=== PATIENT | male | born 1965 | race Caucasian/White ===

== ENCOUNTER 2018-06-21 22:13 | Outpatient (REF) | payer BC, SELFPAY ==
[2018-06-21 22:30] LABS: HCT 40.5 % (40.0-50.0); HGB 13.3 g/dL (13.5-17.5); Mean Corp. HGB Concentration 32.8 g/dL (32.0-36.0); Mean Corpuscular Hemoglobin 28.2 pg (27.0-33.0); Mean Corpuscular Volume 85.8 fL (80-95); Platelet Count 416 x1000/uL (130-400); RBC 4.72 m/cumm (4.50-6.00); RBC Distribution Width 13.7 % (11.8-14.1); White Blood Cell Count 9.71 k/cumm (4.4-10.8)
[2018-06-21 22:41] LABS: ALT 18 U/L (12-78); AST 13 U/L (15-37); Albumin 3.4 g/dL (3.4-5.0); Alkaline Phosphatase 187 U/L (46-116); Anion Gap 9.2 mmol/L (3-11); BUN 9 mg/dL (7-18); Bilirubin, Total 0.2 mg/dL (0.2-1.0); CO2 26.8 mmol/L (21.0-32.0); CREATININE 0.75 mg/dL (0.70-1.30); Calcium 8.7 mg/dL (8.5-10.1); Chloride 100 mmol/L (98-107); Cholesterol 158 mg/dL (50-200); Glucose 182 mg/dL (70-100); HDL Cholesterol 41 mg/dL (40-60); LDL CHOLESTEROL 92 mg/dL (<100); Potassium 4.2 mmol/L (3.5-5.1); Sodium 136 mmol/L (136-145); Total Protein 7.5 g/dL (6.4-8.2); Triglyceride 127 mg/dL (30-150)
[2018-06-21 22:55] LABS: Bilirubin, Direct 0.08 mg/dL (0.00-0.20)
== END 2018-06-21 22:33 ==
LOC: NCHCN 22:13
PROVIDERS: PCP Internal Medicine; Visit Provider Internal Medicine
DX: E11.65 Type 2 diabetes mellitus with hyperglycemia (principal); I25.10 Atherosclerotic heart disease of native coronary artery without angina pectoris; G40.309 Generalized idiopathic epilepsy and epileptic syndromes, not intractable, without status epilepticus; J06.9 Acute upper respiratory infection, unspecified
CPT/HCPCS: 80048; 80061; 80076; 83721; 85027

== ENCOUNTER 2020-03-27 18:36 | Outpatient (REF) | payer BC, SELFPAY ==
[2020-03-27 22:17] LABS: HCT 42.7 % (40.0-50.0); HGB 13.9 g/dL (13.5-17.5); MCH 28.6 pg (27.0-33.0); MCHC 32.6 % (32.0-36.0); MCV 87.9 fL (80-95); MPV 10.7 fL (8.0-11.0); Platelet Count 388 10^3/uL (130-400); RBC 4.86 10^6/uL (4.36-5.78); RDW 13.6 % (11.8-14.1); RDW-SD 43.8 fL; WBC 8.34 10^3/uL (4.4-10.8)
[2020-03-27 23:03] LABS: ALT 12 U/L (16-63); AST 15 U/L (15-37); Albumin 3.7 g/dL (3.4-5.0); Alkaline Phosphatase 182 U/L (46-116); Anion Gap 7.4 mmol/L (3-11); BUN 10 mg/dL (7-18); Bilirubin, Total 0.2 mg/dL (0.2-1.0); CO2 27.6 mmol/L (21.0-32.0); CREATININE 0.87 mg/dL (0.70-1.30); Calcium 8.5 mg/dL (8.5-10.1); Calculated LDL 83 mg/dL (<100); Chloride 103 mmol/L (98-107); Cholesterol 152 mg/dL (<200); Folate 7.1 ng/mL (8.6-20.0); Glucose 301 mg/dL (74-106); HDL Cholesterol 44 mg/dL (40-60); Potassium 4.3 mmol/L (3.5-5.1); Sodium 138 mmol/L (136-145); Total Protein 7.5 g/dL (6.4-8.2); Triglyceride 126 mg/dL (<150)
[2020-03-27 23:22] LABS: NT-proBNP 114 pg/mL (<300)
== END 2020-03-27 18:56 ==
LOC: NCHCN 18:36
PROVIDERS: PCP Internal Medicine; Visit Provider Internal Medicine
DX: Z00.00 Encounter for general adult medical examination without abnormal findings (principal); E11.9 Type 2 diabetes mellitus without complications; I25.10 Atherosclerotic heart disease of native coronary artery without angina pectoris; E66.9 Obesity, unspecified
CPT/HCPCS: 80053; 80061; 85027; 82746; 83880

== ENCOUNTER 2021-02-07 02:41 | Outpatient (CLI) | payer BC, SELFPAY ==
[2021-02-08 10:10] LABS: HBs Antibody, Quant <3.1 mIU/mL (See Note); Hepatitis B Surface Ab Negative (See Note)
[2021-02-08 10:36] LABS: Varicella IgG Antibody Positive (See Note)
[2021-02-08 10:39] LABS: Measles IgG Antibody Positive (See Note)
[2021-02-08 10:41] LABS: Mumps Antibody IgG Negative (See Note)
[2021-02-08 10:44] LABS: Rubella IgG Ab (UVM) Positive (See Note)
[2021-02-11 13:54] LABS: TB Interpretation Negative (Negative); TB1 Ag minus Nil 0.02 IU/ml; TB2 Ag minus Nil 0.03 IU/mL
== END 2021-02-07 02:42 | disposition home or self-care (01) ==
LOC: LBO 02:41
PROVIDERS: PCP Internal Medicine; Visit Provider Nurse Practitioner Family
DX: Z02.1 Encounter for pre-employment examination (principal)
CPT/HCPCS: 36415; 86706; 86787; 86480; 86735; 86762; 86765

== ENCOUNTER 2021-04-01 17:05 | Outpatient (REF) | payer BC, SELFPAY ==
[2021-04-01 16:14] LABS: Anion Gap 9.1 mmol/L (3-11); BUN 15 mg/dL (7-18); CO2 27.9 mmol/L (21.0-32.0); CREATININE 0.8 mg/dL (0.70-1.30); Calcium 8.7 mg/dL (8.5-10.1); Calculated LDL 110 mg/dL (<100); Chloride 101 mmol/L (98-107); Cholesterol 182 mg/dL (<200); Glucose 169 mg/dL (74-106); HDL Cholesterol 51 mg/dL (40-60); Potassium 4.3 mmol/L (3.5-5.1); Sodium 138 mmol/L (136-145); Triglyceride 106 mg/dL (<150)
[2021-04-01 17:11] LABS: Hemoglobin A1C 7.3 % (<5.7)
== END 2021-04-01 17:06 | disposition home or self-care (01) ==
LOC: NCHCN 17:05
PROVIDERS: PCP Internal Medicine; Visit Provider Internal Medicine
DX: E11.9 Type 2 diabetes mellitus without complications (principal); I25.10 Atherosclerotic heart disease of native coronary artery without angina pectoris; E66.9 Obesity, unspecified
CPT/HCPCS: 80048; 80061; 83036

== ENCOUNTER 2021-09-30 15:29 | Outpatient (REF) | payer BC, SELFPAY ==
[2021-09-30 15:28] LABS: Calculated LDL 80 mg/dL (<100); Cholesterol 146 mg/dL (<200); HDL Cholesterol 51 mg/dL (40-60); Triglyceride 79 mg/dL (<150)
== END 2021-09-30 15:30 | disposition home or self-care (01) ==
LOC: NCHCN 15:29
PROVIDERS: PCP Internal Medicine; Visit Provider Internal Medicine
DX: E11.9 Type 2 diabetes mellitus without complications (principal); I25.10 Atherosclerotic heart disease of native coronary artery without angina pectoris; R60.0 Localized edema
CPT/HCPCS: 80061

== ENCOUNTER 2022-10-20 12:42 | Outpatient (REF) | payer BC, SELFPAY ==
[2022-10-20 17:19] LABS: HCT 44.8 % (40.0-50.0); MCH 30.1 pg (27.0-33.0); MCHC 33.5 % (32.0-36.0); MCV 90 fL (80-95); MPV 10.6 fL (8.0-11.0); Platelet Count 375 10^3/uL (130-400); RBC 4.98 10^6/uL (4.36-5.78); RDW 13.2 % (11.8-14.1); RDW-SD 43.3 fL; WBC 9.38 10^3/uL (4.4-10.8)
[2022-10-20 17:43] LABS: Hemoglobin A1C 6.7 % (<5.7)
[2022-10-20 17:47] LABS: ALT 21 U/L (16-63); AST 16 U/L (15-37); Albumin 3.7 g/dL (3.4-5.0); Alkaline Phosphatase 168 U/L (46-116); Anion Gap 9.5 mmol/L (3-11); BUN 11 mg/dL (7-18); Bilirubin, Total 0.2 mg/dL (0.2-1.0); CO2 28.5 mmol/L (21.0-32.0); CREATININE 0.9 mg/dL (0.70-1.30); Calculated LDL 88 mg/dL (<100); Chloride 101 mmol/L (98-107); Cholesterol 160 mg/dL (<200); Estimated GFR 100.24 (mL/min/1.73m2); Glucose 285 mg/dL (74-106); HDL Cholesterol 52 mg/dL (40-60); Potassium 4.7 mmol/L (3.5-5.1); Sodium 139 mmol/L (136-145); Total Protein 7.6 g/dL (6.4-8.2); Triglyceride 101 mg/dL (<150)
== END 2022-10-20 12:43 | disposition home or self-care (01) ==
LOC: NCHCN 12:42
PROVIDERS: PCP Internal Medicine; Visit Provider Internal Medicine
DX: Z00.00 Encounter for general adult medical examination without abnormal findings (principal)
CPT/HCPCS: 80053; 80061; 85027; 83036

== ENCOUNTER 2023-05-18 16:47 | Outpatient (REF) | payer BC, SELFPAY ==
--- NOTE | 2023-05-18 11:40 | SKI_PTH ---
PATIENT: Corwin Rosas LOC: [facility] U#:[id number] AGE/SX: 58/M ROOM: RE05/18/[address]: Socorro Lucas : 1965 BED: DIS: 05/18/2023 SPEC #: [id number] RECD: 05/18/23 17:46 STATUS: SUE REQ #: [id number] GOLDEN: 05/18/23 11:[address]: Socorro Lucas DEPT: Surgical Specimen RECD BY: Deidre Harris ENTERED: 05/18/23 17:46 SP TYPE: SKI OTHR DR: Blake Vasquez Tissues: 1 - SKIN BIOPSY(SHAVE/PUNCH) Procedures: SKIN LEVEL 4 Comments: [id number]
== END 2023-05-18 16:48 | disposition home or self-care (01) ==
LOC: LBN 16:47
PROVIDERS: PCP Internal Medicine; Visit Provider Registered Nurse Maternal Newborn
DX: H61.91 Disorder of right external ear, unspecified (principal); C44.212 Basal cell carcinoma of skin of right ear and external auricular canal
CPT/HCPCS: 88305

== ENCOUNTER 2023-06-10 12:21 | Outpatient (REF) | payer BC, SELFPAY ==
--- NOTE | 2023-06-10 11:30 | SKI_PTH ---
PATIENT: Corwin Rosas LOC: [facility] U#:[id number] AGE/SX: 58/M ROOM: RE06/10/[address]: Wilbert Wilson MD : 1965 BED: DIS: 06/10/2023 SPEC #: [id number] RECD: 06/10/23 17:08 STATUS: SUE REMee #: [id number] GOLDEN: 06/10/23 11:[address]: Wilbert Wilson DEPT: Surgical Specimen RECD BY: Deidre Harris ENTERED: 06/10/23 17:10 SP TYPE: SKI OTHR DR: Blake Vasquez Tissues: 1 - SKIN BIOPSY(SHAVE/PUNCH) Procedures: SKIN LEVEL 4 Comments: [id number]
== END 2023-06-10 12:22 | disposition home or self-care (01) ==
LOC: LBN 12:21
PROVIDERS: PCP Internal Medicine; Referring Provider Otolaryngology; Visit Provider Otolaryngology
DX: C44.212 Basal cell carcinoma of skin of right ear and external auricular canal (principal)
CPT/HCPCS: 88305

== ENCOUNTER 2023-07-06 17:21 | Outpatient (REF) | payer BC, SELFPAY ==
[2023-07-06 21:24] LABS: ALT 24 U/L (16-63); AST 18 U/L (15-37); Albumin 3.6 g/dL (3.4-5.0); Alkaline Phosphatase 188 U/L (46-116); Anion Gap 11.8 mmol/L (3-11); BUN 11 mg/dL (7-18); Bilirubin, Total 0.2 mg/dL (0.2-1.0); CO2 27.2 mmol/L (21.0-32.0); Calcium 8.9 mg/dL (8.5-10.1); Calculated LDL 64 mg/dL (<100); Chloride 101 mmol/L (98-107); Cholesterol 150 mg/dL (<200); Estimated GFR 87.78 (mL/min/1.73m2); Glucose 244 mg/dL (74-106); HDL Cholesterol 54 mg/dL (40-60); Potassium 4.1 mmol/L (3.5-5.1); Sodium 140 mmol/L (136-145); Total Protein 7.4 g/dL (6.4-8.2); Triglyceride 161 mg/dL (<150)
== END 2023-07-06 17:22 | disposition home or self-care (01) ==
LOC: NCHCN 17:21
PROVIDERS: PCP Family Medicine; Visit Provider Family Medicine
DX: E11.40 Type 2 diabetes mellitus with diabetic neuropathy, unspecified (principal)
CPT/HCPCS: 80053; 80061; 83036

== ENCOUNTER → 2023-11-20 21:45 | Emergency (ER) | payer BC, SELFPAY ==
[2023-11-20] VITALS (24 sets, daily range): BP systolic 113–157; BP diastolic 61–130; PULSE 88–97; RESP 20–27; TEMP 36.9; O2SAT 92–96
--- NOTE | 2023-11-20 21:45 | RT.EKG_ITS ---
APPROVED REPORT Exam: Resting ECG Reason for Exam: short of breath Patient Location: E HR:91 bpm ECG Measurements Heart Rate 91 AXIS WA 182 P 44 QRSd 103 QRS 22 QT 357 T 62 QTc 441 Conclusion Sinus rhythm...normal P axis, V-rate 60- 99 Probable left atrial enlargement...P >50mS, <-0.10mV V1 Inferior infarct, old...Q >35mS, II III aVF Physician: no stemi
--- NOTE | 2023-11-20 22:15 | DI.RAD_ITS ---
Exam(s) XR PORTABLE CHEST AP EXAM: XR PORTABLE CHEST AP CLINICAL HISTORY: left chest pain with inspiration TECHNIQUE: 2D digital imaging was performed of the chest. One image was obtained. An AP view was ob tained. COMPARISON: CR PORTABLE CHEST ONE VIEW from 03/10/[address] CHEST PE CTA from 11/20/2023 FINDINGS: MEDIASTINUM: Normal. HEART: Normal. PULMONARY VASCULATURE: Normal. LUNGS: There is atelectasis seen in the left lung base. No focal consolidating infiltrate is present . PLEURAL SPACE: No pleural effusion or pneumothorax. BONE:Within normal limits for the patient's age. OTHER FINDINGS:There is again seen elevation of the right hemidiaphragm. IMPRESSION: Left basilar atelectasis. No focal consolidating infiltrate. DATA REPOSITORY: RADIATION DOSE DELIVERED:
[2023-11-20 22:22] LABS: Absolute Eosinophil Count 0.15 10^3/uL (0.0-0.7); Absolute Lymphocyte Count 3.98 10^3/uL (1.2-3.4); Absolute Monocyte Count 1.43 10^3/uL (0.1-0.8); Absolute Neutrophil Count 7.14 10^3/uL (1.2-6.7); Basophils % 0.5 %; Eosinophils % 1.2 %; HCT 45.3 % (40.0-50.0); HGB 14.8 g/dL (13.5-17.5); Immature Grans % 0.8 %; Lymphocytes % 30.9 %; MCHC 32.7 % (32.0-36.0); MCV 89 fL (80-95); MPV 9.1 fL (8.0-11.0); Monocytes % 11.1 %; Neutrophils % 55.5 %; Platelet Count 425 10^3/uL (130-400); RDW 12.9 % (11.8-14.1); RDW-SD 42.2 fL; WBC 12.87 10^3/uL (4.4-10.8)
[2023-11-20 22:23] LABS: Absolute Basophil Count 0.06 10^3/uL (0.0-0.2)
--- NOTE | 2023-11-20 22:32 | W.ED.GENAD ---
Discharge Plan Disposition Patient Disposition: Home Condition: Good Discharge Details Clinical Impression: Pneumonia, Muscle spasm Primary Care Provider: Carmela Mike ED Provider: Ezekiel Alex Home Meds and New Rx's Prescriptions: New doxycycline hyclate 100 mg tablet 100 mg PO BID Qty: 20 0RF Continued ezetimibe 10 mg tablet 10 mg PO DAILY glimepiride 4 mg tablet 4 mg PO DAILY nitroglycerin 0.4 mg tablet, sublingual 0.4 mg sublingual Q5M PRN Rx Instructions: do not exceed 3 doses per episode metoprolol succinate 50 mg tablet extended release 24 hr 50 mg PO DAILY rosuvastatin 40 mg tablet 40 mg PO DAILY Rybelsus 3 mg tablet 3 mg PO DAILY Patient Comments: stopped about a week ago lamotrigine 200 MG tablet 200 mg PO BID phenytoin sodium extended [Dilantin Extended] 100 MG capsule 700 mg PO .QHS metformin 500 MG tablet 500 mg PO BID aspirin [Adult Low Dose Aspirin] 81 mg tablet,delayed release (DR/EC) 81 mg PO DAILY amoxicillin-pot clavulanate 875-125 mg tablet Patient Comments: TAKE ONE TABLET BY MOUTH TWICE A DAY FOR 7 DAYS Discharge Instructions Instructions: Community-Acquired Pneumonia, Adult (DC) Additional Instructions: At this time your laboratory workup has returned reassuring. There is no clear evidence of a cardiac cause of your current symptoms. As we discussed together I am concerned for potential mild pneumonia that was seen on your CAT scan. Since you are just about to start the Augmentin, please continue this prescription as prescribed. This should cover community-acquired pneumonia well. If you develop fever, worsening cough, or worsening pain please transition to the doxycycline instead. This prescription has been provided. 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 The Lidoderm patch has been applied. If this is found to be very helpful and effective you can get [id number] Lidoderm patches to reapply in that area. If you notice any worsening of your symptoms, or any new symptoms such as vomiting, diarrhea, fever, chills, shortness of breath, chest pain, numbness, weakness, or fainting , please return immediately to the emergency department for reevaluation. Please follow up with your primary care provider as soon as possible for reassessment and reevaluation. As always, it was a pleasure participating in your medical care today. Referrals: Carmela Mike [Primary Care Provider] - [facility] General Date/Time Provider Initiated Documentation: 11/20/23 21:53. HPI Narrative: 58-year-old male with a past medical history of previous heart attack in 2016 with 2 stents, diabetes mellitus, hypertension, high cholesterol, distant tobacco use 30 years ago, who presents today with shortness of breath and chest tightness. Patient states that it began yesterday morning, and is present in the left chest with tightness. He feels short of breath with activity and exertion. The tightness does not worsen with exertion, but it does worsen with movement left shoulder and muscular engagement. He also admits to a stabbing pain in his left shoulder blade when he moves his shoulder in certain ways. He denies any diaphoresis, numbness or tingling, vomiting or diarrhea. He states that this feels very different than his previous heart attack. He does take a daily baby aspirin. No other complaints at this time. No other modifying factors. No hemoptysis. No calf swelling or tenderness. No history of PEs. No recent long trips surgeries or procedures. Related Data Home Medications ?Medication ?Instructions ?Recorded ?Confirmed lamotrigine 200 mg tablet 200 mg PO BID 03/10/17 11/20/23 metformin 500 mg tablet 500 mg PO BID 03/10/17 11/20/23 phenytoin sodium extended 100 mg 700 mg PO .QHS 03/10/17 11/20/23 capsule (Dilantin Extended) ezetimibe 10 mg tablet 10 mg PO DAILY 04/08/23 11/20/23 glimepiride 4 mg tablet 4 mg PO DAILY 04/08/23 11/20/23 metoprolol succinate 50 mg 50 mg PO DAILY 04/08/23 11/20/23 tablet,extended release 24 hr nitroglycerin 0.4 mg sublingual 0.4 mg sublingual Q5M PRN 04/08/23 11/20/23 tablet rosuvastatin 40 mg tablet 40 mg PO DAILY 04/08/23 11/20/23 semaglutide 3 mg tablet (Rybelsus) 3 mg PO DAILY 04/08/23 11/20/23 amoxicillin 875 mg-potassium tab 07/26/24 clavulanate 125 mg tablet aspirin 81 mg tablet,delayed 81 mg PO DAILY 11/20/23 11/20/23 release (Adult Low Dose Aspirin) doxycycline hyclate 100 mg tablet 100 mg PO BID #20 tabs 11/21/23 Previous Rx's ?Medication ?Instructions ?Recorded doxycycline hyclate 100 mg tablet 100 mg PO BID #20 tabs 11/21/23 Allergies Allergy/AdvReac Type Severity Reaction Status Date / Time codeine AdvReac increased Verified 11/20/23 22:05 seizures General Stated Complaint: SOB SHERRIE: 2 Review of Systems All systems reviewed & are unremarkable except as noted in HPI and below Exam Narrative Exam Narrative: 1.Const: Well-nourished, Well-developed, appearing stated age 2.Eyes: PERRL, no conjunctival injection, and symmetrical lids. 3.ENT: Atraumatic external nose and ears. Moist MM. Neck: Symmetric, trachea midline, No thyromegaly. 4.CVS: +S1/S2, No murmurs or gallops. Peripheral pulses 2+ and equal in all extremities. Brisk capillary refill in all extremities. 5.RESP: Unlabored respiratory effort. Clear to auscultation bilaterally. No wheezes rales or rhonchi. Mild reproducible tenderness over the rhomboid major muscles. 6.GI: Soft, Nontender/Nondistended, No hepatosplenomegaly. No guarding or rebound. 7.MSK: Normocephalic/Atraumatic, Extremities w/o deformity or ttp No cyanosis or clubbing, Normal movement of all extremities 8.Skin: Warm, Dry. No rashes or lesions. 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 Sensation grossly intact, no focal neurologic deficits. 10.Psych: (AAO) x3. Appropriate mood and affect Course Vital Signs Vital signs: Vital Signs Temperature 36.9 C 11/20/23 21:51 Pulse 95 H 11/20/23 21:51 Respiratory Rate 27 H 11/20/23 21:51 Blood Pressure 157/130 H 11/20/23 21:51 Pulse Oximetry 95 11/20/23 21:51 Temperature 36.9 C 11/20/23 21:57 Temperature Source Oral 11/20/23 21:57 Pulse 95 H 11/20/23 21:57 Respiratory Rate 27 H 11/20/23 21:57 Respiratory Effort Short of Breath, Labored 11/20/23 21:57 Respiratory Depth Normal 11/20/23 21:57 Respiratory Pattern Normal 11/20/23 21:57 Blood Pressure 133/73 11/20/23 21:57 Blood Pressure Position Supine 11/20/23 21:57 Pulse Oximetry 95 11/20/23 21:57 Oxygen Delivery Method Room Air 11/20/23 21:57 Oxygen Flow Rate 0 11/20/23 21:51 Pain Level 2 11/20/23 21:57 Comment sharp pain that hAS BEEN HIGH 9/10 WORSE WITH A BREATH OR BELCHING 11/20/23 21:51 Lab/Test Results Lab/Test Results: Laboratory Tests Range/Units 11/20/23 22:12 WBC (4.4-10.8) 10^3/uL 12.87 H RBC (4.36-5.78) 10^6/uL 5.10 Hgb (13.5-17.5) g/dL 14.8 Hct (40.0-50.0) % 45.3 MCV (80-95) fL 89 MCH (27.0-33.0) pg 29.0 MCHC (32.0-36.0) % 32.7 RDW (11.8-14.1) % 12.9 Plt Count (130-400) 10^3/uL 425 H MPV (8.0-11.0) fL 9.1 Immature Gran % % 0.8 Neutrophils % % 55.5 Lymphocytes % % 30.9 Monocytes % % 11.1 Eosinophils % % 1.2 Basophils % % 0.5 Nucleated RBC % (0.0-0.3) % 0.0 Absolute Neutrophils (1.2-6.7) 10^3/uL 7.14 H Absolute Lymphocytes (1.2-3.4) 10^3/uL 3.98 H Absolute Monocytes (0.1-0.8) 10^3/uL 1.43 H Absolute Eosinophils (0.0-0.7) 10^3/uL 0.15 Absolute Basophils (0.0-0.2) 10^3/uL 0.06 Medical Decision Making 58-year-old male with a past medical history of previous heart attack in 2016 with 2 stents, diabetes mellitus, hypertension, high cholesterol, distant tobacco use 30 years ago, who presents today with shortness of breath and chest tightness. Patient states that it began yesterday morning, and is present in the left chest with tightness. He feels short of breath with activity and exertion. The tightness does not worsen with exertion, but it does worsen with movement left shoulder and muscular engagement. He also admits to a stabbing pain in his left shoulder blade when he moves his shoulder in certain ways. He denies any diaphoresis, numbness or tingling, vomiting or diarrhea. He states that this feels very different than his previous heart attack. He does take a daily baby aspirin. No other complaints at this time. No other modifying factors. No hemoptysis. No calf swelling or tenderness. No history of PEs. No recent long trips surgeries or procedures. Of note patient is currently on Augmentin for tooth infection. He just started it yesterday. Exam demonstrates well-appearing male, stable vital signs, mild reproducible tenderness over the left rhomboid muscles. No other signs of trauma or tenderness. No pain with movement of the shoulder itself otherwise. Differential appears inconsistent with dissection. PE less likely but on the differential. We will get a D-dimer. Cardiac etiology/ACS is on the differential but less likely. Concern for musculoskeletal etiology, including rhomboid muscle strain. Will evaluate for these etiologies, give full dose aspirin, monitor closely and reassess. EKG shows no evidence of STEMI. 2:26 AM Laboratory workup shows an elevated D-dimer, mild white count of 12.8, mild left shift. Troponin normal, proBNP normal suggesting no signs of heart strain, lipase normal. CT scan was ordered and shows evidence of atelectatic changes with scattered patchy groundglass opacities within the lungs concerning for potential inflammatory or infectious process. The patient's elevated white count and symptoms I do feel that there certainly may be an infectious component. Augmentin has been shown to be effective for community-acquired pneumonia in this area with current resistant patterns. We will recommend continuation of Augmentin use for the time being. Patient's repeat troponin is normal, pain is improved. 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 Symptoms at this time appear to be clinically inconsistent with ACS, PE or dissection. I do feel that the patient is stable for discharge with close follow-up on an outpatient basis. Lidoderm patch was applied to the patient's back and he tolerated this well. Recommend continued stretching, Lidoderm patch application as needed, and continued antibiotic use. Discussed red flags for which to return. I have extensively reviewed the treatment plan and discharge instructions with the patient and their family. I have addressed all patient concerns at this time. The patient and family was made aware of what symptoms to monitor for that would warrant a return to the emergency department. Discussed the plan with the patient and family, they demonstrate verbal understanding and agreement with our assessment and plan at this time. The documentation in this chart was dictated using [email or web address] dictation software. Please excuse any dictation errors. FINDINGS: Pulmonary arteries: There is no evidence of filling defects within the pulmonary arterial circulation to suggest pulmonary embolism. The pulmonary arteries are not enlarged. Aorta: The ascending, transverse and descending thoracic aorta appear normal without evidence of dissection, aneurysmal dilatation, pseudoaneurysm or aortic contrast leakage. The aorta and great vessels appear normal. Lungs: There is heterogeneous attenuation of the pulmonary parenchyma, consistent with air trapping from underlying small airways disease. Atelectatic changes and scarring present at the lung bases bilaterally. Scattered patchy ground-glass opacities within the lungs. These findings are nonspecific and may represent hypoventilatory change,edema, hemorrhage, or an infectious/inflammatory process (acute or chronic). Pleural spaces: There is no evidence of pneumothorax. There are no pleural effusions present. Heart: The cardiac structures are normal. Coronary arteries: There is moderate atherosclerotic calcification of the coronary arteries Lymph nodes: There is no evidence of lymphadenopathy. Bones/joints: The spine, sternum, ribs, and pectoral girdles show no evidence of acute abnormality. Soft tissues: There are no soft tissue masses or fluid collections. The upper abdominal viscera are unremarkable. Other findings: The mediastinal structures are normal. IMPRESSION: 1. There is heterogeneous attenuation of the pulmonary parenchyma, consistent with air trapping from underlying small airways disease. 2. Atelectatic changes and scarring present at the lung bases bilaterally. Scattered patchy groundglass opacities within the lungs. These findings are nonspecific and may represent hypoventilatory change,edema, hemorrhage, or an infectious/inflammatory process (acute or chronic). 3. There is no evidence of filling defects within the pulmonary arterial circulation to suggest pulmonary embolism. Thank you for allowing us to participate in the care of your patient. Dictated and Authenticated by: Steve Mattson MD 11/21/2023 12:21 AM Eastern Time ([place] & Can Quality:SDOH Health Related Social Needs: No Data to Display PFSH All Active Problems (Updated 11/21/23 @ 01:48 by Ezekiel Alex DO) Muscle spasm (Acute) Pneumonia (Acute) Medical History Basal cell carcinoma of right ear Lesion of skin of right ear Neuropathy due to type 2 diabetes mellitus Atherosclerosis of coronary artery without angina pectoris Screening for cancer Disorder of skin or subcutaneous tissue Edema Actinic keratosis [place] Chronic disease of tonsils and adenoids Idiopathic generalized epilepsy OCD (obsessive compulsive disorder) Anxiety disorder Obesity Type 2 diabetes mellitus without complication Surgical History History of cryosurgery Family History Mother Multiple sclerosis Social History Smoking/Tobacco Use Status: Former Tobacco Use Smoking risk assessment performed?: Yes Alcohol Intake: former Substance use type: does not use Housing: house Do you feel safe at home: Yes Do you feel safe in your relationship?: Yes
[2023-11-20 22:37] LABS: PTT Activated 29.4 sec (23.6-32.8); Prothrombin Time 10.1 sec (9.1-11.1)
[2023-11-20] MEDS: Aspirin 81 MG CHEW 324 MG CH (22:37)
[2023-11-20 22:46] LABS: ALT 21 U/L (16-63); AST 11 U/L (15-37); Albumin 3.6 g/dL (3.4-5.0); Alkaline Phosphatase 216 U/L (46-116); Anion Gap 9.5 mmol/L (3-11); BUN 12 mg/dL (7-18); Bilirubin, Total 0.26 mg/dL (0.2-1.0); CO2 28.5 mmol/L (21.0-32.0); CREATININE 0.8 mg/dL (0.70-1.30); Calcium 8.9 mg/dL (8.5-10.1); Chloride 101 mmol/L (98-107); Estimated GFR 103.22 (mL/min/1.73m2); Glucose 117 mg/dL (74-106); Lipase 59 U/L (16-77); NT-proBNP 73 pg/mL (<300); Potassium 3.9 mmol/L (3.5-5.1); Sodium 139 mmol/L (136-145); Total Protein 8.5 g/dL (6.4-8.2); Troponin I < 50 ng/L (< or =60)
[2023-11-20 23:10] LABS: D-Dimer 812 ng/mlFEU (<500)
--- NOTE | 2023-11-20 23:15 | DI.CT_ITS ---
Exam(s) CT CHEST PE CTA EXAM: CT CHEST PE CTA CLINICAL HISTORY: left chest pain, elevated dimer, eval for PE. TECHNIQUE: Imaging Protocol: Axial CT angiography was performed with multi-slice acquisition and mu lti-planar and/or 3D reconstructions. CONTRAST MATERIAL: Intravenous: Omnipaque 350 COMPARISON: CR,XR XR PORTABLE CHEST AP from 11/20/2023 FINDINGS: The examination is limited due to patient motion artifact. Tracheobronchial tree: Patent where visualized. Pulmonary parenchyma: There are areas of atelectasis seen in the lung bases particularly the right mi ddle and right lower lobes. There is a calcified granuloma in the right upper lobe. Pulmonary Arteries: Subsegmental level pulmonary arteries are compromised secondary to patient motion artifact. Within the limits of the examination, no pulmonary embolism is present. Mediastinum and Jenny: No dominant adenopathy or fluid collection. The esophagus is unremarkable. Visualized thyroid gland: Unremarkable. Pleura: No effusion or pneumothorax. Heart: The heart is not dilated. Coronary artery calcification is present. No pericardial effusion. Aorta: Thoracic aorta non-dilated. No evidence of dissection. Upper abdomen: Unremarkable. Soft tissues: Unremarkable. Bones: Within normal limits for the patient's age. IMPRESSION: 1. Within the limits of the examination, no pulmonary embolism is present. 2. No evidence of thoracic aortic dissection or aneurysm. 3. Atelectasis or scarring is seen in the lung bases. RADIATION DOSE DELIVERED: Total DLP DATA REPOSITORY: All CT scans at this facility are submitted to the National Radiology Data Registry (NRDR) Dose Index Registry (DIR) with the [employer] (ACR). RADIATION OPTIMIZATION: All CT scans at this facility use at least one of these dose optimization te chniques: automated exposure control; mA and/or kV adjustment per patient size (includes targeted exa ms where dose is matched to clinical indication); or iterative reconstruction.
--- NOTE | 2023-11-20 23:33 | DI.VRAD_ITS ---
PROCEDURE INFORMATION: Exam: XR Chest Exam date and time: 11/20/2023 11:18 PM Age: 58 years old Clinical indication: Pain; Chest pressure TECHNIQUE: Imaging protocol: Radiologic exam of the chest. Views: 1 view. COMPARISON: CR PORTABLE CHEST ONE VIEW 03/10/2017 1:37 PM FINDINGS: Lungs: There is diffuse mild nonspecific prominence of the pulmonary interstitium. Pleural spaces: There may be a small left pleural effusion. Heart/Mediastinum: The cardiac structures are normal. Bones/joints: The skeletal structures and soft tissues show no evidence of fracture or other acute processes. Soft tissues: The soft tissues of the extrathoracic region are unremarkable. Intraperitoneal space: There is a small amount of free intraperitoneal air. IMPRESSION: 1. There is diffuse mild nonspecific prominence of the pulmonary interstitium. 2. There may be a small left pleural effusion. Dictated and Authenticated by: Steve Mattson MD. Ordering:GIOVANNA Falcon MD
[2023-11-20] MEDS: Omnipaque 350 MG/ML 100 ML BTL IJ (23:55)
[2023-11-20] MEDS: Normal Saline - Diluent 50 ML VIAL IJ (23:55)
[2023-11-21] VITALS (19 sets, daily range): BP systolic 116–141; BP diastolic 64–82; PULSE 88–96; RESP 17–33; TEMP 36.7; O2SAT 93–95
--- NOTE | 2023-11-21 00:21 | DI.VRAD_ITS ---
PROCEDURE INFORMATION: Exam: CTA Chest With Contrast Exam date and time: 11/20/2023 11:51 PM Age: 58 years old Clinical indication: Pain; Shortness of breath; Chest pressure TECHNIQUE: Imaging protocol: Computed tomographic angiography of the chest with contrast. Exam focused on the arteries. 3D rendering (Not supervised by radiologist): MIP and/or 3D reconstructed images were created by the technologist. Contrast material: OMNIPAQUE 350; Contrast volume: 100 ml; Contrast route: INTRAVENOUS (IV); COMPARISON: CR XR PORTABLE CHEST AP 11/20/2023 11:18 PM FINDINGS: Pulmonary arteries: There is no evidence of filling defects within the pulmonary arterial circulation to suggest pulmonary embolism. The pulmonary arteries are not enlarged. Aorta: The ascending, transverse and descending thoracic aorta appear normal without evidence of dissection, aneurysmal dilatation, pseudoaneurysm or aortic contrast leakage. The aorta and great vessels appear normal. Lungs: There is heterogeneous attenuation of the pulmonary parenchyma, consistent with air trapping from underlying small airways disease. Atelectatic changes and scarring present at the lung bases bilaterally. Scattered patchy ground-glass opacities within the lungs. These findings are nonspecific and may represent hypoventilatory change,edema, hemorrhage, or an infectious/inflammatory process (acute or chronic). Pleural spaces: There is no evidence of pneumothorax. There are no pleural effusions present. Heart: The cardiac structures are normal. Coronary arteries: There is moderate atherosclerotic calcification of the coronary arteries. Lymph nodes: There is no evidence of lymphadenopathy. Bones/joints: The spine, sternum, ribs, and pectoral girdles show no evidence of acute abnormality. Soft tissues: There are no soft tissue masses or fluid collections. The upper abdominal viscera are unremarkable. Other findings: The mediastinal structures are normal. IMPRESSION: 1. There is heterogeneous attenuation of the pulmonary parenchyma, consistent with air trapping from underlying small airways disease. 2. Atelectatic changes and scarring present at the lung bases bilaterally. Scattered patchy ground-glass opacities within the lungs. These findings are nonspecific and may represent hypoventilatory change,edema, hemorrhage, or an infectious/inflammatory process (acute or chronic). 3. There is no evidence of filling defects within the pulmonary arterial circulation to suggest pulmonary embolism. Dictated and Authenticated by: Steve Mattson MD. Ordering:GIOVANNA Falcon MD
[2023-11-21 01:25] LABS: Troponin I < 50 ng/L (< or =60)
[2023-11-21] MEDS: Lidocaine 5% Patch 1 PATCH TP (01:52)
== END | disposition home or self-care (01) ==
LOC: ER 11-21 01:48 → RED 11-21 02:00
PROVIDERS: Emergency Provider Student in an Organized Health Care Education/Training Program; PCP Family Medicine
DX: J18.9 Pneumonia, unspecified organism (principal); R06.02 Shortness of breath; I10 Essential (primary) hypertension; Z86.74 Personal history of sudden cardiac arrest; Z95.5 Presence of coronary angioplasty implant and graft
CPT/HCPCS: 36415; 71275; 80053; 83690; 93005; 99285; 71045; 83880; 84484; 85025; 85379; 85610; 85730; 93010; 99283; J3490

== ENCOUNTER 2023-12-10 18:11 | Emergency (ER) | payer BC, SELFPAY ==
[2023-12-10 18:17] VITALS: BP 124/72; PULSE 107; RESP 17; TEMP 36.3; O2SAT 96
[2023-12-10 18:19] VITALS: BP 124/72; PULSE 107; RESP 17; TEMP 36.3; O2SAT 96
--- NOTE | 2023-12-10 19:15 | DI.RAD_ITS ---
Exam(s) XR CHEST 2V PA LATERAL EXAM: XR CHEST 2V PA LATERAL CLINICAL HISTORY: COUGH TECHNIQUE: 2D digital imaging was performed of the chest. Two images were obtained. PA and lateral views were obtained. COMPARISON: CR,XR XR PORTABLE CHEST AP from 11/20/2023 FINDINGS: MEDIASTINUM: Normal. HEART: Normal. PULMONARY VASCULATURE: Normal. LUNGS: No focal consolidations. PLEURAL SPACE: There is blunting of the left costophrenic angle suggesting a small pleural effusion. BONE:Within normal limits for the patient's age. OTHER FINDINGS:There is again seen elevation of the right hemidiaphragm. IMPRESSION: There has been interval development of a small left pleural effusion. DATA REPOSITORY: RADIATION DOSE DELIVERED:
--- NOTE | 2023-12-10 20:00 | RT.EKG_ITS ---
APPROVED REPORT Exam: Resting ECG Reason for Exam: chest pain Patient Location: E HR:103 bpm ECG Measurements Heart Rate 103 AXIS IA 183 P 29 QRSd 94 QRS 5 QT 334 T 36 QTc 439 Conclusion Sinus 103 normal axis no stemi
--- NOTE | 2023-12-10 20:28 | DI.VRAD_ITS ---
PROCEDURE INFORMATION: Exam: XR Chest Exam date and time: 12/10/2023 7:27 PM Age: 58 years old Clinical indication: Cough TECHNIQUE: Imaging protocol: Radiologic exam of the chest. Views: 2 views. COMPARISON: CT CHEST PE CTA 11/20/2023 11:51 PM FINDINGS: Lungs: Unremarkable. No consolidation. Pleural spaces: There is a small left pleural effusion. Possible trace right effusion. Heart/Mediastinum: Unremarkable. No cardiomegaly. Bones/joints: Unremarkable. IMPRESSION: Small left pleural effusion. Trace right effusion not excludable. Dictated and Authenticated by: Gifty Gandhi MD. Ordering:HowieBARNEY Harris MD
[2023-12-10] MEDS: Benzonatate 100 MG CAP 200 MG PO (21:16)
[2023-12-10] MEDS: Albuterol HFA 8 GM 60 PUFF INH IH (21:16)
--- NOTE | 2023-12-10 21:52 | ED.GENADUL_ITS ---
Discharge Plan Disposition Patient Disposition: Home Condition: Stable Discharge Details Clinical Impression: Cough Primary Care Provider: Carmela Mike ED Provider: Nick Mabry Home Meds and New Rx's Prescriptions: New benzonatate 100 mg capsule 100 mg PO TID PRN (Reason: cough) Qty: 14 0RF No Action ezetimibe 10 mg tablet 10 mg PO DAILY glimepiride 4 mg tablet 4 mg PO DAILY nitroglycerin 0.4 mg tablet, sublingual 0.4 mg sublingual Q5M PRN Rx Instructions: do not exceed 3 doses per episode metoprolol succinate 50 mg tablet extended release 24 hr 50 mg PO DAILY rosuvastatin 40 mg tablet 40 mg PO DAILY Rybelsus 3 mg tablet 3 mg PO DAILY Patient Comments: stopped about a week ago lamotrigine 200 MG tablet 200 mg PO BID phenytoin sodium extended [Dilantin Extended] 100 MG capsule 700 mg PO .QHS metformin 500 MG tablet 500 mg PO BID aspirin [Adult Low Dose Aspirin] 81 mg tablet,delayed release (DR/EC) 81 mg PO DAILY Discharge Instructions Additional Instructions: Symptoms may be secondary to pleurisy. Try taking NSAIDs every 6 hours to help with this. If you do not see a change in symptoms after a few days, you can discontinue the NSAIDs Use albuterol with spacer when you are having significant coughing Cough medication has been prescribed If symptoms are worsening, you are not significantly improving or you have other concerns, please return to the emergency department or follow-up with your primary care provider for reevaluation Discharge Data Discharge Date/Time-TO BE ENTERED AT DEPARTURE: 12/10/23 21:18 HPI General Date/Time Provider Initiated Documentation: 12/10/23 19:18 . Limitations to Documentation: no limitations . Information obtained by: patient . HPI Narrative: 58-year-old gentleman with past medical history of diabetes, seizure disorder, CAD presents for evaluation of pain with coughing. Reports that he was recently diagnosed with pneumonia and took a course of doxycycline. He reports that he is still having some cough. When he takes a deep breath he feels pain. He reports a cough that is worse at nighttime, does not have a productive cough. Denies fever or chills. No nausea or vomiting. He is eating and drinking well, is continuing to work without any difficulty. When working he does not have any chest pain or shortness of breath with exertion Related Data Home Medications ?Medication ?Instructions ?Recorded ?Confirmed lamotrigine 200 mg tablet 200 mg PO BID 03/10/17 12/10/23 metformin 500 mg tablet 500 mg PO BID 03/10/17 12/10/23 phenytoin sodium extended 100 mg 700 mg PO .QHS 03/10/17 12/10/23 capsule (Dilantin Extended) ezetimibe 10 mg tablet 10 mg PO DAILY 04/08/23 12/10/23 glimepiride 4 mg tablet 4 mg PO DAILY 04/08/23 12/10/23 metoprolol succinate 50 mg 50 mg PO DAILY 04/08/23 12/10/23 tablet,extended release 24 hr nitroglycerin 0.4 mg sublingual 0.4 mg sublingual Q5M PRN 04/08/23 12/10/23 tablet rosuvastatin 40 mg tablet 40 mg PO DAILY 04/08/23 12/10/23 semaglutide 3 mg tablet (Rybelsus) 3 mg PO DAILY 04/08/23 12/10/23 aspirin 81 mg tablet,delayed 81 mg PO DAILY 11/20/23 12/10/23 release (Adult Low Dose Aspirin) benzonatate 100 mg capsule 100 mg PO TID PRN cough #14 caps 12/10/23 Previous Rx's ?Medication ?Instructions ?Recorded benzonatate 100 mg capsule 100 mg PO TID PRN cough #14 caps 12/10/23 Allergies Allergy/AdvReac Type Severity Reaction Status Date / Time codeine AdvReac increased Verified 11/20/23 22:05 seizures General Stated Complaint: RespSymp SHERRIE: 4 Exam Narrative Exam Narrative: Review of Systems: All systems reviewed & are unremarkable except as noted in HPI and below Well-developed, no acute distress NCAT PERRL, normal conjunctiva RRR no murmur No chest wall tenderness Unlabored respiratory effort clear breath sounds bilaterally, no tachypnea, no hypoxia Nondistended abdomen Extremities w/o deformity, no cyanosis, no edema No rashes or lesions. no focal neurologic deficits Appropriate mood and affect Course Vital Signs Vital signs: Vital Signs Temperature 36.3 C L 12/10/23 18:17 Pulse 107 H 12/10/23 18:17 Respiratory Rate 17 12/10/23 18:17 Blood Pressure 124/72 12/10/23 18:17 Pulse Oximetry 96 12/10/23 18:17 Temperature 36.3 C L 12/10/23 18:19 Temperature Source Temporal Artery Scan 12/10/23 18:19 Pulse 107 H 12/10/23 18:19 Respiratory Rate 17 12/10/23 18:19 Respiratory Effort Normal, Non-Labored 12/10/23 20:15 Respiratory Depth Normal 12/10/23 20:15 Blood Pressure 124/72 12/10/23 18:19 Blood Pressure Position Sitting 12/10/23 18:19 Pulse Oximetry 96 12/10/23 18:19 Oxygen Delivery Method Room Air 12/10/23 18:19 Oxygen Flow Rate 0 12/10/23 18:19 Pain Level 0 12/10/23 21:15 Medical Decision Making Emergent evaluation of persistent cough. Initial differential includes persistent pneumonia, COVID, less likely to be ACS. Patient prior ED workup reviewed including CTA. No pulmonary embolism, pericardial effusion or significant abnormality noted. The chest x-ray today has the same left lower lobe change, likely scarring. He does not have concerning dose reduction of vital signs. EKG reviewed and independently interpreted, sinus normal axis, no acute ischemic change. Given his history of diabetes, do not feel comfortable treating with steroids, but do recommend trying some NSAIDs as there may be an element of pleurisy. Will also prescribe Tessalon Perles and albuterol to use as needed for coughing. Recommend close re-evaluation if symptoms aren't improving. Medical Records Medical records reviewed: Yes I reviewed the patient's medical records. Quality:SDOH Health Related Social Needs: No Data to Display PFSH All Active Problems Cough (Acute) Muscle spasm (Acute) Pneumonia (Acute) Medical History Basal cell carcinoma of right ear Lesion of skin of right ear Neuropathy due to type 2 diabetes mellitus Atherosclerosis of coronary artery without angina pectoris Screening for cancer Disorder of skin or subcutaneous tissue Edema Actinic keratosis [place] Chronic disease of tonsils and adenoids Idiopathic generalized epilepsy OCD (obsessive compulsive disorder) Anxiety disorder Obesity Type 2 diabetes mellitus without complication Surgical History History of cryosurgery Family History Mother Multiple sclerosis Social History Smoking/Tobacco Use Status: Former Tobacco Use Smoking risk assessment performed?: Yes Alcohol Intake: former Substance use type: does not use Housing: house Do you feel safe at home: Yes Do you feel safe in your relationship?: Yes
== END 2023-12-10 21:18 | disposition home or self-care (01) ==
PROVIDERS: Emergency Provider Emergency Medicine; PCP Family Medicine
DX: R05.9 Cough, unspecified (principal)
CPT/HCPCS: 87426; 93005; 99284; 71046; 93010

== ENCOUNTER 2024-02-25 15:44 | Outpatient (REF) | payer BC, SELFPAY ==
[2024-02-25 15:58] LABS: Abs Immature Grans 0.05 10^3/uL (0.0-0.06); Absolute Basophil Count 0.04 10^3/uL (0.0-0.2); Absolute Eosinophil Count 0.02 10^3/uL (0.0-0.7); Absolute Lymphocyte Count 2.04 10^3/uL (1.2-3.4); Absolute Monocyte Count 0.85 10^3/uL (0.1-0.8); Absolute Neutrophil Count 5.63 10^3/uL (1.2-6.7); Basophils % 0.5 %; Eosinophils % 0.2 %; HCT 43.3 % (40.0-50.0); HGB 14.2 g/dL (13.5-17.5); Immature Grans % 0.6 %; Lymphocytes % 23.6 %; MCHC 32.8 % (32.0-36.0); MCV 88 fL (80-95); MPV 10.3 fL (8.0-11.0); Monocytes % 9.8 %; Neutrophils % 65.3 %; Platelet Count 418 10^3/uL (130-400); RDW 13.7 % (11.8-14.1); RDW-SD 43.7 fL; WBC 8.63 10^3/uL (4.4-10.8)
[2024-02-25 16:52] LABS: ALT 16 U/L (16-63); AST 11 U/L (15-37); Albumin 3.5 g/dL (3.4-5.0); Alkaline Phosphatase 201 U/L (46-116); Anion Gap 9.5 mmol/L (3-11); BUN 9 mg/dL (7-18); Bilirubin, Total 0.25 mg/dL (0.2-1.0); CO2 28.5 mmol/L (21.0-32.0); CREATININE 0.9 mg/dL (0.70-1.30); Chloride 103 mmol/L (98-107); Glucose 210 mg/dL (74-106); Magnesium 1.8 mg/dL (1.8-2.4); Potassium 4.7 mmol/L (3.5-5.1); Sodium 141 mmol/L (136-145); Total Protein 7.6 g/dL (6.4-8.2); Vitamin B12 276 pg/mL (193-986)
== END 2024-02-25 15:45 | disposition home or self-care (01) ==
LOC: NCHCN 15:44
PROVIDERS: PCP Family Medicine; Visit Provider Family Medicine
DX: E11.40 Type 2 diabetes mellitus with diabetic neuropathy, unspecified (principal); R06.09 Other forms of dyspnea
CPT/HCPCS: 80053; 82607; 83735; 85025

== ENCOUNTER 2024-02-29 01:48 | Outpatient (CLI) | payer BC, SELFPAY ==
--- NOTE | 2024-02-29 | DI.RAD_ITS ---
Exam(s) XR HIP PELVIS ADULT BL EXAM: XR HIP PELVIS ADULT BL CLINICAL HISTORY: NEO HIP JOINT PAIN, M25.551 PAIN RT HIP, M25.552 PAIN LT HIP. TECHNIQUE: 2D digital imaging was performed of the pelvis and bilateral hips. Three images were obt ained. AP pelvis and lateral views of both hips were obtained. COMPARISON: No exams were available for comparison FINDINGS: BONES: No acute fracture is present. No bony destructive lesion is seen. JOINTS: No dislocation present. There is narrowing of the superior joint space of the right hip. Mil d spurring is seen at the right acetabulum roof. There is mild spurring seen in the left acetabular roof. Sacroiliac joints and symphysis pubis are intact. SOFT TISSUE: Normal. IMPRESSION: Mild degenerative changes of the hips, right greater than left. DATA REPOSITORY: RADIATION DOSE DELIVERED:
== END 2024-02-29 02:08 ==
LOC: DI 01:48
PROVIDERS: PCP Family Medicine; Visit Provider Family Medicine
DX: M16.0 Bilateral primary osteoarthritis of hip (principal)
CPT/HCPCS: 73521

== ENCOUNTER 2024-04-15 15:45 | Outpatient (CLI) | payer BC, SELFPAY ==
--- OUTSIDE RECORDS SUMMARY | 2024-04-15 15:47 | XMS_ITS | Encounter Summary ---
Author Organization [facility] [place] [address] Care Team Providers Care Landfill Gas Collection Operator Name Role Phone Blake Vasquez MD Primary Care Provider [phone] Encounter Details Date Type Department Care Team (Late st Contact Info) Description 04/15/2017 Abstract Cardiology at [address] [id number] Sebastian Hernandez RN Social History Tobacco Use Types Packs/Day Years Used Date Smoking Tobacco: Former Cigarettes 1 3 1 991 - 1993 Smokeless Tobacco: Never Alcohol Use Standard Drinks/Week Comments No 0 (1 standard drink = 0.6 oz pur e alcohol) Quit social drinking in 1993 Sex and Gender Information Value Date Recorded Sex Assigned at Not on file Gender Identity Not on file Sexual Orientation Not on file documented as of this encounter Plan of Treatment Not on file documented as of this encounter Visit Diagnoses Not on filedocumented in this encounter Care Teams Landfill Gas Collection Operator Relationship Specialty Start Date End Date Blake Vasquez MD [address] [place], [place] [id number] PCP - General Internal Medicine 03/06/17 documented as of this encounter
--- OUTSIDE RECORDS SUMMARY | 2024-04-15 15:47 | XMS_ITS | Encounter Summary ---
Author Organization [facility] Address [address] [place] [address] Care Team Providers Care Counter Supply Worker Name Role Phone Blake Vasquez MD Primary Care Provider [phone] Encounter Details Date Type Department Care Team (Late st Contact Info) Description 02/07/2021 Lab Requisition [facility] Pathology & Laboratory Medicine - [facility] [address], [place] [id number] Outr Resulting Lab, Provider Social History Tobacco Use Types Packs/Day Years Used Date Smoking Tobacco: Former Smokeless Tobacco: Never Alcohol Use Standard Drinks/Week Comments No 0 (1 standard drink = 0.6 oz pur e alcohol) Sex and Gender Information Value Date Recorded Sex Assigned at Not on file Legal Sex Male 18:30 EST Gender Identity Not on file Sexual Orientation Not on file documented as of this encounter Plan of Treatment Not on file documented as of this encounter Procedures Procedure Name Priority Date/Time Associated Diagnosis Comments HOLD SST Today 02/07/2021 9:50 EDT HOLD SST Today 02/07/2021 9:50 EDT HOLD SST Today 02/07/2021 9:50 EDT HOLD SST Today 02/07/2021 9:50 EDT MEASLES IGG AB Today 02/07/2021 9:50 EDT RUBELLA IGG ANTIBODY Today 02/07/2021 9:50 EDT HEPATITIS B SURFACE ANTIBODY Today 02/07/2021 9:50 EDT VARICELLA IGG ANTIBODY Today 02/07/2021 9:50 EDT MUMPS ANTIBODY IGG Today 02/07/2021 9:50 EDT documented in this encounter Results * HOLD SST (02/07/2021 9:50 EDT) Hold Hold 02/07/2021 17:45 EDT [facility] Blood VENOUS BLOOD / Unknown 02/07/2021 9:50 EDT 02/07/2021 16:40 EDT us Provider Outr Resulting Lab LAB INFO SERVICE AND SUPPORT & PHONE RESULT Final Result Performing Organization Address [facility]/ZIP Co de Phone Number [facility] [address] [place] [address] * HOLD SST (02/07/2021 9:50 EDT) Hold Hold 02/07/2021 17:45 EDT [facility] Blood VENOUS BLOOD / Unknown 02/07/2021 9:50 EDT 02/07/2021 16:40 EDT us Provider Outr Resulting Lab LAB INFO SERVICE AND SUPPORT & PHONE RESULT Final Result Performing Organization Address [facility]/ZIP Co de Phone Number [facility] [address] [place] [address] * HOLD SST (02/07/2021 9:50 EDT) Hold Hold 02/07/2021 17:45 EDT [facility] Blood VENOUS BLOOD / Unknown 02/07/2021 9:50 EDT 02/07/2021 16:40 EDT us Provider Outr Resulting Lab LAB INFO SERVICE AND SUPPORT & PHONE RESULT Final Result Performing Organization Address City/[facility]/ZIP Co de Phone Number [facility] [address] [place] [address] * HOLD SST (02/07/2021 9:50 EDT) Hold Hold 02/07/2021 17:45 EDT [facility] Blood VENOUS BLOOD / Unknown 02/07/2021 9:50 EDT 02/07/2021 16:40 EDT us Provider Outr Resulting Lab LAB INFO SERVICE AND SUPPORT & PHONE RESULT Final Result Performing Organization Address [facility] Co de Phone Number [facility] [address] [place] [address] * HEPATITIS B SURFACE ANTIBODY (02/07/2021 9:50 EDT) Hep B Surface Ab, Quantitative <3.1 See Note mIU/mL 02/08/2021 10:04 EDT [facility] Comment: Reference Range for Hep B Surface Ab, Quant: Positive: >= 10.0 mIU/mL Negative: ??< 10.0 mIU/mL Patient is presumed to not be immune to infection with Hepatitis B Virus. Hep B Surface Ab, Qualitative Negative See Note 02/08/2021 10:04 EDT [facility] Comment: Reference Range for Hep B Surface Ab, Qual: Unvaccinated: ??Negative Vaccinated: ??Positive Blood VENOUS BLOOD / Unknown 02/07/2021 9:50 EDT 02/07/2021 16:29 EDT us Provider Outr Resulting Lab CHEMISTRY & BLOOD GA S ORDERABLES Final Result Performing Organization Address City/[facility]/ZIP Co de Phone Number [facility] [address] [place] [address] * MEASLES IGG AB (02/07/2021 9:50 EDT) Measles IgG Ab Positive See Note 02/08/2021 10:35 EDT [facility] Comment:Presence of detectab le measles virus IgG antibodies. Blood VENOUS BLOOD / Unknown 02/07/2021 9:50 EDT 02/07/2021 16:29 EDT us Provider Outr Resulting Lab IMMUNOLOGY AND SEROL OGY ORDERABLES Final Result Performing Organization Address [facility]/ZIP Co de Phone Number [facility] [address] [place] [address] * VARICELLA IGG ANTIBODY (02/07/2021 9:50 EDT) Varicella IgG Ab Positive See Note 02/08/2021 10:30 EDT [facility] Comment:Presence of detectab le Varicella Zoster virus IgG antibodies. Blood VENOUS BLOOD / Unknown 02/07/2021 9:50 EDT 02/07/2021 16:29 EDT us Provider Outr Resulting Lab IMMUNOLOGY AND SEROL OGY ORDERABLES Final Result Performing Organization Address [facility] Co de Phone Number [facility] [address] [place] [address] * MUMPS ANTIBODY IGG (02/07/2021 9:50 EDT) Mumps Antibody IgG Negative See Note 02/08/2021 10:37 EDT [facility] Comment:Absence of detectabl e mumps virus IgG antibodies. A negative result generally indicates that the patient is susceptible to mumps. Blood VENOUS BLOOD / Unknown 02/07/2021 9:50 EDT 02/07/2021 16:29 EDT us Provider Outr Resulting Lab IMMUNOLOGY AND SEROL OGY ORDERABLES Final Result Performing Organization Address [facility] Co de Phone Number [facility] [address] [place] [address] * RUBELLA IGG ANTIBODY (02/07/2021 9:50 EDT) Rubella IgG Ab Positive See Note 02/08/2021 10:40 EDT [facility] Comment:Positive for IgG ant ibodies to Rubella virus. Blood VENOUS BLOOD / Unknown 02/07/2021 9:50 EDT 02/07/2021 16:29 EDT us Provider Outr Resulting Lab CHEMISTRY & BLOOD GA S ORDERABLES Final Result [facility] [address] [place] [address] documented in this encounter Visit Diagnoses Not on filedocumented in this encounter Care Teams Counter Supply Worker Relationship Specialty Start Date End Date Blake Vasquez MD [address] [place] [id number] PCP - General 12/11/09 documented as of this encounter
--- OUTSIDE RECORDS SUMMARY | 2024-04-15 15:47 | XMS_ITS | Encounter Summary ---
Author Organization [facility] Address [address] [place] [address] Care Team Providers Care Parts Order And Stock Clerk Name Role Phone Blake Vasquez MD Primary Care Provider [phone] Encounter Details Date Type Department Care Team (Late st Contact Info) Description 08/20/2023 Lab Requisition [facility] Pathology & Laboratory Medicine - [facility] [address] [place], [place] [id number] Outr Resulting Lab, Provider Social History Tobacco [...] Procedure Name Priority Date/Time Associated Diagnosis Comments QUANTIFERON MITOGEN (PERFORMABLE) Today 08/19/2023 12:45 EDT QUANTIFERON TB2 (PERFORMABLE) Today 08/19/2023 12:45 EDT QUANTIFERON TB1 (PERFORMABLE) Today 08/19/2023 12:45 EDT QUANTIFERON NIL (PERFORMABLE) Today 08/19/2023 12:45 EDT QUANTIFERON INTERPRETATION (PERFORMABLE) Today 08/19/2023 12:45 EDT QUANTIFERON TB GOLD PLUS Routine 08/19/2023 12:45 EDT documented in this encounter Results * QUANTIFERON INTERPRETATION (PERFORMABLE) (08/19/2023 12:45 EDT) [facility] Quantiferon Interpretation Negative Negative 08/21/2023 13:47 EDT [facility] Comment:No interferon-gamma response to M. tuberculosis antigens was detected. ??Infection with M. tuberculosis is unlikely. A single negative result does not exclude infection with M. tuberculosis. ??In patients at high risk for M. tuberculosis infection, a second test should be considered. TB1 Ag minus Nil 0.03 IU/ml 08/21/19 13:47 EDT [facility] TB2 Ag minus Nil 0.04 IU/mL 08/21/19 13:47 EDT [facility] Blood VENOUS BLOOD / Unknown 08/19/2023 12:45 EDT 08/21/2023 13:25 EDT us Provider Outr Resulting Lab IMMUNOLOGY AND SEROL OGY ORDERABLES Final Result Performing Organization Address City/[facility]/ZIP Co de Phone Number [facility] [address] [place] [address] * QUANTIFERON MITOGEN (PERFORMABLE) (08/19/2023 12:45 EDT) Blood VENOUS BLOOD / Unknown 08/19/2023 12:45 EDT 08/20/2023 17:25 EDT us Provider Outr Resulting Lab IMMUNOLOGY AND SEROL OGY ORDERABLES Final Result Performing Organization Address City/[facility]/ZIP Co de Phone Number [facility] [address] [place] [address] * QUANTIFERON TB2 (PERFORMABLE) (08/19/2023 12:45 EDT) Blood VENOUS BLOOD / Unknown 08/19/2023 12:45 EDT 08/20/2023 17:25 EDT us Provider Outr Resulting Lab IMMUNOLOGY AND SEROL OGY ORDERABLES Final Result Performing Organization Address City/[facility]/ZIP Co de Phone Number [facility] [address] [place] [address] * QUANTIFERON TB1 (PERFORMABLE) (08/19/2023 12:45 EDT) Blood VENOUS BLOOD / Unknown 08/19/2023 12:45 EDT 08/20/2023 17:25 EDT us Provider Outr Resulting Lab IMMUNOLOGY AND SEROL OGY ORDERABLES Final Result [facility] [address] [place] [address] * QUANTIFERON NIL (PERFORMABLE) (08/19/2023 12:45 EDT) Blood VENOUS BLOOD / Unknown 08/19/2023 12:45 EDT 08/20/2023 17:25 EDT us Provider Outr Resulting Lab IMMUNOLOGY AND SEROL OGY ORDERABLES Final Result Performing Organization Address City/State/[facility] Co de Phone Number [facility] [address] [place] [address] documented in this encounter Visit Diagnoses Not on filedocumented in this encounter Care Teams Parts Order And Stock Clerk Relationship Specialty Start Date End Date Blake Vasquez MD [address] [place] [address] PCP - General 12/11/09 documented as of this encounter
--- OUTSIDE RECORDS SUMMARY | 2024-04-15 15:47 | XMS_ITS | Clinical Summary ---
Author Organization Formerly [facility], [facility] Address [facility] [place] [address] Care Team Providers Care Fitness Sales Consultant Name Role Phone Blake Vasquez MD Primary Care Provider Allergies Active Allergy Reactions Criticality Noted Date Comments Codeine Low 04/15/2017 Penicillins Medications Medication Sig Dispensed Refills Start Date End Date Status lamoTRIgine (LAMICTAL) 200 mg Tablet Take 200 mg by mouth 2 times daily. Active phenytoin (DILANTIN) 100 mg Capsule Take 700 mg by mouth. Active aspirin 81 mg Tablet, Delayed Release (E.C.) Take 1 tablet by mouth daily. 30 tablet 03/14/2017 Active atorvastatin (LIPITOR) 80 mg Tablet Take 1 tablet by mouth every evening. 30 tablet 03/13/2017 Active clopidogrel (PLAVIX) 75 mg Tablet Take 1 tablet by mouth daily. 30 tablet 03/14/2017 Active glimepiride (AMARYL) 4 mg Tablet Take 1 tablet by mouth daily. 30 tablet 03/14/2017 Active metFORMIN (GLUCOPHAGE) 1,000 mg Tablet Take 1 tablet by mouth 2 times daily. 60 tablet 03/13/2017 Active nitroGLYcerin (NITROSTAT) 0.4 mg Tablet, Sublingual Place 1 tablet under the tongue every 5 minutes as needed for Chest pain. 30 tablet 03/13/2017 Active meTOPROLOL succinate (TOPROL-XL) 50 mg Tablet Sustained Release 24 hr Take 50 mg by mouth daily. 03/24/2017 Active Active Problems Problem Noted Date Diagnosed Date OCD (obsessive compulsive disorder) 04/15/2017 Anxiety 04/15/2017 Obesity 04/15/2017 Fatigue 04/15/2017 Type 2 diabetes mellitus 04/15/2017 Seizure 04/15/2017 STEMI (ST elevation myocardial infarction) 03/10 Overview (04/24/2017): Inferior STEMI 02/2017 Cath- mild diffuse LM and CCX, 50% prox and 60% mid LAD, 80% prox and 100% mid RCA-> ALEAH X 2 Echo- inferior and RV infarct, EF 55% MIBI- fixed inferior defect Immunizations Name Administration Dates Next Due Influenza Quadrivalent, Preservative Free 2016 Family History Medical History Relation Comments Myocardial Infarction Cousin Heart Disease Paternal Grandfather Myocardial Infarction Paternal Uncle Relation Status Comments Brother Alive Cousin Father Alive Mother Alive Paternal Grandfather Paternal Uncle Social History Tobacco Use Types Packs/Day Years Used Date Smoking Tobacco: Former Cigarettes 1 3 1 - 1993 Smokeless Tobacco: Never Alcohol Use Standard Drinks/Week Comments No 0 (1 standard drink = 0.6 oz pur e alcohol) Quit social drinking in 1993 Sex and Gender Information Value Date Recorded Sex Assigned at Not on file Gender Identity Not on file Sexual Orientation Not on file Last Filed Vital Signs Vital Sign Reading Time Taken Comments Blood Pressure 114/70 04/24/2017 8:48 AM EST Pulse 80 04/24/2017 8:41 AM EST per e kg Temperature 36.6 ??C (97.9 ??F) 03/13/2017 3:53 PM ES T Respiratory Rate 17 03/13/2017 3:53 PM EST Oxygen Saturation 95% 03/13/2017 3:53 PM EST Inhaled Oxygen Concentration - - Weight 119.7 kg (264 lb) 04/24/2017 8:41 AM EST Height 188 cm (6' 2) 04/24/2017 8:41 AM EST Body Mass Index 33.9 04/24/2017 8:41 AM EST Plan of Treatment Health Maintenance Due Date Last Done Comments CT Colonography 1966 Colonoscopy 1966 Colorectal Cancer Screening 1966 FIT DNA 1966 FIT 1966 Sigmoidoscopy (10 year) with FIT yearly 1966 Sigmoidoscopy 1966 HIV screen 01/08/1984 Hepatitis C Screening 01/08/1984 Hepatitis B vaccine (0-59 yrs) (1) 1985 Tetanus/Diphtheria/Pertussis Vaccines (1 - Tdap) 01/07 Zoster vaccine (1 of 2) 01/08/2016 Advance Directive 2021 Lipid Screening 03/10/2022 03/10/2017 Covid-19 Vaccine ( season) 2023 Influenza (Flu) vaccine (1 o f 1 - Influenza standard series) 12/27/2023 03/13/2017 Procedures Procedure Name Priority Date/Time Associated Diagnosis Comments HDL/CHOL PROFILE Routine 03/10/2017 7:51 PM EST from Last 3 Months or Most Recently Relevant to Health Maintenance Results * HDL/Cholesterol Profile (03/10/2017 7:51 PM EST) Cholesterol, Total 204 <=239 mg/dL [facility] HDL Cholesterol 42 >=40 mg/dL [facility] Cholesterol/HDL Ratio 4.9 ratio [facility] Chol/HDL Interpretation See Note [facility] Comment: Lipid management should be guided by a patient? s ASCVD risk, goals and preferences. ACC/AHA Guidelines recommend high intensity statin if clinical ASCVD or LDL greater than or equal to 190 mg/dL. http://SimuFormurl.com/GYG-XVE-Kihyeqxzu Measure LDL if Total Cholesterol minus HDL Cholesterol is greater than 220 mg/dL. Adults aged 40-75 with LDL 70-189 mg/dL should have their 10 year ASCVD risk estimated with the ACC/AHA ASCVD risk coagulating drying supervisor http://tools.acc.org/UIHLF-Gdvo-Xwtfojltj/ Statin should be discussed if risk greater than or equal to 7.5% in non-diabetics. With diabetes, moderate intensity statin is recommended if risk less than 7.5%, high intensity if risk greater than or equal to 7.5%. Annual lipid monitoring on statins is not necessary. Lifestyle modification is a critical component of ASCVD risk reduction. Blood specimen (specimen) 03/10/2017 7:51 PM EST 03/10/2017 7:59 PM EST Narrative Resulting Agency Comment Spec In Lab Ranulfo Garcia MD CHEMISTRY ORDERABLES [facility] [place] [address] from Last 3 Months or Most Recently Relevant to Health Maintenance Advance Directives * Full Code (Latest Code Status on File) Date Activated Date Inactivated Comments 03/10/2017 7:14 PM 03/13/2017 7:18 PM Question Answer Comments Does patient have capacity to make decision: Yes Care Teams Fitness Sales Consultant Relationship Specialty Start Date End Date Blake Vasquez MD [address] [place] [address] PCP - General Internal Medicine 03/06/17
--- OUTSIDE RECORDS SUMMARY | 2024-04-15 15:47 | XMS_ITS | Encounter Summary ---
Author Organization [facility] Address [address] [place] [address] Care Team Providers Care Warehouse Distribution Specialist Name Role Phone Blake Vasquez MD Primary Care Provider [phone] Reason for Visit * Reason Comments Follow-up 48 year old male her e for follow up of HST right eye. Vision is good both eyes. Some white lights in the right eye on and off x 1 month No new floaters Encounter Details Date Type Department Care Team (Late st Contact Info) Description 08/12/2013 10:45 EDT Office Visit [facility] Ophthalmology - [facility] [place] [address], [place] [id number] Isak Amaro MD [address] [place] [address], [address] [place] [address] Social History Tobacco Use Types Packs/Day Years Used Date Smoking Tobacco: Former Alcohol Use Standard Drinks/Week Comments No 0 (1 standard drink = 0.6 oz pur e alcohol) Sex and Gender Information Value Date Recorded Sex Assigned at Not on file Legal Sex Male 18:30 EST Gender Identity Not on file Sexual Orientation Not on file documented as of this encounter Discharge Diagnoses Diagnosis 361.00 DETACHMNT W DEFECT NOS[ICD-9-CM] documented in this encounter Progress Notes * Isak Amaro MD - 08/12/2013 1227 EDT Chief Complaint Patient presents with ??? Follow-up 48 year old male here for follow up of HST right eye. Vision is good both eyes. Some white lights in the right eye on and off x 1 month No new floaters HPI Location: Both eyes Pain: 0 - No pain Quality: Severity: Moderate Duration: Years Timing: Constant Lasts: Continuous Context: 48 year old male here for follow up of HST right eye. Vision is good both eyes. Some whitelights in the right eye on and off x 1 month No new floaters Modifying factors: Glasses Associated Signs & Symptoms: Vision is the same both eyes x 1 month No pain, redness,double vision or discharge No new floaters Patient still has flashes in th right eye Visual Fluctuations: None Attestation: Blood pressure: A1c: Base Eye Exam Visual Acuity Right Left Dist cc 20/30 +1 20/30 -2 Method: Snellen - Linear Tonometry Right Left Pressure 17 16 Method: Applanation Time: 11:14 Pupils Pupils APD Right PERRL None Left PERRL None Visual Skinner Right Left Result Full Full Extraocular Movement Right Left Result Full, Ortho Full, Ortho Neuro/Psych Oriented x3: Yes Mood/Affect: Normal Dilation Both eyes: 2.5% Phenylephrine, 1.0% Mydriacyl @ 11:14 Slit Lamp and Fundus Exam External Exam Right Left External Normal Slit Lamp Exam Right Left Lids/Lashes Blepharitis Blepharitis Conjunctiva/Sclera White and quiet White and quiet Cornea Clear Clear Anterior Chamber Deep and quiet Deep and quiet Iris Round and reactive Round and reactive Lens Nuclear sclerosis Nuclear sclerosis Fundus Exam Right Left C/D Ratio 0.4 0.4 Periphery laser to HSTs and local RD 8-12. Tuft at 1 and lattice with pigment at 5 Impression: 1. Horseshoe tear of retina without detachment 2. Posterior vitreous degeneration 3. Progressive high (degenerative) myopia Assessment and Plan: 360 degrees SD done HST-right eye Local RD well treated Tear well surrounded by laser No fluid outside of laser margin Observe PVD-right eye The patient has been informed that they have a chronic posterior vitreous detachment. At this juncture the risk of retinal detachment is reduced but not zero. The patient has been instructed to continue to be alert for worsening of floaters or flashes or loss of peripheral vision. If these symptomsoccur the patient will call us immediately as these symptoms could be conmsistent with new holes tears or retinal detachment. The patient understands and agrees to do this. Observe Progressive high myopia Corwin Rosas is a high myope. He was informed they are at increased risk for rhegmatogenous retinal detachment and for subfoveal choroidal neovascularization. He understands the importance of immediate reporting of flashers, floaters or a curtain coming into their field of vison, i.e., that he may have a hole, tear, or retinal detachment. He also understands the importance of immediate reporting of any sudden altercation of central vision or alteration of an Amsler grid, i.e., he may have a choroidal neovascular membrane. He was instructed on the use of the Amsler grid. He knows the importance of reporting symptomatology noted above, and also understands failure to report such symptomatology could result in severe visual loss or even blindness. Observe Follow up [address] Amaro, have performed my own HPI and reviewed the tech's ROS. I have also reviewed the patient's past medical, family, social and surgical history, as well as the patient's medications, allergies, and problem list. I am scribing for Dr. Isak Amaro MD, while he is personally performing the service. APPLE Flores (Scribe) documented in this encounter Plan of Treatment Not on file documented as of this encounter Visit Diagnoses Diagnosis Horseshoe tear of retina without detachment- Primary Posterior vitreous degeneration Vitreous degeneration Progressive high (degenerative) myopia documented in this encounter Eye Exam Visual Acuity (Snellen - Linear) Right eye Left eye Dist cc 20/30 +1 20/30 -2 Tonometry (Applanation, 11:14) Right eye Left eye Pressure 17 16 Pupils Pupils APD Right eye PERRL None Left eye PERRL None Visual Skinner Right eye Left eye Full Full Extraocular Movement Right eye Left eye Full, Ortho Full, Ortho Neuro/Psych Oriented x3: Yes Mood/Affect: Normal Dilation Both eyes: 2.5% Phenylephrin e, 1.0% Mydriacyl @ 11:14 External Exam Right eye Left eye External Normal Slit Lamp Exam Right eye Left eye Lids/Lashes Blepharitis Blepharitis Conjunctiva/Sclera White and quiet White and antoinette et Cornea Clear Clear Anterior Chamber Deep and quiet Deep and quiet Iris Round and reactive Round and theresa ctive Lens Nuclear sclerosis Nuclear sclero sis Fundus Exam Right eye Left eye C/D Ratio 0.4 0.4 Periphery laser to HSTs and lo memo RD 8-12. Tuft at 1 and lattice with pigment at 5 Care Teams Warehouse Distribution Specialist Relationship Specialty Start Date End Date Blake Vasquez MD [address] [place] [id number] PCP - General 12/11/09 documented as of this encounter
--- OUTSIDE RECORDS SUMMARY | 2024-04-15 15:47 | XMS_ITS | Referral Summary ---
Author Organization [facility] Address [address] [place] [address] Care Team Providers Care Software Publisher Name Role Phone Blake Vasquez MD Primary Care Provider [phone] Allergies No known active allergies Medications phenytoin (DILANTIN) 30 mg ER capsule Take 700 mg by mouth daily. Active lamoTRIgine (LAMICTAL) 100 mg tablet Take 400 mg by mouth daily. Active Active Problems Problem Noted Date Diagnosed Date Horseshoe tear of retina without detachment 06/25 Floater, vitreous 07/06/2013 Posterior vitreous degeneration 07/06/2013 Progressive high myopia 07/06/2013 Overview (01/25/2015): ICD10 Update Auto Replacement Retinal detachment with retinal defect 4 Overview (01/25/2015): ICD10 Update Auto Replacement Social History Tobacco Use Types Packs/Day Years Used Date Smoking Tobacco: Former Smokeless Tobacco: Never Alcohol Use Standard Drinks/Week Comments No 0 (1 standard drink = 0.6 oz pur e alcohol) Sex and Gender Information Value Date Recorded Sex Assigned at Not on file Legal Sex Male 18:30 EST Gender Identity Not on file Sexual Orientation Not on file Plan of Treatment Not on file [facility] Care Teams Software Publisher Relationship Specialty Start Date End Date Blake Vasquez MD [address] [place] [id number] PCP - General 12/11/09
--- OUTSIDE RECORDS SUMMARY | 2024-04-15 15:47 | XMS_ITS | Encounter Summary ---
Author Organization [facility] Address [address] [place] [address] Care Team Providers Care Circulation Analyst Name Role Phone Blake Vasquez MD Primary Care Provider [phone] Reason for Visit * Reason Onset Date Comments Eye Problem 07/06/2013 Encounter Details Date Type Department Care Team (Late st Contact Info) Description 07/06/2013 Telephone [facility] Ophthalmology - [place] [address] [place] [address] Unknown, Provider, MD Eye Problem Social History Tobacco Use Types Packs/Day Years Used Date Smoking Tobacco: Former Alcohol Use Standard Drinks/Week Comments No 0 (1 standard drink = 0.6 oz pur e alcohol) Sex and Gender Information Value Date Recorded Sex Assigned at Not on file Legal Sex Male 18:30 EST Gender Identity Not on file Sexual Orientation Not on file documented as of this encounter Miscellaneous Notes * Telephone Encounter - Emily Amezcua - 07/06/2013 1044 EDT The patient has been scheduled for today at 12:40 pm * Telephone Encounter - Emily Amezcua - 07/06/[address] 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 Dr. Jo states he had a horrible experience on the phone with this office yesturday and the PT is refusing to be seen by their office. Dr. Jo is speaking with Dr. Amaro documented in this encounter Plan of Treatment Not on file documented as of this encounter Visit Diagnoses Not on filedocumented in this encounter Care Teams Circulation Analyst Relationship Specialty Start Date End Date Blake Vasquez MD [address] [place] [address] PCP - General 12/11/09 documented as of this encounter
--- OUTSIDE RECORDS SUMMARY | 2024-04-15 15:47 | XMS_ITS | Data Portability ---
Author Organization [place] [facility], [facility] Address [address] [place] [address] Assessment Encounter Date Assessment Date Assessment LastModified by Organization Details LastModified Time 02/25/2024 02/25/2024 Corwin Rosas presented for a diabetes follow-up with an A1c of 6.5, having self-discontinu ed Rybelsus and currently taking glimepiride and metformin. He reports shortness of breath, particularly when climbing stairs, since back to back pulmonary illnesses this summer, and requires a refill for his albuterol inhaler. He also experiences pain in his hips, shoulders, and ankles, morning stiffness, hand cramps, and numbness in his fingers and lips, he is concerned for arthritis and hypocalcemia. Additionally, he has a plaque on his face most consistent with psoriasis. Plans include refilling his inhaler, ordering labs and X-rays, prescribing a steroid cream, and scheduling an echocardiogram. [email or web address] Not available 02/25/2024 08:31:32 Plan of Treatment Reminders Order Date Submit Date Provider Last Modified By Organization Details Last Modified Time Details Appointments Office Visit 30 2024 07:30A M Luis Mike Not available Not available Not available Lab hemoglobi n A1C, fingersti ck [address], [address], 04/06/2023 12:27:09 microalbu min/creat inine, mass ratio, urine [address] [place], [address], 04/06/2023 12:26:20 CMP, serum or plasma - drawn in office 2023 [facility] (Registration ), [address] [place] [address] [place], [address], 07/06/2023 21:27:31 lipid panel, serum [address] [facility] (Registration ), [address] [place] [address] [place], [address], 07/13/2023 09:07:40 HbA1c (hemoglob in A1c), blood [address] [facility] (Registration ), [address] [place] [address] [place], [address], 07/13/2023 09:07:39 hemoglobi n A1C, fingersti ck 2023 [email or web address] 1 [facility], [address] [place] [address], [address], 02/25/2024 08:44:12 vitamin B12, serum 2023 [facility] (Registration ), [address] [place] [address] [place], [address], 03/01/2024 11:38:10 CMP, serum or plasma 2023 [facility] (Registration ), [address] [place] [address] [place], [address], 02/25/2024 16:56:33 magnesium , serum or plasma 2023 [facility] (Registration ), [address] [place] [address] [place], [address], 03/01/2024 11:37:59 CBC w/ auto diff 2023 [facility] (Registration ), [address] [facility] , [place], [address], 02/25/2024 16:08:34 Referral otolaryng ologist referral - lesion on right pinna; basal cell ca vs squamous cell vs traumatiz ed nodule 2022 023 EUGENIA Wilson MD, [address] [facility] , [place], [address], 06/19/2023 12:02:00 podiatris t referral 2023 024 [email or web address] [facility], [address] [facility] , [place], [address], 02/09/2024 15:12:16 Procedures None recorded. Surgeries None recorded. Imaging XR, hip + pelvis, bilateral 2023 024 [facility], [address], [place], [address], 03/28/2024 13:28:25 US, echocardi ogram 2023 [facility], [address] [facility], [place], [address], 02/25/2024 13:58:55 Medication Orders Rybelsus 3 mg tablet 2022 023 [email or web address] [facility], [address] [place], [address], 08/12/2023 15:25:50 Rybelsus 3 mg tablet 2023 024 [email or web address] [facility], [address] [place], [address], 08/12/2023 15:25:50 triamcino lone acetonide 0.1 % topical cream 2023 024 [email or web address] 1 [facility], [address] [place], [address], 02/25/2024 08:44:10 albuterol sulfate HFA 90 mcg/actua tion aerosol inhaler 2023 024 [email or web address] 1 [facility], [address] [place], [address], 02/25/2024 08:44:09 Patient TargetsNo targets recorded. Patient Instructions Encounter Date Encounter Id Patient Instructions Last Modified By Organization Details Last Modified Time 02/25/2024 [id number] Dear Juliocesar Olivia you for visiting today and for your dedication to managing your health. It was great to see the progress you've made, especially with your diabetes management. Here is a summary of our discussion and the next steps for your care: - Medications: - Continue taking glimepiride and metformin for diabetes. - Continue rosuvastatin and ezetimibe for cholesterol. - Refill your albuterol inhaler as prescribed. - Start using the prescribed steroid cream for psoriasis like skin condition on your face. - Laboratory Tests and Examinations: - Blood tests to check electrolytes, kidney function, vitamin B12 levels, and blood counts. - Echocardiogram scheduled at [facility] to assess heart function. - X-rays to evaluate joint stiffness and potential arthritis. - Vaccinations: - Administer another pneumonia vaccine today. - Lifestyle Recommendations: - Consider incorporating more physical activity into your routine to counteract the sedentary nature of your new job. - Continue the dietary changes that have positively impacted your diabetes control. - Follow-Up: - Schedule a follow-up appointment in a few months to review your symptoms and lab results. - You will be contacted by [facility] and [facility] for imaging appointments. Please ensure to grape picker your two prescriptions at the pharmacy and keep an eye on your symptoms. If anything feels worse or if you have any concerns, do not hesitate to contact our office. Great job on improving your A1c, and take care! 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 Referral for Neur opathy due to type 2 diabetes mellitus Referring Physician: Luis Mike, Family Medicine, Encounter Date: 07/06/2023 Results Created Date Observation Date Name Description Value Unit Range Abnormal Flag Note LastModifiedBy Organization Detail LastModifiedTime 04/06/20 23 04/06/2023 micro album in/cr eatin ine, mass ratio , urine Ratio 23.1 Not Available [address], [address], 04/06/2023 12:12:11 04/06/20 23 04/06/2023 hemog lobin A1C, finge rstic k HbA1C 8.1 Not Available [address], [address], 04/06/2023 12:10:45 07/06/19 24 07/06/2023 HEMOG LOBIN A1C hemoglobin A1C 7.0 % <5.7 high Refer ence Range s <5.7 Sienna l 5.7-6 .4% Predi abete s 6.5% or great er Diagn ostic for diabe ezra (if confi rmed) Refer ences : 1. Ameri can Diabe ezra Assoc iatio n. Clas sific ation and Diagn osis of Diabe ezra. Diabe ezra [facility] 2019 Apr;4 2(Sup pleme nt 1):S1 3-s28 . Not Available [address] [place], [address] 07/06/2023 21:25:32 07/06/19 24 07/06/2023 COMPR EHENS TAWANNA METAB OLIC PANEL calcium 8.9 mg/dL 8.5-10 .1 normal Not Available [address] [place], [address] 07/06/2023 21:27:31 07/06/19 24 07/06/2023 COMPR EHENS TAWANNA METAB OLIC PANEL glucose 244 mg/dL 74-106 high Not Available Michele shi [address] [place], [address] 07/06/2023 21:27:31 07/06/19 24 07/06/2023 COMPR EHENS TAWANNA METAB OLIC PANEL BUN 11 mg/dL 7-18 normal Not Available Michele shi [address] [place], [address] 07/06/2023 21:27:31 07/06/19 24 07/06/2023 COMPR EHENS TAWANNA METAB OLIC PANEL creatinine 1.0 mg/dL 0.70-1 .30 normal Not Available [address] [place], [address] 07/06/2023 21:27:31 07/06/19 24 07/06/2023 COMPR EHENS TAWANNA METAB OLIC PANEL estimated GFR 87.78 mL/min /1.73m 2 The eGFR is calcu lated from a serum creat inine using the CKD-E PI 2020 equat ion. Other varia bles requi red for the equat ion are gende r and age; this equat ion does not inclu de a race coeff icien t. This equat ion has simil ar overa ll perfo rmanc e to previ ous equat ions excep t value s may diffe r, in parti cular , in patie nts with highe r value s of eGFR and young er-ag ed adult s. Not Available [address] [place], [address] 07/06/2023 21:27:31 07/06/19 24 07/06/2023 COMPR EHENS TAWANNA METAB OLIC PANEL total protein 7.4 g/dL 6.4-8. 2 normal Not Available [address] [place], [address] 07/06/2023 21:27:31 07/06/19 24 07/06/2023 COMPR EHENS TAWANNA METAB OLIC PANEL albumin 3.6 g/dL 3.4-5. 0 normal Not Available [address] [place], [address] 07/06/2023 21:27:31 07/06/19 24 07/06/2023 COMPR EHENS TAWANNA METAB OLIC PANEL bilirubin, total 0.2 mg/dL 0.2-1. 0 normal Not Available [address] [place], [address] 07/06/2023 21:27:31 07/06/19 24 07/06/2023 COMPR EHENS TAWANNA METAB OLIC PANEL alk phos 188 U/L 46-116 high Not Available [address] [place], [address] 07/06/2023 21:27:31 07/06/19 24 07/06/2023 COMPR EHENS TAWANNA METAB OLIC PANEL sodium 140 mmol/ L 136-14 5 normal Not Available [address] [place], [address] 07/06/2023 21:27:31 07/06/19 24 07/06/2023 COMPR EHENS TAWANNA METAB OLIC PANEL potassium 4.1 mmol/ L 3.5-5. 1 normal Not Available [address] [place], [address] 07/06/2023 21:27:31 07/06/19 24 07/06/2023 COMPR EHENS TAWANNA METAB OLIC PANEL chloride 101 mmol/ L 98-107 normal Not Available [address] [place], [address] 07/06/2023 21:27:31 07/06/19 24 07/06/2023 COMPR EHENS TAWANNA METAB OLIC PANEL CO2 27.2 mmol/ L 21.0-3 2.0 normal Not Available [address] [place], [address] 07/06/2023 21:27:31 07/06/19 24 07/06/2023 COMPR EHENS TAWANNA METAB OLIC PANEL anion gap 11.8 mmol/ L 3-11 high Not Available [address] [place], [address] 07/06/2023 21:27:31 07/06/19 24 07/06/2023 COMPR EHENS TAWANNA METAB OLIC PANEL AST 18 U/L 15-37 normal Not Available Michele [address] [place], [address] 07/06/2023 21:27:31 07/06/19 24 07/06/2023 COMPR EHENS TAWANNA METAB OLIC PANEL ALT 24 U/L 16-63 normal Not Available Michele shi [address] [place], [address] 07/06/2023 21:27:31 07/06/19 24 07/06/2023 LIPID 2 cholesterol 150 mg/dL <[address] [facility] [address] [place], [address] 07/06/2023 21:27:32 07/06/19 24 07/06/2023 LIPID 2 triglyceride 161 mg/dL <150 high Not Available [address] [place], [address] 07/06/2023 21:27:32 07/06/19 24 07/06/2023 LIPID 2 HDL cholesterol 54 mg/dL 40-60 Not Available Audrey laurent [address] [place], [address] 07/06/2023 21:27:32 07/06/19 24 07/06/2023 LIPID 2 calculated LDL 64 mg/dL <100 Natio nal Ju[place] stero l Educa tion Progr am (NCEP -ATPI II) class ifica tions : Ju[place] stero l <200 mg/dL Mitchel able Juana stero l 200-2 39 mg/dL Borde rline High Juana stero l >or=2 40 mg/dL High HDL <40 mg/dL Low HDL >or=6 0 mg/dL High LDL <100 mg/dL Optim al LDL 100-1 29 mg/dL Near Optim al/Ab ove Optim al LDL 130-1 59 mg/dL Borde rline High LDL 160-1 89 mg/dL High LDL >or=1 90 mg/dL Very High *The above refer ence range is for adult s 18 years or older . Not Available [address] [place], [address] 07/06/2023 21:27:32 08/19/19 24 08/21/2023 QUANT IFERO N TB GOLD PLUS TB interpretati on Negati ve negati ve No inter feron -gamm a respo nse to M. tuber culos is antig ens was detec calixto. Infec tion with M. tuber culos is is unlik lelo. A singl e negat tawanna resul t does not exclu de infec tion with M. tuber culos is. In patie nts at high risk for M. tuber culos is infec tion, a secon d test shoul d be consi dered . Not Available [address] [place], [address] 08/21/2023 15:30:19 08/19/19 24 08/21/2023 QUANT IFERO N TB GOLD PLUS TB1 Ag minus nil 0.03 IU/mL Not Available [address] [place], [address] 08/21/2023 15:30:19 08/19/19 24 08/21/2023 QUANT IFERO N TB GOLD PLUS TB2 Ag minus nil 0.04 IU/mL Test perfo rmed or refer red by [facility] [address], [place] [address] Not Available [address] [place], [address] 08/21/2023 15:30:19 11/20/19 24 11/20/2023 COMPL ETE BLOOD COUNT W/DIF F WBC 12.87 10_3/ uL 4.4-10 .8 high Not Available [address] [place], [address] 11/20/2023 22:25:51 11/20/19 24 11/20/2023 COMPL ETE BLOOD COUNT W/DIF F RBC 5.10 10_6/ uL 4.36-5 .78 normal Not Available [address] [place], [address] 11/20/2023 22:25:51 11/20/19 24 11/20/2023 COMPL ETE BLOOD COUNT W/DIF F HGB 14.8 g/dL 13.5-1 7.5 normal Not Available [address] [place], [address] 11/20/2023 22:25:51 11/20/19 24 11/20/2023 COMPL ETE BLOOD COUNT W/DIF F HCT 45.3 % 40.0-5 0.0 normal Not Available [address] [place], [address] 11/20/2023 22:25:51 11/20/19 24 11/20/2023 COMPL ETE BLOOD COUNT W/DIF F MCV 89 fL 80-95 normal Not Available Michele shi [address] [place], [address] 11/20/2023 22:25:51 11/20/19 24 11/20/2023 COMPL ETE BLOOD COUNT W/DIF F MCH 29.0 pg 27.0-3 3.0 normal Not Available [address] [place], [address] 11/20/2023 22:25:51 11/20/19 24 11/20/2023 COMPL ETE BLOOD COUNT W/DIF F MCHC 32.7 % 32.0-3 6.0 normal Not Available [address] [place], [address] 11/20/2023 22:25:51 11/20/19 24 11/20/2023 COMPL ETE BLOOD COUNT W/DIF F RDW 12.9 % 11.8-1 4.1 normal Not Available [address] [place], [address] 11/20/2023 22:25:51 11/20/19 24 11/20/2023 COMPL ETE BLOOD COUNT W/DIF F platelet count 425 10_3/ uL 130-40 0 high Not Available [address] [place], [address] 11/20/2023 22:25:51 11/20/19 24 11/20/2023 COMPL ETE BLOOD COUNT W/DIF F MPV 9.1 fL 8.0-11 .0 normal Not Available [address] [place], [address] 11/20/2023 22:25:51 11/20/19 24 11/20/2023 COMPL ETE BLOOD COUNT W/DIF F neutrophils % 55.5 % Not Available Northe [address] [place], [address] 11/20/2023 22:25:51 11/20/19 24 11/20/2023 COMPL ETE BLOOD COUNT W/DIF F lymphocytes % 30.9 % Not Available [address] [place], [address] 11/20/2023 22:25:51 11/20/19 24 11/20/2023 COMPL ETE BLOOD COUNT W/DIF F monocytes % 11.1 % Not Available [address] [place], [address] 11/20/2023 22:25:51 11/20/19 24 11/20/2023 COMPL ETE BLOOD COUNT W/DIF F eosinophils % 1.2 % Not Available [address] [place], [address] 11/20/2023 22:25:51 11/20/19 24 11/20/2023 COMPL ETE BLOOD COUNT W/DIF F basophils % 0.5 % Not Available [address] [place], [address] 11/20/2023 22:25:51 11/20/19 24 11/20/2023 COMPL ETE BLOOD COUNT W/DIF F immature grans % 0.8 % Not Available [address] [place], [address] 11/20/2023 22:25:51 11/20/19 24 11/20/2023 COMPL ETE BLOOD COUNT W/DIF F nucleated RBC 0.0 % 0.0-0. 3 normal Not Available [address] [place], [address] 11/20/2023 22:25:51 11/20/19 24 11/20/2023 COMPL ETE BLOOD COUNT W/DIF F absolute neutrophil count 7.14 10_3/ uL 1.2-6. 7 high Not Available [address] [place], [address] 11/20/2023 22:25:51 11/20/19 24 11/20/2023 COMPL ETE BLOOD COUNT W/DIF F absolute lymphocyte count 3.98 10_3/ uL 1.2-3. 4 high Not Available [address] [place], [address] 11/20/2023 22:25:51 11/20/19 24 11/20/2023 COMPL ETE BLOOD COUNT W/DIF F absolute monocyte count 1.43 10_3/ uL 0.1-0. 8 high Not Available [address] [place], [address] 11/20/2023 22:25:51 11/20/19 24 11/20/2023 COMPL ETE BLOOD COUNT W/DIF F absolute eosinophil count 0.15 10_3/ uL 0.0-0. 7 normal Not Available [address] [place], [address] 11/20/2023 22:25:51 11/20/19 24 11/20/2023 COMPL ETE BLOOD COUNT W/DIF F absolute basophil count 0.06 10_3/ uL 0.0-0. 2 normal Not Available [address] [place], [address] 11/20/2023 22:25:51 11/20/19 24 11/20/2023 PROTH ROMBI N TIME prothrombin time 10.1 sec 9.1-11 .1 normal Not Available [address] [place], [address] 11/20/2023 23:12:54 11/20/19 24 11/20/2023 PROTH ROMBI N TIME INR 1.0 0.9-1. 1 normal Recom benny d INR thera peuti c range s for orall y admin ister ed drugs are as follo ws: -Yaya dard Inten sity 2.0 to 3.0 -High er Inten sity 3.0 to 4.5 Not Available [address] [place], [address] 11/20/2023 23:12:54 11/20/19 24 11/20/2023 PTT ACTIV ATED PTT activated 29.4 sec 23.6-3 2.8 normal Hepar in Thera peuti c Range for PTT = 52-84 secon ds New Hepar in Thera peuti c Range 06/02 Not Available [address] [place], [address] 11/20/2023 23:12:55 11/20/19 24 11/20/2023 COMPR EHENS TAWANNA METAB OLIC PANEL calcium 8.9 mg/dL 8.5-10 .1 normal Not Available [address] [place], [address] 11/20/2023 22:48:54 11/20/19 24 11/20/2023 COMPR EHENS TAWANNA METAB OLIC PANEL glucose 117 mg/dL 74-106 high Not Available Michele shi [address] [place], [address] 11/20/2023 22:48:54 11/20/19 24 11/20/2023 COMPR EHENS TAWANNA METAB OLIC PANEL BUN 12 mg/dL 7-18 normal Not Available Michele shi [address] [place], [address] 11/20/2023 22:48:54 11/20/19 24 11/20/2023 COMPR EHENS TAWANNA METAB OLIC PANEL creatinine 0.8 mg/dL 0.70-1 .30 normal Not Available [address] [place], [address] 11/20/2023 22:48:54 11/20/19 24 11/20/2023 COMPR EHENS TAWANNA METAB OLIC PANEL estimated GFR 103.22 mL/min /1.73m 2 The eGFR is calcu lated from a serum creat inine using the CKD-E PI 2020 equat ion. Other varia bles requi red for the equat ion are gende r and age; this equat ion does not inclu de a race coeff icien t. This equat ion has simil ar overa ll perfo rmanc e to previ ous equat ions excep t value s may diffe r, in parti cular , in patie nts with highe r value s of eGFR and young er-ag ed adult s. Not Available [address] [place], [address] 11/20/2023 22:48:54 11/20/19 24 11/20/2023 COMPR EHENS TAWANNA METAB OLIC PANEL total protein 8.5 g/dL 6.4-8. 2 high Not Available [address] [place], [address] 11/20/2023 22:48:54 11/20/19 24 11/20/2023 COMPR EHENS TAWANNA METAB OLIC PANEL albumin 3.6 g/dL 3.4-5. 0 normal Not Available [address] [place], [address] 11/20/2023 22:48:54 11/20/19 24 11/20/2023 COMPR EHENS TAWANNA METAB OLIC PANEL bilirubin, total 0.26 mg/dL 0.2-1. 0 normal Not Available [address] [place], [address] 11/20/2023 22:48:54 11/20/19 24 11/20/2023 COMPR EHENS TAWANNA METAB OLIC PANEL alk phos 216 U/L 46-116 high Not Available [address] [place], [address] 11/20/2023 22:48:54 11/20/19 24 11/20/2023 COMPR EHENS TAWANNA METAB OLIC PANEL sodium 139 mmol/ L 136-14 5 normal Not Available [address] [place], [address] 11/20/2023 22:48:54 11/20/19 24 11/20/2023 COMPR EHENS TAWANNA METAB OLIC PANEL potassium 3.9 mmol/ L 3.5-5. 1 normal Not Available [address] [place], [address] 11/20/2023 22:48:54 11/20/19 24 11/20/2023 COMPR EHENS TAWANNA METAB OLIC PANEL chloride 101 mmol/ L 98-107 normal Not Available [address] [place], [address] 11/20/2023 22:48:54 11/20/19 24 11/20/2023 COMPR EHENS TAWANNA METAB OLIC PANEL CO2 28.5 mmol/ L 21.0-3 2.0 normal Not Available [address] [place], [address] 11/20/2023 22:48:54 11/20/19 24 11/20/2023 COMPR EHENS TAWANNA METAB OLIC PANEL anion gap 9.5 mmol/ L 3-11 normal Not Available [address] [place], [address] 11/20/2023 22:48:54 11/20/19 24 11/20/2023 COMPR EHENS TAWANNA METAB OLIC PANEL AST 11 U/L 15-37 low Not Available Michele shi [address] [place], [address] 11/20/2023 22:48:54 11/20/19 24 11/20/2023 COMPR EHENS TAWANNA METAB OLIC PANEL ALT 21 U/L 16-63 normal Not Available Michele shi [address] [place], [address] 11/20/2023 22:48:54 11/20/19 24 11/20/2023 LIPAS E lipase 59 U/L 16-77 normal Not Available Michele shi [address] [place], [address] 11/20/2023 22:48:54 11/20/1911/20/2023 TROPO ROCAEL I troponin I < 50 NG/L < or =60 Not Available [address] [place], [address] 11/20/2023 22:48:55 11/20/1911/20/2023 NT-AR OBNP nt-probnp 73 pg/mL <300 NT-pr oBNP value s <300 pg/mL have a 98% negat tawanna predi ctive value for exclu ding acute conge stive heart failu re(CH F). NOTE: Supra -phys iolog ic doses of Bioti n(B7) may cause false negat tawanna resul ts. Not Available [address] [place], [address] 11/20/2023 22:48:55 11/20/19 24 11/20/2023 D-DIM ER D-dimer 812 NG/ml feu <500 high *Lite ratur e suppo rts the exclu yousif of DVT and/o r PE with a resul t less than 500 ng/ml FEU with this metho d.* Not Available [address] [place], [address] 11/20/2023 23:12:56 11/21/19 24 11/21/2023 TROPO ROCAEL I troponin I < 50 NG/L < or =60 Not Available [address] [place], [address] 11/21/2023 01:28:00 02/25/20 24 02/25/2024 COMPL ETE BLOOD COUNT W/DIF F WBC 8.63 10_3/ uL 4.4-10 .8 normal Not Available [address] [place], [address] 02/25/2024 16:08:34 02/25/2002/25/2024 COMPL ETE BLOOD COUNT W/DIF F RBC 4.90 10_6/ uL 4.36-5 .78 normal Not Available [address] [place], [address] 02/25/2024 16:08:34 02/25/20 24 02/25/2024 COMPL ETE BLOOD COUNT W/DIF F HGB 14.2 g/dL 13.5-1 7.5 normal Not Available [address] [place], [address] 02/25/2024 16:08:34 02/25/20 24 02/25/2024 COMPL ETE BLOOD COUNT W/DIF F HCT 43.3 % 40.0-5 0.0 normal Not Available [address] [place], [address] 02/25/2024 16:08:34 02/25/20 24 02/25/2024 COMPL ETE BLOOD COUNT W/DIF F MCV 88 fL 80-95 normal Not Available Michele [address] [place], [address] 02/25/2024 16:08:34 02/25/20 24 02/25/2024 COMPL ETE BLOOD COUNT W/DIF F MCH 29.0 pg 27.0-3 3.0 normal Not Available [address] [place], [address] 02/25/2024 16:08:34 02/25/2002/25/2024 COMPL ETE BLOOD COUNT W/DIF F MCHC 32.8 % 32.0-3 6.0 normal Not Available [address] [place], [address] 02/25/2024 16:08:34 02/25/2002/25/2024 COMPL ETE BLOOD COUNT W/DIF F RDW 13.7 % 11.8-1 4.1 normal Not Available [address] [place], [address] 02/25/2024 16:08:34 02/25/2002/25/2024 COMPL ETE BLOOD COUNT W/DIF F platelet count 418 10_3/ uL 130-40 0 high Not Available [address] [place], [address] 02/25/2024 16:08:34 02/25/2002/25/2024 COMPL ETE BLOOD COUNT W/DIF F MPV 10.3 fL 8.0-11 .0 normal Not Available [address] [place], [address] 02/25/2024 16:08:34 02/25/2002/25/2024 COMPL ETE BLOOD COUNT W/DIF F neutrophils % 65.3 % Not Available [address] [place], [address] 02/25/2024 16:08:34 02/25/2002/25/2024 COMPL ETE BLOOD COUNT W/DIF F lymphocytes % 23.6 % Not Available [address] [place], [address] 02/25/2024 16:08:34 02/25/2002/25/2024 COMPL ETE BLOOD COUNT W/DIF F monocytes % 9.8 % Not Available [address] [place], [address] 02/25/2024 16:08:34 02/25/2002/25/2024 COMPL ETE BLOOD COUNT W/DIF F eosinophils % 0.2 % Not Available [address] [place], [address] 02/25/2024 16:08:34 02/25/20 24 02/25/2024 COMPL ETE BLOOD COUNT W/DIF F basophils % 0.5 % Not Available [address] [place], [address] 02/25/2024 16:08:34 02/25/20 24 02/25/2024 COMPL ETE BLOOD COUNT W/DIF F immature grans % 0.6 % Not Available [address] [place], [address] 02/25/2024 16:08:34 02/25/2002/25/2024 COMPL ETE BLOOD COUNT W/DIF F nucleated RBC 0.0 % 0.0-0. 3 normal Not Available [address] [place], [address] 02/25/2024 16:08:34 02/25/20 24 02/25/2024 COMPL ETE BLOOD COUNT W/DIF F absolute neutrophil count 5.63 10_3/ uL 1.2-6. 7 normal Not Available [address] [place], [address] 02/25/2024 16:08:34 02/25/20 24 02/25/2024 COMPL ETE BLOOD COUNT W/DIF F absolute lymphocyte count 2.04 10_3/ uL 1.2-3. 4 normal Not Available [address] [place], [address] 02/25/2024 16:08:34 02/25/2002/25/2024 COMPL ETE BLOOD COUNT W/DIF F absolute monocyte count 0.85 10_3/ uL 0.1-0. 8 high Not Available [address] [place], [address] 02/25/2024 16:08:34 02/25/20 24 02/25/2024 COMPL ETE BLOOD COUNT W/DIF F absolute eosinophil count 0.02 10_3/ uL 0.0-0. 7 normal Not Available [address] [place], [address] 02/25/2024 16:08:34 02/25/20 24 02/25/2024 COMPL ETE BLOOD COUNT W/DIF F absolute basophil count 0.04 10_3/ uL 0.0-0. 2 normal Not Available [address] [place], [address] 02/25/2024 16:08:34 02/25/20 24 02/25/2024 COMPR EHENS TAWANNA METAB OLIC PANEL calcium 9.0 mg/dL 8.5-10 .1 normal Not Available [address] [place], [address] 02/25/2024 16:56:33 02/25/20 24 02/25/2024 COMPR EHENS TAWANNA METAB OLIC PANEL glucose 210 mg/dL 74-106 high Not Available Michele shi [address] [place], [address] 02/25/2024 16:56:33 02/25/20 24 02/25/2024 COMPR EHENS TAWANNA METAB OLIC PANEL BUN 9 mg/dL 7-18 normal Not Available Michele [address] [place], [address] 02/25/2024 16:56:33 02/25/20 24 02/25/2024 COMPR EHENS TAWANNA METAB OLIC PANEL creatinine 0.9 mg/dL 0.70-1 .30 normal Not Available [address] [place], [address] 02/25/2024 16:56:33 02/25/2002/25/2024 COMPR EHENS TAWANNA METAB OLIC PANEL estimated GFR 99.00 mL/min /1.73M 2 The eGFR is calcu lated from a serum creat inine using the CKD-E PI 2020 equat ion. Other varia bles requi red for the equat ion are gende r and age; this equat ion does not inclu de a race coeff icien t. This equat ion has simil ar overa ll perfo rmanc e to previ ous equat ions excep t value s may diffe r, in parti cular , in patie nts with highe r value s of eGFR and young er-ag ed adult s. Not Available [address] [place], [address] 02/25/2024 16:56:33 02/25/20 24 02/25/2024 COMPR EHENS TAWANNA METAB OLIC PANEL total protein 7.6 g/dL 6.4-8. 2 normal Not Available [address] [place], [address] 02/25/2024 16:56:33 02/25/20 24 02/25/2024 COMPR EHENS TAWANNA METAB OLIC PANEL albumin 3.5 g/dL 3.4-5. 0 normal Not Available [address] [place], [address] 02/25/2024 16:56:33 02/25/20 24 02/25/2024 COMPR EHENS TAWANNA METAB OLIC PANEL bilirubin, total 0.25 mg/dL 0.2-1. 0 normal Not Available [address] [place], [address] 02/25/2024 16:56:33 02/25/2002/25/2024 COMPR EHENS TAWANNA METAB OLIC PANEL alk phos 201 U/L 46-116 high Not Available [address] [place], [address] 02/25/2024 16:56:33 02/25/20 24 02/25/2024 COMPR EHENS TAWANNA METAB OLIC PANEL sodium 141 mmol/ L 136-14 5 normal Not Available [address] [place], [address] 02/25/2024 16:56:33 02/25/2002/25/2024 COMPR EHENS TAWANNA METAB OLIC PANEL potassium 4.7 mmol/ L 3.5-5. 1 normal Not Available [address] [place], [address] 02/25/2024 16:56:33 02/25/20 24 02/25/2024 COMPR EHENS TAWANNA METAB OLIC PANEL chloride 103 mmol/ L 98-107 normal Not Available [address] [place], [address] 02/25/2024 16:56:33 02/25/2002/25/2024 COMPR EHENS TAWANNA METAB OLIC PANEL CO2 28.5 mmol/ L 21.0-3 2.0 normal Not Available [address] [place], [address] 02/25/2024 16:56:33 02/25/2002/25/2024 COMPR EHENS TAWANNA METAB OLIC PANEL anion gap 9.5 mmol/ L 3-11 normal Not Available [address] [place], [address] 02/25/2024 16:56:33 02/25/2002/25/2024 COMPR EHENS TAWANNA METAB OLIC PANEL AST 11 U/L 15-37 low Not Available Michele shi [address] [place], [address] 02/25/2024 16:56:33 02/25/2002/25/2024 COMPR EHENS TAWANNA METAB OLIC PANEL ALT 16 U/L 16-63 normal Not Available Nikki[address] [place], [address] 02/25/2024 16:56:33 02/25/2002/25/2024 MAGNE SIUM magnesium 1.8 mg/dL 1.8-2. 4 normal Not Available [facility] (Registration ) [address] [place] [address] [place], [address], 02/25/2024 16:56:34 02/25/2002/25/2024 VITAM IN B12 vitamin B12 276 pg/mL 193-98 6 normal Not Available [facility] (Registration ) [address] [place] [address] [place], [address], 02/25/2024 16:56:34 02/25/2002/25/2024 hemog lobin A1C, finge rstic k hemoglobin A1C 6.5 % <5.7 Not Available [address], [address], 02/25/2024 07:42:28 11/20/19 24 11/20/2023 vrad repor t Fausto t Name: Corwin Rosas Unit #: [id number] Loc: ER Brando Chavarria er: Sb chanel #: [id number] Status : REG ER Primar y Care Provid er: Luis Mike Date of Exam: Sex: M : 1964 Age: 58 Exam(s ) PROCED URE INFORM ATION: Exam: XR Chest Exam date and time: 024 11:18 PM Age: 58 years old Clinic al indica tion: Pain; Chest pressu re TECHNI QUE: Imagin g protoc ol: Radiol ogic exam of the chest. Views: 1 view. COMPAR SUZANNE: CR PORTAB LE CHEST ONE VIEW 2016 1:37 PM FINDIN GS: Lungs: There is diffus e mild nonspe cific promin ence of the pulmon deng inters titium . Pleura l spaces : There may be a small left pleura l effusi on. Heart/ Medias tinum: The cardia c struct ures are normal . Bones/ joints : The skelet al struct ures and soft tissue s show no eviden ce of fractu re or other acute proces ses. Soft tissue s: The soft tissue s of the extrat horaci c region are unrema rkable . Intrap eriton eal space: There is a small amount of free intrap eriton eal air. IMPRES YOUSIF: 1. There is diffus e mild nonspe cific promin ence of the pulmon deng inters titium . 2. There may be a small left pleura l effusi on. Dictat ed and Linnea cavazos d by: Steve Mattson MD. Brando lr:Lata Falcon MD Access ion#=[id number] Loli ponce By: CC: ------ ------ ------ ------ ------ ------ ------ ------ ------ ------ ------ ------ ---- Dictat ed By: Report s vrad 2317 Transc ribed By: Nita Merge 2317 This is privil eged, confid ential inform ation intend ed only for the provid er named. Any use or distri bution by any person other than this provid er is strict ly prohib ited. If you receiv e this report in error, please notify us immedi ately at [phone] and return the origin al report to us at the addres s above. Thank- you. eoleson [facility] [address], [place], [address] 11/24/2023 22:33:21 11/21/19 24 11/20/2023 vrad repor t Patizora t Name: Corwin Rosas Unit #: [id number] Loc: ER Orderi ng Provid er: Accoun t #: [id number] Status : REG ER Primar y Care Provid er: Luis Mike Date of Exam: Sex: M : 1964 Age: 58 Exam(s ) PROCED URE INFORM ATION: Exam: CTA Chest With Contra st Exam date and time: 11:51 PM Age: 58 years old Clinic al indica tion: Pain; Shortn ess of breath ; Chest pressu re TECHNI QUE: Imagin g protoc ol: Comput ed tomogr aphic angiog rangel of the chest with contra st. Exam focuse d on the arteri es. 3D render ing (Not superv ised by radiol ogist) : MIP and/or 3D recons tructe d images were create d by the techno logist . Contra st materi al: OMNIPA QUE 350; Contra st volume : 100 ml; Contra st route: INTRAV ENOUS (IV); COMPAR SUZANNE: CR XR PORTAB LE CHEST AP 024 11:18 PM FINDIN GS: Pulmon deng arteri es: There is no eviden ce of fillin g defect s within the pulmon deng arteri al circul ation to sugges t pulmon deng emboli sm. The pulmon deng arteri es are not enlarg ed. Aorta: The ascend ing, transv erse and descen ding thorac ic aorta appear normal withou t eviden ce of dissec tion, aneury smal dilata tion, pseudo aneury sm or aortic contra st leakag e. The aorta and great vessel s appear normal . Lungs: There is hetero geneou s attenu ation of the pulmon deng parenc hyma, consis tent with air trappi ng from underl len small airway s diseas e. Atelec tatic change s and scarri ng presen t at the lung bases bilate rally. Scatte red patchy ground -glass opacit ies within the lungs. These findin gs are nonspe cific and may repres ent hypove ntilat ory change ,edema , hemorr yomi, or an infect ious/i nflamm atory proces s (acute or chroni c). Pleura l spaces : There is no eviden ce of pneumo thorax . There are no pleura l effusi ons presen t. Heart: The cardia c struct ures are normal . Hammond ry arteri es: There is modera te athero sclero tic calcif icatio n of the hammond ry arteri es. Lymph nodes: There is no eviden ce of lympha denopa thy. Bones/ joints : The spine, sternu m, ribs, and pector al girdle s show no eviden ce of acute abnorm ality. Soft tissue s: There are no soft tissue masses or fluid collec tions. The upper abdomi nal viscer a are unrema rkable . Other findin gs: The medias tinal struct ures are normal . IMPRES YOUSIF: 1. There is hetero geneou s attenu ation of the pulmon deng parenc hyma, consis tent with air trappi ng from underl len small airway s diseas e. 2. Atelec tatic change s and scarri ng presen t at the lung bases bilate rally. Scatte red patchy ground -glass opacit ies within the lungs. These findin gs are nonspe cific and may repres ent hypove ntilat ory change ,edema , hemorr yomi, or an infect ious/i nflamm atory proces s (acute or chroni c). 3. There is no eviden ce of fillin g defect s within the pulmon deng arteri al circul ation to sugges t pulmon deng emboli sm. Dictat ed and Linnea cavazos d by: Steve Mattson MD. Orderi ng:Lata Falcon MD Access ion#=[id number] Ordere d By: CC: ------ ------ ------ ------ ------ ------ ------ ------ ------ ------ ------ ------ ---- Dictat ed By: Report s vrad 235 [id number] Transc ribed By: Nita Merge 2350 This is privil eged, confid ential inform ation intend ed only for the provid er named. Any use or distri bution by any person other than this provid er is strict ly prohib ited. If you receiv e this report in error, please notify us immedi ately at [phone] and return the origin al report to us at the addres s above. Thank- you. [facility] [address], [place], [address] 11/24/2023 22:33:21 11/21/19 24 11/21/2023 CT imagi ng repor t Patien t Name: Corwin Rosas Unit #: [id number] Loc: RED Orderi ng Provid er: Nasreen Alex DO Accoun t #: [id number] Status : REG ER Primar y Care Provid er: Luis Mike Date of Exam: Sex: M : 1964 Age: 58 Exam(s ) a CT:CT chest PE CTA Exam(s ) CT CHEST PE CTA EXAM: CT CHEST PE CTA CLINIC AL HISTOR Y: left chest pain, elevat ed dimer, eval for PE. TECHNI QUE: Imagin g Protoc ol: Axial CT angiog rangel was perfor med with multi- slice acquis ition and multi- planar and/or 3D recons tructi ons. CONTRA ST MATERI AL: Intrav enous: Omnipa que 350 COMPAR SUZANNE: CR,XR XR PORTAB LE CHEST AP from 2023 FINDIN GS: The examin ation is limite d due to patien t motion artifa ct. Trache obronc hial tree: Patent where visual ized. Pulmon deng parenc hyma: There are areas of atelec tasis seen in the lung bases partic ularly the right middle and right lower lobes. There is a calcif ied granul sal in the right upper lobe. Pulmon deng Arteri es: Subseg mental level pulmon deng arteri es are compro mised second deng to patien t motion artifa ct. Within the limits of the examin ation, no pulmon deng emboli sm is presen t. Medias tinum and Jenny: No domina nt adenop athy or fluid collec tion. The esopha sagrario is unrema rkable . Visual ized thyroi d gland: Unrema rkable . Pleura : No effusi on or pneumo thorax . Heart: The heart is not dilate d. Hammond ry artery calcif icatio n is presen t. No perica rdial effusi on. Aorta: Thorac ic aorta non-di lated. No eviden ce of dissec tion. Upper abdome n: Unrema rkable . Soft tissue s: Unrema rkable . Bones: Within normal limits for the patien t's age. IMPRES YOUSIF: 1. Within the limits of the examin ation, no pulmon deng emboli sm is presen t. 2. No eviden ce of thorac ic aortic dissec tion or aneury sm. 3. Atelec tasis or scarri ng is seen in the lung bases. RADIAT ION DOSE DELIVE RED: Total DLP DATA REPOSI TORY: All CT scans at this facili ty are submit calixto to the Nation al Radiol ogy Data Regist ry (NRDR) Dose Index Regist ry (DIR) with the [place] [employer] [employer] Radiol ogy (ACR). RADIAT ION OPTIMI ZATION : All CT scans at this facili ty use at least one of these dose optimi zation techni ques: automa calixto exposu re contro l; mA and/or kV adjust ment per patien t size (inclu brea target ed exams where dose is matche d to clinic al indica tion); or iterat tawanna recons tructi on 037: Total DLP = 0.00 mGy-cm Ordere d By: Nasreen Alex DO CC: ------ ------ ------ ------ ------ ------ ------ ------ ------ ------ ------ ------ ---- Dictat ed By: Isak Avalos M.D. 841 Transc ribed By: Isak Avalos 841 This is privil eged, confid ential inform ation intend ed only for the provid er named. Any use or distri bution by any person other than this provid er is strict ly prohib ited. If you receiv e this report in error, please notify us immedi ately at [phone] and return the origin al report to us at the addres s above. Thank- you. [facility] [address], [place], [address] 11/24/2023 22:33:22 11/21/19 24 11/21/2023 x-ray imagi ng repor t Patien t Name: Corwin Rosas Unit #: [id number] Loc: RED Orderi ng Provid er: Nasreen Alex DO Accoun t #: [id number] Status : REG ER Primar y Care Provid er: Luis Mike Date of Exam: Sex: M Admiss ion Date: : 1964 Age: 58 Exam(s ) XR PORTAB LE CHEST AP EXAM: XR PORTAB LE CHEST AP CLINIC AL HISTOR Y: left chest pain with inspir ation TECHNI QUE: 2D digita l imagin g was perfor med of the chest. One image was obtain ed. An AP view was obtain ed. COMPAR SUZANNE: CR PORTAB LE CHEST ONE VIEW from [address] CHEST PE CTA from 2023 FINDIN GS: MEDIAS TINUM: Normal . HEART: Normal . PULMON DENG VASCUL ATURE: Normal . LUNGS: There is atelec tasis seen in the left lung base. No focal consol idatin g infilt rate is presen t. PLEURA L SPACE: No pleura l effusi on or pneumo thorax . BONE:W ithin normal limits for the patien t's age. OTHER FINDIN GS:The re is again seen elevat ion of the right hemidi aphrag m. IMPRES YOUSIF: Left basila r atelec tasis. No focal consol idatin g infilt rate. DATA REPOSI TORY: RADIAT ION DOSE DELIVE RED: Ordere d By: Nasreen Alex DO CC: ------ ------ ------ ------ ------ ------ ------ ------ ------ ------ ------ ------ - Dictat ed By: Isak Avalos M.D. 0918 917 Transc ribed By: Isak Avalos 917 This is privil eged, confid ential inform ation intend ed only for the provid er named. Any use or distri bution by any person other than this provid er is strict ly prohib ited. If you receiv e this report in error, please notify us immedi ately at [phone] and return the origin al report to us at the addres s above. Thank- you. eoleson [facility] [address] [place], [address] 11/24/2023 22:33:22 12/10/19 24 12/10/2023 vrad repor t Patizora t Name: Corwin Rosas Unit #: [id number] Loc: ER Orderi ng Provid er: Accoun t #: [id number] Status : REG ER Primar y Care Provid er: Luis Mike Date of Exam: Sex: M : 1964 Age: 58 Exam(s ) PROCED URE INFORM ATION: Exam: XR Chest Exam date and time: 7:27 PM Age: 58 years old Clinic al indica tion: Cough TECHNI QUE: Imagin g protoc ol: Radiol ogic exam of the chest. Views: 2 views. COMPAR SUZANNE: CT CHEST PE CTA 11:51 PM FINDIN GS: Lungs: Unrema rkable . No consol idatio n. Pleura l spaces : There is a small left pleura l effusi on. Possib le trace right effusi on. Heart/ Medias tinum: Unrema rkable . No cardio megaly . Bones/ joints : Unrema rkable . IMPRES YOUSIF: Small left pleura l effusi on. Trace right effusi on not exclud able. Dictat ed and Authen eduardoate d by: Gifty lara MD. Orderi ng:Lata Harris MD Access ion#=[id number] Ordere d By: CC: ------ ------ ------ ------ ------ ------ ------ ------ ------ ------ ------ ------ ---- Dictat ed By: Report s vrad 1926 Transc ribed By: Nita Merge 1926 This is privil eged, confid ential inform ation intend ed only for the provid er named. Any use or distri bution by any person other than this [facility] is strict ly prohib ited. If you receiv e this report in error, please notify us immedi mariely at and return the origin al report to us at the addres s above. [facility] you. [facility] [address] [place], [address] 12/11/2023 06:27:32 08/16/20 24 12/11/2023 x-ray imagi ng repor t Patien t Name: Corwin Rosas Unit #: [id number] Loc: ER Orderi ng Provid er: Brigette Mabry i, M.D. Accoun t #: [id number] Status : DEP ER Primar y Care Provid er: Luis Mike Date of Exam: Sex: M Admiss ion Date: : 1964 Age: 58 Exam(s ) XR CHEST 2V PA LATERA L EXAM: XR CHEST 2V PA LATERA L CLINIC AL HISTOR Y: COUGH TECHNI QUE: 2D digita l imagin g was perfor med of the chest. Two images were obtain ed. PA and latera l views were obtain ed. COMPAR SUZANNE: CR,XR XR PORTAB LE CHEST AP from 2023 FINDIN GS: MEDIAS TINUM: Normal . HEART: Normal . PULMON DENG VASCUL ATURE: Normal . LUNGS: No focal consol idatio ns. PLEURA L SPACE: There is blunti ng of the left costop hrenic angle sugges ting a small pleura l effusi on. BONE:W ithin normal limits for the patien t's age. OTHER FINDIN GS:The re is again seen elevat ion of the right hemidi aphrag m. IMPRES YOUSIF: There has been interv al develo pment of a small left pleura l effusi on. DATA REPOSI TORY: RADIAT ION DOSE DELIVE RED: Orderrosa d By: Brigette Mabry i, M.D. CC: ------ ------ ------ ------ ------ ------ ------ ------ ------ ------ ------ ------ - Dictat ed By: Isak Avalos M.D. 0758 757 Transc ribed By: Isak Avalos 075 This is privil eged, confid ential inform ation intend ed only for the provid er named. Any use or distri bution by any person other than this provid er is strict ly prohib ited. If you receiv e this report in error, please notify us immedjennifer betancourt at and return the origin al report to us at the addres s above. Thank- you. [facility] [address] [place], [address] 12/14/2023 07:31:04 02/29/20 24 02/29/2024 XR, hip + pelvi s, bilat eral Patien t Name: Corwin Rosas Unit #: [id number] Loc: DI Orderi ng Provid er: RashidLuis jones Accoun t #: [id number] Status : REG CLI Primar y Care Provid er: Luis Mike Date of Exam: Sex: M Admiss ion Date: : 1964 Age: 59 Exam(s ) XR HIP PELVIS ADULT BL EXAM: XR HIP PELVIS ADULT BL CLINIC AL HISTOR Y: NEO HIP JOINT PAIN, M25.55 1 PAIN RT HIP, M25.55 2 PAIN LT HIP. TECHNI QUE: 2D digita l imagin g was perfor med of the pelvis and bilate ral hips. Three images were obtain ed. AP pelvis and latera l views of both hips were obtain ed. COMPAR SUZANNE: No exams were availa ble for compar suzanne FINDIN GS: BONES: No acute fractu re is presen t. No bony destru ctive lesion is seen. JOINTS : No disloc ation presen t. There is narrow ing of the superi or joint space of the right hip. Mild spurri ng is seen at the right acetab ulum roof. There is mild spurri ng seen in the left acetab ular roof. Sacroi liac joints and symphy sis pubis are intact . SOFT TISSUE : Normal . IMPRES YOUSIF: Mild degene rative change s of the hips, right greate r than left. DATA REPOSI TORY: RADIAT ION DOSE DELIVE RED: Ordere d By: Rashid ,Luis CC: ------ ------ ------ ------ ------ ------ ------ ------ ------ ------ ------ ------ - Dictat ed By: Isak Avalos M.D. 1006 1006 Transc ribed By: Isak Avalos 1006 This is privil eged, confid ential inform ation intend ed only for the provid er named. Any use or distri bution by any person other than this provid er is strict ly prohib ited. If you receiv e this report in error, please notify us immedi ately at [phone] and return the origin al report to us at the addres s above. Thank- you. [email or web address] [facility] [address], [place], [address], 03/28/2024 13:28:25 Result Notes None recorded. Problems Name Problem SNOMED Code Status Onset Date Resolution Date Notes Provider Name and Address Organization Details Recorded Time Dyspnea on exertion 29554707 Active [address], [place] [address] , [facility] 4 07:59:57 Bilatera l hip joint pain 29088880155 349290 Active [address], [place] [address] , [facility] 4 08:05:43 Psoriasi s 7842361 Active [address], [place] [address] , [facility] 4 08:09:02 Idiopath ic generali zed epilepsy 02792902 Active [address], [place] [address] , [facility] 4 08:36:20 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 [address], [place] [address] , [facility] 4 10:43:49 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 445841175 Active 2023 LUIS MIKE MD [address], [place], [address] , [facility] 4 10:43:56 Idiopath ic generali zed epilepsy , non-refr actory 40452340975 4104 Active 2003 Seizure disorder , [facility] 4 08:29:11 Obesity 891784637 Active 2014 [facility] 4 08:29:37 Obsessiv e-compul sive disorder 436838602 Active 2016 [facility] 4 08:29:50 Atherosc lerosis of coronary artery without angina pectoris 21023503424 4103 Active 2016 S/P PTCA -- STEMI, RV infarct, BREA X2 to LAD with residual disease on cath, LVEF55%, Dual antiplat elet rx until 03/2018 Mercedita Britt [facility] 4 08:28:23 Acute upper respirat ory infectio n 53698085 Completed 201807/05/2018 06/21/19 19 - Comments only - Ga ponce he can try taking over-the -counter cough medicati ons. Also can try taking over-the -counter Mucinex to see if that helps. Advised him that we will do a chest x-ray and treat him if his symptoms worsen. We will continue to monitor. Problem Code: J06.9; Problem Code Type: ICD-10; Not Available [facility] 3 05:31:45 Adult health examinat ion Completed 201809/18/2018 Ivis Britt [facility] 4 08:25:10 Disorder of skin and/or subcutan eous tissue 42812755 Active 2018 left forearm question Arriaga's disease Ivis Britt [facility], [facility], [facility]. 4 08:34:23 Screenin g for cancer Completed 201902/25/2024 LUIS MIKE MD [address], [place], [address] , [facility], [facility] 4 07:41:28 Neuropat hy due to type 2 diabetes mellitus 34216674401 9106 Active 2019 Ivis Britt [facility], [facility], [facility] 4 08:29:29 Edema 451707797 Active 2019 Peripher al Mercedita Britt null, [facility]. 4 08:34:37 Actinic keratosi s Active [address] [facility], [facility] 4 08:30:26 Anxiety disorder 691696611 Active 2022 Mercedita Britt null, [facility] 4 08:25:50 Chronic disease of tonsils AND/OR adenoids 54180224 Completed 202202/25/2024 Tonsillo lith LUIS MIKE MD [address], [place], [address] , [facility] 4 07:41:50 Chest pain 72286766 Completed 201603/12/2017 Problem Code: R07.89; Problem Code Type: ICD-10; Not Available [facility] 3 05:31:46 Adjustme nt disorder with depresse d mood 63318371 Completed 201804/01/2021 Problem Code: F43.21; Problem Code Type: ICD-10; Not Available [facility] 3 05:31:46 Impaired fasting glycemia 969148041 Completed 200912/22/2014 Not Available [facility] 3 05:31:46 Hypergly cemia due to type 2 diabetes mellitus 14258451043 9109 Completed 201401/21/2023 06/21/19 19 - Comments only - [place] - Stable and well controll ed on current manageme nt. No changes made to medicati on today. Advised to continue current medical manageme nt. Ordered CBC, CMP, and lipids today. Further treatmen t pending lab results. We will continue to monitor. Problem Code: E11.65; Problem Code Type: ICD-10; Not Available [facility] 3 05:31:46 Anxiety 68404369 Completed 201604/01/2021 Problem Code: F41.8; Problem Code Type: ICD-10; Not Available [facility] 3 05:31:46 Fatigue 08153351 Completed 201409/25/2020 Problem Code: R53.83; Problem Code Type: ICD-10; Not Available [facility] 3 05:31:47 Seizure disorder 069538500 Completed 200301/21/2023 Not Available [facility] 3 05:31:47 [place] ht [id number] Completed 200912/22/2014 Not Available [facility] 3 05:31:47 Lesion of skin of right ear 38938348274 977544 Completed 202202/25/[address], [place], [address] [facility], [facility]. 4 07:41:25 Choriore tinal scar of right eye 93953596651 9104 Active 2022 Ivis Britt [facility], [facility]. 4 08:31:31 Bilatera l eye astigmat ism 41125715978 9108 Active 2022 Ivis Britt [facility], [facility] 4 08:30:41 Bilatera l myopia of eyes 67842267941 9109 Active 2022 Mercedita Britt null, [facility] 4 08:30:53 Presbyop ia 33997243 Active 2022 Ivis De La Torre [facility], [facility] 4 08:34:56 Senile cataract 34925915 Active 2022 Ivis De La Torre [facility] 4 08:35:24 Bilatera l vitreous degenera tion of eyes 79945512991 9108 Active 2022 Iviswilliam De La Torre [facility] 4 08:31:19 Lesion of right ear 83046756080 84057 Completed 202302/25/[address], [facility] [address] , [facility] 4 07:41:23 Basal cell carcinom a of ear 367384026 Active 2023 KYRA MCNALLY MA null, [facility] 4 07:28:28 Foot callus 078499996 Active 2021 [facility] 4 08:33:36 Uncontro lled type 2 diabetes mellitus 466401228 Active [address], [place] [id number] , [facility] 4 14:18:06 Foot ulcer due to type 2 diabetes mellitus 19156899437 00 Active [address], [facility] [address] , [facility] 4 21:21:26 Type 2 diabetes mellitus 72701500 Active [address], [facility] [address] , [facility] 4 21:23:29 Infectio n of tooth 230476593 Completed 202302/25/[address], [place], [address] , [facility] 07:41:21 Problem Notes None recorded. Procedures Surgical History Date Name Laterality Status Provider Name and Address Organization Details Recorded Time 3 Cryosurgery Warts/Skin Tags completed LISA VASQUEZ MD [address], [place], [address], [facility] 04/06/2023 12:17:06 excision of basal cell carcinoma completed DORIAN TRIMBLE RN [facility] 06/17/2023 08:39:42 extraction of wisdom tooth completed KYRA MCNALLY MA [facility] 07/06/2023 13:59:02 Imaging Results Imaging Date Name Status LastModified by Organiz ation Details LastModified Time 11/20/2023 vrad report completed [address] [place], [address] 11/24/2023 22:33:21 11/20/2023 vrad report completed [address] [place], [address] 11/24/2023 22:33:21 11/21/2023 CT imaging report completed [address] [place], [address] 11/24/2023 22:33:22 11/21/2023 x-ray imaging report completed [address] [place], [address] 11/24/2023 22:33:22 12/10/2023 vrad report completed [address] [place], [address] 12/11/2023 06:27:32 12/11/2023 x-ray imaging report completed [address] [place], [address] 12/14/2023 07:31:04 02/29/2024 XR, hip + pelvis, bilateral completed [email or web address] [address], [place], [address], 03/28/2024 13:28:25 Procedure Notes None recorded. Medical Equipment None Reported. Allergies Allergen ID Allergen Name Allergen Category Reaction Reaction Severity Criticality Documentation Date Start Date Code Code System Note Provider Name and Address Organization Details Recorded Time 55590 codeine medicatio n seizure mild Not available 03/06/20232007 2670 RxNorm Ivis martinez [facility] 08:37:00 Medications Name Sig Start Date Stop Date Status Note LastModified by Organization Details LastModified Time amoxicillin 500 mg capsule active Not Available Not Available Not Available metformin 500 mg tablet Take 1 tab by mouth twice daily 02/27 completed Not Available Not Available Not Available atorvastati n 80 mg tablet Take 1 tab by mouth daily at bedtime 2016 [place] [facility] Not Available Not Available Not Available atorvastati n 20 mg tablet Take 1 tab by mouth daily at bedtime 06/05 completed Not Available Not Available Not Available lamotrigine 200 mg tablet TAKE ONE TABLET BY MOUTH TWICE A DAY 2023 active Not Available Not Available Not Avai lable atorvastati n 10 mg tablet Take 1 tab by mouth daily at bedtime 2016 active Not Available Not Available Not Avai lable metoprolol succinate ER 50 mg tablet,exte nded release 24 hr TAKE ONE TABLET BY MOUTH EVERY DAY active Not Available Not Available No t Available penicillin V potassium 500 mg tablet Take 1 tablet by mouth four times a day as directed 10/20 completed Not Available Not Available Not Available clopidogrel 75 mg tablet TAKE ONE TABLET BY MOUTH EVERY DAY 06/21 completed Not Available Not Available Not Available aspirin 81 mg tablet,becca yed release TAKE ONE TABLET BY MOUTH EVERY DAY active Not Available Not Available No t Available triamcinolo ne acetonide 0.1 % topical cream APPLY A THIN LAYER TO AFFECTED AREA(S) TWO TIMES A DAY FOR 2 WEEKS; CALL IF DOES NOT IMPROVE active Not Available Not Available No t Available glimepiride 2 mg tablet Take 1 tab by mouth daily 2016 active Not Available Not Available Not Avai lable benzonatate 100 mg capsule TAKE ONE CAPSULE BY MOUTH THREE TIMES A DAY NEEDED FOR COUGH 02/24 completed Not Available Not Available Not Available metformin 1,000 mg tablet TAKE ONE TABLET BY MOUTH TWICE A DAY active Not Available Not Available No t Available glimepiride 4 mg tablet TAKE ONE TABLET BY MOUTH EVERY DAY active Not Available Not Available No t Available Keflex 500 mg tablet 1 TID 06/22 completed Not Available Not Available Not Available nitroglycer in 0.[address] ONE TABLET UNDER THE TONGUE EVERY 5 MINUTES FOR UP TO 3 DOSES NEEDED FOR CHEST PAIN. CALL 911 AFTER FIRST DOSE active Not Available Not Available No t Available folic acid 1 mg tablet Take 1 tablet by mouth once a day 2019 active Not Available Not Available Not Avai lable aspirin 81 mg tablet Take 1 tablet by mouth once a day 09/30 completed Not Available Not Available Not Available mupirocin 2 % topical ointment APPLY 1 APPLICATI ON TOPICALLY TWO TIMES A DAY FOR 14 DAYS 02/24 completed Not Available Not Available Not Available furosemide 20 mg tablet Take 1 tablet by mouth once a day as needed 2019 active Not Available Not Available Not Avai lable metoprolol succinate ER 25 mg tablet,exte nded release 24 hr Take 1 tab by mouth daily 2016 active [facility] Not Available Not Available Not Avai lable albuterol sulfate HFA 90 mcg/actuati on aerosol inhaler Inhale 2 puffs every 4 hours by inhalatio n route as needed. active Not Available Not Available No t Available doxycycline hyclate 100 mg tablet TAKE ONE TABLET BY MOUTH TWICE A DAY 02/24 completed Not Available Not Available Not Available amoxicillin 875 mg-potassiu m clavulanate 125 mg tablet TAKE ONE TABLET BY MOUTH TWICE A DAY FOR 7 DAYS 02/24 completed Not Available Not Available Not Available ezetimibe 10 mg tablet TAKE ONE TABLET BY MOUTH EVERY DAY active Not Available Not Available No t Available rosuvastati n 40 mg tablet TAKE ONE TABLET BY MOUTH EVERY DAY active Not Available Not Available No t Available metoprolol tartrate 25 mg tablet Take 0.5 tab by mouth twice daily 03/16 completed Not Available Not Available Not Available aspirin 02/21 completed Not Available Not Available Not Available Dilantin Extended 100 mg capsule TAKE SEVEN CAPSULES BY MOUTH ONCE NIGHTLY active Not Available Not Available No t Available Rybelsus 7 mg tablet TAKE ONE TABLET BY MOUTH EVERY DAY 02/24 completed Not Available Not Available Not Available Rybelsus 3 mg tablet TAKE ONE TABLET BY MOUTH EVERY DAY active Not Available Not Available No t Available Vitals Date Recorded Body height Body mass index (BMI) Body weight Respiratory rate Body temperature Oxygen saturation Oxygen saturation in Arterial blood by Pulse oximetry Heart rate Systolic blood pressure Diastolic blood pressure Provider Name and Address Organization Details Last Updated DateTime 3 183.896 cm 34.6 kg/m2 050383. 83 g 18 /min 97.7 [degF] 94 % 94 % 68 /min 122 mm[Hg] 66 mm[Hg] ROSIE REID RN [facility] 3 11:37:54 Date Recorded Body height Body mass index (BMI) Body weight Oxygen saturation Oxygen saturation in Arterial blood by Pulse oximetry Heart rate Body temperature Respiratory rate Systolic blood pressure Diastolic blood pressure Provider Name and Address Organization Details Last Updated DateTime 4 183.896 cm 35.5 kg/m2 412921. 98 g 98 % 98 % 104 /min 98 [degF] 18 /min 128 mm[Hg] 58 mm[Hg] KYRA MCNALLY MA [facility] 4 14:02:37 Date Recorded Body height Oxygen saturation Oxygen saturation in Arterial blood by Pulse oximetry Heart rate Respiratory rate Body temperature Systolic blood pressure Diastolic blood pressure Provider Name and Address Organization Details Last Updated DateTime 4 183.9 cm 98 % 98 % 92 /min 20 /min 97.6 [degF] 118 mm[Hg] 60 mm[Hg] Michelle Martin [facility] 4 07:45:36 Date Recorded Body mass index (BMI) Body weight Provider Name and Address Organization Details Last Updated DateTime 02/25/2024 34.1 kg/m2 879645.46 g LUIS MIKE MD [address], [place], [address], [facility] 02/25/2024 07:58:46 Social History Question Answer Notes LastModified by Organizat ion Details LastModified Time Tobacco Smoking Status Former Smoker Michelle Martin [facility], [facility] 02/25/2024 07:54:10 When Did You Quit Smoking? 17+yearssin celastcigar ette 30 Years Ago Information not available 02/25/2024 What Was The Date Of Your Most Recent Tobacco Screening? 02/25/2024 Information not available 02/25/2024 Has Tobacco Cessation Counseling Been Provided? No [email or web address] Information not available 04/06/2023 Do You Or Have You Ever Used Any Other Forms Of Tobacco Or Nicotine? No Information not available 04/06/2023 Sex: Male Functional Status None recorded. Mental Status None recorded. Family History Relationship Description Onset Age of this Age Resolved Age Notes LastModified by Organization Details LastModified Time Mother Family history of acute medical disorder [email or web address] Not available 2022 03:52:43 Notes:*Problem: Mother: aliv e and well Father: alive and well Brothers: alive and well Family History of: Hypertension: no Hyperlipidemia: no Coronary heart disease: no Diabetes mellitus: no Colorectal cancer: no Prostate cancer: no Medical History No medical history recorded. Immunizations Vaccine Type Date Status Note Provider Nam e and Address Organization Details Recorded Time MMR 1 completed Not Available [facility] 05/08/2023 07:38:10 measles 7 completed Not Available [facility] 05/08/2023 07:38:10 mumps 9 completed Not Available [facility] 05/08/2023 07:38:10 Td (adult), 2 Lf tetanus toxoid, preservative free, adsorbed 0 completed Not Available [facility] 05/08/2023 07:38:10 DTaP, unspecified formulation 7 completed Not Available [facility] 05/08/2023 07:38:10 DTaP, unspecified formulation 1 completed Not Available [facility] 05/08/2023 07:38:10 DTaP, unspecified formulation 6 completed Not Available [facility] 05/08/2023 07:38:10 DTaP, unspecified formulation 6 completed [facility] 05/08/2023 07:38:10 Tdap 0 completed Not Available [facility] 05/08/2023 07:38:10 Td(adult) unspecified formulation 8 completed Not Available [facility] 05/08/2023 07:38:10 Influenza, split virus, trivalent, preservative 6 completed Not Available [facility] 05/08/2023 07:38:10 Influenza, split virus, quadrivalent, PF 0 completed Not Available [facility] 05/08/2023 07:38:10 Influenza, split virus, quadrivalent, PF 1 completed Not Available [facility] 05/08/2023 07:38:10 Influenza, split virus, quadrivalent, PF 9 completed Not Available [facility] 05/08/2023 07:38:10 Influenza, split virus, quadrivalent, preservative 9 completed Not Available [facility] 05/08/2023 07:38:10 Influenza, split virus, quadrivalent, preservative 7 completed Not Available [facility] 05/08/2023 07:38:10 zoster recombinant 0 completed Not Available [facility] 05/08/2023 07:38:10 zoster recombinant 1 completed Not Available [facility] 05/08/2023 07:38:10 COVID-19, mRNA, LNP-S, PF, 100 mcg/0.5mL dose or 50 mcg/0.25mL dose 2 completed Not Available [facility] 05/08/2023 07:38:10 COVID-19 vaccine, vector-nr, rS-Ad26, PF, 0.5 mL 1 completed Not Available [facility] 05/08/2023 07:38:10 pneumococcal polysaccharide PPV23 9 completed Not Available [facility] 05/08/2023 07:38:10 Hep B, adult 1 completed Not Available [facility] 05/08/2023 07:38:10 influenza, unspecified formulation 11/29/201 1 completed Not Available [facility] 05/08/2023 07:38:10 polio, unspecified formulation 8 completed Not Available [facility] 05/08/2023 07:38:10 polio, unspecified formulation 1 completed Not Available [facility] 05/08/2023 07:38:10 polio, unspecified formulation 6 completed Not Available [facility] 05/08/2023 07:38:10 polio, unspecified formulation 6 completed Not Available [facility] 05/08/2023 07:38:10 Pneumococcal conjugate PCV20, polysaccharide QEE292 conjugate, adjuvant, PF 4 completed LUIS MIKE MD [facility] [address], [place], [address], [facility] 02/25/2024 08:50:53 Influenza, split virus, quadrivalent, PF 3 completed ROSIE REID RN [facility], [facility] 04/06/2023 12:44:26 COVID-19, mRNA, LNP-S, PF, teetee-sucrose, 30 mcg/0.3 mL 3 completed PARVIN ORNELAS, [facility] 04/06/2023 12:38:43 influenza nasal, unspecified formulation 4 completed Michelle Martin [facility], [facility] 02/25/2024 07:19:56 Past Encounters Encounter ID Performer Location Encounter Start Date Encounter Closed Date Diagnosis/Indication Diagnosis SNOMED-CT Code Diagnosis ICD10 Code [id number] ROSIE REID RN [address] [address] 04/06/2023 11:25:27 04/06/2023 12:23:54 Type 2 diabetes mellitus without complication 932150410 E11.9 Atheroscle rosis of coronary artery without angina pectoris 5846324009 22475 I25.10 Anxiety disorder 0738006 06 F41.9 Active or passive immunization 608714576 Z23 Lesion of skin of right ear 4652755161 3355602 H93.8X1 Actinic keratosis 884677 007 L57.0 [id number] LUIS MIKE MD [address] [address] 07/06/2023 13:49:29 07/06/2023 14:48:56 Uncontrolled type 2 diabetes mellitus 062524814 E11.65 Type 2 joelle betes mellitus without complication 941663993 E11.9 Neuropathy due to type 2 diabetes mellitus 1635478007 75350 E11.40 Atheroscle rosis of coronary artery without angina pectoris 5407113449 64909 I25.10 Foot ulcer due to type 2 diabetes mellitus 2959189912 100 E11.114 [id number] LUIS MIKE MD [address] [address] 02/25/2024 07:28:26 02/25/2024 09:00:30 Neuropathy due to type 2 diabetes mellitus 9549766877 52364 E11.40 Uncontroll ed type 2 diabetes mellitus 193710485 E11.65 Dyspnea on exertion 6084 5006 R06.09 Bilateral hip joint pain 1009511951 0770350 M25.551 M25.552 Psoriasis 6795740 L40.9 Idiopathic generalized epilepsy 14474270 G40.309 Active or passive immunization 025370414 Z23 Health Concerns Section Related Observation LastModified by Organization Detai ls LastModified Time None Recorded Concern Status LastModified by Organization Details LastModified Time None Recorded Advance Directives Directive None Recorded Payers Encounter Date Sequence Insurance Name Policy Number Policy Quintero Covered Member ID Quintero Member ID Guarantor Name 04/06/2023 1 [place] [facility] Alison [id number] Corwin Rosas 07/06/2023 1 [place] Sydni Alison [id number] Corwin Solimanle 02/25/2024 1 [place] [facility] Alison [id number] Corwin Rosas Notes Date Note Type Note Provider Name and Address Organization Details Recorded Time 04/06/2023 text/html Here for follow- up of diabetes heart disease Seizure disorder and anxiety. Dealing with multiple family related stressors with his recently having bypass surgery with complications of A-fib and pleural effusion, caring for his elderly mother while trying to maintain the household. Has not been as attentive to his own diet or exercise with the stressors. Has not had problems with polyuria or polydipsia. No anginal chest pains. No seizures. No claudication symptoms. No trouble with bowel or bladder function. He does have a lesion on the right ear present for months that will not heal and a rough area on the left angle of his jaw that gets crusty. ROSIE REID RN [facility], [facility]. 04/06/2023 12:38:47 07/06/2023 text/html Here to meet new PCP and for follow-up of diabetes, heart disease, Seizure disorder and anxiety. Diabetes - rybelsus caused GI side effects, takes every other day. Stomach cramps when taking it every day. Has been fine on every other day regimen. Has been able to get back to his routine healthy habits, his has recovered from bypass surgery. He is hopeful his A1c will be better. He does not check his glucose levels at home.Takes metformin as well as glimepiride.He had a BCC removed from the R ear and would like me to look at how it has healed. On foot exam, we noticed several shallow ulcerations. He did get new boots recently. He is aware he does not have feeling in his toes. Seizure disorder - does well kaila medications. No side effects or seizures. HLD - on ezetimibe and rosuvastatin, aspirin.He has had a STEMI, now with BREA to LED. LUIS MIKE MD [address], [place], [address], [facility]. 07/07/2023 21:24:11 02/25/2024 text/html Corwin presents f or a diabetes follow-up. His recent A1c is 6.5. He self-discontinued Rybelsus and is currently taking glimepiride and metformin for diabetes management.Respirat ory Issues - Corwin is experiencing shortness of breath, particularly when climbing stairs. He has been using an albuterol inhaler from the ER and needs a refill. Corwin feels he has not regained his wind since having pneumonia in October and is concerned about his breathing.Weight and Lifestyle Changes - Corwin reports a recent weight of 254 pounds. He has changed jobs, which now involves more sitting and less walking. He has significantly changed his diet for the better. He has cut down on soda from 6 per day to 2 per day and feels he is generally eating better.Pain and Stiffness - Corwin complains of pain in his hips, shoulders, and ankles, as well as morning stiffness and hand cramps. He suspects arthritis. A few weeks ago, he experienced numbness in his fingers and lips and wondered about hypocalcemia.Skin Concerns - Corwin has a history of a spot on his face, which Dr. Vasquez used to freeze occasionally. He reports itching of the area. He denies having rashes elsewhere. LUIS MIKE MD [address], [place], [address], [facility]. 02/25/2024 08:57:49
--- OUTSIDE RECORDS SUMMARY | 2024-04-15 15:47 | XMS_ITS | Encounter Summary ---
Author Organization [facility] Address [address] [place] [address] Care Team Providers Care Superintendent Water And Sewer Systems Name Role Phone Unavailable Primary Care Provider Unavailabl e Encounter Details Date Type Department Care Team (Late st Contact Info) Description 03/16/2008 Before PRISM Converted Visit (Maple) [facility] - Maple conversion [address] [place] [address] Yoan Allen MD [address] [place] [address] Social History Tobacco Use Types Packs/Day Years Used Date Smoking Tobacco: Never Assessed Sex and Gender Information Value Date Recorded Sex Assigned at Not on file Legal Sex Male 18:30 EST Gender Identity Not on file Sexual Orientation Not on file documented as of this encounter Consult Notes * Yoan Allen MD - 11/18/2008 6064 EDT CONSULTATION - 03/16/2008 RE: JUAN ALBERTO ROSAS : 1965 The patient is a 43-year-old left-handed gentleman who is a new patient seen for evaluation of epilepsy. The patient previously had been seen and evaluated by Dr Logan. Those notes are available for review. The patient was accompanied by his . The patients risk factors for epilepsy include no family history of epilepsy, no history of meningitis or encephalitis, or history of febrile seizures. The patients seizures started at the age of 19 years. His last seizure was nine years ago. The patient never had any aura associated with the seizure. He does not have any recollection of the seizures. According to his , during the seizure, he had generalized convulsions with foaming, intermittent bladder incontinence, and postictal confusion. As mentioned above, his last seizure was nine years ago. In the past, he had EEG done and I reviewed those records, which showed polyspike and wave discharges. He had a CAT scan of the head, which was normal. I do not see any report of MRI of the brain. The patient was initiated with phenobarbital; however, he continued to have seizures and was started on Dilantin. The Dilantin dose was increased progressively up to 800 mg daily. He was thought to be a fast metabolizer of Dilantin. Even on Dilantin 800 mg, he had four seizures. At that point, Lamictal wasintroduced up to 200 mg twice a day and the Dilantin dose was reduced to 700 mg daily. He has remained on combination therapy since then. No attempt had been made to decrease the dose of Dilantin. He complained of some memory impairment and fatigue problem. His review of systems is also suggestive of snoring, excessive daytime somnolence, and fatigue. Hiswife has noted apneic episodes. He denies any headaches. He denies any nausea, vomiting, diplopia, dysphagia, dysarthria, tinnitus,vertigo, chest pain, shortness of breath, diarrhea, or constipation. Appetite is normal. He denies any weight gain or weight loss. A 13-system review of systems was obtained, which was negative except for what is mentioned in bodyof report. PAST MEDICAL HISTORY Epilepsy. PAST SURGICAL HISTORY History of pericardial effusion, status post drainage, thought to be secondary to pneumonia. SOCIAL HISTORY Nonsmoker and not alcoholic. ALLERGIES No known drug allergies. FAMILY HISTORY Unremarkable. MEDICATIONS 1. Dilantin 700 mg at bedtime. 2. Lamictal 200 mg daily. PHYSICAL EXAMINATION GENERAL Vital Signs: Pulse 85 per minute. Blood pressure 97/60. Respiratory rate 12. HEENT: Normocephalic, atraumatic. Neck: Supple, no JVD, no lymph nodes. Cardiovascular: S1, S2, no murmur, gallop. Lungs: Clear to auscultation and percussion. Abdomen: Soft, no hepatosplenomegaly. Extremities: No cyanosis, clubbing, erythema. CENTRAL NERVOUS SYSTEM EXAMINATION Patient is awake and alert. There is no aphasia or dysarthria. Attention, memory and concentration intact. CRANIAL NERVE EXAMINATION Pupils equal, round, and reactive to light and accommodation. Extraocular movement is intact. Thereis one beat of nystagmus on extreme gaze bilaterally. There is visual field cut. There is no papilledema. Face is symmetrical. Facial sensation normal. There is equal elevation of palate. Tongue midline without any atrophy or fasciculation. MOTOR EXAMINATION Bulk and tone normal. There is no atrophy or fasciculation. There is no clonus or Ellington sign. Strength normal 5/5. Reflexes 2+ with downgoing toes. SENSORY EXAMINATION Intact to pinprick, touch and vibration. CEREBELLAR Jgelyq-dd-zxll, ywku-tvjj-sanq test intact. Romberg test negative. He has minimal difficulty with tandem gait. LABORATORY TESTING On July 22, 2005, his AST was 19. Alkaline phosphatase was 40. Phenytoin level was 15.5. alkaline phosphatase 208. CBC with differential was normal. His lamotrigine level was 5.8, the range being 1-4. ASSESSMENT/PLAN The patient is a 43-year-old left-handed gentleman who presented for evaluation of epilepsy. By semiology and EEG record review, the patientseizures are consistent with generalized epilepsy. He does not have any family history of epilepsy or other risk factors for epilepsy. The patient had been maintained on a combination of Dilantin and Lamictal for a long period of time. He does complain of some side effects from antiepileptic medications, including fatigue and some memory impairment. He also has a history and body habitus and increased BMI (34.02) suggestive of obstructive sleep apnea. We discussed different options. We did discuss the role of monotherapy and to see whether we can taper Dilantin and keep him on Lamictal monotherapy. Obviously this is something he needs to think about and let me know about his discussion. An open discussion was made, especially about the recurrence of seizures and driving was discussed in an open-ended fashion with both the patient and his .They are going to let me know about their decision. We also discussed that I could not find any MRI report in the chart. Again, considering the fact that his seizures started at the age of 19 years, and he has not had any seizures for nine years, speaks against the possibility of any progressive structural lesion. His neurologic examination also is nonfocal. He also had a normal CAT scan of the head. Because of these reasons, an MRI of the brain was not ordered. I am going to obtain CBC, chem12, Dilantin level, and Lamictal level. We also discussed risk of osteoporosis with long-term use of Dilantin. I advised the patient to take calcium at least 1200 mg a day and vitamin D 800 international units a day. A sleep study is also going to be obtained to rule out the possibility of obstructive sleep apnea. The patient is going to return to clinic in a few months or sooner if problems come. Signed by Yoan Allen MD 03/27/2008 10:06 Yoan Allen MD - Yoan Allen MD P - LBR Job ID: [id number] Document ID: [id number] cc: Blake Vasquez MD documented in this encounter Plan of Treatment Not on file documented as of this encounter Visit Diagnoses Not on filedocumented in this encounter
--- OUTSIDE RECORDS SUMMARY | 2024-04-15 15:47 | XMS_ITS | Encounter Summary ---
Author Organization [facility] Address [facility] [place] [address] Care Team Providers Care Security Police Name Role Phone Blake Vasquez MD Primary Care Provider Reason for Visit * Reason Comments Establish Care 1 month F/U D/C [facility] STEMI Encounter Details Date Type Department Care Team (Late st Contact Info) Description 04/24/2017 8:20 AM EST Office Visit Cardiology at [address] [address] Esdras Dietz Jr., MD Type 2 diabetes mellitus with other circulatory complication, without long-term current use of insulin; ST elevation myocardial infarction involving right coronary artery; Obesity, unspecified classification, unspecified obesity type, unspecified whether serious comorbidity present Social History Tobacco Use Types Packs/Day Years [...] on file documented as of this encounter Last Filed Vital Signs Vital Sign Reading Time Taken Comments Blood Pressure 114/70 04/24/2017 8:48 AM EST Pulse 80 04/24/2017 8:41 AM EST per e kg Temperature - - Respiratory Rate - - Oxygen Saturation - - Inhaled Oxygen Concentration - - Weight 119.7 kg (264 lb) 04/24/2017 8:41 AM EST Height 188 cm (6' 2) 04/24/2017 8:41 AM EST Body Mass Index 33.9 04/24/2017 8:41 AM EST documented in this encounter Progress Notes * Esdras Dietz Jr., MD - 04/24/2017 8:20 AM EST Subjective: Patient ID: Corwin Rosas is a 52 y.o. male. Chief Complaint Patient presents with ??? Establish Care 1 month F/U D/C [facility] STEMI HPI This is a follow up after D/C from [facility] for DC. He has had no chest pain and denies MORRISON, dizziness or palpitations. He is working on his diet and doing light activity at home. He is to start cardiac rehab next week. 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 Review of Systems blood sugar getting better, denies other issues Allergies Allergen Reactions ??? Penicillins ??? Codeine Current Outpatient Prescriptions Medication Sig Dispense Refill ??? meTOPROLOL succinate (TOPROL-XL) 50 mg Tablet Sustained Release 24 hr Take 50 mg by mouth daily. ??? aspirin 81 mg Tablet, Delayed Release (E.C.) Take 1 tablet by mouth daily. 30 tablet 0 ??? atorvastatin (LIPITOR) 80 mg Tablet Take 1 tablet by mouth every evening. 30 tablet 0 ??? clopidogrel (PLAVIX) 75 mg Tablet Take 1 tablet by mouth daily. 30 tablet 0 ??? glimepiride (AMARYL) 4 mg Tablet Take 1 tablet by mouth daily. 30 tablet 0 ??? metFORMIN (GLUCOPHAGE) 1,000 mg Tablet Take 1 tablet by mouth 2 times daily. 60 tablet 0 ??? nitroGLYcerin (NITROSTAT) 0.4 mg Tablet, Sublingual Place 1 tablet under the tongue every 5 minutes as needed for Chest pain. 30 tablet 0 ??? lamoTRIgine (LAMICTAL) 200 mg Tablet Take 200 mg by mouth 2 times daily. ??? phenytoin (DILANTIN) 100 mg Capsule Take 700 mg by mouth. No current facility-administered medications for this visit. Patient Active Problem List Diagnosis ??? OCD (obsessive compulsive disorder) ??? Anxiety ??? Obesity ??? Fatigue ??? Type 2 diabetes mellitus ??? Seizure ??? STEMI (ST elevation myocardial infarction) Inferior STEMI 02/2017 Cath- mild diffuse LM and CCX, 50% prox and 60% mid LAD, 80% prox and 100% mid RCA-> ALEAH X 2 Echo- inferior and RV infarct, EF 55% MIBI- fixed inferior defect Objective: Physical Exam BP 114/70 (BP Location (NBP): Left arm, Patient Position: Standing) Pulse 80 Comment: per ekg Ht 188 cm (6' 2) Wt 119.7 kg (264 lb) BMI 33.9 kg/m2 NAD obese No JVD/HJR Chest clear Cor RR, no murmur Abd benign, obese Ext no edema EKG: NSR 80, inferior Qs and T inversions, no change Assessment and Plan: No angina post DC. Should start cardiac rehab. Reviewed need to stay on ASA for life and plavix forat least 1 year DM- reviewed importance of DM control to prevent further MIs Lipids- continue high dose statin Reviewed importance of exercise and weight loss Follow up 8 weeks when near done with rehab documented in this encounter Plan of Treatment Not on file documented as of this encounter Procedures Procedure Name Priority Date/Time Associated Diagnosis Comments ECG SCAN 05/01/2017 12:00 AM EST documented in this encounter Results * SCAN DOC: ECG (05/01/2017 12:00 AM EST) Narrative 05/01/2017 12:00 AM EST Ordered by an unspecified provider. Scanning Provider MEDIA MGR SCAN EXT O RDR/RSLT documented in this encounter Visit Diagnoses Diagnosis Type 2 diabetes mellitus with other circulatory complication, without long-term current use of insulin ST elevation myocardial infarction involving right coronary artery Acute myocardial infarction of inferoposterior wall, initial episode of care Obesity, unspecified classification, unspecified obesity type, unspecified whether serious comorbidity present documented in this encounter Care Teams Security Police Relationship Specialty Start Date End Date Blake Vasquez MD [address] [place] [address] PCP - General Internal Medicine 03/06/17 documented as of this encounter
--- OUTSIDE RECORDS SUMMARY | 2024-04-15 15:47 | XMS_ITS | Encounter Summary ---
Author Organization [facility] Address [address] [place] [address] Care Team Providers Care Tool Crib Manager Name Role Phone Unavailable Primary Care Provider Unavailabl e Encounter Details Date Type Department Care Team (Late st Contact Info) Description 12/06/2009 Results Only [facility] Laboratory Services - [facility] ([facility]) [address] [place] [id number] Jameson Chung MD [address] [place] [id number] Social History Tobacco Use Types Packs/Day Years [...] Procedure Name Priority Date/Time Associated Diagnosis Comments SURGICAL PATHOLOGY Routine 12/06/2009 0:00 EDT documented in this encounter Results * SURGICAL PATHOLOGY (12/06/2009 0:00 EDT) Pathology Report: SURGICAL PATHOLOGY REPORT ? Reports generated via electronic interface contain original data; ? however they are lacking the format of the original report. ? Caution should be taken when reading/interpreti ng unformatted reports. ? Name: ? ALISON, JUAN ALBERTO ? Accession #: ? [id number] ? : ? 1965 (Age: 44) ??M ? Collect Date: ? 12/06/2009 ? Location: ? [facility] ? Receive Date: ? 12/10/2009 ? Provider: JAMESON CHUNG MD ? Copy to: LISA MONTOYA MD ? Final Pathologic Diagnosis: ? Skin of arm, left middle one-third lateral, excision: ? 1. 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 ??See microscopic and comment. ? - Margins of excision negative. ? Comment: ? The features are those of an intradermal melanocytic nevus. Superficially ?? within the proliferation is an irregular distribution of melanin pigment, both ?? within melanocytes as well as within dermal melanophages. ??(Dr. Campo)/mpl ? Microscopic Description: ? Sections are of a papule with mild epidermal hyperplasia and ? hyperkeratosis. ??There is a proliferation of melanocytes within the dermis. ??The proliferation consists of nests, cords, and strands that diminish in size with ?? descent into the dermis. ??The melanocytes are slightly enlarged but generally ?? have round-oval nuclei and a moderate amount of cytoplasm. ??The melanocytes show sanitary plumber maturation. ??There is a variable distribution of melanin pigment with ?? the melanocytes as well as within dermal melanophages. At the base of the ? lesion, individual melanocytes splay dermal collagen fibers and infiltrate the ?? pilar arrector muscle. (Dr. Campo)/mpl ? Document reviewed and electronically signed by: ? Virginia Campo, MD ? Report ??Date: 12/11/2009 14:46 ? By the signature above, the attending physician certifies that he/she has ? personally conducted a gross and/or microscopic examination of the described ? specimens and rendered or confirmed the above diagnosis. ? Specimen(s) Received: ? Left arm middle 1/3 lateral ? Clinical History: ? Pigmented lesion ? Gross Description: ? Received in formalin labelled Alison, Juan Alberto and left arm is an ? unoriented elliptical excision of jasmine skin which measures 1.6 x 0.7 cm and is ?? excised to a depth of 0.7 cm. ??There is a central, jasmine-lopez, asymmetric, firm, ?? wrinkled papule measuring 0.5 x 0.4 x 0.1 cm. ??The margins are inked black. ??The specimen is serially sectioned and entirely submitted as (A1) and (A2) central ?? sections and (A3) tips, reverse en face. ??(Elisabet Ferrari)/[facility] ? End of Report ? [facility] 12/06/2009 12/10/2009 7:5 7 EDT us Jameson Chung MD PATHOLOGY ORDERABLES Final Result [facility] [address] [place] [address] documented in this encounter Visit Diagnoses Not on filedocumented in this encounter
--- OUTSIDE RECORDS SUMMARY | 2024-04-15 15:47 | XMS_ITS | Encounter Summary ---
Author Organization [facility] Address [address] [place] [address] Care Team Providers Care Lcac Radar Operator/Navigator Name Role Phone Blake Vasquez MD Primary Care Provider [phone] Reason for Visit * Reason Comments Follow-up Follow up 1 month fo r HST right eye without detatchment. Still floater and flashes right eye. No pain. Vision same both Encounter Details Date Type Department Care Team (Late st Contact Info) Description 09/09/2013 15:00 EDT Office Visit [facility] [address], [place] [phone] Isak Amrao MD [address] [facility], [address] [place] [address] Social History Tobacco Use Types [...] on file documented as of this encounter Progress Notes * Isak Amaro MD - 09/10/2013 1204 EDT DIVISION OF OPHTHALMOLOGY PROGRESS / FOLLOWUP NOTE - 09/09/2013 Corwin Rosas follows up today. 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 Today, on careful scleral depressed examination, there are no new holes, tears or detachments in the subretinal fluid and tears are well surrounded by laser. I had a daron risks, benefits and alternatives conference with the patient and his about the situation. I told them that though the localized detachment was well surrounded by laser, I had concerns that over the course of the patient's problem, he could develop PVR and pull the retina off. I thought that it was probably more likely that this would be prevented if we did a buckling procedure and got the retina flattened out on the buckle. I went over with him the risks, benefits and alternatives to buckle. He understands that with a buckling procedure there is a chance of loss of vision, blindness, loss of the eye, ptosis, strabismus, diplopia, anisoconia, change in refractive error, add ition of astigmatism and the possibility that even if we anatomically reattach the retina his vision might not be as good after the surgery as it was before the surgery. Chronic pain can also be an issue. The patient and his want to think about the situation over the weekend. If they decide they do not want to have anything done, then I will plan to see him again in 2 months or p.r.n. increased flashes, floaters, or loss of side vision. He knows that given he is a high myope he is at risk for similar problems in the fellow eye, so symptoms in the fellow eye like this need to be attended to immediately. Isak Amaro MD 04 54 PM - Isak Amaro MD cn Dictation ID: [id number] Steve Jo OD * Isak Amaro MD - 09/09/2013 1632 EDT Chief Complaint Patient presents with ??? Follow-up Follow up 1 month for HST right eye without detatchment. Still floater and flashes right eye. No pain. Vision same both HPI Location: Pain: 0 - No pain Quality: Severity: Duration: Timing: Lasts: Context: HST right eye without detatchment Modifying factors: Flashes right and same floater Associated Signs & Symptoms: vision fine, no pain Visual Fluctuations: Flashes;Floaters (right eye) Attestation: Base Eye Exam Visual Acuity Right Left Dist cc 20/30 +1 20/30 +1 Dist ph cc NI NI Method: Snellen - Linear Tonometry Right Left Pressure 15 12 Method: Applanation Time: 15:21 Pupils Pupils Dark Light React APD Right PERRL 4 3 Brisk None Left PERRL 4 3 Brisk .None Visual Skinner Right Left Result Full Full Extraocular Movement Right Left Result Full, Ortho Full, Ortho Neuro/Psych Oriented x3: Yes Mood/Affect: Normal Dilation Both eyes: 2.5% Phenylephrine, 0.5% Mydriacyl @ 15:22 Slit Lamp and Fundus Exam External Exam Right Left External Normal Slit Lamp Exam Right Left Lids/Lashes Blepharitis Blepharitis Conjunctiva/Sclera White and quiet White and quiet Cornea Clear Clear Anterior Chamber Deep and quiet Deep and quiet Iris Round and reactive Round and reactive Lens 2+ Nuclear sclerosis 2+ Nuclear sclerosis Vitreous Posterior vitreous detachment Fundus Exam Right Left Disc Normal Normal C/D Ratio 0.4 0.45 Macula occ'l hard druse Normal Vessels Normal Normal Periphery laser to HSTs and local RD 8-12, meridional fold 2:30 Tuft at 1 and lattice with pigment at 5 Normal Impression: 1. Retinal detachment with retinal defect, unspecified 2. Posterior vitreous degeneration Plan: S/p laser to local RD right eye Discussed option of scleral buckle procedure to flatten retina Risk/benefits reviewed with patient and Pt will consider Recheck 2 months This office note has been dictated. I, Dr. Amaro, have performed my own HPI and reviewed the tech's ROS. I have also reviewed the patient's past medical, family, social and surgical history, as well as the patient's medications, allergies, and problem list. I am scribing for, Isak Amaro MD, while he is personally performing the service. APPLE Villalobos (Scribe) documented in this encounter Plan of Treatment Not on file documented as of this encounter Visit Diagnoses Diagnosis Retinal detachment with retinal defect, unspecified- Primary Posterior vitreous degeneration Vitreous degeneration documented in this encounter Eye Exam Visual Acuity (Snellen - Linear) Right eye Left eye Dist cc 20/30 +1 20/30 +1 Dist ph cc NI NI Tonometry (Applanation, 15:21) Right eye Left eye Pressure 15 12 Pupils Pupils Dark Light React APD Right eye PERRL 4 3 Brisk None Left eye PERRL 4 3 Brisk .None Visual Skinner Right eye Left eye Full Full Extraocular Movement Right eye Left eye Full, Ortho Full, Ortho Neuro/Psych Oriented x3: Yes Mood/Affect: Normal Dilation Both eyes: 2.5% Phenylephrin e, 0.5% Mydriacyl @ 15:22 External Exam Right eye Left eye External Normal Slit Lamp Exam Right eye Left eye Lids/Lashes Blepharitis Blepharitis Conjunctiva/Sclera White and quiet White and antoinette et Cornea Clear Clear Anterior Chamber Deep and quiet Deep and quiet Iris Round and reactive Round and theresa ctive Lens 2+ Nuclear sclerosis 2+ Nuclear sclerosis Vitreous Posterior vitreous detachment Fundus Exam Right eye Left eye Disc Normal Normal C/D Ratio 0.4 0.45 Macula occ'l hard druse Normal Vessels Normal Normal Periphery laser to HSTs and lo memo RD 8-12, meridional fold 2:30 Tuft at 1 and lattice with pigment at 5 Normal Care Teams Lcac Radar Operator/Navigator Relationship Specialty Start Date End Date Blake Vasquez MD [address] [place] [address] PCP - General 12/11/09 documented as of this encounter
--- OUTSIDE RECORDS SUMMARY | 2024-04-15 15:47 | XMS_ITS | Encounter Summary ---
Author Organization [facility] Address [address] [place] [address] Care Team Providers Care Wrapper Opener Name Role Phone Blake Vasquez MD Primary Care Provider [phone] Encounter Details Date Type Department Care Team (Late st Contact Info) Description 06/11/2023 Lab Requisition [facility] Pathology & Laboratory Medicine - [facility] [address] [place] [address] Wilbert Wilson MD [address] [place] [address] [id number] Basal cell carcinoma of skin of right ear and external auricular canal Social History Tobacco Use Types Packs/Day Years [...] Priority Date/Time Associated Diagnosis Comments SURGICAL PATHOLOGY Today 06/10/2023 11 :30 EST Basal cell carcinoma of skin of right ear and external auricular canal documented in this encounter Results * SURGICAL PATHOLOGY (06/10/2023 11:30 EST) Note to Patient The following pathology results have been interpreted by your pathologist and may be available to you before your health provider has had the opportunity to review them. Please allow time for your provider to receive these results and explore management options, if applicable. 06/12/2023 14:51 [facility] Final Diagnosis A. SKIN OF EAR, RIGHT, EXCISION: - Basal cell carcinoma, residual, completely excised. 06/12/2023 14:51 [facility] Attestation By the signature below, the attending physician certifies that they have 1) personally conducted a gross and/or microscopic examination of the described specimen(s), and/or personally interpreted the results of laboratory testing of the described specimen(s), and 2) personally rendered or confirmed the above diagnosis. 06/12/2023 14:51 [facility] at 1451 Clinical History Clinical diagnosis code: C44.212 06/12/2023 14:51 [facility] Gross Description A. Received in formalin labelled with proper patient identification (initials T, D) and right ear is a 1.7 x 0.9 cm jasmine skin ellipse excised to a depth of 0.2 cm. There is a long suture at one end designating superior per diagram and a short suture on one side designating anterior per diagram on the accompanying requisition. The anterior half is inked blue and the posterior half is inked green. The epidermis displays a 0.7 x 0.7 cm central circular jasmine-brown lesion which is 0.3 cm from the superior margin, 0.1 cm from the anterior margin, 0.5 cm from the inferior margin, and less than 0.1 cm from the posterior margin. The specimen is serially sectioned from superior to inferior. Upon sectioning, the lesion has a thickness 0.2 cm and less than 0.1 cm from the closest deep margin. The specimen is entirely submitted as follows: BLOCK REAGAN A1- superior tip, reverse en face A2-A4- central cross-sections submitted from superior to inferior A5- inferior tip, reverse en face ABDULKADIR BLEDSOE(ASCP) 06/11/2023 11:30 06/12/2023 14:51 [facility] Performing Lab [facility] 06/12/2023 14:51 [facility] Scanned Images 06/12/2023 14:51 [facility] Tissue SPECIMEN FROM SKIN / Unknown 06/10/2023 11:30 EST 06/11/2023 8:30 EST us Wilbert Wilson MD PATHOLOGY ORDERABLES Final Resul t [facility] [address] [place] [address] documented in this encounter Visit Diagnoses Diagnosis Basal cell carcinoma of skin of right ear and external auricular canal Basal cell carcinoma of skin of ear and external auditory canal documented in this encounter Care Teams Wrapper Opener Relationship Specialty Start Date End Date Blake Vasquez MD [address] [place] [address] PCP - General 12/11/09 documented as of this encounter
--- OUTSIDE RECORDS SUMMARY | 2024-04-15 15:47 | XMS_ITS | Encounter Summary ---
Author Organization [facility] [place] [address] Care Team Providers Care Spice Mixer Name Role Phone Blake Vasquez MD Primary Care Provider Encounter Details Date Type Department Care Team (Late st Contact Info) Description 07/18/2017 Notes Only Internal Medicine at [facility] [place] [id number] Nela Cr CMA Social History Tobacco Use Types Packs/Day Years [...] as of this encounter Progress Notes * Nela Cr MA - 07/18/2017 9:42 AM EDT Patient pharmacy sent over a script refill for Metformin. Patient does not have a PCP at [facility].Patient PCP is at [facility]. I called his pharmacy, [facility] in [place], [place] & passed on the patient's PCP location. documented in this encounter Plan of Treatment Not on file documented as of this encounter Visit Diagnoses Not on filedocumented in this encounter Care Teams Spice Mixer Relationship Specialty Start Date End Date Blake Vasquez MD [address] [place] [address] PCP - General Internal Medicine 03/06/17 documented as of this encounter
--- OUTSIDE RECORDS SUMMARY | 2024-04-15 15:47 | XMS_ITS | Encounter Summary ---
Author Organization [facility] Address [address] [place] [address] Care Team Providers Care Stone Breaker Name Role Phone Blake Vasquez MD Primary Care Provider [phone] Encounter Details Date Type Department Care Team (Late st Contact Info) Description 12/10/2006 Results Only [facility] [address] [place] [address] Blake Vasquez MD [address] [place] [address] Social History Tobacco Use Types Packs/Day Years [...] Date/Time Associated Diagnosis Comments SURGICAL PATHOLOGY Routine 12/10/2006 0:00 EDT documented in this encounter Results * SURGICAL PATHOLOGY (12/10/2006 0:00 EDT) Pathology Report: SURGICAL PATHOLOGY REPORT Reports generated via electronic interface contain original data; however they are lacking the format of the original report. Caution should be taken when reading/interpreti ng unformatted reports. Name: ? JUAN ALBERTO ROSAS ? Accession #: ? [id number] ? : ? 1965 (Age: 41) ??M ? Collect Date: ? 12/10/2006 ? Location: ? [facility] ? Receive Date: ? 12/11/2006 ? Provider: BLAKE VASQUEZ MD Copy to: TRACY MEDINA MD ? Final Pathologic Diagnosis: ? Skin of thoracic area, left posterior, punch biopsy: 1. ?Basal cell carcinoma, superficial multicentric type. ? - Basal cell carcinoma extends to peripheral edges of punch biopsy specimen. Microscopic Description: ? Emanating from the epidermis and extending into the papillary dermis are buds of atypical basal cells. ??The basal cells have scant cytoplasm and round dark nuclei. ??Mitotic figures and apoptotic bodies are evident. ??The nuclei at the periphery of the buds have a palisaded arrangement. The superficial dermis is loose and, in some areas, there is retraction of the atypical cells from the stroma. ??(Dr. Garcia)/[facility] Document reviewed and electronically signed by: Dior Garcia MD Report ??Date: 12/14/2006 15:05 By the signature above, the attending physician certifies that he/she has personally conducted a gross and/or microscopic examination of the described specimens and rendered or confirmed the above diagnosis. Specimen(s) Received: ? L posterior thoracic area Clinical History: ? Lesion on L posterior thoracic area Gross Description: ? Received in formalin labelled Alison and ??lesion on left posterior thoracic area is a 2 mm punch biopsy of skin, with tissue to a depth of 2.0 mm. The tissue is submitted in its entirety in one cassette. (Dr. Kelly)/[facility] End of Report [facility] 12/10/2006 12/11/2006 15: 50 EDT us Blake Vasquez MD PATHOLOGY ORDERABLES Final Res ult [facility] [address] [place] [address] documented in this encounter Visit Diagnoses Not on filedocumented in this encounter Care Teams Stone Breaker Relationship Specialty Start Date End Date Blake Vasquez MD [address] [place] [id number] PCP - General 12/11/09 documented as of this encounter
--- OUTSIDE RECORDS SUMMARY | 2024-04-15 15:47 | XMS_ITS | Continuity of Care Document ---
Author Organization [place] - [facility], [facility] Address [address] [place] [address] Assessment Encounter Date Assessment Date Assessment LastModified [...] Details Appointments Office Visit 30 2024 07:30A Keri Mike Not available Not available Not available Lab hemoglobi n A1C, fingersti ck 2023 024 [email or web address] 1 [facility], [address] [place] [address], [address], 02/25/2024 08:44:12 vitamin B12, serum 2023 024 [facility] (Registration ), [address] [place] [address] [place], [address], 03/01/2024 11:38:10 CMP, serum or plasma 2023 [facility] (Registration ), [address] [place] [address] [place], [address], 02/25/2024 16:56:33 magnesium , serum or plasma 2023 [facility] (Registration ), [address] [place] [address] [place], [address], 03/01/2024 11:37:59 CBC w/ auto diff 2023 [facility] (Registration ), [address] [place] [address] [place], [address], 02/25/2024 16:08:34 Referral None recorded. Procedures None recorded. Surgeries None recorded. Imaging XR, hip + pelvis, bilateral 2023 [facility], [address], [place], [address], 03/28/2024 13:28:25 US, echocardi ogram [address] [facility], [address] [place], [address], 02/25/2024 13:58:55 Medication Orders triamcino lone acetonide 0.1 % topical cream 2023 024 [email or web address] 1 [facility], [address] [place], [address], 02/25/2024 08:44:10 albuterol sulfate HFA 90 mcg/actua tion aerosol inhaler 2023 024 [email or web address] 1 [facility], [address] [place], [address], 02/25/2024 08:44:09 Patient TargetsNo targets recorded. Patient Instructions Encounter Date Encounter Id Patient Instructions Last Modified By Organization Details Last Modified Time 02/25/2024 [id number] Dear Juliocesar Olivia you for visiting today [...] and blood counts. - Echocardiogram scheduled at [facility] to assess heart function. - X-rays to [...] results. - You will be contacted by [facility] and [facility] for imaging appointments. Please ensure to [employer] your two prescriptions at the pharmacy and keep an eye on your symptoms. If anything feels worse or if you have any concerns, do not hesitate to contact our office. Great job on improving your A1c, and take care! Best regards, Dr. Carmela Mike MD [email or web address] Not available 02/25/2024 08:25:20 Reason for Referral None Reported. Results Created Date Observation Date Name Description Value Unit Range Abnormal Flag Note LastModifiedBy Organization Detail LastModifiedTime 02/25/20 24 02/25/2024 hemog lobin A1C, finge rstic k hemoglobin A1C 6.5 % <5.7 Not Available [address], [address], 02/25/2024 07:42:28 02/29/20 24 02/29/2024 XR, hip + pelvi s, bilat eral Patien t Name: Corwin Rosas Unit #: [id number] Loc: DI Orderi ng Provid er: Carmela Mike Accoun t #: [id number] Status : REG CLI Primar y Care Provid er: Carmela Mike Date of Exam: Sex: M Admiss [...] of both hips were obtain ed. COMPAR LYNDA: No exams were availa ble for compar lynda FINDIN GS: BONES: No acute fractu re [...] . SOFT TISSUE : Normal . IMPRES JESSICA: Mild degene rative change s of the hips, right greate r than left. DATA REPOSI TORY: RADIAT ION DOSE DELIVE RED: Ordere d By: Carmela Mike CC: ------ ------ ------ ------ ------ ------ [...] error, please notify us immedi ately at and return the origin al report to us at the addres s above. Thank- you. [email or web address] [facility] [address], [place], [address], 03/28/2024 13:28:25 Result Notes None recorded. 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 Active [address], [address] 4 10:43:49 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 972484694 Active [address], [address] 4 10:43:56 Idiopath ic generali zed epilepsy , non-refr actory 28119359161 4104 Active 2003 Seizure disorder , generali zed [facility] 4 08:29:11 Obesity 243298711 Active 2014 [facility] 4 08:29:37 Obsessiv e-compul sive disorder 649744969 Active 2016 [facility] 4 08:29:50 Atherosc lerosis of coronary artery without angina pectoris 78071478257 4103 Active 2016 S/P PTCA -- STEMI, RV infarct, ALEAH X2 to LAD with residual disease on cath, LVEF55%, Dual antiplat elet rx until 03/2018 [facility] 4 08:28:23 Acute upper respirat ory infectio n 22023026 Completed 201807/05/2018 06/21/19 19 - Comments only - Ga ponce he can try taking over-the -counter cough medicati ons. Also can try taking over-the -counter Mucinex to see if that helps. Advised him that we will do a chest x-ray and treat him if his symptoms worsen. We will continue to monitor. Problem Code: J06.9; Problem Code Type: ICD-10; Not Available [facility] 3 05:31:45 Adult health examinat ion Completed 201809/18/2018 Ivis Britt [facility] 4 08:25:10 Disorder of skin and/or subcutan eous tissue 78639401 Active 2018 left forearm question Arriaga's disease [facility] 4 08:34:23 Screenin g for cancer Completed 201902/25/[address], [place], [address] , [facility] 4 07:41:28 Neuropat hy due to type 2 diabetes mellitus 30903347382 9106 [facility] 08:29:29 Edema 802399745 Active 2019 Peripher al [facility] 4 08:34:37 Actinic keratosi s 053367762 Active 2021 [facility] 4 08:30:26 Anxiety disorder 979577109 Active 2022 [facility] 4 08:25:50 Chronic disease of tonsils AND/OR adenoids 39879223 Completed 202202/25/2024 Tonsillo lith CARMELA MIKE MD [address], [place], [address] [facility] 4 07:41:50 Chest pain 82498330 Completed 201603/12/2017 Problem Code: R07.89; Problem Code Type: ICD-10; Not Available [facility] 3 05:31:46 Adjustme nt disorder with depresse d mood 60055063 Completed 201804/01/2021 Problem Code: F43.21; Problem Code Type: ICD-10; Not Available [facility] 3 05:31:46 Impaired fasting glycemia 736702345 Completed 200912/22/2014 Not Available [facility] 3 05:31:46 Hypergly cemia due to type 2 diabetes mellitus 77058486570 9109 Completed 201401/21/2023 06/21/19 19 - Comments only - [place] - Stable and well controll ed on current manageme nt. No changes made to medicati on today. Advised to continue current medical manageme nt. Ordered CBC, CMP, and lipids today. Further treatmen t pending lab results. We will continue to monitor. Problem Code: E11.65; Problem Code Type: ICD-10; Not Available [facility] 3 05:31:46 Anxiety 29831707 Completed 201604/01/2021 Problem Code: F41.8; Problem Code Type: ICD-10; Not Available [facility] 3 05:31:46 Fatigue 91779078 Completed 201409/25/2020 Problem Code: R53.83; Problem Code Type: ICD-10; Not Available [facility] 3 05:31:47 Seizure disorder 327765901 Completed 200301/21/2023 Not Available [facility] 3 05:31:47 Overweig ht 562857699 Completed 200912/22/2014 Not Available [facility] 3 05:31:47 Lesion of skin of right ear 44300674614 275397 Completed 202202/25/2024 CARMELA MIKE MD [address], [place], [address] [facility] 4 07:41:25 Choriore tinal scar of right eye 00689877602 9104 Active 2022 [facility], [facility]. 4 08:31:31 Bilatera l eye astigmat ism 17749629993 9108 Active 2022 [facility]. 4 08:30:41 Bilatera l myopia of eyes 62457546678 9109 Active 2022 [facility]. 4 08:30:53 Presbyop ia 63023228 Active 2022 [facility] null, [facility]. 4 08:34:56 Senile cataract 57902202 Active 2022 [facility]. 4 08:35:24 Bilatera l vitreous degenera tion of eyes 60457896724 9108 Active 2022 [facility] 4 08:31:19 Lesion of right ear 01691717142 48120 Completed 202302/25/[address], [facility] [address] , [facility] 4 07:41:23 Basal cell carcinom a of ear 198191469 Active 2023 KYRA MCNALLY MA null, [facility] 4 07:28:28 Foot callus 388536512 Active 2021 left Iviswilliam De La Torre null, [facility] 4 08:33:36 Uncontro lled type 2 diabetes mellitus 685539211 Active [address], [facility] [address] , [facility] 4 14:18:06 Foot ulcer due to type 2 diabetes mellitus 11253500747 00 Active [address], [facility] [address] , [facility] 4 21:21:26 Type 2 diabetes mellitus 50308249 Active [address], [facility] [address] , [facility] 4 21:23:29 Infectio n of tooth 074442072 Completed 202302/25/[address], [facility] [address] , [facility] 4 07:41:21 Problem Notes None recorded. Procedures Surgical History Date Name Laterality Status Provider Name and Address Organization Details Recorded Time 3 Cryosurgery Warts/Skin Tags completed MD Ella DE PAZ Dr, [facility] [address], [facility] 04/06/2023 12:17:06 excision of basal cell carcinoma completed DORIAN TRIMBLE RN [facility] 06/17/2023 08:39:42 extraction of wisdom tooth completed KYRA MCNALLY MA [facility] 07/06/2023 13:59:02 Imaging Results None recorded. Procedure Notes None recorded. Medical Equipment None Reported. Allergies Allergen ID Allergen Name Allergen Category Reaction Reaction Severity Criticality Documentation Date Start Date Code Code System Note Provider Name and Address Organization Details Recorded Time 23567 codeine medicatio n seizure mild Not available 03/06/202320070 RxNorm Ivis martinez [facility] 08:37:00 Medications Name Sig Start Date Stop Date Status Note LastModified by Organization Details LastModified Time amoxicillin 500 mg capsule active Not Available Not Available Not Available metformin 500 mg tablet Take 1 tab by mouth twice daily 02/27 completed Not Available Not Available Not Available atorvastati n 80 mg tablet Take 1 tab by mouth daily at bedtime [address] [place] Not Available Not Available Not Available atorvastati [...] 1 tab by mouth daily 2016 active [facility] Not Available Not Available Not Avai lable [...] t Available Vitals Date Recorded Body height Oxygen saturation Oxygen saturation in Arterial blood by Pulse oximetry Heart rate Respiratory rate Body temperature Systolic blood pressure Diastolic blood pressure Provider Name and Address Organization Details Last Updated DateTime 183.9 cm 98 % 98 % 92 /min 20 /min 97.6 [degF] 118 mm[Hg] 60 mm[Hg] Michelle Martin [facility] 07:45:36 Date Recorded Body mass index (BMI) Body weight Provider Name and Address Organization Details Last Updated DateTime 02/25/2024 34.1 kg/m2 074534.46 g CARMELA MIKE MD [address], [place], [address], [facility] 02/25/2024 07:58:46 Social History Question Answer Notes LastModified by Organizat ion Details LastModified Time Tobacco Smoking Status Former Smoker Michelle Martin [facility], [facility] 02/25/2024 07:54:10 When Did You Quit Smoking? 17+yearssin celastcigar ette 30 Years Ago Information not available 02/25/2024 What Was The Date Of Your Most Recent Tobacco Screening? 02/25/2024 Information not available 02/25/2024 Has Tobacco Cessation Counseling Been Provided? No [email or web address] Information not available 04/06/2023 Do You Or Have You Ever Used Any Other Forms Of Tobacco Or Nicotine? No [email or web address] Information not available 04/06/2023 Sex: Male Functional Status None recorded. Mental Status None recorded. Family History Relationship Description Onset Age of this Age Resolved Age Notes LastModified by Organization Details LastModified Time Mother Family history of acute medical disorder [place] [email or web address] Not available 2022 03:52:43 Notes:*Problem: Mother: alana e and well Father: alive and well Brothers: alive and well Family History of: Hypertension: no Hyperlipidemia: no Coronary heart disease: no Diabetes mellitus: no Colorectal cancer: no Prostate cancer: no Medical History No medical history recorded. Immunizations Vaccine Type Date Status Note Provider Nam e and Address Organization Details Recorded Time MMR 1 completed Not Available [facility] 05/08/2023 07:38:10 measles 7 completed Not Available [facility] 05/08/2023 07:38:10 mumps 9 completed Not Available [facility] 05/08/2023 07:38:10 Td (adult), 2 Lf tetanus toxoid, preservative free, adsorbed 0 completed Not Available [facility] 05/08/2023 07:38:10 DTaP, unspecified formulation 7 completed Not Available [facility] 05/08/2023 07:38:10 DTaP, unspecified formulation 1 completed Not Available [facility] 05/08/2023 07:38:10 DTaP, unspecified formulation 6 completed Not Available [facility] 05/08/2023 07:38:10 DTaP, unspecified formulation 6 completed Not Available [facility] 05/08/2023 07:38:10 Tdap 0 completed Not Available [facility] 05/08/2023 07:38:10 Td(adult) unspecified formulation 8 completed Not Available [facility] 05/08/2023 07:38:10 Influenza, split virus, trivalent, preservative 6 completed Not Available [facility] 05/08/2023 07:38:10 Influenza, split virus, quadrivalent, PF 0 completed Not Available [facility] 05/08/2023 07:38:10 Influenza, split virus, quadrivalent, PF 1 completed Not Available [facility] 05/08/2023 07:38:10 Influenza, split virus, quadrivalent, PF 9 completed Not Available [facility] 05/08/2023 07:38:10 Influenza, split virus, quadrivalent, preservative 9 completed Not Available [facility] 05/08/2023 07:38:10 Influenza, split virus, quadrivalent, preservative 7 completed Not Available [facility] 05/08/2023 07:38:10 zoster recombinant 0 completed Not Available [facility] 05/08/2023 07:38:10 zoster recombinant 1 completed Not Available [facility] 05/08/2023 07:38:10 COVID-19, mRNA, LNP-S, PF, 100 mcg/0.5mL dose or 50 mcg/0.25mL dose 2 completed Not Available [facility] 05/08/2023 07:38:10 COVID-19 vaccine, vector-nr, rS-Ad26, PF, 0.5 mL 1 completed Not Available [facility] 05/08/2023 07:38:10 pneumococcal polysaccharide PPV23 9 completed Not Available [facility] 05/08/2023 07:38:10 Hep B, adult 1 completed Not Available [facility] 05/08/2023 07:38:10 influenza, unspecified formulation 1 completed Not Available [facility] 05/08/2023 07:38:10 polio, unspecified formulation 8 completed Not Available [facility] 05/08/2023 07:38:10 polio, unspecified formulation 1 completed Not Available [facility] 05/08/2023 07:38:10 polio, unspecified formulation 6 completed Not Available [facility] 05/08/2023 07:38:10 polio, unspecified formulation 6 completed Not Available [facility] 05/08/2023 07:38:10 Pneumococcal conjugate PCV20, polysaccharide NNV180 conjugate, adjuvant, PF 4 completed CARMELA MIKE MD [address], [place], [address], [facility] 02/25/2024 08:50:53 Influenza, split virus, quadrivalent, PF 3 completed ROSIE REID RN null, [facility] 04/06/2023 12:44:26 COVID-19, mRNA, LNP-S, PF, teetee-sucrose, 30 mcg/0.3 mL 3 completed ROSIE REID RN null, [facility] 04/06/2023 12:38:43 influenza nasal, unspecified formulation 4 completed Michelle Martin null, [facility] 02/25/2024 07:19:56 Past Encounters Encounter ID Performer Location Encounter Start Date Encounter Closed Date Diagnosis/Indication Diagnosis SNOMED-CT Code Diagnosis ICD10 Code [id number] CARMELA MIKE MD [address] [address] 02/25/2024 07:28:26 02/25/2024 09:00:30 Neuropathy due to type 2 diabetes mellitus 9339256910 26431 E11.40 Uncontroll ed type 2 diabetes mellitus 422430716 E11.65 Dyspnea on exertion 6084 5006 R06.09 Bilateral hip joint pain 0000242855 4593171 M25.551 M25.552 Psoriasis 9728766 L40.9 Idiopathic generalized epilepsy 97464718 G40.309 Active or passive immunization 946362891 Z23 Health Concerns Section Related Observation LastModified by Organization Detai ls LastModified Time None Recorded Concern Status LastModified by Organization Details LastModified Time None Recorded Payers Encounter Date Sequence Insurance Name Policy Number Policy Quintero Covered Member ID Quintero Member ID Guarantor Name 02/25/2024 1 [place]: [facility] Sydni Rosas [id number] Corwin Rosas Notes Date Note Type Note Provider Name and Address Organization Details Recorded Time 02/25/2024 text/html Corwin presents f or a [...] the area. He denies having rashes elsewhere. CARMELA MIKE MD [address], [place], [address], [facility]. 02/25/2024 08:57:49
--- OUTSIDE RECORDS SUMMARY | 2024-04-15 15:47 | XMS_ITS | Encounter Summary ---
Author Organization [facility] Address [address] [place] [address] Care Team Providers Care Plumbing Hardware Assembler Name Role Phone Blake Vasquez MD Primary Care Provider [phone] Encounter Details Date Type Department Care Team (Late st Contact Info) Description 03/08/2007 Results Only [facility] [address] [place] [address] Luis Carlos Chung, DO [address] [facility] NANCY RANDOLPH [address] [place] [address] [id number] Social History Tobacco Use Types Packs/Day Years [...] Date/Time Associated Diagnosis Comments SURGICAL PATHOLOGY Routine 03/08/2007 0:00 EST documented in this encounter Results * SURGICAL PATHOLOGY (03/08/2007 0:00 EST) Pathology Report: SURGICAL PATHOLOGY REPORT Reports generated via electronic interface contain original data; however they are lacking the format of the original report. Caution should be taken when reading/interpreti ng unformatted reports. Name: ? JUAN ALBERTO ROSAS ? Accession #: ? [id number] ? : ? 1965 (Age: 42) ??M ? Collect Date: ? 03/08/2007 ? Location: ? [facility] ? Receive Date: ? 03/09/2007 ? Provider: LUIS CARLOS CHUNG DO Copy to: BLAKE VASQUEZ MD ? Final Pathologic Diagnosis: ? Skin of back, excision: 1. ?Basal cell carcinoma, superficial type, completely excised. 2. ? Cicatrix. Document reviewed and electronically signed by: Spencer Tucker MD Report ??Date: 03/11/2007 17:18 By the signature above, the attending physician certifies that he/she has personally conducted a gross and/or microscopic examination of the described specimens and rendered or confirmed the above diagnosis. Specimen(s) Received: ??Skin lesion back, suture left lateral Clinical History: ? Basal CA skin by punch biopsy, left back-thoracic region Gross Description: ? Received in formalin labelled Alison is an oriented elliptical skin excision with a suture designating the left/lateral aspect. ??The specimen measures 3.5 cm from left/lateral to right/medial, 2.0 cm from superior to inferior and is excised to a depth of 1.1 cm. ??There is a central 0.2 x 0.2 cm light brown macule. ??The superior aspect is inked blue and the inferior aspect is inked black. ??The specimen is sectioned from left/lateral to right/medial and is entirely submitted as follows: BLOCK REAGAN A1 ?Left/lateral margin, reverse en face A2-A6 ?Central sections A7 ?Right/medial tip reverse en face (Dr. Taylor)/mpl End of Report YIFAN YANG 03/08/2007 03/09/2007 15: 59 EST us Luis Carlos Chung DO PATHOLOGY ORDERABLES Fi nal Result [facility] [address] [place] [address] documented in this encounter Visit Diagnoses Not on filedocumented in this encounter Care Teams Plumbing Hardware Assembler Relationship Specialty Start Date End Date Blake Vasquez MD [address] [place] [address] PCP - General 12/11/09 documented as of this encounter
--- OUTSIDE RECORDS SUMMARY | 2024-04-15 15:47 | XMS_ITS | Encounter Summary ---
Author Organization [facility] Address [address] [place] [address] Care Team Providers Care Record Systems Analyst Name Role Phone Blake Vasquez MD Primary Care Provider [phone] Reason for Visit * Reason Comments Eye Problem s/p laser to HST and RD right eye Encounter Details Date Type Department Care Team (Late st Contact Info) Description 07/20/2013 14:45 EDT Office Visit [facility] Ophthalmology - [address] [id number] Isak Amaro MD [address] [facility], [address] [place] [address] Social History Tobacco Use Types [...] Progress Notes * Isak Amaro MD - 07/21/2013 1140 EDT [facility] OF OPHTHALMOLOGY July 20, 2013 Juan Pablo Jo OD [address] [employer] [facility], [address] [place] [address] RE: JUAN ALBERTO ROSAS : 1965 Dear Dilip: Geoffrey Rosas was seen today about 2 weeks out from laser to localize retinal detachment in his right eye. The laser is well positioned and the subretinal fluid has not progressed, but there is a fair pocket of subretinal fluid temporally in the side that I am worried about, i.e. I am worried that it could progress through the barricade of laser. I will be following the patient closely. I am asking him to liberalize his activity at this point. I will plan to see him in 2 weeks. He will cover his left eye at least once a day to make sure he is not having any progressive side vision loss in his right eye. Thanks again for letting me take part in his care. Sincerely, Isak Amaro MD 04 22 PM - Isak Amaro MD ln Dictation ID: [id number] cc: Juan Pablo Jo OD, [address] [place] [address], [place] [address] * Isak Amaro MD - 07/20/2013 1615 EDT Chief Complaint Patient presents with ??? Eye Problem s/p laser to HST and RD right eye HPI Location: Right eye Pain: 0 - No pain Quality: Blurry Severity: Mild Duration: Months Timing: Constant Lasts: Continuous Context: va seems stable. No noticable VFD Modifying factors: s/p laser to HST and RD right eye Associated Signs & Symptoms: still has a couple of floaters and nasal flash right eye, not worse. Visual Fluctuations: Floaters;Flashes Attestation: Blood pressure: A1c: Base Eye Exam Visual Acuity Right Left Dist cc 20/30 +2 20/30 -2 Method: Snellen - Linear Correction: Glasses Tonometry Right Left Pressure 17 Method: Applanation Time: 14:58 Pupils Pupils Right PERRL Left PERRL Neuro/Psych Oriented x3: Yes Mood/Affect: Normal Dilation Both eyes: 1.0% Mydriacyl, 2.5% Phenylephrine @ 14:58 Slit Lamp and Fundus Exam External Exam Right Left External Normal Slit Lamp Exam Right Left Lids/Lashes Blepharitis Conjunctiva/Sclera White and quiet Cornea Clear Anterior Chamber Deep and quiet Iris Round and reactive Lens Nuclear sclerosis Fundus Exam Right Left Periphery laser to HSTs and local RD 8-12. Tuft at 1 Impression: 1. Retinal detachment with retinal defect, unspecified 2. Horseshoe tear of retina without detachment Assessment and Plan: S/p laser to HSTs and local RD right eye No new tears Fluid well-surrounded but discussed with pt risk of progression Pt OK to gradually increase activity Instructed pt to cover left eye and monitor right eye daily for progression, ie:VFD and increase flashes and/or floaters Pt will report symptoms immediately May need to consider buckle if RD progresses Follow up 2 wks I, Dr. Amaro, have performed my own HPI and reviewed the tech's ROS. I have also reviewed the patient's past medical, family, social and surgical history, as well as the patient's medications, allergies, and problem list. I am scribing for Dr. Isak Amaro MD, while he is personally performing the service. REJI Lion (Scribe) documented in this encounter Plan of Treatment Not on file documented as of this encounter Visit Diagnoses Diagnosis Retinal detachment with retinal defect, unspecified- Primary Horseshoe tear of retina without detachment documented in this encounter Eye Exam Visual Acuity (Snellen - Linear) Right eye Left eye Dist cc 20/30 +2 20/30 -2 Correction: Glasses Tonometry (Applanation, 14:58) Right eye Left eye Pressure 17 Pupils Pupils Right eye PERRL Left eye PERRL Neuro/Psych Oriented x3: Yes Mood/Affect: Normal Dilation Both eyes: 1.0% Mydriacyl, 2 .5% Phenylephrine @ 14:58 External Exam Right eye Left eye External Normal Slit Lamp Exam Right eye Left eye Lids/Lashes Blepharitis Conjunctiva/Sclera White and quiet Cornea Clear Anterior Chamber Deep and quiet Iris Round and reactive Lens Nuclear sclerosis Fundus Exam Right eye Left eye Periphery laser to HSTs and local RD 8-12. Tuft at 1 Care Teams Record Systems Analyst Relationship Specialty Start Date End Date Blake Vasquez MD [address] [place] [address] PCP - General 12/11/09 documented as of this encounter
--- OUTSIDE RECORDS SUMMARY | 2024-04-15 15:47 | XMS_ITS | Encounter Summary ---
Author Organization [facility] Address [address] [place] [address] Care Team Providers Care Scouring Train Operator Name Role Phone Blake Vasquez MD Primary Care Provider [phone] Encounter Details Date Type Department Care Team (Late st Contact Info) Description 02/07/2021 Lab Requisition [facility] Pathology & Laboratory Medicine - [facility] [address] [place], [place] [id number] Outr Resulting Lab, Provider Social History Tobacco [...] Associated Diagnosis Comments QUANTIFERON MITOGEN (PERFORMABLE) Today 02/07/2021 9:50 EDT QUANTIFERON TB2 (PERFORMABLE) Today 02/07/2021 9:50 EDT QUANTIFERON TB1 (PERFORMABLE) Today 02/07/2021 9:50 EDT QUANTIFERON NIL (PERFORMABLE) Today 02/07/2021 9:50 EDT QUANTIFERON INTERPRETATION (PERFORMABLE) Today 02/07/2021 9:50 EDT QUANTIFERON TB GOLD PLUS Routine 02/07/2021 9:50 EDT documented in this encounter Results * QUANTIFERON INTERPRETATION (PERFORMABLE) (02/07/2021 9:50 EDT) [facility] Quantiferon Interpretation Negative Negative 02/11/2021 13:50 EDT [facility] Comment:No interferon-gamma response to M. tuberculosis antigens was detected. ??Infection with M. tuberculosis is unlikely. A single negative result does not exclude infection with M. tuberculosis. ??In patients at high risk for M. tuberculosis infection, a second test should be considered. TB1 Ag minus Nil 0.02 IU/ml 02/12/20 13:50 EDT [facility] TB2 Ag minus Nil 0.03 IU/mL 02/12/20 13:50 EDT [facility] Blood VENOUS BLOOD / Unknown 02/07/2021 9:50 EDT 02/11/2021 13:43 EDT Narrative [facility] - 02/11/2021 13:50 EDT Results were obtained with the [employer] QuantiFERON-TB Gold Plus CLIA. New platform in use 01/02/2021 us Provider Outr Resulting Lab IMMUNOLOGY AND SEROL OGY ORDERABLES Final Result Performing Organization Address [facility] Co de Phone Number [facility] [address] [place] [address] * QUANTIFERON MITOGEN (PERFORMABLE) (02/07/2021 9:50 EDT) Blood VENOUS BLOOD / Unknown 02/07/2021 9:50 EDT 02/08/2021 16:24 EDT us Provider Outr Resulting Lab IMMUNOLOGY AND SEROL OGY ORDERABLES Final Result Performing Organization Address [facility]/ZIP Co de Phone Number [facility] [address] [place] [address] * QUANTIFERON TB2 (PERFORMABLE) (02/07/2021 9:50 EDT) Blood VENOUS BLOOD / Unknown 02/07/2021 9:50 EDT 02/08/2021 16:24 EDT us Provider Outr Resulting Lab IMMUNOLOGY AND SEROL OGY ORDERABLES Final Result Performing Organization Address [facility] Co de Phone Number [facility] [address] [place] [address] * QUANTIFERON TB1 (PERFORMABLE) (02/07/2021 9:50 EDT) Blood VENOUS BLOOD / Unknown 02/07/2021 9:50 EDT 02/08/2021 16:24 EDT us Provider Outr Resulting Lab IMMUNOLOGY AND SEROL OGY ORDERABLES Final Result Performing Organization Address [facility] Co de Phone Number [facility] [address] [place] [address] * QUANTIFERON NIL (PERFORMABLE) (02/07/2021 9:50 EDT) Blood VENOUS BLOOD / Unknown 02/07/2021 9:50 EDT 02/08/2021 16:24 EDT us Provider Outr Resulting Lab IMMUNOLOGY AND SEROL OGY ORDERABLES Final Result Performing Organization Address [facility] Co de Phone Number [facility] [address] [place] [address] documented in this encounter Visit Diagnoses Not on filedocumented in this encounter Care Teams Scouring Train Operator Relationship Specialty Start Date End Date Blake Vasquez MD [address] [place] [address] PCP - General 12/11/09 documented as of this encounter
--- OUTSIDE RECORDS SUMMARY | 2024-04-15 15:47 | XMS_ITS | Encounter Summary ---
Author Organization [facility] Address [address] [place] [address] Care Team Providers Care Generation Technologist Name Role Phone Blake Vasquez MD Primary Care Provider Encounter Details Date Type Department Care Team (Late st Contact Info) Description 05/19/2023 Lab Requisition [facility] Pathology & Laboratory Medicine - [facility] [address] [place] [address] Socorro Lucas APRN [address] [place] [address] [address] [place], [place] [phone] Disorder of right external ear, unspecified Social History Tobacco Use Types Packs/Day Years [...] Date/Time Associated Diagnosis Comments SURGICAL PATHOLOGY Today 05/18/2023 11 :40 EST Disorder of right external ear, unspecified documented in this encounter Results * SURGICAL PATHOLOGY (05/18/2023 11:40 EST) Note to Patient The following pathology results have been interpreted by your pathologist and may be available to you before your health provider has had the opportunity to review them. Please allow time for your provider to receive these results and explore management options, if applicable. 05/20/2023 7:51 [facility] Final Diagnosis A. SKIN OF EAR, RIGHT HELIX, SHAVE BIOPSY: - Basal cell carcinoma, nodular type. - Lesion extends to biopsy base. 05/20/2023 7:51 [facility] Attestation By the signature below, the attending physician certifies that they have 1) personally conducted a gross and/or microscopic examination of the described specimen(s), and/or personally interpreted the results of laboratory testing of the described specimen(s), and 2) personally rendered or confirmed the above diagnosis. 05/20/2023 7:51 [facility] at 0751 Clinical History Nonhealing lesion, present greater than 4 months, bleeding, no hypervascularity, no raised edges; clinical diagnosis code: H61.91 05/20/2023 7:51 [facility] Gross Description A. Received in formalin labelled with proper patient identification (initials T, D) and R ear helix is a shave biopsy of white granular skin (0.5 x 0.3 x 0.1 cm). The margin is inked blue and the specimen is submitted intact in A1. Nicol Pool 05/19/2023 8:03 05/20/2023 7:51 [facility] Performing Lab [facility] 05/20/2023 7:51 [facility] Scanned Images 05/20/2023 7:51 [facility] Tissue SPECIMEN FROM SKIN / Unknown 05/18/2023 11:40 EST 05/19/2023 6:12 EST Socorro Lucas APRN PATHOLOGY ORDERABLES Final Result [facility] [address] [place] [address] documented in this encounter Visit Diagnoses Diagnosis Disorder of right external ear, unspecified documented in this encounter Care Teams Generation Technologist Relationship Specialty Start Date End Date Blake Vasquez MD [address] [place] [id number] PCP - General 12/11/09 documented as of this encounter
--- OUTSIDE RECORDS SUMMARY | 2024-04-15 15:47 | XMS_ITS | Encounter Summary ---
Author Organization [facility] Address [address] [place] [address] Care Team Providers Care Coverstitch Binder Name Role Phone Blake Vasquez MD Primary Care Provider [phone] Reason for Visit * Reason Comments Eye Problem Eval of possible HST 's right eye Encounter Details Date Type Department Care Team (Late st Contact Info) Description 07/06/2013 12:40 EDT Office Visit [facility] Ophthalmology - [address] [address] Isak Amaro MD 111 [facility], [address] [place] [address] Discharge Disposition: Auto Discharge Social History Tobacco Use Types Packs/Day Years [...] Diagnoses Diagnosis 361.00 DETACHMNT W DEFECT NOS[ICD-9-CM] 360.21 PROGRESSIVE HIGH MYOPIA[ICD-9-CM] 361.32 HORSESHOE TEAR OF RETINA[ICD-9-CM] 379.21 VITREOUS DEGENERATION[ICD-9-CM] 379.24 VITREOUS OPACITIES NEC[ICD-9-CM] documented in this encounter Discharge Disposition Disposition Code Departure Means Destination Auto Discharge documented in this encounter Progress Notes * Isak Amaro MD - 07/06/2013 6920 EDT Chief Complaint Patient presents with ??? Eye Problem Eval of possible HST's right eye HPI Location: Right eye Pain: 0 - No pain Quality: Blurry Severity: Mild Duration: Months Timing: Constant Lasts: Continuous Context: 3 months ago saw flashes, about 2 months ago started seeing a few floaters (4 possible) still seeing floaters Modifying factors: no curtain or shade Associated Signs & Symptoms: VA stable both eyes Visual Fluctuations: Floaters Attestation: Blood pressure: A1c: Base Eye Exam Visual Acuity Right Left Dist cc 20/25 -1 20/30 -2 Dist ph cc 20/25 -3 Method: Snellen - Linear Correction: Glasses Tonometry Right Left Pressure Method: Applanation Time: 13:38 Pupils Pupils Right PERRL Left PERRL Neuro/Psych Oriented x3: Yes Mood/Affect: Normal Dilation Both eyes: 1.0% Mydriacyl, 2.5% Phenylephrine @ 13:38 Additional Tests Color Right Left Color / Method: Ishihara Slit Lamp and Fundus Exam External Exam Right Left External Normal Normal Slit Lamp Exam Right Left Lids/Lashes Blepharitis Blepharitis Conjunctiva/Sclera White and quiet White and quiet Cornea Clear Clear Anterior Chamber Deep and quiet Deep and quiet Iris Round and reactive Round and reactive Lens Nuclear sclerosis Nuclear sclerosis Vitreous floaters, PVD, pigment in vit floaters, no PVD Fundus Exam Right Left Disc Normal Normal C/D Ratio 0.4 0.45 Macula occ'l tiny hard drusen Normal Vessels Normal Normal Periphery Retinal tuft at 1 o'clock, HSTs at 9:30, 10 and 11. fluid around HST at 9:30 meridian folds 9-10 with roland at 10 and 11 Impression: 1. Retinal detachment with retinal defect, unspecified 2. Progressive high (degenerative) myopia 3. Posterior vitreous degeneration 4. Floater, vitreous 5. 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 Done today Follow up 10-14 days I, Dr. Amaro, have performed my own HPI and reviewed the tech's ROS. I have also reviewed the patient's past medical, family, social and surgical history, as well as the patient's medications, allergies, and problem list. I am scribing for Dr. Isak Amaro MD, while he is personally performing the service. Kamran Almodovar, COT (Scribe) Oph Retinal Laser Note Corwin Rosas is here and consented to the following: Procedure Focal Indication: RD Side: Right Eye Surgeon: Isak Amaro MD PROCEDURE: Anesthesia Type: none The patient was taken to the laser room where a total of 1250 spots of 0.1 duration and green wavelength were placed. Lens used: 20D lens. Power: 200-250 Spot size: JAK I certify that a Final Verification has been performed by the surgical team immediately prior to this procedure to verbally confirm patient identity, procedure and when applicable, site. Name of Regulator Inspector: Ramses Amaro MD Post op diagnosis/findings: same Disposition/ Complications: The patient tolerated the procedure well and left the office in good condition. Followup/ Instructions: no heavy lifting, bending or straining. 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 lamoTRIgine (LAMICTAL) 100 mg tablet Take 400 mg by mouth daily. phenytoin (DILANTIN) 30 mg ER capsule Take 700 mg by mouth daily. added in this encounter Eye Exam Visual Acuity (Snellen - Linear) Right eye Left eye Dist cc 20/25 -1 20/30 -2 Dist ph cc 20/25 -3 Correction: Glasses Tonometry (Applanation, 13:38) Right eye Left eye Pressure 17 17 Pupils Pupils Right eye PERRL Left eye PERRL Neuro/Psych Oriented x3: Yes Mood/Affect: Normal Dilation Both eyes: 1.0% Mydriacyl, 2 .5% Phenylephrine @ 13:38 Color Right eye Left eye Ishihara / External Exam Right eye Left eye External Normal Normal Slit Lamp Exam Right eye Left eye Lids/Lashes Blepharitis Blepharitis Conjunctiva/Sclera White and quiet White and antoinette et Cornea Clear Clear Anterior Chamber Deep and quiet Deep and quiet Iris Round and reactive Round and theresa ctive Lens Nuclear sclerosis Nuclear sclero sis Vitreous floaters, PVD, pigment in vit fl oaters, no PVD Fundus Exam Right eye Left eye Disc Normal Normal C/D Ratio 0.4 0.45 Macula occ'l tiny hard drusen Normal Vessels Normal Normal Periphery Retinal tuft at 1 o' clock, HSTs at 9:30, 10 and 11. fluid around HST at 9:30 meridian folds 9-10 with roland at 10 and 11 Care Teams Coverstitch Binder Relationship Specialty Start Date End Date Blake Vasquez MD [address] [place] [address] PCP - General 12/11/09 documented as of this encounter
--- OUTSIDE RECORDS SUMMARY | 2024-04-15 15:47 | XMS_ITS | Clinical Summary ---
Author Organization [facility] Address [address] [place] [address] Care Team Providers Care Customer Acquisition Manager Name Role Phone Blake Vasquez MD Primary Care Provider [phone] Allergies No known active allergies Medications phenytoin [...] 4 Overview (01/25/2015): ICD10 Update Auto Replacement Medical History Medical History Date Comments Seizure ([facility]) Family History Medical History Relation Comments Glaucoma Maternal Grandmother Relation Status Comments Maternal Grandmother Social History Tobacco Use Types Packs/Day Years Used Date Smoking Tobacco: Former Smokeless Tobacco: Never Alcohol Use Standard Drinks/Week Comments No 0 (1 standard drink = 0.6 oz pur e alcohol) Sex and Gender Information Value Date Recorded Sex Assigned at Not on file Legal Sex Male 18:30 EST Gender Identity Not on file Sexual Orientation Not on file Obstetrics History Plan of Treatment Health Maintenance Due Date Last Done Comments Hepatitis C Screen 1965 Hepatitis B Vaccine (1 of 3 - 19+ 3-dose series) 01/07 COVID-19 Vaccine ( season) 2023 Insurance [facility] Care Teams Customer Acquisition Manager Relationship Specialty Start Date End Date Blake Vasquez MD [address] [place] [address] PCP - General 12/11/09
--- OUTSIDE RECORDS SUMMARY | 2024-04-15 15:47 | XMS_ITS | Encounter Summary ---
Author Organization [facility] Address [address] [place] [address] Care Team Providers Care Lap Regulator Name Role Phone Blake Vasquez MD Primary Care Provider [phone] Reason for Visit * Reason Comments Follow-up s/p laser to local R D right eye. No pain, no new f/f. Encounter Details Date Type Department Care Team (Late st Contact Info) Description 01/18/2014 12:45 EDT Office Visit [facility] Ophthalmology - [address] [id number] Isak Amaro MD [address] [facility], [address] [place] [address] Social History Tobacco Use Types [...] as of this encounter Discharge Diagnoses Diagnosis 361.06 OLD DETACHMENT, PARTIAL[ICD-9-CM] 379.21 VITREOUS DEGENERATION[ICD-9-CM] 360.21 PROGRESSIVE HIGH MYOPIA[ICD-9-CM] documented in this encounter Progress Notes * Isak Amaro MD - 01/18/2014 2006 EDT [facility] DIVISION OF OPHTHALMOLOGY January 18, 2014 Juan Pablo Jo OD [address] [place] [address], [address] [place] [address] RE: JUAN ALBERTO ROSAS : 1965 Dear Jamison Cherryrosa Rosas was seen again today. He had a laser encirclement of a small temporal retinal detachmentin his right eye and continues to do well with no progression of the problem. I discussed with the patient the fact that there is more fluid here then typically I will karuk with laser, though the result has been excellent thus far. We discuss the options of a scleral buckling procedure and went over the risks, benefits, and alternatives to that. The patient and I decided to continue to follow this since he has been so stable. He will monitor his vision by covering one eye at a time once a day at least and will report any increased flashes, floaters, or loss of side vision or any sudden change in central vision. He will be getting back to you for a prescription change. Best regards, Isak Amaro MD 02 11 PM - Isak Amaro MD cn Dictation ID: [id number] cc: Juan Pablo Jo OD, [address] [place] [address], [facility] [address], [place] [address] * Isak Amaro MD - 01/18/2014 5017 EDT Chief Complaint Patient presents with ??? Follow-up s/p laser to local RD right eye. No pain, no new f/f. HPI Location: blurry both mild mos constAnt Pain: 0 - No pain Quality: (WNL) Severity: Duration: Timing: Lasts: Context: s/p laser to local RD right eye. Modifying factors: no pain Associated Signs & Symptoms: no new f/f Visual Fluctuations: None Attestation: Blood pressure: A1c: Base Eye Exam Visual Acuity Right Left Dist cc 20/30 +1 20/30 -1 Method: Snellen - Linear Tonometry Right Left Pressure 16 14 Method: Applanation Time: 13:09 Neuro/Psych Oriented x3: Yes Mood/Affect: Normal Dilation Both eyes: 2.5% Phenylephrine, 1.0% Mydriacyl @ 13:09 Slit Lamp and Fundus Exam External Exam Right Left External Normal Slit Lamp Exam Right Left Lids/Lashes Blepharitis Blepharitis Conjunctiva/Sclera White and quiet White and quiet Cornea Clear Clear Anterior Chamber Deep and quiet Deep and quiet Iris Round and reactive Round and reactive Lens 2+ Nuclear sclerosis 2+ Nuclear sclerosis, Posterior subcapsular cataract Vitreous pigment in vitreous , Posterior vitreous detachment Fundus Exam Right Left Disc Normal Normal C/D Ratio 0.4 0.45 Macula occ'l hard druse Normal Vessels Normal Normal Periphery laser to HSTs and local RD 8-12, meridional fold 2:30 Tuft at 1 and lattice with pigment at 5 Normal Impression: 1. Retinal detachment with retinal defect, unspecified 2. Horseshoe tear of retina without detachment 3. Progressive high (degenerative) myopia Assessment and Plan: HST'S-right eye Well surrounded with laser No fluid outside of laser margins Rd precautions reviewed Observe Local RD-right eye Well treated with laser No progression was noted on meticulous 360 degree SD Patient opts to observe at this time Myopia Juan Alberto Rosas is a high myope. He was [...] severe visual loss or even blindness. Observe The patient has been informed that they have a chronic posterior vitreous detachment. At this juncture the risk of retinal detachment is reduced but not zero. The patient has been instructed to continue to be alert for worsening of floaters or flashes or loss of peripheral vision. If these symptomsoccur the patient will call us immediately as these symptoms could be consistent with new holes tears or retinal detachment. The patient understands and agrees to do this. Follow up 3 months or PRN This office note has been dictated. I, [...] Primary Horseshoe tear of retina without detachment Progressive high (degenerative) myopia documented in this encounter Eye Exam Visual Acuity (Snellen - Linear) Right eye Left eye Dist cc 20/30 +1 20/30 -1 Tonometry (Applanation, 13:09) Right eye Left eye Pressure 16 14 Neuro/Psych Oriented x3: Yes Mood/Affect: Normal Dilation Both eyes: 2.5% Phenylephrin e, 1.0% Mydriacyl @ 13:09 External Exam Right eye Left eye External Normal Slit Lamp Exam Right eye Left eye Lids/Lashes Blepharitis Blepharitis Conjunctiva/Sclera White and quiet White and antoinette et Cornea Clear Clear Anterior Chamber Deep and quiet Deep and quiet Iris Round and reactive Round and theresa ctive Lens 2+ Nuclear sclerosis 2+ Nuclear sclerosis, Posterior subcapsular cataract Vitreous pigment in vitreous , Posterior vitreous detachment Fundus Exam Right eye Left eye Disc Normal Normal C/D Ratio 0.4 0.45 Macula occ'l hard druse Normal Vessels Normal Normal Periphery laser to HSTs and lo memo RD 8-12, meridional fold 2:30 Tuft at 1 and lattice with pigment at 5 Normal Care Teams Lap Regulator Relationship Specialty Start Date End Date Blake Vasquez MD [address] [place] [address] PCP - General 12/11/09 documented as of this encounter
--- OUTSIDE RECORDS SUMMARY | 2024-04-15 15:47 | XMS_ITS | Encounter Summary ---
Author Organization [facility] Address [address] [place] [address] Care Team Providers Care Airplane Patrol Pilot Name Role Phone Unavailable Primary Care Provider Unavailabl e Encounter Details Date Type Department Care Team (Latest Contact Info) Description 04/24/2008 19:28 EST Hospital Encounter [facility] [address] [place] [address] Yoan Allen MD [address] [place] [phone] Discharge Disposition: Auto Discharge Social History Tobacco Use Types Packs/Day Years Used Date Smoking Tobacco: Never Assessed Sex and Gender Information Value Date Recorded Sex Assigned at Not on file Legal Sex Male 18:30 EST Gender Identity Not on file Sexual Orientation Not on file documented as of this encounter Discharge Disposition Disposition Code Departure Means Destination Auto Discharge documented in this encounter Plan of Treatment Not on file documented as of this encounter Visit Diagnoses Not on filedocumented in this encounter
--- OUTSIDE RECORDS SUMMARY | 2024-04-15 15:48 | XMS_ITS | Encounter Summary ---
Author Organization [facility] Address [facility] [place] [address] Care Team Providers Care Country Printer Apprentice Name Role Phone Blake Vasquez MD Primary Care Provider Reason for Visit * Auth/Cert Specialty Diagnoses / Procedures Referred By Contac t Referred To Contact Procedures [employer] Referral ID Status Reason Start Date Expiration Date Visits Re quested Visits Authorized [id number] 1 1 Encounter Details Date Type Department Care Team (Latest Contact Info) Description 03/10/2017 4:38 PM EST - 03/10/2017 11:59 PM EST Hospital Encounter [place] [phone] Melvin Collins MD [facility] [place] [address] Non-ST elevation myocardial infarction (NSTEMI); Ventricular tachycardia Discharge Disposition: Other [facility] Social History Tobacco Use Types Packs/Day Years Used Date Smoking Tobacco: Former Cigarettes 1 3 1 - 1993 Alcohol Use Standard Drinks/Week Comments No 0 (1 standard drink = 0.6 oz pur e alcohol) Quit social drinking in 1993 Sex and Gender Information Value Date Recorded Sex Assigned at Not on file Gender Identity Not on file Sexual Orientation Not on file documented as of this encounter Medications at Time of Discharge Medication Sig Dispensed Refills Start Date End Date aspirin 81 mg Tablet, Delayed Release (E.C.) Take 1 tablet by mouth daily. 30 tablet 03/14/2017 atorvastatin (LIPITOR) 80 mg Tablet Take 1 tablet by mouth every evening. 30 tablet 03/13/2017 clopidogrel (PLAVIX) 75 mg Tablet Take 1 tablet by mouth daily. 30 tablet 03/14/2017 glimepiride (AMARYL) 4 mg Tablet Take 1 tablet by mouth daily. 30 tablet 03/14/2017 metFORMIN (GLUCOPHAGE) 1,000 mg Tablet Take 1 tablet by mouth 2 times daily. 60 tablet 03/13/2017 nitroGLYcerin (NITROSTAT) 0.4 mg Tablet, Sublingual Place 1 tablet under the tongue every 5 minutes as needed for Chest pain. 30 tablet 03/13/2017 lamoTRIgine (LAMICTAL) 200 mg Tablet Take 200 mg by mouth 2 times daily. phenytoin (DILANTIN) 100 mg Capsule Take 700 mg by mouth. flu vacc, 6 mos-64 yrs,,PF, (FLULAVAL) 60 mcg (15 mcg x Syringe Inject 0.5 mLs into the muscle once for 1 dose. 0.5 mL 03/13/2017 03/13/2017 meTOPROLOL succinate (TOPROL-XL) 25 mg Tablet Sustained Release 24 hr Take 1 tablet by mouth daily. 30 tablet 03/14/2017 04/24/2017 glimepiride (AMARYL) 2 mg Tablet Take 2 mg by mouth daily. 02/27/2017 03/13/2017 metFORMIN (GLUCOPHAGE) 500 mg Tablet Take 500 mg by mouth 2 times daily. 3 01/21/2017 03/13/2017 atorvastatin (LIPITOR) 10 mg Tablet Take 10 mg by mouth daily. 03/13/2017 documented as of this encounter Plan of Treatment Not on file documented as of this encounter Visit Diagnoses Diagnosis Non-ST elevation myocardial infarction (NSTEMI) Acute myocardial infarction, subendocardial infarction, episode of care unspecified Ventricular tachycardia Paroxysmal ventricular tachycardia documented in this encounter Care Teams Country Printer Apprentice Relationship Specialty Start Date End Date Blake Vasquez MD [address] [place] [address] PCP - General Internal Medicine 03/06/17 documented as of this encounter
--- OUTSIDE RECORDS SUMMARY | 2024-04-15 15:48 | XMS_ITS | Encounter Summary ---
Author Organization Formerly [facility], [facility] Address [facility] [place] [address] Care Team Providers Care Dimensional Inspector Name Role Phone Blake Vasquez MD Primary Care Provider [phone] Reason for Visit * Reason Comments Hospital Transfer * Auth/Cert Specialty Diagnoses / Procedures Referred By Contac t Referred To Contact Diagnoses STEMI (ST elevation myocardial infarction) ?CAD Procedures CARDIAC CATHETERIZATION Referral ID Status Reason Start Date Expiration Date Visits Re quested Visits Authorized [id number] 1 1 Encounter Details Date Type Department Care Team (Late st Contact Info) Description 03/10/2017 4:30 PM EST - 03/10/2017 5:30 PM EST Surgery [place] [id number] Priscila Wesley MD [facility] [place] [address] CARDIAC CATHETERIZATION Social History Tobacco Use Types Packs/Day Years [...] Sign Reading Time Taken Comments Blood Pressure 102/49 03/13/2017 3:53 PM EST Pulse 91 03/13/2017 3:53 PM EST Temperature 36.6 ??C (97.9 ??F) 03/13/2017 3:53 PM ES T Respiratory Rate 17 03/13/2017 3:53 PM EST Oxygen Saturation 95% 03/13/2017 3:53 PM EST Inhaled Oxygen Concentration - - Weight 118.9 kg (262 lb 2 oz) 03/13/2017 6:00 AM EST Height 188 cm (6' 2) 03/10/2017 9:41 PM EST Body Mass Index 33.66 03/10/2017 9:41 PM EST documented in this encounter Discharge Summaries * Chika Knight MD - 03/13/2017 2:50 PM EST Inpatient - Discharge Summary Patient Name: Juan Alberto Nice Patient Age: 52 y.o. Birthdate: 1965 Admit date: 03/10/2017 Discharge date and time: 03/13/2017 Attending Physician: Pa Stewart MD Follow-up Recommendations for Providers: - Up-titrate metoprolol and add lisinopril as blood pressure tolerates - Both metformin and glimepiride increased at time of discharge, HbA1c of 8.9 - Referral to sleep medicine placed due to snoring during his hospitalization Discharge Diagnoses (Hospital Problems) and Secondary Diagnoses (Chronic Problems): Active Hospital Problems Diagnosis ??? STEMI (ST elevation myocardial infarction) Resolved Hospital Problems Diagnosis Date Resolved No resolved problems to display. There are no active non-hospital problems to display for this patient. Operations/Major Procedures: Operations: Procedure(s): CARDIAC CATHETERIZATION Other Major Procedures: None History of Presentation: Juan Alberto Nice is a 52 y.o. male with hx of DM, grand mal seizures, and pericarditis who presents with chief complaint of chest pain and found to have an STEMI. ?? The patient noted the acute onset of chest pain, shallow breathing, and sweats around 2pm today. The chest pain was 10/10 in severity and a squeezing quality on the left side of the chest radiating to the left shoulder, elbow, neck, and jaw. He was otherwise in his usual state of health until that time and describes a back ache and headache earlier this morning. He was sitting in his chair when the symptoms came on. He has never had an episode like this in the past. He took 325mg ASA at home and his family drove him to the ED at [facility]. ?? At [facility], the initial EKG showed STDs in I, aVL, and V3-6 per documentation. The patient received anitro gtt, clopidogrel 300mg, and a heparin gtt. Amiodarone 150mg IV was administered once for intermittent runs of vtach. ?? He denies fevers, chills, changes in bowel habits, difficulty with urination, easy bleeding or bruising, or blurry vision. Endorses left fingers tingling with the episode this morning. He notes decreased exercise tolerance for the last year, mostly limited by breathing. He had notable decrease in exercise tolerance while hunting this last weekend as well. ?? He notes a history of pericarditis about 12 years ago treated here at [facility]. Otherwise no cardiac history. He was a former smoker, quit 23 years ago. Total of 3 pack years. Abstains from alcohol use, quit 23 years ago. His twin boys were born then and motivated the changes. Paternal grandfather had heart disease, uncle had CABG (MA at 72), cousin had MA in 40s. Hospital Course: Patient transferred from [facility] with complaints of chest pain initially as an NSTEMI w/ST depressions in I, aVL, and V3-6, but a STEMI code code was called on arrival with initial EKG showing NANCY in III and aVF. Prior to transfer he was given amiodarone for intermittent vtach, plavix, ASA, and a heparin drip. 2 ALEAH were placed in proximal and mid LAD w/residual moderate to severe LAD disease seen on cardiac cath. The day following his cath he had some residual chest pain that self-resolved. Echoshowed EF of 55% and RV infarct. Low dose metoprolol was started, but up-titration was limited by low systolic pressures. ASA, plavix, and atorvastatin were continued. Glimepiride was increased for poor diabetic control and increased dose of metformin was prescribed at the time of discharge. Important Studies and Lab Data: Labs: Recent Results (from the past 24 hour(s)) POCT Glucose Result Value Ref Range POC Glucose 125 65 - 199 mg/dL POCT Glucose Result Value Ref Range POC Glucose 121 65 - 199 mg/dL Basic Metabolic Panel (non-fasting) Result Value Ref Range Glucose Lvl 150 65 - 199 mg/dL BUN 8 (L) 10 - 20 mg/dL Creatinine 0.71 (L) 0.80 - 1.50 mg/dL Sodium 138 135 - 145 mmol/L Potassium 4.0 3.5 - 5.0 mmol/L Chloride 99 98 - 107 mmol/L CO2 26 22 - 31 mmol/L Anion Gap 13 5 - 15 mmol/L Calcium 8.6 8.5 - 10.5 mg/dL Estimated GFR >60 >=60 Magnesium Result Value Ref Range Magnesium 0.74 0.69 - 1.07 mmol/L Hemogram Result Value Ref Range WBC 12.2 (H) 4.0 - 9.5 x10(3)/mcL RBC 4.55 (L) 4.58 - 5.54 x10(6)/mcL Hemoglobin 13.3 (L) 13.7 - 16.5 gm/dL Hematocrit 40.3 (L) 40.5 - 48.5 % MCV 88.6 82.9 - 93.1 fL MCH 29.2 27.5 - 32.1 pg MCHC 33.0 32.0 - 35.7 gm/dL Platelets 309 145 - 357 x10(3)/mcL RDWSD 40.5 36.0 - 45.0 fL RDWCV 12.5 11.4 - 13.8 % MPV 9.6 7.6 - 12.9 fL nRBC % Auto 0.0 % nRBC Abs Auto 0.000 0.000 - 0.000 x10(3)/mcL Differential, Automated Result Value Ref Range Neutrophils % 63.1 % Neutr Abs (ANC) 7.69 (H) 1.70 - 6.10 x10(3)/mcL Lymphocytes % 23.6 % Lymphocytes Abs 2.9 0.9 - 3.2 x10(3)/mcL Monocytes % 11.6 % Monocyte Abs 1.4 (H) 0.3 - 0.9 x10(3)/mcL Eosinophils % 0.5 % Eosinophils Abs 0.1 0.0 - 0.4 x10(3)/mcL Basophils % 0.5 % Basophils Abs 0.1 0.0 - 0.1 x10(3)/mcL Immature Gran % 0.70 % Lashell Gran Abs 0.09 (H) 0.00 - 0.04 x10(3)/mcL POCT Glucose Result Value Ref Range POC Glucose 169 65 - 199 mg/dL POCT Glucose Result Value Ref Range POC Glucose 120 65 - 199 mg/dL - Troponin peak at 3.46, CK at 1518 Studies: - CXR 03/11/17: No acute cardiopulmonary abnormality. - TTE 03/11/17: 1. The left ventricular chamber size is normal. There is normal global left ventricular systolic function. ??Ejection fraction is estimated to be 55% with akinesis of the basal inferior and inferolateral wall and RV free wall consistent with an RV infarct. 2. There is no hemodynamically significant valve disease. 3. The pericardium appears normal and there is no evidence of a pericardial effusion. 4. See remainder of report for additional findings. - Cardiac Catheterization 03/10/17:?* Two vessel coronary artery disease (LAD and RCA) ?* Successful stent insertion of the mid RCA lesion ?* Successful stent insertion of the proximal RCA lesion ?* Recommend continuing clopidogrel 75 mg PO daily for indefinitely (see DAPT Recommendations above for more information.) ?* Residual moderate to severe LAD disease. Pending Studies and Lab Data: The patient will need the following test completed on: 03/10/2017 1. NM Myocardial Perfusion Scan Pharmacologic Diagnosis: Authorizing Provider: Ranulfo Garcia MD Discharge Conditions/Prognosis: Stable Discharge to: Home Discharge Medications: Your Medications New Medications Dose Details aspirin 81 mg Tbec Take 1 tablet by mouth daily. Start taking on: 03/14/2017 81 mg Quantity: 30 tablet Refills: 0 clopidogrel 75 mg Tab Commonly known as: PLAVIX Take 1 tablet by mouth daily. Start taking on: 03/14/2017 75 mg Quantity: 30 tablet Refills: 0 flu vacc (6 mos-64 yrs)(PF) 60 mcg (15 mcg x Syrg Commonly known as: FLULAVAL Inject 0.5 mLs into the muscle once for 1 dose. 0.5 mL Quantity: 0.5 mL Refills: 0 meTOPROLOL succinate 25 mg Tablet sr Commonly known as: TOPROL-XL Take 1 tablet by mouth daily. Start taking on: 03/14/2017 25 mg Quantity: 30 tablet Refills: 0 nitroGLYcerin 0.4 mg Subl Commonly known as: NITROSTAT Place 1 tablet under the tongue every 5 minutes as needed for Chest pain. 0.4 mg Quantity: 30 tablet Refills: 0 Continued medications with new dosing Dose Details atorvastatin 80 mg Tab Commonly known as: LIPITOR Take 1 tablet by mouth every evening. What changed: - medication strength - how much to take - when to take this 80 mg Quantity: 30 tablet Refills: 0 glimepiride 4 mg Tab Commonly known as: AMARYL Take 1 tablet by mouth daily. Start taking on: 03/14/2017 What changed: - medication strength - how much to take 4 mg Quantity: 30 tablet Refills: 0 metFORMIN 1,000 mg Tab Commonly known as: GLUCOPHAGE Take 1 tablet by mouth 2 times daily. What changed: - medication strength - how much to take 1000 mg Quantity: 60 tablet Refills: 0 Continued medications, unchanged Dose Details lamoTRIgine 200 mg Tab Commonly known as: LaMICtal Take 200 mg by mouth 2 times daily. 200 mg Refills: 0 phenytoin 100 mg Cap Commonly known as: DILANTIN Take 700 mg by mouth. 700 mg Refills: 0 Updated Allergies/ADRs: Allergies Allergen Reactions ??? Penicillins Instructions Given to Patient at Discharge: Patient Instructions Patient Instructions on Discharge to Home Why you were hospitalized: You were admitted to the hospital because you had a heart attack. You were taken for a cardiac catheterization, which allowed us to see that you had a blockage in one of your major vessels and 2 stents were placed. Several different medications have been started to help your heart heal and protect you from future heart attacks. New Medications: - Aspirin 81 mg daily to protect your heart - Clopidogrel 75 mg daily to prevent your stents from clotting - Metoprolol succinate 35 mg daily to protect your heart - Nitroglycerin sublingual to be used as needed for chest pain Medication Changes: - Atorvastatin 80 mg daily to decrease cholesterol - Glimepiride 4 mg daily to better control your diabetes - Metformin 1000 mg twice a day to better control your diabetes When to call your doctor: - Call your doctor if you develop recurrent chest pain, shortness of breath, palpitations, lightheadedness, fainting, sweating, jaw pain, or any other concerning symptoms Activity level: - As tolerated Diet: - Healthy diet Driving: - Per your routine after [address] if you feel dizzy or light headed Follow up Appointments: Future Appointments Date Time Provider Department Center 04/24/2017 8:20 AM Esdras Dietz Jr., MD - PCP (Dr. Vasquez) follow up on Thursday, 03/24 at 8:55 am Your Inpatient Doctor(s) at [facility]: Pa Stewart MD - Attending physician Soha Beverly MD- Fellow physician Chika Knight MD - Resident physician Phuc Marrero MD - Senior Games Technician physician Your Primary Care Provider: Blake Vasquez MD [address] [facility] / [place] [address] For questions regarding issues relating to your hospitalization on the Hospital Medicine Service, please contact your inpatient physician through the [facility] [employer] [phone]. Issues after hours and on weekends will be handled by the Hospitalist staff on-call. General Instructions None Future Appointments and Orders Future Appointments Provider Department Dept Phone 04/24/2017 8:20 AM Esdras Dietz Jr., MD Cardiology at [place] [phone] Future Orders Complete By Expires Referral to Cardiac Rehab [[id number] Custom] As directed Process Instructions: If no progress note charted, please enter Clinical details in comments. Scheduling Instructions: Questions: My question or request is: STEMI, PCI- CR at [facility] Referral to Sleep Disorders Center [REF99 Custom] As directed Process Instructions: If no progress note charted, please enter Clinical details in comments. Scheduling Instructions: Comments: Please select a template from this list below: I am referring to Sleep Medicine my 52 y.o. male patient Juan Alberto Nice for evaluation of possible sleep apnea. Has the patient been evaluated by [facility] within the last 3 years? no Has the patient had previous sleep consultation and/or testing at another facility (Please ensure previous sleep evaluation and sleep studies are scanned into eDH)? no If recent weight gain, please obtain a TSH. The most current assessment of this problem can be found in the note dated 03/13/2017 My clinical question: Significant snoring during hospitalization Pending specialist evaluation, I anticipate (Choose One): [X] Consultation, Recommendations & Return to Primary Care Do not type below here [id number] Questions: My question or request is: See comment Discharge References/Attachments: Discharge References/Attachments None Inpatient Provider Contact Information: Cardiology S1, pgr [phone] Electronically Signed By: Chika Knight MD 03/13/2017 documented in this encounter Discharge Instructions * Patient Instructions* Chika Knight MD - 03/11/2017 2:25 PM EST Patient Instructions on Discharge to Home Why you were hospitalized: You were admitted to the hospital because you had a heart attack. You were taken for a cardiac catheterization, which allowed us to see that you had a blockage in one of your major vessels and 2 stents were placed. Several different medications have been started to help your heart heal and protect you from future heart attacks. New Medications: - Aspirin 81 mg daily to protect your heart - Clopidogrel 75 mg daily to prevent your stents from clotting - Metoprolol succinate 35 mg daily to protect your heart - Nitroglycerin sublingual to be used as needed for chest pain Medication Changes: - Atorvastatin 80 mg daily to decrease cholesterol - Glimepiride 4 mg daily to better control your diabetes - Metformin 1000 mg twice a day to better control your diabetes When to call your doctor: - Call your doctor if you develop recurrent chest pain, shortness of breath, palpitations, lightheadedness, fainting, sweating, jaw pain, or any other concerning symptoms Activity level: - As tolerated Diet: - Healthy diet Driving: - Per your routine after [address] if you feel dizzy or light headed Follow up Appointments: Future Appointments Date Time Provider Department Center 04/24/2017 8:20 AM Esdras Dietz Jr., MD - PCP (Dr. Vasquez) follow up on Thursday, 03/24 at 8:55 am Your Inpatient Doctor(s) at [facility]: Pa Stewart MD - Attending physician Soha Beverly MD- Fellow physician Chika Knight MD - Resident physician Phuc Marrero MD - Senior Games Technician physician Your Primary Care Provider: Blake Vasquez MD [address] / [facility] [id number] For questions regarding issues relating to your hospitalization on the Hospital Medicine Service, please contact your inpatient physician through the [facility] [employer] [phone]. Issues after hours and on weekends will be handled by the Hospitalist staff on-call. documented in this encounter Medications at Time of Discharge [...] by mouth daily. 30 tablet 03/14/2017 04/24/2017 documented as of this encounter Progress Notes * Phuc Marrero - 03/13/2017 7:20 AM EST Inpatient Cardiology Progress Note Patient Name: Juan Alberto Nice Date of Admission: 03/10/2017 ( Hospital Day 3 days ) Service: S1 ID: Juan Alberto Nice is a 52 y.o. male with a history of diabetes mellitus who is admitted for STEMI. He is s/p cardiac cath with ALEAH x2 to the mid-RCA (100% occlusion) and proximal RCA (80% occlusion). Active Problems: - STEMI 24 hr events: - No acute events overnight - Desaturated to 79% overnight while sleeping - quickly recovered without intervention - Feels well this morning - Denies CP, SOB, palpitations, PND, Orthopnea, dizziness/LH, LE swelling or pain, n/v, abd pain. Telemetry: NSR, 80s Meds: Continuous Infusions: Scheduled Meds: ??? magnesium sulfate 2 g Intravenous Once ??? insulin lispro 0-10 Units Subcutaneous TID WC ??? insulin glargine 5 Units Subcutaneous Q24H ??? glimepiride 2 mg Oral Daily with breakfast ??? enoxaparin 40 mg Subcutaneous Nightly ??? phenytoin 700 mg Oral Daily ??? lamoTRIgine 200 mg Oral BID ??? sodium chloride 0.9 % 5 mL Intravenous BID ??? sodium chloride 0.9 % 5 mL Intravenous Q12H ??? meTOPROLOL tartrate 12.5 mg Oral Q6H GILBERTO ??? atorvastatin 80 mg Oral QPM ??? aspirin 81 mg Oral Daily ??? clopidogrel 75 mg Oral Daily ??? insulin lispro 2-8 Units Subcutaneous TID AC PRN Meds:.flu vacc (6 mos-64 yrs)(PF), sodium chloride 0.9 %, lidocaine, nitroGLYcerin, sodium chloride 0.9 %, lidocaine, dextrose 50% OR glucagon (human recombinant) Physical Exam: Last value Range last 24 hrs Temperature Temp: 36.8 ??C (98.2 ??F) Temp: [36.8 ??C (98.2 ??F)-37.3 ??C (99.1 ??F)] Heart Rate Heart Rate: 89 Heart Rate: [81-102] Blood Pressure BP: 110/72 BP: (94-117)/(62-76) Respiratory Rate Resp: 15 Resp: [15-24] SpO2 SpO2: 95 % SpO2: [94 %-96 %] Intake/Output Summary (Last 24 hours) at 03/13/17 0720 Last data filed at 03/13/17 0553 Gross per 24 hour Intake 860 ml Output 2870 ml Net -2010 ml cumulative I/O's since admission: Patient Vitals for the past 168 hrs: Weight 03/13/17 0600 (!) 118.9 kg (262 lb 2 oz) 03/12/17 0623 (!) 119.9 kg (264 lb 5.3 oz) 03/12/17 0510 (!) 119.9 kg (264 lb 5.3 oz) 03/11/17 0330 (!) 118.2 kg (260 lb 9.3 oz) 03/10/17 2141 (!) 117.9 kg (260 lb) Admit wt: 117.94 kg Gen: in bed in NAD; alert, oriented, interactive HEENT: MMM CV: RRR, S1S2, no m/r/g, no JVD elevation Resp: CTAB Abd: nondistended, soft, NT, +BS Ext: WWP, 2+ DP pulses, no peripheral edema, right radial cath site without bleeding/bruising Neuro: grossly intact Labs Recent Labs 03/13/17 0618 03/12/17 0358 03/11/17 0925 WBC 12.2* 12.7* 13.0* HGB 13.3* 13.2* 13.6* HCT 40.3* 39.9* 41.4 PLATELET 309 321 356 Recent Labs 03/13/17 0618 03/12/17 0358 03/11/17 0645 NA 138 136 141 K 4.0 4.2 4.5 CL 99 98 100 CO2 26 26 24 BUN 8* 8* 8* CREATININE 0.71* 0.64* 0.80 Recent Labs 03/10/171950 AST Not Perf ALT 19 ALKPHOS 140* BILITOT <0.2* BILIDIR <0.1 Recent Labs 03/13/17 0618 03/12/17 0358 03/11/17 0645 CALCIUM 8.6 8.8 9.2 MAGNESIUM 0.74 0.73 0.84 No results for input(s): INR, PT, PTT in the last 168 hours. Recent Labs 03/11/17 1400 03/11/17 0645 03/10/171950 CK 1038* 1354* 1518* TROPONINT 2.67* 3.46* 2.02* Recent Labs 03/12/17 2157 03/12/17 1617 03/12/17 1149 03/12/17 0806 03/11/17 2012 03/11/17 1548 POCGLU 121 125 224* 204* 260* 209* Imaging/Studies: TTE 03/11/17: 1. The left ventricular chamber size is normal. There is normal global left ventricular systolic function. Ejection fraction is estimated to be 55% with akinesis of the basal inferior and inferolateral wall and RV free wall consistent with an RV infarct. 2. There is no hemodynamically significant valve disease. 3. The pericardium appears normal and there is no evidence of a pericardial effusion. 4. See remainder of report for additional findings. Cardiac Catheterization 03/10/17: * Two vessel coronary artery disease (LAD and RCA) * Successful stent insertion of the mid RCA lesion * Successful stent insertion of the proximal RCA lesion * Recommend continuing clopidogrel 75 mg PO daily for indefinitely (see DAPT Recommendations above for more information.) * Residual moderate to severe LAD disease. Assessment: Juan Alberto Nice is a 52 y.o. male with DM admitted for STEMI. He is now post-angiography/cath with ALEAH x2. He is clinically stable, and will continue with post-STEMI medical management including ASA, plavix, atorvastatin, metoprolol tartrate. Will consider adding lisinopril tomorrow if tolerated. As he was found to have residual disease in the LAD, would have a low threshold to send himback to the woven label designer if he continues to have chest pain. Plan to perform regadenoson nuclear stresstest today and discharge later this afternoon. Plan: # STEMI - ASA 81mg daily - clopidogrel 75mg daily - atorvastatin 80mg daily - Will convert to metoprolol succinate 25mg once daily - Add lisinopril based on BPs - TTE with LVEF 55% and RV infarction - Will plan for regadenoson nuclear stress test tomorrow am - no caffeine today and NPO after midnight # Chest pain, s/p PCI - Was responsive to NTG - Based on lack of EKG changes, unlikely to be acute ischemia - Will have low threshold to send back to woven label designer if he continues to have pain given residual LAD disease ?? # Seizure disorder - continue home phenytoin 700mg daily - continue home lamotrigine 200mg bid ?? # DM - Increase glargine to 10U daily - ISS - Hold oral antihyperglycemics; will need to increase metformin upon discharge - Increase glimepiride to 4mg daily - Increase metformin to 850mg bid - Diabetes Education consult w/ Vane Carias # Possible JESUS - Encouraged pt to pursue sleep study upon discharge ?? #Housekeeping: - DVT PPx: Heparin SQ - GI PPx: none - Diet: NPO diet (Give Meds) after midnight on 03/13 - Level of care: CSCU - Vitals: q4h ??- Code status: Full Code Phuc Marrero MD, PGY-1 Cardiology S1 (Pager [phone]) Associated attestation - Pa Stewart MD - 03/13/2017 2:47 PM EST Images from the original note were not included. Cardiology Staff Day of Discharge Note This patient was seen today with the team and was personally interviewed and examined. Agree with documentation by Dr. Marrero.. Summary of Clinical History and Overnight Events: This 52-year-old man was admitted with an inferior STEMI. He received a drug-eluting stents to the mid and proximal RCA. An ejection fraction of 55% was noted on echocardiographic evaluation and he had both basal and inferolateral akinesia. Incidentally he had moderate lesion in his LAD. To further explore for the significance of this, he underwent a nuclear stress test today which by my viewing, appears to show only a scar in the distribution of his RCA and no perfusion defects in his LAD distribution with stress or at rest. He appears ready for discharge. Discharge Planning: As this was expected to be the day of discharge, we used this daily visit as anopportunity to review: ?? Events of hospitalization ?? Discharge medications ?? Post-discharge activity including any appropriate restrictions ?? Follow-up After the above, I answered all questions. Summary of Plan: 1. Discharge today 2. Disposition: Home 3. Medication changes: Documented in formal discharge summary 4. Planned follow-up: Detailed in discharge summary. 5. Other recommendations: Outpatient cardiology follow-up with Dr. Derrell Mittal in 2-3 weeks Pa Stewart MD, FA, [facility] * OJo Ann, Melvin Nazario MD - 03/12/2017 11:11 AM EST Inpatient Cardiology Progress Note Patient Name: Juan Alberto Nice Date of Admission: 03/10/2017 ( Hospital Day 2 days ) Service: S1 ID: Juan Alberto Nice is a 52 y.o. male with a history of diabetes mellitus who is admitted for STEMI. He is s/p cardiac cath with ALEAH x2 to the mid-RCA (100% occlusion) and proximal RCA (80% occlusion). Active Problems: - STEMI 24 hr events: - No acute events overnight - Desaturated to 79% overnight while sleeping - quickly recovered without intervention - Feels well this morning - Denies CP, SOB, palpitations, PND, Orthopnea, dizziness/LH, LE swelling or pain, n/v, abd pain. Telemetry: NSR, 80s Meds: Continuous Infusions: Scheduled Meds: ??? enoxaparin 40 mg Subcutaneous Nightly ??? insulin glargine 5 Units Subcutaneous Q24H ??? phenytoin 700 mg Oral Daily ??? lamoTRIgine 200 mg Oral BID ??? sodium chloride 0.9 % 5 mL Intravenous BID ??? sodium chloride 0.9 % 5 mL Intravenous Q12H ??? meTOPROLOL tartrate 12.5 mg Oral Q6H GILBERTO ??? atorvastatin 80 mg Oral QPM ??? aspirin 81 mg Oral Daily ??? clopidogrel 75 mg Oral Daily ??? insulin lispro 2-8 Units Subcutaneous TID AC PRN Meds:.sodium chloride 0.9 %, lidocaine, nitroGLYcerin, sodium chloride 0.9 %, lidocaine, dextrose 50% OR glucagon (human recombinant) Physical Exam: Last value Range last 24 hrs Temperature Temp: 36.8 ??C (98.2 ??F) Temp: [36.7 ??C (98.1 ??F)-37.6 ??C (99.7 ??F)] Heart Rate Heart Rate: 83 Heart Rate: [74-87] Blood Pressure BP: 111/66 BP: (92-111)/(58-68) Respiratory Rate Resp: 18 Resp: [17-22] SpO2 SpO2: 95 % SpO2: [94 %-96 %] Intake/Output Summary (Last 24 hours) at 03/12/17 1111 Last data filed at 03/12/17 0600 Gross per 24 hour Intake 1440 ml Output 1200 ml Net 240 ml cumulative I/O's since admission: Patient Vitals for the past 168 hrs: Weight 03/12/17 0623 (!) 119.9 kg (264 lb 5.3 oz) 03/12/17 0510 (!) 119.9 kg (264 lb 5.3 oz) 03/11/17 0330 (!) 118.2 kg (260 lb 9.3 oz) 03/10/17 2141 (!) 117.9 kg (260 lb) Admit wt: 117.94 kg Gen: in bed in NAD; alert, oriented, interactive HEENT: MMM CV: RRR, S1S2, no m/r/g, no JVD elevation Resp: CTAB Abd: nondistended, soft, NT, +BS Ext: WWP, 2+ DP pulses, no peripheral edema, right radial cath site without bleeding/bruising Neuro: grossly intact Labs Recent Labs 03/12/17 0358 03/11/17 0925 03/10/172144 WBC 12.7* 13.0* 14.0* HGB 13.2* 13.6* 14.8 HCT 39.9* 41.4 45.0 PLATELET 321 356 376* Recent Labs 03/12/17 0358 03/11/17 0645 03/10/171950 NA 136 141 137 K 4.2 4.5 4.7 CL 98 100 101 CO2 26 24 18* BUN 8* 8* 7* CREATININE 0.64* 0.80 0.71* Recent Labs 03/10/171950 AST Not Perf ALT 19 ALKPHOS 140* BILITOT <0.2* BILIDIR <0.1 Recent Labs 03/12/17 0358 03/11/17 0645 03/10/171950 CALCIUM 8.8 9.2 7.9* MAGNESIUM 0.73 0.84 0.72 No results for input(s): INR, PT, PTT in the last 168 hours. Recent Labs 03/11/17 1400 03/11/17 0645 03/10/171950 CK 1038* 1354* 1518* TROPONINT 2.67* 3.46* 2.02* Recent Labs 03/12/17 0806 03/11/17 2012 03/11/17 1548 03/11/17 1400 03/11/17 1213 03/11/17 1012 POCGLU 204* 260* 209* 243* 252* 277* Imaging/Studies: TTE 03/11/17: 1. The left ventricular chamber size is normal. There is normal global left ventricular systolic function. Ejection fraction is estimated to be 55% with akinesis of the basal inferior and inferolateral wall and RV free wall consistent with an RV infarct. 2. There is no hemodynamically significant valve disease. 3. The pericardium appears normal and there is no evidence of a pericardial effusion. 4. See remainder of report for additional findings. Cardiac Catheterization 03/10/17: * Two vessel coronary artery disease (LAD and RCA) * Successful stent insertion of the mid RCA lesion * Successful stent insertion of the proximal RCA lesion * Recommend continuing clopidogrel 75 mg PO daily for indefinitely (see DAPT Recommendations above for more information.) * Residual moderate to severe LAD disease. Assessment: Juan Alberto Nice is a 52 y.o. male with DM admitted for STEMI. He is now post-angiography/cath with ALEAH x2. He is clinically stable, and will continue with post-STEMI medical management including ASA, plavix, atorvastatin, metoprolol tartrate. Will consider adding lisinopril tomorrow if tolerated. As he was found to have residual disease in the LAD, would have a low threshold to send himback to the woven label designer if he continues to have chest pain. However, if he remains asymptomatic, wouldassess the burden of his LAD disease with a regadenoson nuclear stress test on Thursday and possible discharge later that day. Plan: # STEMI - ASA 81mg daily - clopidogrel 75mg daily - atorvastatin 80mg daily - Metoprolol tartrate 12.5mg q6 - will uptitrate as BPs allow - Add lisinopril based on BPs - TTE with LVEF 55% and RV infarction - Will plan for regadenoson nuclear stress test tomorrow am - no caffeine today and NPO after midnight # Chest pain, s/p PCI - Was responsive to NTG - Based on lack of EKG changes, unlikely to be acute ischemia - Will have low threshold to send back to woven label designer if he continues to have pain given residual LAD disease ?? # Seizure disorder - continue home phenytoin 700mg daily - continue home lamotrigine 200mg bid ?? # DM - Increase glargine to 10U daily - ISS - Hold oral antihyperglycemics; will need to increase metformin upon discharge - Diabetes Education consult w/ Vane Carias # Possible JESUS - Encouraged pt to pursue sleep study upon discharge ?? #Housekeeping: - DVT PPx: Heparin SQ - GI PPx: none - Diet: Daily Healthy Menu Choices/Cardiac diet ([facility]) No Caffeine NPO diet (Give Meds) after midnight on 03/13 - Level of care: CSCU - Vitals: q4h ??- Code status: Full Code Phuc Marrero MD, PGY-1 Cardiology S1 (Pager [phone]) Attending Attestation Please see Dr. Marrero's note for details of the patient history of presentation and data. I have discussed, reviewed and agree with the documented History, Physical findings, Assessment and Plan of care. I have examined the patient myself and personally reviewed all studies. In addition, I certify thatI am a D-H credentialed attending provider with admitting privileges and that the patient meets or has met medical necessity to require an inpatient IPI level of care meeting a minimum of two midnights or is on the [facility] inpatient only procedure list (status C) due to: s/p inferior STEMI - s/p PCI with ALEAH to proximal and mid RCA. LAD 50% & 60% stenoses. Mr. Nice has had an uneventful post-infarct course. Asx. No complaints. Loud snoring at night concerning for JESUS. Hemodynamically stable with tenuous SBP in the low 100's to 90's bpm. BRENT-I not started. Echo showed normal LV size and systolic function, LVEF~55%. Basal inferior and basal inferolateral akinesis. RV free wall akinesis. No hemodynamically significant valve disease. Stable. Ambulate today monitoring for recurrent angina. Regadenoson MIBI tomorrow to assess ischemia in the LAD distribution. Referral for JESUS evaluation - outpatient sleep study. Titrate beta baljeet according to BP/HR Hold on adding BRENT-I. Possible discharge tomorrow * Torres Cortes MD - 03/11/2017 6:18 AM EST Post Cardiac Catheterization Check Note Subjective: No chest pain, dyspnea, hand/arm pain. No rash. No weakness/numbness/tingling. No bleeding/swelling from access site. Objective: Blood pressure 99/50, pulse 70, temperature 36.7 ??C (98.1 ??F), temperature source Oral, resp. rate 16, height 188 cm (6' 2), weight (!) 118.2 kg (260 lb 9.3 oz), SpO2 95 %. General: Lying in bed in NAD. Site: access site without hematoma or ecchymoses. dressing c/d/i. Mildly tender to palpation proximal to dressing Extrem: no livedo reticularis, warm/symmetric, sensation intact/symmetric, symmetric 2+ *radial pulses. A/P: s/p cath with benign-appearing right radial access site and no issues. Reverse patito's normal. Torres Cortes MD * Carla Babin RN - 03/11/2017 3:45 AM EST 03/11/17 0330 Vital Signs Heart Rate from SPO2 74 bpm Heart Rate 73 Cardiac Rhythm NSR BP 104/58 MAP (NBP) 68 mmHg Resp 14 SpO2 96 % Oxygen Therapy O2 Device NC O2 Flow Rate (L/min) 2 L/min Pain Scale/Rating Pain Assessment Scale Numbers (Numeric Rating Pain Scale) Pain Level 4 Pain Assessment Numbers/Faces/Word Associated Signs/Symptoms diaphoresis (gassy) Pain Body Location sternal Quality squeezing Pain Radiation to shoulder, left Pain Management Interventions (nitro sl x 1) Height and Weight Weight - Scale (!) 118.2 kg (260 lb 9.3 oz) Rang with c/o chest pain 4/10. Describes pain as same pain which precipitated presentation to the hospital but less intense. Ekg obtained, sl nitro. Dr. Cortes to floor. 0350: Pain is better. Pt with eyes closed trying to fall back asleep. Agrees to call if pain persists or becomes worse. * Phuc Marrero - 03/10/2017 10:16 PM EST Inpatient Cardiology Progress Note Patient Name: Juan Alberto Nice Date of Admission: 03/10/2017 ( Hospital Day 1 day ) Service: S1 ID: Juan Alberto Nice is a 52 y.o. male with a history of diabetes mellitus who is admitted for STEMI. He is s/p cardiac cath with ALEAH x2 to the mid-RCA (100% occlusion) and proximal RCA (80% occlusion). Active Problems: - STEMI 24 hr events: - Develop 4/10 chest pain that was responsive to NTG. EKG was without ischemic changes. - He is feeling fatigued this morning - No other specific complaints ROS: Denies CP, SOB, palpitations, PND, Orthopnea, dizziness/LH, LE swelling or pain, n/v, abd pain. Meds: Continuous Infusions: Scheduled Meds: ??? enoxaparin 40 mg Subcutaneous Nightly ??? insulin glargine 5 Units Subcutaneous Q24H ??? [START ON 03/12/2017] phenytoin 700 mg Oral Daily ??? lamoTRIgine 200 mg Oral BID ??? sodium chloride 0.9 % 5 mL Intravenous BID ??? sodium chloride 0.9 % 5 mL Intravenous Q12H ??? meTOPROLOL tartrate 12.5 mg Oral Q6H GILBERTO ??? atorvastatin 80 mg Oral QPM ??? aspirin 81 mg Oral Daily ??? clopidogrel 75 mg Oral Daily ??? insulin lispro 2-8 Units Subcutaneous TID AC PRN Meds:.sodium chloride 0.9 %, lidocaine, nitroGLYcerin, sodium chloride 0.9 %, lidocaine, dextrose 50% OR glucagon (human recombinant) Physical Exam: Last value Range last 24 hrs Temperature Temp: 37.1 ??C (98.8 ??F) Temp: [35.8 ??C (96.4 ??F)-37.1 ??C (98.8 ??F)] Heart Rate Heart Rate: 74 Heart Rate: [67-94] Blood Pressure BP: (S) 92/68 (nitro given) BP: (88-137)/(48-93) Respiratory Rate Resp: 18 Resp: [13-20] SpO2 SpO2: 95 % SpO2: [93 %-99 %] Intake/Output Summary (Last 24 hours) at 03/11/17 1251 Last data filed at 03/11/17 1200 Gross per 24 hour Intake 1831.67 ml Output 1725 ml Net 106.67 ml cumulative I/O's since admission: Patient Vitals for the past 168 hrs: Weight 03/11/17 0330 (!) 118.2 kg (260 lb 9.3 oz) 03/10/17 2141 (!) 117.9 kg (260 lb) Admit wt: 117.94 kg Gen: in bed in NAD; alert, oriented, interactive HEENT: MMM CV: RRR, S1S2, no m/r/g, no JVD elevation Resp: CTAB Abd: nondistended, soft, NT, +BS Ext: WWP, 2+ DP pulses, no peripheral edema Neuro: grossly intact Labs Recent Labs 03/11/17 0925 03/10/172144 WBC 13.0* 14.0* HGB 13.6* 14.8 HCT 41.4 45.0 PLATELET 356 376* Recent Labs 03/11/17 0645 03/10/171950 NA 141 137 K 4.5 4.7 CL 100 101 CO2 24 18* BUN 8* 7* CREATININE 0.80 0.71* Recent Labs 03/10/171950 AST Not Perf ALT 19 ALKPHOS 140* BILITOT <0.2* BILIDIR <0.1 Recent Labs 03/11/17 0645 03/10/171950 CALCIUM 9.2 7.9* MAGNESIUM 0.84 0.72 No results for input(s): INR, PT, PTT in the last 168 hours. Recent Labs 03/11/17 0645 03/10/171950 CK 1354* 1518* TROPONINT 3.46* 2.02* Recent Labs 03/11/17 1213 03/11/17 1012 03/11/17 0752 POCGLU 252* 277* 268* Imaging/Studies: Cardiac Catheterization: 03/10/17: * Two vessel coronary artery disease (LAD and RCA) * Successful stent insertion of the mid RCA lesion * Successful stent insertion of the proximal RCA lesion * Recommend continuing clopidogrel 75 mg PO daily for indefinitely (see DAPT Recommendations above for more information.) * Residual moderate to severe LAD disease. Assessment: Juan Alberto Nice is a 52 y.o. male with DM admitted for STEMI. He is now post-angiography/cath with ALEAH x2. He is clinically stable, and will continue with post-STEMI medical management including ASA, plavix, atorvastatin, metoprolol tartrate. Will consider adding lisinopril tomorrow if tolerated. As he was found to have residual disease in the LAD, would have a low threshold to send himback to the woven label designer if he continues to have chest pain. However, if he remains asymptomatic, wouldassess the burden of his LAD disease with a regadenoson nuclear stress test on Thursday. Plan: # STEMI - ASA 81mg daily - clopidogrel 75mg daily - atorvastatin 80mg daily - Metoprolol tartrate 12.5mg q6 - Add lisinopril based on BPs - TTE pending - Trend EKGs if continuing to have chest pain - cardiac rehab # Chest pain, s/p PCI - Was responsive to NTG - Based on lack of EKG changes, unlikely to be acute ischemia - Will have low threshold to send back to woven label designer if he continues to have pain given residual LAD disease ?? # Seizure disorder - continue home phenytoin 700mg daily - continue home lamotrigine 200mg bid ?? # DM - Add basal glargine 5U daily - ISS - Hold oral antihyperglycemics; will need to increase metformin upon discharge - Diabetes Education consult w/ Vane Carias ?? #Housekeeping: - DVT PPx: Heparin SQ - GI PPx: none - Diet: Carb controlled - Level of care: Transfer to [facility] - Vitals: q4 ??- Code status: Full Code Phuc Marrero MD, PGY-1 Cardiology S1 (Pager [phone]) documented in this encounter H&P Notes * Melvin Collins MD - 03/10/2017 6:12 PM EST Cardiology Admission H&P Patient Name: JUAN ALBERTO NICE Date of : 1965 Age: 52 y.o. Hospital Admit Date: 03/10/2017 Inpatient Attending: Dr. Collins PCP: Unknown Presenting Diagnosis/Chief Complaint: STEMI History of Present Illness: Juan Alberto Nice is a 52 y.o. male with hx of DM, grand mal seizures, and pericarditis who presents with chief complaint of chest pain and found to have an STEMI. The patient noted the acute onset of chest pain, shallow breathing, and sweats around 2pm today. The chest pain was 10/10 in severity and a squeezing quality on the left side of the chest radiating to the left shoulder, elbow, neck, and jaw. He was otherwise in his usual state of health until that time and describes a back ache and headache earlier this morning. He was sitting in his chair when the symptoms came on. He has never had an episode like this in the past. He took 325mg ASA at home and his family drove him to the ED at [facility]. At [facility], the initial EKG showed STDs in I, aVL, and V3-6 per documentation. The patient received anitro gtt, clopidogrel 300mg, and a heparin gtt. Amiodarone 150mg IV was administered once for intermittent runs of vtach. He denies fevers, chills, changes in bowel habits, difficulty with urination, easy bleeding or bruising, or blurry vision. Endorses left fingers tingling with the episode this morning. He notes decreased exercise tolerance for the last year, mostly limited by breathing. He had notable decrease in exercise tolerance while hunting this last weekend as well. He notes a history of pericarditis about 12 years ago treated here at [facility]. Otherwise no cardiac history. He was a former smoker, quit 23 years ago. Total of 3 pack years. Abstains from alcohol use, quit 23 years ago. His twin boys were born then and motivated the changes. Paternal grandfather had heart disease, uncle had CABG (MA at 72), cousin had MA in 40s. Past Medical History: No past medical history on file. Patient Active Problem List Diagnosis Code ??? STEMI (ST elevation myocardial infarction) I21.3 Past Surgical History: No past surgical history on file. Social History: Social History Social History ??? Marital status: N/A Spouse name: N/A ??? Number of children: N/A ??? Years of education: N/A Occupational History ??? Not on file. Social History Main Topics ??? Smoking status: Former Smoker Packs/day: 1.00 Years: 3.00 Types: Cigarettes Quit date: 1993 ??? Smokeless tobacco: Not on file ??? Alcohol use No Comment: Quit social drinking in 1993 ??? Drug use: Not on file ??? Sexual activity: Not on file Other Topics Concern ??? Not on file Social History Narrative ??? No narrative on file Family History: Family History Problem Relation Age of Onset ??? Myocardial Infarction Cousin 45 ??? Myocardial Infarction Paternal Uncle 72 Allergies: Allergies Allergen Reactions ??? Penicillins Medications: Prescriptions Prior to Admission Medication Sig Dispense Refill Last Dose ??? lamoTRIgine (LAMICTAL) 200 mg Tablet Take 200 mg by mouth 2 times daily. 03/10/2017 at Unknown time ??? phenytoin (DILANTIN) 100 mg Capsule Take 700 mg by mouth. ??? glimepiride (AMARYL) 2 mg Tablet Take 2 mg by mouth daily. ??? metFORMIN (GLUCOPHAGE) 500 mg Tablet Take 500 mg by mouth 2 times daily. 3 ??? atorvastatin (LIPITOR) 10 mg Tablet Take 10 mg by mouth daily. PHYSICAL EXAM: Last value Range last 24 hrs Temperature Temp: 35.8 ??C (96.4 ??F) Temp: [35.8 ??C (96.4 ??F)] Heart Rate Heart Rate: 88 Heart Rate: [67-94] Blood Pressure BP: 108/68 BP: (95-137)/(63-93) Respiratory Rate Resp: 15 Resp: [13-18] SpO2 SpO2: 97 % SpO2: [93 %-98 %] General: Lying comfortably in bed, NAD ENT: MMM, PERRL Cardiac: Normal rate, regular rhythm, nl s1 and s2, no gallops or murmurs; PTs 2+ bilaterally Pulmonary: Nl respiratory effort, good air entry and CTAB Abdomen: Soft, NT, ND, nl bs Extremities: No lower extremity edema Neuro: bath steward/stewardess II-XII intact, grossly moves extremities EKG on admission at 1607 showed STEs in III and aVF consistent with a STEMI. ASSESSMENT and PLAN: Juan Alberto Nice is a 52 y.o. male with DM admitted for STEMI. He is now post- angiography/cath with ALEAH x2. He is clinically stable, and will continue with post-STEMI medical management, namely BB, statin, DAPT, and brent-I when tolerated. With respect to choice of anti-platelet agents, the patient was initially loaded with 300mg clopidogrel prior to cath. In consultation with the brake drum molder, we initially favored transitioning to ticagrelor with a repeat load given the findings during the angiography. However, the patient is on phenytoin for a seizure disorder. This is a known inducer of CY, which is involved in the metabolism of ticagrelor. A small study demonstrated decreased efficacy of ticagrelor when co-administeredwith a CY inducer (see citation below). Clopidogrel is not metabolized via this pathway. For this reason, we decided to continue with clopidogrel as part of the patient's post-stent DAPT. Seth R, Kamaljit P, Watson K. Effect of rifampicin on the pharmacokinetics and pharmacodynamics of ticagrelor in healthy subjects. Eur J Clin Pharmacol. 2013;69(4):877-883. # STEMI - ASA 81mg daily - clopidogrel 75mg daily - atorvastatin 80mg daily - metoprolol tartrate 12.5mg q6 - add lisinopril when if pressures stable tomorrow - TTE - post cath EKG, cardiac enzymes - cardiac rehab # Seizure disorder - continue home phenytoin 700mg daily - continue home lamotrigine 200mg bid # DM - ISS - hold oral glycemic agents #Housekeeping: - DVT PPx: Heparin subq start tomorrow - GI PPx: none - Diet: Carb controlled - Level of care: [facility]CC - Vitals: q4 Discussed Advanced Directives and Code Status. The patient wishes to be FULL CODE. Torres Cortes MD PGY 2 Internal Medicine Cardiology Inpatient Service Attending Attestation Please see Dr. Cortes's note for details of the patient history of presentation and data. I have discussed, reviewed and agree with the documented History, Physical findings, Assessment and Plan of care. I have examined the patient myself and personally reviewed all studies. In addition, I certify thatI am a D-H credentialed attending provider with admitting privileges and that the patient meets or has met medical necessity to require an inpatient IPI level of care meeting a minimum of two midnights or is on the [facility] inpatient only procedure list (status C) due to: STEMI. Transferred with acute inferior/inferolateral STEMI. Underwent successful PCI with ALEAH to proximal and mid RCA. The proximal stent was inserted into a large, aneurysmal vessel. Post-infarct course has been uncomplicated thus far except for a brief episode of chest discomfort at ~3 am that felt similar to his prior angina except less intense. He also has LAD disease estimated at sequential 50% & 60% stenoses. Exam unremarkable. Radial cath site is without hematoma or erythema. Transfer to telemetry floor for further care. Echo today to assess LV fxn and WMA Phase I Cardiac Rehab If he continues to have recurrent anginal symptoms, I would recommend repeat cath to assess the patency of his proximal RCA stent given that it was placed into an aneurysmal vessel. At that time, hisLAD stenoses could be assessed by FFR. If he remains angina free, I would obtain a Regadenoson MIBI to assess the physiologic significanceof the LAD stenoses. documented in this encounter ED Notes * MaggiemarcosFabriciojosé Saavedra - 03/10/2017 4:23 PM EST ED Resident Note Juan Alberto Nice is an 52 y.o. male who presents to the ED with: Chief Complaint Patient presents with ??? Hospital Transfer I saw this patient 03/10/2017 at 4:23 PM HPI Juan Alberto Nice is a 52 y.o. male with a history of seizures who presents to the Emergency Departmentas a transfer from [facility] for concern for ACS and lateral ischemia. He presented with acute onset of left sided chest pain. He was given NTGx3, 324mg ASA, 300 plavix and loaded with 4,000 units of heparin. Just prior to transfer he was noted to have runs of V-tach and was loaded with 150mg of amiodarone. During transport he was maintained on 1mg/min amiodarone and 40 mcg/min NTG drip. On arrival to the ED was complaining of being tired, but no acute chest pain. Allergies Allergen Reactions ??? Penicillins Current Facility-Administered Medications: ??? AMIOdarone (CORDARONE) 360 mg/200 mL (1.8 mg/mL) infusion, , , , ??? nitroGLYcerin 50 mg/250 mL (200 mcg/mL) infusion, , , , ??? heparin (porcine) 25,000 unit/500 mL (50 unit/mL) infusion, , , , Current Outpatient Prescriptions: ??? lamoTRIgine (LAMICTAL) 200 mg tablet, , Disp: , Rfl: ??? phenytoin (DILANTIN KAPSEAL) 100 mg ER capsule, , Disp: , Rfl: No past medical history on file. Review of Systems: Review of Systems Unable to perform ROS: Acuity of condition Physical Exam: Patient Vitals for the past 24 hrs: BP Pulse Resp SpO2 03/10/17 1602 136/80 94 13 96 % Physical Exam Constitutional: He appears well-developed and well-nourished. HENT: Head: Normocephalic. Neck: No JVD present. Cardiovascular: Normal rate, regular rhythm, normal heart sounds and intact distal pulses. Pulmonary/Chest: Effort normal and breath sounds normal. Abdominal: Soft. Neurological: He is alert. Skin: Skin is warm and dry. ED Course and MDM - Patient seen under the supervision of Dr. Juarez - Medications, allergies and past medical history reviewed Assessment: 52 y.o. male with chest pain concerning for ACS On arrival to the ED patient was placed on general internist and physician leader and 12 L EKG was obtained. 12L showed new elevation in lead III and AVF. A Stemi alert was called and cardiology was at bedside about 5 min after arrival in ED. He was noted to have multiple short runs of self resolving V-Tach but remained hemodynamically stable in the ED. He was started on a heparin gtt and maintained on amiodarone and ntg. He was taken directly to the [facility] from the ED. Ramiro Jennings MD Resident 03/11/17 0036 Associated attestation - Geovani Juarez DO - 03/15/2017 11:04 AM EST ED ATTENDING ATTESTATION NOTE The patient was seen in conjunction with Dr. Andino, the resident physician. I have independently performed the liao portions of the history and physical exam. I have reviewed the nursing notes, vitalsigns, and all diagnostic studies personally including labs, imaging studies and EKGs. I have discussed the details of the case with the resident and agree with the assessment and plan as described in the resident note above unless noted otherwise below. Brief Summary: Pt is a 52 yom presenting to the ED in transfer from [facility] with lateral ischemia. Patient has had recurrent chest pressure and multiple runs of ventricular tachycardia. At the outsidehospital patient was loaded with medications as noted below and transferred here for cardiology evaluation. Patient did not meet STEMI criteria at the outside hospital. On arrival to the emergency department the patient complains of chest pressure. Multiple runs of ventricular tachycardia which aresustained for several seconds noted on the monitor. Initial EKG showed ST elevations in 3 and aVF meeting STEMI criteria. STEMI immediately paged and cardiology to the bedside shortly thereafter. Roxie ent remained hemodynamically stable and was continued on amiodarone 1 mg/m. Patient was started on heparin and when the catheter lab was ready patient was sent to cardiac catheterization for presumedischemic event. Patient did not have hemodynamic decompensation in the emergency department and cardiology was prompted their response. Final Assessment: STEMI CRITICAL CARE ADDENDUM: I spent a total of 30 minutes of critical care time managing the patient's presentation with STEMI.There is potential end-organ injury including respiratory collapse, cardiovascular collapse, and . The patient's illness has required my direct bedside presence for the time noted above. This time includes management of myocardial ischemia, discussion with consultants, review of the patient's prior studies and medical record, interpretation of electronic data, serial bedside clinical reassessments to ensure response to treatment, but excludes any procedures as noted above. Geovani Juarez DO Imaging Clerk [facility] * Carlos Lakhani RN - 03/10/2017 4:12 PM EST Per [facility] crew, Pt received Hep bolus 4000 units, Amiodorone Bolus 150mg. Plavix 300mg were given at OSH documented in this encounter Miscellaneous Notes * Plan of Care - Geraldine Flood RN - 03/13/2017 4:37 PM EST Problem: Patient Care Overview Goal: Plan of Care Review Outcome: Outcome (s) achieved Date Met: 03/13/17 OUTCOME EVALUATION NOTE: OUTCOME SUMMARY: Tele disconnected, PIVs removed. Discharge instructions given to patient, questions answered. PLAN MOVING FORWARD: Follow up appointments INDIVIDUALIZED FALL PREVENTION INTERVENTIONS: Patient-specific fall risk factors per assessment: [current deficits]: Assistance [level of assistance required for transfers and ambulation]: Supervision [direct monitoring required during toileting and ADLs]: Surveillance [continuous indirect monitoring]: Patient-specific fall prevention interventions for sensory deficits provided, if applicable: CPG GOAL OUTCOME EVALUATION: * Consult Note - Kim Salazar RD - 03/13/2017 10:05 AM EST Nutrition Consult Note Juan Alberto Nice is a 52 y.o. male Reason for intervention: Education: Pt would like to discuss heart healthy carb controlled diet Nutrition Recommendations: If pt remains admitted after his stress test, recommend [facility], Carb Controlled Diet Level 2 Patient Active Problem List Diagnosis Code ??? STEMI (ST elevation myocardial infarction) I21.3 No past medical history on file. Active Orders Diet NPO diet (Give Meds) Frequency: Effective Midnight Number of Occurrences: Until Specified Admit Weight: 117.94 kg Estimated body mass index is 33.66 kg/(m^2) as calculated from the following: Height as of this encounter: 188 cm (6' 2). Weight as of this encounter: 118.9 kg (262 lb 2 oz). [place] Body Weight (IBW): [place] body weight: 82.2 kg (181 lb 3.5 oz) Adjusted ideal body weight: 96.9 kg (213 lb 9.3 oz) Today's medications: lispro, dilantin, MgSO4, others noted. Lab Results Component Value Date NA 138 03/13/2017 K 4.0 03/13/2017 CL 99 03/13/2017 CO2 26 03/13/2017 BUN 8 (L) 03/13/2017 CREATININE 0.71 (L) 03/13/2017 GLUCOSE 150 03/13/2017 MAGNESIUM 0.74 03/13/2017 CALCIUM 8.6 03/13/2017 AST Not Perf 03/10/2017 ALT 19 03/10/2017 ALKPHOS 140 (H) 03/10/2017 BILITOT <0.2 (L) 03/10/2017 BILIDIR <0.1 03/10/2017 Assessment: Patient seen for brief discussion of heart healthy diet. Provided Guidelines for a Heart Healthy Lifestyle and Choose Your Foods Plan Your Meals. Discussed Mediterranean-type diet pyramid emphasizingfruits, vegetables, whole grains, nuts, seeds, legumes. Hydration with water encouraged. Briefly discussed portion control and healthy plate method. Contact information provided should questions arise; encouraged pt to ask questions in cardiac rehab during the nutrition component. JIAN Howe Beeper #: [id number] * Plan of Care - Chen Castillo RN - 03/13/2017 4:51 AM EST Problem: Patient Care Overview Goal: Plan of Care Review Outcome: Ongoing (Interventions Implemented as Appropriate) 03/12/17 0335 03/12/171999 Coping/Psychosocial Plan Of Care Reviewed With -- patient;spouse Plan of Care Review Progress improving -- OUTCOME EVALUATION NOTE: OUTCOME SUMMARY: Axo4, NSR, HR 85-102, VSS, R radial cath site looks clean, NPO for stress test- no caffeine PLAN MOVING FORWARD: Stress test today, nutrition consult INDIVIDUALIZED FALL PREVENTION INTERVENTIONS: Patient-specific fall risk factors per assessment: [current deficits]: o2 and tele leads when ambulating Assistance [level of assistance required for transfers and ambulation]: Independent Supervision [direct monitoring required during toileting and ADLs]: Continue to supervise pt Surveillance [continuous indirect monitoring]: continue to monitor patient Patient-specific fall prevention interventions for sensory deficits provided, if applicable: [X] No CPG GOAL OUTCOME EVALUATION: Ongoing Goal: Infection Control Outcome: Ongoing (Interventions Implemented as Appropriate) 03/12/171999 Safety Interventions Isolation Precautions standard precautions maintained Infection Prevention environmental surveillance performed Coping Strategies Supportive Measures active listening utilized;self-care encouraged Goal: Discharge Needs Assessment Outcome: Ongoing (Interventions Implemented as Appropriate) 03/12/17 0329 03/12/17 1800 Discharge Needs Assessment Concerns To Be Addressed no discharge needs identified -- Readmission Within The Last 30 Days no previous admission in last 30 days -- Equipment Needed After Discharge none -- Discharge Disposition still a patient -- Current Health Anticipated Changes Related to Illness none -- Activity/Self Care Review of Systems Equipment Currently Used at Home none -- Living Environment Transportation Available -- family or friend will provide Problem: Cardiac: ACS (Acute Coronary Syndrome) (Adult) Goal: Signs and Symptoms of Listed Potential Problems Will be Absent, Minimized or Managed (Cardiac: ACS) Signs and symptoms of listed potential problems will be absent, minimized or managed by discharge/transition of care (reference Cardiac: ACS (Acute Coronary Syndrome) (Adult) CPG). Outcome: Ongoing (Interventions Implemented as Appropriate) 03/12/171999 Cardiac: ACS (Acute Coronary Syndrome) Problems Assessed (Acute Coronary Syndrome (ACS)) all Problems Present (Acute Coronary Syndrome (ACS)) none * Plan of Care - Geraldine Flood RN - 03/12/2017 3:46 PM EST Problem: Patient Care Overview Goal: Plan of Care Review Outcome: Ongoing (Interventions Implemented as Appropriate) 03/12/17 0335 03/12/17 0900 Coping/Psychosocial Plan Of Care Reviewed With -- patient;spouse Plan of Care Review Progress improving -- OUTCOME EVALUATION NOTE: OUTCOME SUMMARY: Geoffrey had a good day. Ambulating independently in room and preciado, walked 1 mile! Some shortness of breath noted after ambulation. Geoffrey denies any chest pain. Right radial cath site C/D/I, no bleeding or hematoma present. SR on tele. Cardiac rehab in to see patient. NPO at midnight for stress test in AM. Will continue to monitor. PLAN MOVING FORWARD: Stress test in AM, nutrition consult, possible d/c INDIVIDUALIZED FALL PREVENTION INTERVENTIONS: Patient-specific fall risk factors per assessment: [current deficits]: Medical diagnosis, telemetry, PIVs Assistance [level of assistance required for transfers and ambulation]: Independent Supervision [direct monitoring required during toileting and ADLs]: Eyes on Surveillance [continuous indirect monitoring]: Telemetry, call alas within reach, purposeful nurse rounding Patient-specific fall prevention interventions for sensory deficits provided, if applicable: N/a CPG GOAL OUTCOME EVALUATION: * Consult Note - Yolanda Simpson RN - 03/12/2017 12:29 PM EST Cardiac Rehabilitation Inpatient Evaluation Primary Cardiac Diagnosis: STEMI, PCI Cardiac Risk Factors: Smoking: no Overweight: yes Hyperlipidemia: yes Sedentary: yes with work HTN: no Family history: unknown DM: yes Stress: unknown Patient Education: Reviewed cardiac cath findings, implications of coronary artery disease, managing angina and risk factor modification. 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 Given parameters for home exercise. Reviewed managing angina /use of sl nitroglycerin. He and his are well informed in CAD as she has had stents x 2. Phase II Referral: Participation in the outpatient cardiac rehabilitation program at [facility] was discussed. Patient agrees to a referral to this program. The referral will be sent at discharge and the patient should be contacted by the Program within 1- 2 weeks from discharge. Activity Summary: By discharge, patient will be able to perform self care, walk 5-7 minutes and go up and down stairs without signs or symptoms of ischemia. Activity Baseline Response Symptoms/Comments Walk/stairs HR 79 112 Aryan ambulation well, no sx ~7 min BP 114/72 120/69 O2 Sat 96% 97% ECG SR SR * Plan of Care - Edwina Escobedo RN - 03/12/2017 3:36 AM EST Problem: Patient Care Overview Goal: Plan of Care Review Outcome: Ongoing (Interventions Implemented as Appropriate) 03/12/17 0335 Coping/Psychosocial Plan Of Care Reviewed With patient Plan of Care Review Progress improving OUTCOME EVALUATION NOTE: OUTCOME SUMMARY: Juan Alberto had no further episodes of chest pain overnight. Right radial cath site opento air, looking good. Sinus rhythm on monitor without any events. Significant snoring and apnea overnight, with SpO2 dipping to 79%, not sustained. He verbalizes that he is awaiting a sleep study. PLAN MOVING FORWARD: Mobilize, cardiac rehab, education. INDIVIDUALIZED FALL PREVENTION INTERVENTIONS: Patient-specific fall risk factors per assessment: [current deficits]: Age, impaired vision, equipment. Assistance [level of assistance required for transfers and ambulation]: Stand by x 1 Supervision [direct monitoring required during toileting and ADLs]: Intermittent. Surveillance [continuous indirect monitoring]: Telemetry, purposeful hourly rounding. Patient-specific fall prevention interventions for sensory deficits provided, if applicable: call alas in reach, glasses at bedside. CPG GOAL OUTCOME EVALUATION: * Initial Assessments - Lyn Campo RN - 03/11/2017 4:10 PM EST Office of Care Management Initial Assessment Lyn Campo RN reviewed record and discussed patient with Care Team. Source of Information: patient, and chart Introduced self/reviewed role; services accepted. Reason for Hospitalization: No past medical history on file. Hospitalizations Within the Past 30 Days: no Anticipated Length Of Stay (If known): tbd Current Decision-Making Capacity: able to make decisions Advance Care Planning: No. Discussed with patient importance and process for doing Advance Directives. Provided copy(ies) of [place] [employer] Advance Directives Taking Steps booklet with forms. Current Coping/Education/Information Needs: informed and updated by team Current Functional Ability: now on bed rest evaluate prior to discharge Functional Status Prior to Admission: independent Home Environment: home is multi-level but if needed can stay on one level Social & Family Supports/Community Resources: one daughter and at bed side. Twin boys at home (20 yrs old). Behavioral Health History: no history Substance Use/Abuse: former smoker Other Pertinent/Service Specific Information: none Health/Prescription Coverage: Primary Insurance: [place] Secondary Insurance: N/A Prescription Coverage: yes Preferred Pharmacy: [facility] Other: none Primary Care Provider: Blake Vasquez MD [phone] Patient/Caregiver Goals of Treatment: discharge to home Potential Needs for Transition of Care: Rehab/SNF: not anticipated Home Health: not anticipated DME: none Dialysis: none Community Resources: none involved Transportation: family Other: none Anticipated Barriers to Discharge/Special Considerations: none Plan: discharge to home A member of the Care Management team will continue to monitor progress, follow for continuity of care and assist with transition of care planning. Lyn Campo RN Pager: [phone] * Plan of Care - Patria Sewell RN - 03/11/2017 3:01 PM EST Problem: Patient Care Overview Goal: Plan of Care Review Outcome: Ongoing (Interventions Implemented as Appropriate) 03/11/17 0800 Coping/Psychosocial Plan Of Care Reviewed With patient OUTCOME EVALUATION NOTE: OUTCOME SUMMARY: A+0x4, pt awating stepdown bed, c/o cp during shift received nitro x1 ekg, enzymes done. Denies further pain, pt thinks pain is actually a pulled muscle from being helped up by a family member. SR ontele. Pt had consistently high glucose lantus started PLAN MOVING FORWARD: Monitor Blood sugar. Monitor for CP INDIVIDUALIZED FALL PREVENTION INTERVENTIONS: Patient-specific fall risk factors per assessment: [current deficits]: Generalized weakness Assistance [level of assistance required for transfers and ambulation]: stand by Supervision [direct monitoring required during toileting and ADLs]: Full Surveillance [continuous indirect monitoring]: jas Patient-specific fall prevention interventions for sensory deficits provided, if applicable: CPG GOAL OUTCOME EVALUATION: documented in this encounter Plan of Treatment Scheduled Referrals Name Type Priority Associated Diagnoses Orde r Schedule Referral to Cardiac Rehab Outpatient Referral Routine ST elevation myocardial infarction (STEMI), unspecified artery Ordered: 03/13/2017 Referral to [facility] Outpatient Referral Routine JESUS (obstructive sleep apnea) Ordered: 03/13/2017 documented as of this encounter Procedures Procedure Name Priority Date/Time Associated Diagnosis Comments CLAIMS ASSISTANT SCAN 03/14/2017 12:00 AM EST POCT GLUCOSE Routine 03/13/2017 4:26 PM EST POCT GLUCOSE Routine 03/13/2017 12:58 PM EST NM PHARMACOLOGIC STRESS AND REST MYOCARDIAL PERFUSION Routine 03/13/2017 12:24 PM EST NUCLEAR PHARMACOLOGIC STRESS CARDIOLOGY Routine 03/13/2017 11:50 AM EST POCT GLUCOSE Routine 03/13/2017 7:40 AM EST HEMOGRAM Routine 03/13/2017 6:18 AM EST DIFFERENTIAL, AUTOMATED Routine 03/13/20 6:18 AM EST CBC (WITH DIFF) Routine 03/13/2017 6:18 AM EST MAGNESIUM Routine 03/13/2017 6:18 AM EST BASIC METABOLIC PANEL Routine 03/13/2017 6:18 AM EST POCT GLUCOSE Routine 03/12/2017 9:57 PM EST POCT GLUCOSE Routine 03/12/2017 4:17 PM EST POCT GLUCOSE Routine 03/12/2017 11:49 AM EST POCT GLUCOSE Routine 03/12/2017 8:06 AM EST HEMOGRAM Routine 03/12/2017 3:58 AM EST DIFFERENTIAL, AUTOMATED Routine 03/12/20 3:58 AM EST CBC (WITH DIFF) Routine 03/12/2017 3:58 AM EST MAGNESIUM Routine 03/12/2017 3:58 AM EST BASIC METABOLIC PANEL Routine 03/12/2017 3:58 AM EST POCT GLUCOSE Routine 03/11/2017 8:12 PM EST ECHO COMPLETE W CONTRAST Routine 03/11/2017 4:[address] elevation myocardial infarction (STEMI), unspecified artery POCT GLUCOSE Routine 03/11/2017 3:48 PM EST POCT GLUCOSE Routine 03/11/2017 2:00 PM EST CARDIAC ENZYMES ([facility]) Routine 03/11/2017 2:00 PM EST EKG 12-LEAD Routine 03/11/2017 12:[address] elevation myocardial infarction (STEMI), unspecified artery POCT GLUCOSE Routine 03/11/2017 12:13 PM EST POCT GLUCOSE Routine 03/11/2017 10:12 AM EST HEMOGRAM Routine 03/11/2017 9:25 AM EST POCT GLUCOSE Routine 03/11/2017 7:52 AM EST EKG 12-LEAD Routine 03/11/2017 7:[address] elevation myocardial infarction (STEMI), unspecified artery CARDIAC ENZYMES ([facility]) Routine 03/11/2017 6:45 AM EST MAGNESIUM Routine 03/11/2017 6:45 AM EST BASIC METABOLIC PANEL Routine 03/11/2017 6:45 AM EST EKG 12-LEAD Routine 03/11/2017 3:[address] elevation myocardial infarction (STEMI), unspecified artery XR CHEST ONE VIEW Routine 03/10/2017 10: 19 PM EST HEMOGRAM STAT 03/10/2017 9:45 PM EST DIFFERENTIAL, AUTOMATED STAT 03/10/20 9:45 PM EST CBC (WITH DIFF) STAT 03/10/2017 9:45 PM EST CARDIAC ENZYMES ([facility]) STAT 03/10/2017 7:51 PM EST MAGNESIUM Routine 03/10/2017 7:51 PM EST LDL CHOLESTEROL, DIRECT Routine 03/10/20 7:51 PM EST HDL/CHOL PROFILE Routine 03/10/2017 7:51 PM EST HEMOGLOBIN A1C Routine 03/10/2017 7:51 PM EST HEPATIC FUNCTION PANEL Routine 7 7:51 PM EST BASIC METABOLIC PANEL Routine 03/10/2017 7:51 PM EST EKG 12-LEAD Routine 03/10/2017 6:16 PM EST Coronary artery disease, angina presence unspecified, unspecified vessel or lesion type, unspecified whether [place] or transplanted heart CARDIAC CATHETERIZATION STAT 03/10/20 5:53 PM EST EKG 12-LEAD STAT 03/10/2017 4:16 PM EST Coronary artery disease, angina presence unspecified, unspecified vessel or lesion type, unspecified whether [place] or transplanted heart EKG 12-LEAD STAT 03/10/2017 4:07 PM EST Coronary artery disease, angina presence unspecified, unspecified vessel or lesion type, unspecified whether [place] or transplanted heart documented in this encounter Results * SCAN DOC: CLAIMS ASSISTANT (03/14/2017 12:00 AM EST) Anatomical Region Laterality Modality Other Narrative 03/14/2017 12:00 AM EST Ordered by an unspecified provider. Scanning Provider MEDIA MGR SCAN EXT O RDR/RSLT * (ABNORMAL) POCT Glucose (03/13/2017 4:26 PM EST) Glucose, POC 212(H) 65 - 199 mg/dL [facility] Comment: Supplemental ranges: <140 mg/dL before meals <180 mg/dL all other times of the day Blood specimen (specimen) 03/13/2017 4:26 PM EST 03/13/2017 4:26 PM EST Pa Stewart MD POINT OF CARE TEST O RDERABLES Performing Organization Address [facility]/ZIP Co de Phone Number [facility] [place] [address] * POCT Glucose (03/13/2017 12:58 PM EST) Glucose, POC 120 65 - 199 mg/dL [facility] Comment: Supplemental ranges: <140 mg/dL before meals <180 mg/dL all other times of the day Blood specimen (specimen) 03/13/2017 12:58 PM EST 03/13/2017 12:58 PM EST Pa Stewart MD POINT OF CARE TEST O RDERABLES Performing Organization Address [facility]/ZIP Co de Phone Number [facility] [place] [address] * NM Myocardial Perfusion Scan Pharmacologic (03/13/2017 12:24 PM EST) Anatomical Region Laterality Modality Nuclear Medicine Impressions 03/13/2017 4:43 PM EST 1. Moderately severe scar pattern in the proximal to distal inferior and inferoseptal segments. 2. No evidence for stress-induced ischemia. 3. Normal regional and global LV function. I have personally reviewed the image(s) and the residents interpretation and agree with the findings, Orlando Caballero at 03/13/2017 4:43 PM Narrative 03/13/2017 4:43 PM EST EXAMINATION: NM MYOCARDIAL PERFUSION SCAN PHARMACOLOGIC CLINICAL HISTORY: STEMI with ongoing chest discomfort TECHNIQUE: During rest, 7.9 mCi of technetium-99m sestamibi was administered intravenously. Approximately 20 minutes later, SPECT images of the heart were obtained with reconstruction in the short, vertical long and horizontal long axis. The patient then received regadenoson intravenously at a dose of 0.4 mg. 20 seconds later, 29 mCi of technetium-99m sestamibi was administered intravenously. Images of the heart were then again obtained with SPECT reconstruction. A low-dose CT scan was acquired for the purpose of attenuation correction COMPARISON: None FINDINGS: There is a moderately severe fixed defect present in the proximal to distal inferior and inferoseptal segments. Normal perfusion all other regions of the LV myocardium on stress and rest images. Functional analysis: Myocardial function: There is normal wall thickening and wall motion. Left ventricular ejection fraction: 59 % (normal greater than than 50%). Procedure Note Orlando Caballero MD - 03/13/2017 EXAMINATION: NM MYOCARDIAL PERFUSION SCAN PHARMACOLOGIC CLINICAL HISTORY: STEMI with ongoing chest discomfort TECHNIQUE: During rest, 7.9 mCi of technetium-99m sestamibi wasadministered intravenously. Approximately 20 minutes later, SPECT images of the heartwere obtained with reconstruction in the short, vertical long and horizontallong axis. The patient then received regadenoson intravenously at a dose of 0.4 mg.20 seconds later, 29 mCi of technetium-99m sestamibi was administered intravenously. Images of the heart were then again obtained with SPECT reconstruction. A low-dose CT scan was acquired for the purpose of attenuationcorrection COMPARISON: None FINDINGS: There is a moderately severe fixed defect present in the proximal todistal inferior and inferoseptal segments. Normal perfusion all other regions ofthe LV myocardium on stress and rest images. Functional analysis: Myocardial function: There is normal wall thickening and wall motion. Left ventricular ejection fraction: 59 % (normal greater than than 50%). IMPRESSION 1. Moderately severe scar pattern in the proximal to distal inferior and inferoseptal segments. 2. No evidence for stress-induced ischemia. 3. Normal regional and global LV function. I have personally reviewed the image(s) and the residents interpretationand agree with the findings, Orlando Caballero at 03/13/2017 4:43 PM Ranulfo Garcia MD IMG NM ORDERABLES * Nuclear Pharmacologic Stress Cardiology (03/13/2017 11:50 AM EST) Anatomical Region Laterality Modality Other Pa Stewart MD CARDIAC SERVICES ORD ERABLES * POCT Glucose (03/13/2017 7:40 AM EST) [facility] Glucose, POC 169 65 - 199 mg/dL [facility] Comment: Supplemental ranges: <140 mg/dL before meals <180 mg/dL all other times of the day Blood specimen (specimen) 03/13/2017 7:40 AM EST 03/13/2017 7:40 AM EST Ranulfo Garcia MD POINT OF CARE TEST O RDERABLES [facility] [place] [address] * (ABNORMAL) Differential, Automated (03/13/2017 6:18 AM EST) [facility] Neutrophil % 63.1 % [facility] Neutrophil Absolute 7.69(H) 1.70 - 6.10 x10(3)/mc L [facility] Lymph % 23.6 % [facility] Lymphocytes Abs 2.9 0.9 - 3.2 x10(3)/mc L [facility] Monocyte % 11.6 % [facility] Monocyte Abs 1.4(H) 0.3 - 0.9 x10(3)/mc L [facility] Eos % 0.5 % [facility] Eosinophils Abs 0.1 0.0 - 0.4 x10(3)/mc L [facility] Basophil % 0.5 % [facility] Baso Absolute 0.1 0.0 - 0.1 x10(3)/ L [facility] Immature Gran % 0.70 % [facility] Comment: Immature granulocytes(IG's)percentage and absolute count will include metamyelocytes, myelocytes, and promyelocytes. Blood smears from CBCs yielding IG's will be scanned manually for concordance. If this scan disagrees with the automated IG or if promyelocytes are noted, a manual differential will be performed. Immature Gran Absolute 0.09(H) 0.00 - 0.04 x10(3)/ L [facility] Blood specimen (specimen) 03/13/2017 6:18 AM EST 03/13/2017 6:35 AM EST Narrative Resulting Agency Comment Spec In Lab Melvin Collins MD HEMATOLOGY ORDERABL ES Performing Organization Address City/State/[facility] Co de Phone Number [facility] [place] [phone] * (ABNORMAL) Hemogram (03/13/2017 6:18 AM EST) White Blood Cell 12.2(H) 4.0 - 9.5 x10(3)/[facility] Red Blood Cell 4.55(L) 4.58 - 5.54 x10(6)/ L [facility] Hemoglobin 13.3(L) 13.7 - 16.5 gm/dL [facility] Hematocrit 40.3(L) 40.5 - 48.5 % [facility] Mean Cell Volume 88.6 82.9 - 93.1 fL [facility] Mean Cell Hemoglobin 29.2 27.5 - 32.1 pg [facility] Mean Cell Hemoglobin Concentration 33.0 32.0 - 35.7 gm/dL [facility] Platelet 309 145 - 357 x10(3)/[facility] RDW Standard Deviation 40.5 36.0 - 45.0 fL [facility] RDW coefficient of variation 12.5 11.4 - 13.8 % [facility] Mean Platelet Volume 9.6 7.6 - 12.9 [facility] NRBC% auto 0.0 % [facility] NRBC Absolute 0.000 0.000 - 0.000 x10(3)/mc L [facility] Blood specimen (specimen) 03/13/2017 6:18 AM EST 03/13/2017 6:35 AM EST Narrative Resulting Agency Comment Spec In Lab Melvin Collins MD HEMATOLOGY ORDERABL ES Performing Organization Address [facility]/ZIP Co de Phone Number [facility] [place] [address] * Magnesium (03/13/2017 6:18 AM EST) Magnesium 0.74 0.69 - 1.07 mmol/L [facility] Blood specimen (specimen) 03/13/2017 6:18 AM EST 03/13/2017 6:35 AM EST Narrative Resulting Agency Comment Spec In Lab Melvin Collins MD CHEMISTRY ORDERABLE S Performing Organization Address [facility]/ZIP Co de Phone Number [facility] [place] [address] * (ABNORMAL) Basic Metabolic Panel (non-fasting) (03/13/2017 6:18 AM EST) Glucose 150 65 - 199 mg/dL [facility] Comment:Diabetes: >=200 mg/d L plus symptoms Blood Urea Nitrogen 8(L) 10 - 20 mg/dL [facility] Creatinine 0.71(L) 0.80 - 1.50 mg/dL [facility] Sodium 138 135 - 145 mmol/L [facility] Potassium 4.0 3.5 - 5.0 mmol/L [facility] Comment: Please note: ??Patients with WBC >100,000 may have falsely elevated Potassium levels. ??For accurate Potassium quantification in these patients send serum separator tube (gold top) for subsequent determinations. ??Contact the Clinical Chemistry Laboratory if there are any questions. Chloride 99 98 - 107 mmol/L [facility] Carbon Dioxide 26 22 - 31 mmol/L [facility] Anion Gap 13 5 - 15 mmol/L [facility] Calcium 8.6 8.5 - 10.5 mg/dL [facility] Est Glomerular Filtration Rate >60 >=60 [facility] Comment: The reported eGFR should be multiplied by 1.2 for patients. The MDRD is not an appropriate measure of renal function for patients with body mass extremes or in patients with acute kidney failure. [email or web address] [email or web address] Blood specimen (specimen) 03/13/2017 6:18 AM EST 03/13/2017 6:35 AM EST Narrative Resulting Agency Comment Spec In Lab Melvin Collins MD CHEMISTRY ORDERABLE S Performing Organization Address City/[facility]/ZIP Co de Phone Number [facility] [place] [address] * POCT Glucose (03/12/2017 9:57 PM EST) Glucose, POC 121 65 - 199 mg/dL [facility] Comment: Supplemental ranges: <140 mg/dL before meals <180 mg/dL all other times of the day Blood specimen (specimen) 03/12/2017 9:57 PM EST 03/12/2017 9:57 PM EST Ranulfo Garcia MD POINT OF CARE TEST O RDERABLES Performing Organization Address [facility]/ZIP Co de Phone Number [facility] [place] [address] * POCT Glucose (03/12/2017 4:17 PM EST) Glucose, POC 125 65 - 199 mg/dL [facility] Comment: Supplemental ranges: <140 mg/dL before meals <180 mg/dL all other times of the day Blood specimen (specimen) 03/12/2017 4:17 PM EST 03/12/2017 4:17 PM EST Ranulfo Garcia MD POINT OF CARE TEST O RDERAJUAN Performing Organization Address City/[facility] Co de Phone Number [facility] [place] [address] * (ABNORMAL) POCT Glucose (03/12/2017 11:49 AM EST) Glucose, POC 224(H) 65 - 199 mg/dL [facility] Comment: Supplemental ranges: <140 mg/dL before meals <180 mg/dL all other times of the day Blood specimen (specimen) 03/12/2017 11:49 AM EST 03/12/2017 11:49 AM EST Ranulfo Garcia MD POINT OF CARE TEST O RDERAJUAN Performing Organization Address [facility] Co de Phone Number [facility] [place] [address] * (ABNORMAL) POCT Glucose (03/12/2017 8:06 AM EST) Glucose, POC 204(H) 65 - 199 mg/dL [facility] Comment: Supplemental ranges: <140 mg/dL before meals <180 mg/dL all other times of the day Blood specimen (specimen) 03/12/2017 8:06 AM EST 03/12/2017 8:06 AM EST Ranulfo Garcia MD POINT OF CARE TEST O RDERABLES Performing Organization Address [facility] Co de Phone Number [facility] [place] [address] * (ABNORMAL) Differential, Automated (03/12/2017 3:58 AM EST) Neutrophil % 55.6 % [facility] Neutrophil Absolute 7.07(H) 1.70 - 6.10 x10(3)/[facility] Lymph % 32.7 % [facility] Lymphocytes Abs 4.2(H) 0.9 - 3.2 x10(3)/[facility] Monocyte % 10.2 % [facility] Monocyte Abs 1.3(H) 0.3 - 0.9 x10(3)/[facility] Eos % 0.5 % [facility] Eosinophils Abs 0.1 0.0 - 0.4 x10(3)/[facility] Basophil % 0.5 % [facility] Baso Absolute 0.1 0.0 - 0.1 x10(3)/[facility] Immature Gran % 0.50 % [facility] Comment: Immature granulocytes(IG's)percentage and absolute count will include metamyelocytes, myelocytes, and promyelocytes. Blood smears from CBCs yielding IG's will be scanned manually for concordance. If this scan disagrees with the automated IG or if promyelocytes are noted, a manual differential will be performed. Immature Gran Absolute 0.07(H) 0.00 - 0.04 x10(3)/[facility] Blood specimen (specimen) 03/12/2017 3:58 AM EST 03/12/2017 4:05 AM EST Narrative Resulting Agency Comment Spec In Lab Melvin Collins MD HEMATOLOGY ORDERABL ES [facility] [place] [address] * (ABNORMAL) Hemogram (03/12/2017 3:58 AM EST) White Blood Cell 12.7(H) 4.0 - 9.5 x10(3)/[facility] Red Blood Cell 4.52(L) 4.58 - 5.54 x10(6)/mc L [facility] Hemoglobin 13.2(L) 13.7 - 16.5 gm/dL [facility] Hematocrit 39.9(L) 40.5 - 48.5 % [facility] Mean Cell Volume 88.3 82.9 - 93.1 fL [facility] Mean Cell Hemoglobin 29.2 27.5 - 32.1 pg [facility] Mean Cell Hemoglobin Concentration 33.1 32.0 - 35.7 gm/dL [facility] Platelet 321 145 - 357 x10(3)/mc L [facility] RDW Standard Deviation 40.7 36.0 - 45.0 fL [facility] RDW coefficient of variation 12.7 11.4 - 13.8 % [facility] Mean Platelet Volume 9.7 7.6 - 12.9 [facility] NRBC% auto 0.0 % [facility] NRBC Absolute 0.000 0.000 - 0.000 x10(3)/mc L [facility] Blood specimen (specimen) 03/12/2017 3:58 AM EST 03/12/2017 4:05 AM EST Narrative Resulting Agency Comment Spec In Lab Melvin Collins MD HEMATOLOGY ORDERABL ES Performing Organization Address [facility] Co de Phone Number [facility] [place] [address] * Magnesium (03/12/2017 3:58 AM EST) Magnesium 0.73 0.69 - 1.07 mmol/L [facility] Blood specimen (specimen) 03/12/2017 3:58 AM EST 03/12/2017 4:05 AM EST Narrative Resulting Agency Comment Spec In Lab Melvin Collins MD CHEMISTRY ORDERABLE S Performing Organization Address City/[facility]/ZIP Co de Phone Number [facility] [place] [address] * (ABNORMAL) Basic Metabolic Panel (non-fasting) (03/12/2017 3:58 AM EST) Glucose 199 65 - 199 mg/dL [facility] Comment:Diabetes: >=200 mg/d L plus symptoms Blood Urea Nitrogen 8(L) 10 - 20 mg/dL [facility] Creatinine 0.64(L) 0.80 - 1.50 mg/dL [facility] Sodium 136 135 - 145 mmol/L [facility] Potassium 4.2 3.5 - 5.0 mmol/L [facility] Comment: Please note: ??Patients with WBC >100,000 may have falsely elevated Potassium levels. ??For accurate Potassium quantification in these patients send serum separator tube (gold top) for subsequent determinations. ??Contact the Clinical Chemistry Laboratory if there are any questions. Chloride 98 98 - 107 mmol/L [facility] Carbon Dioxide 26 22 - 31 mmol/L [facility] Anion Gap 12 5 - 15 mmol/L [facility] Calcium 8.8 8.5 - 10.5 mg/dL [facility] Est Glomerular Filtration Rate >60 >=60 [facility] Comment: The reported eGFR should be multiplied by 1.2 for patients. The MDRD is not an appropriate measure of renal function for patients with body mass extremes or in patients with acute kidney failure. [email or web address] [email or web address] Blood specimen (specimen) 03/12/2017 3:58 AM EST 03/12/2017 4:05 AM EST Narrative Resulting Agency Comment Spec In Lab Melvin Collins MD CHEMISTRY ORDERABLE S [facility] [place] [address] * (ABNORMAL) POCT Glucose (03/11/2017 8:12 PM EST) Glucose, POC 260(H) 65 - 199 mg/dL [facility] Comment: Supplemental ranges: <140 mg/dL before meals <180 mg/dL all other times of the day Blood specimen (specimen) 03/11/2017 8:12 PM EST 03/11/2017 8:12 PM EST Ranulfo Garcia MD POINT OF CARE TEST O RDERAJUAN Performing Organization Address City/State/[facility] Co de Phone Number [facility] [place] [address] * ECHO COMPLETE W CONTRAST (03/11/2017 4:05 PM EST) [facility] EF 55 HEARTLAB SYSTEM Anatomical Region Laterality Modality Other 03/11/2017 Narrative 03/11/2017 4:41 PM EST Procedure: ?Transthoracic Echocardiogram Patient: ?ARLET DALE ? (Age): 1965(52y) Med Rec#: ? [id number] ?Sex: ?M ? [place] [facility] [place]Ht / Wt: ??188(cm)/118(kg) Pt. Loc: ?CC[facility] ? BSA: ?2.43 Study Date: ?? 03/11/2017 ?Pt. Type: Inpatient Tape: ? Referring: Ranulfo Garcia Reading: Erickson Castellano ([id number]) Community Youth Secretary: Misael Larry Community Youth Secretary: Adis Shin Diagnosis: *ICD-10-PCS ST elevation (STEMI) myocardial infarction of unspecified site (I21.3) BP: ? 96/64 HR: ? 72 SUMMARY: 1. The left ventricular chamber size is normal. There is normal global left ventricular systolic function. ??Ejection fraction is estimated to be 55% with akinesis of the basal inferior and inferolateral wall and RV free wall consistent with an RV infarct. 2. There is no hemodynamically significant valve disease. 3. The pericardium appears normal and there is no evidence of a pericardial effusion. 4. See remainder of report for additional findings. Findings ? : Study Quality: ? Technically limited Left Ventricle: ? The left ventricular chamber size is normal. ?Mild concentric left ventricular hypertrophy is observed. ?There is no evidence of LVOT obstruction. ?The basal septal wall appears scarred and akinetic. ?No ventricular septal defect is visualized. ?There is normal global left ventricular systolic function. ??Ejection fraction is estimated to be 55%. ?There are left ventricular segmental wall motion abnormalities present, as shown in the diagram below. ?Doppler assessment is consistent with normal left sided filling pressure. ?The ??basal inferolateral, and ??mid inferolateral wall segments are akinetic (score 3). ?The ??basal inferior, and ??basal inferoseptal wall segments are dyskinetic (score 4). ?Overall wallmotion score index is ??1.63 Left Atrium: ? The left atrium is normal in size. ?No atrial septal defect is visualized. Right Ventricle: ? The right ventricle is probably normal in size. ?Right ventricular global systolic function is severely reduced. ?The free wall of the right ventricle appears akinetic. ?The estimated pulmonary artery systolic pressure is 25 mmHg. ?The estimated right atrial pressure is 8 mmHg. Right Atrium: ? The right atrium appears normal. Aortic Valve: ? The aortic valve is trileaflet. The leaflets are thin with normal excursion. There is no aortic stenosis or regurgitation present. Mitral Valve: ? The mitral valve appears normal in structure and function. ?There is no evidence of mitral valve leaflet prolapse. ?There is trace mitral regurgitation present. Tricuspid Valve: ? The tricuspid valve appears normal in structure and function. ?There is trace tricuspid regurgitation present. Pulmonic Valve: ? The pulmonic valve appears normal in structure and function. ?There is trace pulmonic regurgitation present. Pericardium: ? The pericardium appears normal and there is no evidence of a pericardial effusion. Aorta: ? The aortic root is normal in size. ?The ascending aorta is normal in size. ?There is no evidence of coarctation of the aorta. Pulmonary Artery: ? The main pulmonary artery is not well visualized. Venous: ? The inferior vena cava appears dilated. ?There is a greater than 50% respiratory change in the inferior vena cava dimension. Misc: ? There is no hemodynamically significant valve disease. ?See remainder of report for additional findings. ?Two-dimensional echo, spectral Doppler and color Doppler performed. ?Optison contrast (one 3 ml vial) was used to enhance endocardial definition. Excess contrast was discarded. Chambers 2D ?Value ?Units (Range) ? IVSd (2D) ? 1.4 ?cm ? LVPWd (2D) ?1.3 ?cm ? IVS:LVPW ratio (2D) 1.1 ?ratio ? RWT (2D) ?0.7 ?ratio ? RWT PW (2D) ? 0.6 ?ratio ? LVIDd (2D) ?4 ?cm ? LVIDs (2D) ?3.3 ?cm ? LVIDd (2D) index ?1.6 ?cm/m2 ? LVIDs (2D) index ?1.4 ?cm/m2 ? LV FS (2D) ?18 ? % ? EF Teichholz (2D) ?? 37 ? % ? Ao root diameter (2D3.3 ?cm (2.1 - 3.6) ? Ascending Ao ?3.2 ?cm (2 - 3.5) ? Volumes/Mass ?Value ?Units (Range) ? LA Area 4 CH ?16.6 ? cm2 (<21) ? LA ESV BP (A/L) inde21.5 ? ml/m2 ? RA AREA 4CH ? 14 ? cm2 ? LV mass (2D) ?192.1 ?g ? LV mass (2D) index ??79 ? g/m2 ? Diastolic/Systolic Function ?Value ?Units (Range) ? MV E-wave Vmax ?0.7 ?m/sec ? MV deceleration dtpd290.1 ?msec ? MV A-wave Vmax ?0.5 ?m/sec ? MV E:A ratio ?1.5 ?ratio ? LV septal e' Vmax ?? 0.1 ?m/sec ? LV lateral e' Vmax ??0.1 ?m/sec ? LV average e' Vmax ??0.1 ?m/sec ? LV E:e' septal ratio8.6 ?ratio ? LV E:e' lateral rati6.2 ?ratio ? LV average E:e' rati6.8 ?ratio ? Tricuspid Valve ?Value ?Units (Range) ? TR Vmax ? 2.1 ?m/sec ? TR peak gradient ?16.8 ? mmHg ? RAP ? 8 ?mmHg ? RVSP ?25 ? mmHg ? Wall Motion: Segment Name ?Rest ? Base-Anteroseptal ?? Normal ? Base-Anterior ? Normal ? Base-Anterolateral ??Normal ? Base-Posterolateral Akinetic ? Base-Inferior ? Dyskinetic ? Base-Inferoseptal ?? Dyskinetic ? Mid-Anteroseptal ?Normal ? Mid-Anterior ?Normal ? Mid-Anterolateral ?? Normal ? Mid-Posterolateral ??Akinetic ? Mid-Inferior ?Normal ? Mid-Inferoseptal ?Normal ? House-Septal ? Normal ? House-Anterior ? Normal ? House-Lateral ?Normal ? House-Inferior ? Normal ? House-Tip ?Normal ? This report has been electronically signed by: Erickson Castellano M.D. ? 03/11/2017 16:38:26 Images reviewed and interpretation verified [facility] Procedure Note Erickson Castellano MD - 03/11/2017 Procedure: Transthoracic Echocardiogram Patient: ARLET HAMPTON(Age): 1965(52y) Med Rec#: [id number] Sex: M [place] [facility] Ht / Wt: 188(cm)/118(kg) Pt. Loc: [facility] BSA: 2.43 Study Date: 03/11/2017 Pt. Type: Inpatient Tape: Referring: Ranulfo Garcia Reading: Erickson Castellano ([id number]) Community Youth Secretary: Misael Larry Community Youth Secretary: Adis Shin Diagnosis: *ICD-10-PCS ST elevation (STEMI) myocardial infarction of unspecified site (I21.3) BP: 96/64 HR: 72 SUMMARY: 1. The left ventricular chamber size is normal. There is normal global left ventricular systolic function. Ejection fraction is estimated to be 55% with akinesis of the basal inferior and inferolateral wall and RV free wall consistent with an RV infarct. 2. There is no hemodynamically significant valve disease. 3. The pericardium appears normal and there is no evidence of a pericardial effusion. 4. See remainder of report for additional findings. Findings : Study Quality: Technically limited Left Ventricle: The left ventricular chamber size is normal. Mild concentric left ventricular hypertrophy is observed. There is no evidence of LVOT obstruction. The basal septal wall appears scarred and akinetic. No ventricular septal defect is visualized. There is normal global left ventricular systolic function. Ejection fraction is estimated to be 55%. There are left ventricular segmental wall motion abnormalities present, as shown in the diagram below. Doppler assessment is consistent with normal left sided filling pressure. The basal inferolateral, and mid inferolateral wall segments are akinetic (score 3). The basal inferior, and basal inferoseptal wall segments are dyskinetic (score 4). Overall wallmotion score index is 1.63 Left Atrium: The left atrium is normal in size. No atrial septal defect is visualized. Right Ventricle: The right ventricle is probably normal in size. Right ventricular global systolic function is severely reduced. The free wall of the right ventricle appears akinetic. The estimated pulmonary artery systolic pressure is 25 mmHg. The estimated right atrial pressure is 8 mmHg. Right Atrium: The right atrium appears normal. Aortic Valve: The aortic valve is trileaflet. The leaflets are thin with normal excursion. There is no aortic stenosis or regurgitation present. Mitral Valve: The mitral valve appears normal in structure and function. There is no evidence of mitral valve leaflet prolapse. There is trace mitral regurgitation present. Tricuspid Valve: The tricuspid valve appears normal in structure and function. There is trace tricuspid regurgitation present. Pulmonic Valve: The pulmonic valve appears normal in structure and function. There is trace pulmonic regurgitation present. Pericardium: The pericardium appears normal and there is no evidence of a pericardial effusion. Aorta: The aortic root is normal in size. The ascending aorta is normal in size. There is no evidence of coarctation of the aorta. Pulmonary Artery: The main pulmonary artery is not well visualized. Venous: The inferior vena cava appears dilated. There is a greater than 50% respiratory change in the inferior vena cava dimension. Misc: There is no hemodynamically significant valve disease. See remainder of report for additional findings. Two-dimensional echo, spectral Doppler and color Doppler performed. Optison contrast (one 3 ml vial) was used to enhance endocardial definition. Excess contrast was discarded. Chambers 2D Value Units (Range) IVSd (2D) 1.4 cm LVPWd (2D) 1.3 cm IVS:LVPW ratio (2D) 1.1 ratio RWT (2D) 0.7 ratio RWT PW (2D) 0.6 ratio LVIDd (2D) 4 cm LVIDs (2D) 3.3 cm LVIDd (2D) index 1.6 cm/m2 LVIDs (2D) index 1.4 cm/m2 LV FS (2D) 18 % EF Teichholz (2D) 37 % Ao root diameter (2D3.3 cm (2.1 - 3.6) Ascending Ao 3.2 cm (2 - 3.5) Volumes/Mass Value Units (Range) LA Area 4 CH 16.6 cm2 (<21) LA ESV BP (A/L) inde21.5 ml/m2 RA AREA 4CH 14 cm2 LV mass (2D) 192.1 g LV mass (2D) index 79 g/m2 Diastolic/Systolic Function Value Units (Range) MV E-wave Vmax 0.7 m/sec MV deceleration prxt391.1 msec MV A-wave Vmax 0.5 m/sec MV E:A ratio 1.5 ratio LV septal e' Vmax 0.1 m/sec LV lateral e' Vmax 0.1 m/sec LV average e' Vmax 0.1 m/sec LV E:e' septal ratio8.6 ratio LV E:e' lateral rati6.2 ratio LV average E:e' rati6.8 ratio Tricuspid Valve Value Units (Range) TR Vmax 2.1 m/sec TR peak gradient 16.8 mmHg RAP 8 mmHg RVSP 25 mmHg Wall Motion: Segment Name Rest Base-Anteroseptal Normal Base-Anterior Normal Base-Anterolateral Normal Base-Posterolateral Akinetic Base-Inferior Dyskinetic Base-Inferoseptal Dyskinetic Mid-Anteroseptal Normal Mid-Anterior Normal Mid-Anterolateral Normal Mid-Posterolateral Akinetic Mid-Inferior Normal Mid-Inferoseptal Normal House-Septal Normal House-Anterior Normal House-Lateral Normal House-Inferior Normal House-Tip Normal This report has been electronically signed by: Delmar Castellano M.D. 03/11/2017 16:38:26 Images reviewed and interpretation verified [facility] Ranulfo Garcia MD ECHO ORDERABLES * (ABNORMAL) POCT Glucose (03/11/2017 3:48 PM EST) Glucose, POC 209(H) 65 - 199 mg/dL [facility] Comment: Supplemental ranges: <140 mg/dL before meals <180 mg/dL all other times of the day Blood specimen (specimen) 03/11/2017 3:48 PM EST 03/11/2017 3:48 PM EST Ranulfo Garcia MD POINT OF CARE TEST O SHERRI Performing Organization Address [facility]/ZIP Co de Phone Number [facility] [place] [address] * (ABNORMAL) POCT Glucose (03/11/2017 2:00 PM EST) Glucose, POC 243(H) 65 - 199 mg/dL [facility] Comment: Supplemental ranges: <140 mg/dL before meals <180 mg/dL all other times of the day Blood specimen (specimen) 03/11/2017 2:00 PM EST 03/11/2017 2:00 PM EST Ranulfo Garcia MD POINT OF CARE TEST O SHERRI Performing Organization Address City/[facility]/ZIP Co de Phone Number [facility] [place] [place] [address] * (ABNORMAL) Cardiac Enzymes (LEB/CGP) (03/11/2017 2:00 PM EST) Troponin-T 2.67(H) 0.00 - 0.00 ng/mL [facility] Comment: Result rechecked. The 99th percentile for Troponin T is less than 0.01 ng/mL, any detectable cTnT concentration using this assay should be considered elevated. According to the third universal definition of myocardial infarction the following criteria with a clinical presentation consistent with acute myocardial ischemia meets the diagnosis for a myocardial infarction (MA). Detection of a rise and/or fall of cTnT, with at least one value greater than the 99th percentile (> or = 0.01) and with at least one of the following ?? Symptoms of ischemia ?? New or presumed new significant PE-rhqjwxh-F wave (ST-T) changes or new left bundle branch block (LBBB) ?? Development of pathologic Q waves in the ECG ?? Imaging evidence of new loss of viable myocardium or new regional wall motion abnormality ?? Identification of an intracoronary thrombus by angiography or autopsy Samples for cTnT testing should be obtained serially upon first assessment and again 3 to 6 hours later. If the clinical suspicion is high and previous samples have been negative an additional sample may be indicated. Reference: Third [place] Definition of Myocardial Infarction. Journal of the [place] [employer] 2012;60:1581-98 Creatine Kinase 1,038(H) 0 - 200 unit/L [facility] Blood specimen (specimen) 03/11/2017 2:00 PM EST 03/11/2017 2:07 PM EST Narrative Resulting Agency Comment Spec In Lab Melvin Collins MD CHEMISTRY ORDERABLE S [facility] [place] [address] * EKG 12 Lead (03/11/2017 12:40 PM EST) Ventricular rate 76 BPM MUSE SYSTEM Atrial Rate 76 BPM MUSE SYSTEM P-R Interval 196 ms MUSE SYSTEM QRS Duration 84 ms MUSE SYSTEM Q-T Interval 396 ms MUSE SYSTEM QTC Calculated (Bezet) 445 ms MUSE SYSTEM Calculated P [place] 50 degrees MUSE SYSTEM Calculated R [place] -10 degrees MUSE SYSTEM Calculated T [place] 83 degrees MUSE SYSTEM INTERPRETATION Normal sinus rhythm Inferior infarct (cited on or before 10-MAR-2017) Abnormal ECG When compared with ECG of 11-MAR-2017 07:48, No significant change was found Confirmed by MD Terry, Pa ([id number]) on 03/11/2017 4:53:48 PM MUSE SYSTEM 03/11/2017 12:4 0 PM EST 03/11/2017 4:53 PM EST Melvin Collins MD ECG ORDERABLES Performing Organization Address City/[facility]/ZIP Co de Phone Number MUSE SYSTEM * (ABNORMAL) POCT Glucose (03/11/2017 12:13 PM EST) Glucose, POC 252(H) 65 - 199 mg/dL [facility] Comment: Supplemental ranges: <140 mg/dL before meals <180 mg/dL all other times of the day Blood specimen (specimen) 03/11/2017 12:13 PM EST 03/11/2017 12:13 PM EST Ranulfo Garcia MD POINT OF CARE TEST O SHERRI Performing Organization Address [facility] Co de Phone Number [facility] [place] [address] * (ABNORMAL) POCT Glucose (03/11/2017 10:12 AM EST) Glucose, POC 277(H) 65 - 199 mg/dL [facility] Comment: Supplemental ranges: <140 mg/dL before meals <180 mg/dL all other times of the day Blood specimen (specimen) 03/11/2017 10:12 AM EST 03/11/2017 10:12 AM EST Ranulfo Garcia MD POINT OF CARE TEST O SHERRI Performing Organization Address [facility] Co de Phone Number [facility] [place] [address] * (ABNORMAL) Hemogram (03/11/2017 9:25 AM EST) White Blood Cell 13.0(H) 4.0 - 9.5 x10(3)/mc L [facility] Red Blood Cell 4.65 4.58 - 5.54 x10(6)/mc L [facility] Hemoglobin 13.6(L) 13.7 - 16.5 gm/dL [facility] Hematocrit 41.4 40.5 - 48.5 % [facility] Mean Cell Volume 89.0 82.9 - 93.1 fL [facility] Mean Cell Hemoglobin 29.2 27.5 - 32.1 pg [facility] Mean Cell Hemoglobin Concentration 32.9 32.0 - 35.7 gm/dL [facility] Platelet 356 145 - 357 x10(3)/mc L [facility] RDW Standard Deviation 41.7 36.0 - 45.0 [facility] RDW coefficient of variation 12.9 11.4 - 13.8 % [facility] Mean Platelet Volume 9.6 7.6 - 12.9 [facility] NRBC% auto 0.0 % [facility] NRBC Absolute 0.000 0.000 - 0.000 x10(3)/mc L [facility] Blood specimen (specimen) 03/11/2017 9:25 AM EST 03/11/2017 9:33 AM EST Narrative Resulting Agency Comment Spec In Lab Melvin Collins MD HEMATOLOGY ORDERABL ES Performing Organization Address [facility] Co de Phone Number [facility] [place] [address] * (ABNORMAL) POCT Glucose (03/11/2017 7:52 AM EST) Glucose, POC 268(H) 65 - 199 mg/dL [facility] Comment: Supplemental ranges: <140 mg/dL before meals <180 mg/dL all other times of the day Blood specimen (specimen) 03/11/2017 7:52 AM EST 03/11/2017 7:52 AM EST Ranulfo Garcia MD POINT OF CARE TEST O RDERABLES Performing Organization Address [facility] Co de Phone Number [facility] [place] [address] * EKG 12 Lead (03/11/2017 7:48 AM EST) Ventricular rate 78 BPM MUSE SYSTEM Atrial Rate 78 BPM MUSE SYSTEM P-R Interval 188 ms MUSE SYSTEM QRS Duration 84 ms MUSE SYSTEM Q-T Interval 390 ms MUSE SYSTEM QTC Calculated (Bezet) 444 ms MUSE SYSTEM Calculated P [place] 59 degrees MUSE SYSTEM Calculated R [place] -7 degrees MUSE SYSTEM Calculated T [place] 95 degrees MUSE SYSTEM INTERPRETATION Normal sinus rhythm with sinus arrhythmia Inferior infarct (cited on or before 10-MAR-2017) Abnormal ECG When compared with ECG of 11-MAR-2017 03:27, No significant change was found Confirmed by MD Terry, Pa ([id number]) on 03/11/2017 4:53:42 PM MUSE SYSTEM 03/11/2017 7:48 AM EST 03/11/2017 4:53 PM EST Ranulfo Garcia MD ECG ORDERABLES MUSE SYSTEM * (ABNORMAL) Cardiac Enzymes (LEB/CGP) (03/11/2017 6:45 AM EST) Troponin-T 3.46(H) 0.00 - 0.00 ng/mL [facility] Comment: result rechecked-hp The 99th percentile for Troponin T is less than 0.01 ng/mL, any detectable cTnT concentration using this assay should be considered elevated. According to the third universal definition of myocardial infarction the following criteria with a clinical presentation consistent with acute myocardial ischemia meets the diagnosis for a myocardial infarction (MA). Detection of a rise and/or fall of cTnT, with at least one value greater than the 99th percentile (> or = 0.01) and with at least one of the following ?? Symptoms of ischemia ?? New or presumed new significant JQ-nhwiarz-I wave (ST-T) changes or new left bundle branch block (LBBB) ?? Development of pathologic Q waves in the ECG ?? Imaging evidence of new loss of viable myocardium or new regional wall motion abnormality ?? Identification of an intracoronary thrombus by angiography or autopsy Samples for cTnT testing should be obtained serially upon first assessment and again 3 to 6 hours later. If the clinical suspicion is high and previous samples have been negative an additional sample may be indicated. Reference: Third [place] Definition of Myocardial Infarction. Journal of the [place] [employer] 2012;60:1581-98 Creatine Kinase 1,354(H) 0 - 200 unit/L [facility] Blood specimen (specimen) Venous Draw / Unknown 03/11/2017 6:45 AM EST 03/11/2017 7:06 AM EST Narrative Resulting Agency Comment Spec In Lab Ranulfo Garcia MD CHEMISTRY ORDERABLES Performing Organization Address [facility] de Phone Number [facility] [place] [address] * Magnesium (03/11/2017 6:45 AM EST) Magnesium 0.84 0.69 - 1.07 mmol/L [facility] Blood specimen (specimen) 03/11/2017 6:45 AM EST 03/11/2017 7:01 AM EST Narrative Resulting Agency Comment Spec In Lab Melvin Collins MD CHEMISTRY ORDERABLE S Performing Organization Address [facility] de Phone Number [facility] [place] [address] * (ABNORMAL) Basic Metabolic Panel (non-fasting) (03/11/2017 6:45 AM EST) Glucose 228(H) 65 - 199 mg/dL [facility] Comment:Diabetes: >=200 mg/d L plus symptoms Blood Urea Nitrogen 8(L) 10 - 20 mg/dL [facility] Creatinine 0.80 0.80 - 1.50 mg/dL [facility] Sodium 141 135 - 145 mmol/L [facility] Potassium 4.5 3.5 - 5.0 mmol/L [facility] Comment: Please note: ??Patients with WBC >100,000 may have falsely elevated Potassium levels. ??For accurate Potassium quantification in these patients send serum separator tube (gold top) for subsequent determinations. ??Contact the Clinical Chemistry Laboratory if there are any questions. Chloride 100 98 - 107 mmol/L [facility] Carbon Dioxide 24 22 - 31 mmol/L [facility] Anion Gap 17(H) 5 - 15 mmol/L [facility] Calcium 9.2 8.5 - 10.5 mg/dL [facility] Comment:confirmed with Aliso n, PT not on calcium suppliment, 03/11/17 08:00-hp Est Glomerular Filtration Rate >60 >=60 [facility] Comment: The reported eGFR should be multiplied by 1.2 for patients. The MDRD is not an appropriate measure of renal function for patients with body mass extremes or in patients with acute kidney failure. http://[employer]/DHnkdep http://[employer]/DHMCnkf Blood specimen (specimen) 03/11/2017 6:45 AM EST 03/11/2017 7:01 AM EST Narrative Resulting Agency Comment Spec In Lab Melvin Collins MD CHEMISTRY ORDERABLE S Performing Organization Address City/[facility] Co de Phone Number [facility] [place] [phone] * EKG 12 Lead (03/11/2017 3:27 AM EST) Ventricular rate 71 BPM MUSE SYSTEM Atrial Rate 71 BPM MUSE SYSTEM P-R Interval 182 ms MUSE SYSTEM QRS Duration 84 ms MUSE SYSTEM Q-T Interval 392 ms MUSE SYSTEM QTC Calculated (Bezet) 425 ms MUSE SYSTEM Calculated P [place] 58 degrees MUSE SYSTEM Calculated R [place] -7 degrees MUSE SYSTEM Calculated T [place] 89 degrees MUSE SYSTEM INTERPRETATION Normal sinus rhythm Inferior infarct (cited on or before 10-MAR-2017 ) Abnormal ECG When compared with ECG of 10-MAR-2017 18:16, Serial changes of evolving Inferior infarct Present Confirmed by Landry sexton MD, Pa ([id number]) on 03/11/2017 4:53:26 PM MUSE SYSTEM 03/11/2017 3:27 AM EST 03/11/2017 4:53 PM EST Deep Roa MD ECG ORDERABLES MUSE SYSTEM * XR Chest PA or AP 1 view (03/10/2017 10:19 PM EST) Anatomical Region Laterality Modality Chest N/A Digital Radiogra phy Impressions 03/11/2017 1:48 AM EST No acute cardiopulmonary abnormality. I have personally reviewed the image(s) and the residents interpretation and agree with the findings, RHIANNA DIA at 03/11/2017 1:48 AM Narrative 03/11/2017 1:48 AM EST EXAMINATION: XR CHEST PA OR AP 1 VIEW CLINICAL HISTORY: 52 y/o M sp STEMI TECHNIQUE: AP semiupright view of the chest COMPARISON: Radiograph 10/18/2003 FINDINGS: There is chronic elevation of the right hemidiaphragm, slightly more pronounced on the current exam. No focal consolidation, pleural effusion, or pneumothorax. Cardiac mediastinal silhouette, audrey, and pulmonary vasculature are normal. Procedure Note Rhianna Dia MD - 03/11/2017 EXAMINATION: XR CHEST PA OR AP 1 VIEW CLINICAL HISTORY: 52 y/o M sp STEMI TECHNIQUE: AP semiupright view of the chest COMPARISON: Radiograph 10/18/2003 FINDINGS: There is chronic elevation of the right hemidiaphragm, slightly morepronounced on the current exam. No focal consolidation, pleural effusion, orpneumothorax. Cardiac mediastinal silhouette, audrey, and pulmonary vasculature arenormal. IMPRESSION No acute cardiopulmonary abnormality. I have personally reviewed the image(s) and the residents interpretationand agree with the findings, RHIANNA DIA at 03/11/2017 1:48 AM Ranulfo Garcia MD IMG DX ORDERABLES * (ABNORMAL) Differential, Automated (03/10/2017 9:45 PM EST) Neutrophil % 83.4 % [facility] Neutrophil Absolute 11.65(H) 1.70 - 6.10 x10(3)/mc L [facility] Lymph % 11.0 % [facility] Lymphocytes Abs 1.5 0.9 - 3.2 x10(3)/[facility] Monocyte % 4.8 % [facility] Monocyte Abs 0.7 0.3 - 0.9 x10(3)/[facility] Eos % 0.0 % [facility] Eosinophils Abs 0.0 0.0 - 0.4 x10(3)/[facility] Basophil % 0.2 % [facility] Baso Absolute 0.0 0.0 - 0.1 x10(3)/[facility] Immature Gran % 0.60 % [facility] Comment: Immature granulocytes(IG's)percentage and absolute count will include metamyelocytes, myelocytes, and promyelocytes. Blood smears from CBCs yielding IG's will be scanned manually for concordance. If this scan disagrees with the automated IG or if promyelocytes are noted, a manual differential will be performed. Immature Gran Absolute 0.09(H) 0.00 - 0.04 x10(3)/[facility] Blood specimen (specimen) 03/10/2017 9:45 PM EST 03/10/2017 9:57 PM EST Narrative Resulting Agency Comment Spec In Lab Ranulfo Garcia MD HEMATOLOGY ORDERABLE S [facility] [place] [address] * (ABNORMAL) Hemogram (03/10/2017 9:45 PM EST) White Blood Cell 14.0(H) 4.0 - 9.5 x10(3)/[facility] Red Blood Cell 5.05 4.58 - 5.54 x10(6)/[facility] Hemoglobin 14.8 13.7 - 16.5 gm/dL [facility] Hematocrit 45.0 40.5 - 48.5 % [facility] Mean Cell Volume 89.1 82.9 - 93.1 fL [facility] Mean Cell Hemoglobin 29.3 27.5 - 32.1 pg [facility] Mean Cell Hemoglobin Concentration 32.9 32.0 - 35.7 gm/dL [facility] Platelet 376(H) 145 - 357 x10(3)/mc L [facility] RDW Standard Deviation 41.4 36.0 - 45.0 fL [facility] RDW coefficient of variation 12.7 11.4 - 13.8 % [facility] Mean Platelet Volume 9.5 7.6 - 12.9 fL [facility] NRBC% auto 0.0 % [facility] NRBC Absolute 0.000 0.000 - 0.000 x10(3)/mc L [facility] Blood specimen (specimen) 03/10/2017 9:45 PM EST 03/10/2017 9:57 PM EST Narrative Resulting Agency Comment Spec In Lab Ranulfo Garcia MD HEMATOLOGY ORDERABLE S [facility] [place] [address] * (ABNORMAL) Cardiac Enzymes (LEB/CGP) (03/10/2017 7:51 PM EST) Troponin-T 2.02(H) 0.00 - 0.00 ng/mL [facility] Comment: The 99th percentile for Troponin T is less than 0.01 ng/mL, any detectable cTnT concentration using this assay should be considered elevated. According to the third universal definition of myocardial infarction the following criteria with a clinical presentation consistent with acute myocardial ischemia meets the diagnosis for a myocardial infarction (MA). Detection of a rise and/or fall of cTnT, with at least one value greater than the 99th percentile (> or = 0.01) and with at least one of the following ?? Symptoms of ischemia ?? New or presumed new significant EH-mxdehxf-K wave (ST-T) changes or new left bundle branch block (LBBB) ?? Development of pathologic Q waves in the ECG ?? Imaging evidence of new loss of viable myocardium or new regional wall motion abnormality ?? Identification of an intracoronary thrombus by angiography or autopsy Samples for cTnT testing should be obtained serially upon first assessment and again 3 to 6 hours later. If the clinical suspicion is high and previous samples have been negative an additional sample may be indicated. Reference: Third [place] Definition of Myocardial Infarction. Journal of the [place] [employer] 2012;60:1581-98 Creatine Kinase 1,518(H) 0 - 200 unit/L [facility] Blood specimen (specimen) 03/10/2017 7:51 PM EST 03/10/2017 7:59 PM EST Narrative Resulting Agency Comment Spec In Lab Ranulfo Garcia MD CHEMISTRY ORDERABLES [facility] [place] [address] * (ABNORMAL) Hepatic Function Panel (03/10/2017 7:51 PM EST) Protein, Total 6.5 6.1 - 8.0 gm/dL [facility] Albumin 3.3 3.2 - 5.2 gm/dL [facility] Aspartate Aminotransferase Not Perf 0 - 39 unit/L [facility] Comment: Unable to quantitate due to sample hemolysis. ??Sample redraw suggested. Called by: [facility], Read back by: Kelly Hook, Date/Time:03/10/17 22:05. Alanine Aminotransferase 19 0 - 55 unit/L [facility] Alkaline Phosphatase 140(H) 40 - 120 unit/L [facility] Bilirubin, Total <0.2(L) 0.2 - 1.3 mg/dL [facility] Bilirubin, Direct <0.1 0.0 - 0.3 mg/dL [facility] Blood specimen (specimen) 03/10/2017 7:51 PM EST 03/10/2017 7:59 PM EST Narrative Resulting Agency Comment Spec In Lab Ranulfo Garcia MD CHEMISTRY ORDERABLES [facility] [place] [address] * (ABNORMAL) Hemoglobin A1c (03/10/2017 7:51 PM EST) Hemoglobin A1c 8.9(H) 4.3 - 5.6 % [facility] Comment: Reference Range: 4.3 - 5.6% 5.7 - 6.4% - Increased Risk of Developing Diabetes Mellitus >=6.5% - Consistent with diagnosis of Diabetes Mellitus In the absence of hyperglycemia (i.e. plasma glucose > 200 mg/dL) or classic symptoms of hyperglycemia a repeat measurement of HbA1c should be performed on a separate sample to confirm the diagnosis. Diagnosis and Classification of Diabetes Mellitus, Diabetes Care 2013; 36: Suppl. 1, S67-74 Estimated Average Glucose 209 mg/dL [facility] Comment: eAG equivalents for HbA1c percentages: HbA1c(%) ?eAG(mg/dL) 6.0 ?126 6.5 ?140 7.0 ?154 7.5 ?169 8.0 ?183 8.5 ?197 9.0 ?212 9.5 ?226 10.0 ? 240 Limitations: The eAG calculation has not been validated on women, individuals below 18 years old and above 70 years old, and individuals with hemoglobinopathies. Additional resources are available on the ADA website. Akash DO, Rosario J, Star R, et al. ??Translating the A1C assay into estimated average glucose values. ??Diabetes Care 2008:31(8):7368-5319. Blood specimen (specimen) 03/10/2017 7:51 PM EST 03/10/2017 7:59 PM EST Narrative Resulting Agency Comment Spec In Lab Ranulfo Garcia MD CHEMISTRY ORDERABLES Performing Organization Address City/[facility] Co de Phone Number [facility] [place] [address] * LDL Cholesterol, Direct (03/10/2017 7:51 PM EST) LDL Cholesterol, Direct 147 <=190 mg/dL [facility] Blood specimen (specimen) 03/10/2017 7:51 PM EST 03/10/2017 7:59 PM EST Narrative Resulting Agency Comment Spec In Lab Ranulfo Garcia MD CHEMISTRY ORDERABLES Performing Organization Address [facility] Co de Phone Number [facility] [place] [address] * HDL/Cholesterol Profile (03/10/2017 7:51 PM EST) Cholesterol, Total 204 <=239 mg/dL [facility] HDL Cholesterol 42 >=40 mg/dL [facility] Cholesterol/HDL Ratio 4.9 ratio [facility] Chol/HDL Interpretation See Note [facility] Comment: Lipid management should be guided by a patient? s ASCVD risk, goals and preferences. ACC/AHA Guidelines recommend high intensity statin if clinical ASCVD or LDL greater than or equal to 190 mg/dL. http://[employer].com/UZX-OXD-Umlyzxvqz Measure LDL if Total Cholesterol minus HDL Cholesterol is greater than 220 mg/dL. Adults aged 40-75 with LDL 70-189 mg/dL should have their 10 year ASCVD risk estimated with the ACC/AHA ASCVD risk supervisor estimator and drafter http://tools.acc.org/TWMRK-Ojtv-Cagvbhjtc/ Statin should be discussed if risk greater [...] In Lab Ranulfo Garcia MD CHEMISTRY ORDERABLES Performing Organization Address [facility] de Phone Number [facility] [place] [address] * Magnesium (03/10/2017 7:51 PM EST) Magnesium 0.72 0.69 - 1.07 mmol/L [facility] Blood specimen (specimen) 03/10/2017 7:51 PM EST 03/10/2017 7:59 PM EST Narrative Resulting Agency Comment Spec In Lab Ranulfo Garcia MD CHEMISTRY ORDERABLES Performing Organization Address [facility] de Phone Number [facility] [place] [address] * (ABNORMAL) Basic Metabolic Panel (non-fasting) (03/10/2017 7:51 PM EST) Glucose 282(H) 65 - 199 mg/dL [facility] Comment:Diabetes: >=200 mg/d L plus symptoms Blood Urea Nitrogen 7(L) 10 - 20 mg/dL [facility] Creatinine 0.71(L) 0.80 - 1.50 mg/dL [facility] Sodium 137 135 - 145 mmol/L [facility] Potassium 4.7 3.5 - 5.0 mmol/L [facility] Comment: Please note: ??Patients with WBC >100,000 may have falsely elevated Potassium levels. ??For accurate Potassium quantification in these patients send serum separator tube (gold top) for subsequent determinations. ??Contact the Clinical Chemistry Laboratory if there are any questions. Chloride 101 98 - 107 mmol/L [facility] Carbon Dioxide 18(L) 22 - 31 mmol/L [facility] Anion Gap 18(H) 5 - 15 mmol/L [facility] Calcium 7.9(L) 8.5 - 10.5 mg/dL [facility] Est Glomerular Filtration Rate >60 >=60 [facility] Comment: The reported eGFR should be multiplied by 1.2 for patients. The MDRD is not an appropriate measure of renal function for patients with body mass extremes or in patients with acute kidney failure. http://[employer]/DHnkdep http://[employer]/DHMCnkf Blood specimen (specimen) 03/10/2017 7:51 PM EST 03/10/2017 7:59 PM EST Narrative Resulting Agency Comment Spec In Lab Ranulfo Garcia MD CHEMISTRY ORDERABLES Performing Organization Address [facility] Co de Phone Number [facility] [place] [address] * EKG 12 Lead (03/10/2017 6:16 PM EST) Ventricular rate 68 BPM MUSE SYSTEM Atrial Rate 68 BPM MUSE SYSTEM P-R Interval 194 ms MUSE SYSTEM QRS Duration 88 ms MUSE SYSTEM Q-T Interval 450 ms MUSE SYSTEM QTC Calculated (Bezet) 478 ms MUSE SYSTEM Calculated P [place] 57 degrees MUSE SYSTEM Calculated R [place] 23 degrees MUSE SYSTEM Calculated T [place] 83 degrees MUSE SYSTEM INTERPRETATION Normal sinus rhythm Inferior infarct , new * ACUTE MA ?? Consider right ventricular involvement in acute inferior infarct Abnormal ECG When compared with ECG of 10-MAR-2017 16:07, 2nd degree av block (type I) and PVCs are no longer present Confirmed by MD PRAKASH, NYDIA ([id number]) on 03/11/2017 4:54:24 PM MUSE SYSTEM 03/10/2017 6:16 PM EST 03/11/2017 4:54 PM EST Priscila Wesley MD ECG ORDERABLES Performing Organization Address [facility] Co de Phone Number MUSE SYSTEM * CARDIAC CATHETERIZATION (03/10/2017 5:53 PM EST) Anatomical Region Laterality Modality Other Narrative 03/11/2017 11:43 AM EST ?[facility] ? Cardiac Catheterization/Intervention Report ? Patient Name: Arlet, Juan Alberto ? Procedure Date: 03/10/2017 ? A #: [id number] ? Primary Physician: Priscila Wesley ? Case #: [id number] ? File Name: [id number] ? Catheterization Order Number: [id number] ? [facility] ? Final Report [place], [place] ? Patient Name: ? Juan Alberto Arlet ?ID#: ?[id number] ? : ?1965 ? Procedure Date: ? March 10, 2017 ?Case #: ? [id number] ? Room: ? 2 ? Case Physician: ? Priscila Wesley, M.D. ? Start: ?16:41 ? Admission: ??03/10/2017 ? Discharge: ??03/13/2017 ? Procedures: ?* Coronary Angiography ?* Left Heart Catheterization ?* Coronary Ultrasound ?* Coronary Stent Insertion ? Pre Case Status: ?These procedures were performed on an emergent basis. ? History ?Juan Alberto Nice is a 52 year old man. He has hypercholesterolemia. The ?patient is status post an acute ST elevation myocardial infarction. He ?has a history of mild liver disease. The patient also has a history of ?pericardial effusion with tamponade. Prior to the initiation of this ?procedure, the patient was designated as ASA Class III. ? Patient Status at Catheterization: ?The patient presented with: ST-Elevation MA (STEMI) or equivalent (w/i 7 ?days). [place] [employer] angina class was IV. This patient ?was on beta blockers prior to the procedure. No stress or imaging studies ?were performed prior to this procedure. The status of the diagnostic ?procedure was Emergent. ? Technique: ?A 6 SLFr sheath was inserted in the right radial artery utilizing the ?Seldinger technique. The left coronary artery was injected utilizing a ?5Fr JL 3.5 catheter. A 6Fr JR 4 catheter was used to inject the right ?coronary artery. Left ventricular pressure was performed with a 6Fr JR 4 ?catheter. Coronary stent insertion was performed and the equipment ?utilized will be described in the intervention summary section. 4,000 ?units of heparin were administered. A total of 200cc of Omnipaque were ?opened, 109cc of Omnipaque were administered and 91cc of Omnipaque were ?wasted. Radiation: Fluoro time was 19.2 minutes, dose area product was ?149,949 mGYcm2 and air kerma was 2,109 mGY. ?The patient received the following medications prior to and during the ?procedure: Aspirin (any), Clopidogrel and Unfractionated Heparin (any). ? Hemodynamics: ?Left Heart Pressures ? Resting: ? Syst Diast ? EDP ?a ?v ? m ?Ao 87 ?43 ?45 ? Post Contrast: ? Syst Diast ? EDP ?a ?v ? m ?Ao 75 ?55 ?64 ?LV 83 ?17 ? Coronary Angiography: ?Dominance: Right ?Left Main ? There was mild diffuse (<=25% stenosis) disease of the entire vessel ? segment of the left main artery. ??The left main was large. ?Left Anterior Descending ? There was a 50% single discrete stenosis of the proximal segment of ? the left anterior descending artery (LAD). ??The LAD was moderate in ? size. ??The mid segment of the LAD had a single discrete 60% ? stenosis. ? There was mild diffuse (<=25% stenosis) disease of the entire vessel ? segment of the second diagonal branch (Diagonal 2) of the LAD. ??The ? Diagonal 2 was small. ?Left Circumflex ? There was mild diffuse (<=25% stenosis) disease of the entire vessel ? segment of the left circumflex artery (LCX). ??The LCX was moderate ? in size. ??Distal flow was normal. ?Right Coronary Artery ? There was an 80% eccentric single discrete stenosis of the proximal ? segment of the right coronary artery (RCA). ??The RCA was large. ? Distal flow was normal. ??The mid segment of the RCA had a single ? discrete total occlusion. ??There was no antegrade distal flow (ABBY ? Grade 0). ?Ramus ? There was mild diffuse (<=25% stenosis) disease of the entire vessel ? segment of the ramus. ??The ramus was moderate in size. ? Intravascular Imaging/Physiology: ?Intravascular Ultrasound was performed in the proximal RCA using a 6 Fr ?JR 4 guiding catheter and a 3.[address] [place] [address] ??20 Mhz using ?auto 0.5 mm/sec pullback. ??Imaging was successful. ??Image quality was ?good. ??The proximal RCA showed severe diffuse atherosclerotic plaque. ?Additional Findings: IVUS was performed to assess mid RCA stent and the ?proximal lesion. ??Mid RCA stent is undersized in the distal segment. ?There are several patches of anuerysmal dilation in the vessel. ??The ?proximal lesion is focal with MLA that measures severe (2.5 mm) but there ?is severe dilation just distal to the lesion and vessel measures 7.0 mm ?(minimum). ? Indication for Intervention: ?Coronary intervention was indicated for primary therapy for an acute ?myocardial infarction. Left Ventricular Ejection fraction was not ?assessed. The priority for the procedure was Emergent. The NCDR ?indication for the procedure was STEMI (Immediate PCI for STEMI). ? Intervention Summary: ?Right Coronary Artery ? Proximal 80% ? Stent insertion was performed on the 80% stenosis in the ? proximal segment of the RCA. This was a de homer lesion. ? According to the ACC/AHA classification system, this lesion ? was a type C high risk lesion. Primary prevention of ? restenosis was the indication for stent insertion. This was ? the culprit lesion. Vessel flow pre intervention was ABBY 3. ? Stent insertion was accomplished through a 6 Fr. JR 4 guide. ? A premounted 4.50 x 15 mm Resolute [place] (ALEAH) was deployed ? with a maximum inflation pressure of 14 atmospheres. ? Following stent deployment, the lesion was dilated using a ? 5.00mm NC EUPHORA 08 MM balloon with a maximum inflation ? pressure of 16 atmospheres. ? The final outcome was defined as successful. There was no ? residual stenosis following this intervention. The final ABBY ? flow was 3. ? Mid 100% ? Stent insertion was performed on the total occlusion in the ? mid segment of the RCA. This was a de homer lesion. This lesion ? was designated a type C high risk lesion based on ACC/AHA ? classification system. Primary prevention of restenosis was ? the indication for stent insertion. This was the culprit ? lesion. Vessel flow pre intervention was ABBY 0. ? Stent insertion was accomplished through a 6 Fr. JR 4 guide. ? The lesion was predilated with a 2.50mm EUPHORA 15 MM balloon ? with a maximum inflation pressure of 12 atmospheres. ??A ? premounted 3.00 x 30 mm Resolute [place] (ALEAH) was deployed with ? a maximum inflation pressure of 12 atmospheres. ??Following ? stent deployment, the lesion was dilated using a 4.00mm NC ? EUPHORA 15 MM balloon with a maximum inflation pressure of 18 ? atmospheres. ? The final outcome was defined as successful. There was no ? residual stenosis following this intervention. The final ABBY ? flow was 3. ? Vascular Access: ?Vascular Access Management: ? Mechanical Compression of the right radial artery access site was ? performed. ? Dual Antiplatelet (DAPT) Recommendations: ?Drug eluting stent (ALEAH) inserted. ?P2Y12 Loading dose administered prior to arrival in the woven label designer. ?Recommend continuing clopidogrel 75 mg PO daily for indefinitely. ?Recommend continuing aspirin 81 mg unless intolerant. ? Conclusions: ?* Two vessel coronary artery disease (LAD and RCA) ?* Successful stent insertion of the mid RCA lesion ?* Successful stent insertion of the proximal RCA lesion ?* Recommend continuing clopidogrel 75 mg PO daily for indefinitely (see ?DAPT Recommendations above for more information.) ?* Residual moderate to severe LAD disease. ? Complications/Events: ?The patient had no complications during these procedures. ? Comments: ?Pt presented with chest pain and noted to have inferior ST segment ?elevations. ??Coronary angiography showed severe RCA disease which was ?treated with a single ALEAH. ??Proximal RCA also has an eccentric lesion ?which continues into a aneursymal portion of the vessel. ??IVUS confirmed ?severity of the lesion and given persistent chest pain we elected to ?treat this lesion with IVUS guided PCI. ??The proximal vessel measures 4.5 ?mm and distal vessel measured > 7.0 mm. ??We treated the lesion with a 4.5 ?mm stent and flared the distal edge using a 5.0 mm stent upto 18 sarath. ?IVUS was not re-performed but distal portion of the stent is most likely ?undersized. ??Would recommend longer duration of DAPT if tolerated. ??Can ?assess clinical need for additional treatment of LAD disease. ?The attending physician was present for the entire procedure. ?Dr. Priscila Wesley M.D. was present during the moderate sedation intraservice ?time as documented by the sedation nurse. ??Case time = 01:05. ?Dr. Priscila Wesley M.D. performed the coronary angiography, left heart ?catheterization, IVUS # coronary and stent insertion-coronary. ? Priscila Wesley M.D. ? Electronically Signed by: Priscila Wesley M.D. ? Report Finalized: 03/11/2017 ??11:40 ? Report Last Ammended: 07/30/2017 ??13:31 ? Procedure Note Priscila Wesley MD - 07/30/2017 [facility] Cardiac Catheterization/Intervention Report Patient Name: Juan Alberto Nice Procedure Date: 03/10/2017 A #: [id number] Primary Physician: Priscila Wesley Case #: [id number] File Name: [id number] Catheterization Order Number: [id number] [facility] FinalReport [place], [place] Patient Name: Juan Alberto Nice ID#:[id number] :[id number] Procedure Date: March 10, 2017 Case #: [id number] Room: 2 Case Physician: Priscila Wesley M.D. Start: 16:41 Admission:03/10/2017 Discharge:03/13/2017 Procedures: * Coronary Angiography * Left Heart Catheterization * Coronary Ultrasound * Coronary Stent Insertion Pre Case Status: These procedures were performed on an emergent basis. History Juan Alberto Nice is a 52 year old man. He has hypercholesterolemia. The patient is status post an acute ST elevation myocardial infarction.He has a history of mild liver disease. The patient also has a historyof pericardial effusion with tamponade. Prior to the initiation of this procedure, the patient was designated as ASA Class III. Patient Status at Catheterization: The patient presented with: ST-Elevation MA (STEMI) or equivalent(w/i 7 days). [place] [employer] angina class was IV. Thispatient was on beta blockers prior to the procedure. No stress or imagingstudies were performed prior to this procedure. The status of the diagnostic procedure was Emergent. Technique: A 6 SLFr sheath was inserted in the right radial artery utilizingthe Seldinger technique. The left coronary artery was injected utilizinga 5Fr JL 3.5 catheter. A 6Fr JR 4 catheter was used to inject theright coronary artery. Left ventricular pressure was performed with a 6FrJR 4 catheter. Coronary stent insertion was performed and the equipment utilized will be described in the intervention summary section.4,000 units of heparin were administered. A total of 200cc of Omnipaquewere opened, 109cc of Omnipaque were administered and 91cc of Omnipaquewere wasted. Radiation: Fluoro time was 19.2 minutes, dose area productwas 149,949 mGYcm2 and air kerma was 2,109 mGY. The patient received the following medications prior to and duringthe procedure: Aspirin (any), Clopidogrel and Unfractionated Heparin(any). Hemodynamics: Left Heart Pressures Resting: Syst Diast EDP a v m Ao 87 43 45 Post Contrast: Syst Diast EDP a v m Ao 75 55 64 LV 83 17 Coronary Angiography: Dominance: Right Left Main There was mild diffuse (<=25% stenosis) disease of the entirevessel segment of the left main artery. The left main was large. Left Anterior Descending There was a 50% single discrete stenosis of the proximalsegment of the left anterior descending artery (LAD). The LAD wasmoderate in size. The mid segment of the LAD had a single discrete 60% stenosis. There was mild diffuse (<=25% stenosis) disease of the entirevessel segment of the second diagonal branch (Diagonal 2) of the LAD.The Diagonal 2 was small. Left Circumflex There was mild diffuse (<=25% stenosis) disease of the entirevessel segment of the left circumflex artery (LCX). The LCX wasmoderate in size. Distal flow was normal. Right Coronary Artery There was an 80% eccentric single discrete stenosis of theproximal segment of the right coronary artery (RCA). The RCA was large. Distal flow was normal. The mid segment of the RCA had asingle discrete total occlusion. There was no antegrade distal flow(ABBY Grade 0). Ramus There was mild diffuse (<=25% stenosis) disease of the entirevessel segment of the ramus. The ramus was moderate in size. Intravascular Imaging/Physiology: Intravascular Ultrasound was performed in the proximal RCA using a 6Fr JR 4 guiding catheter and a 3.[address] 20 Mhzusing auto 0.5 mm/sec pullback. Imaging was successful. Image qualitywas good. The proximal RCA showed severe diffuse atheroscleroticplaque. Additional Findings: IVUS was performed to assess mid RCA stent andthe proximal lesion. Mid RCA stent is undersized in the distal segment. There are several patches of anuerysmal dilation in the vessel. The proximal lesion is focal with MLA that measures severe (2.5 mm) butthere is severe dilation just distal to the lesion and vessel measures 7.0mm (minimum). Indication for Intervention: Coronary intervention was indicated for primary therapy for an acute myocardial infarction. Left Ventricular Ejection fraction was not assessed. The priority for the procedure was Emergent. The NCDR indication for the procedure was STEMI (Immediate PCI for STEMI). Intervention Summary: Right Coronary Artery Proximal 80% Stent insertion was performed on the 80% stenosis in the proximal segment of the RCA. This was a de homer lesion. According to the ACC/AHA classification system, thislesion was a type C high risk lesion. Primary prevention of restenosis was the indication for stent insertion. Thiswas the culprit lesion. Vessel flow pre intervention was TIMI3. Stent insertion was accomplished through a 6 Fr. JR 4guide. A premounted 4.50 x 15 mm Resolute [place] (ALEAH) wasdeployed with a maximum inflation pressure of 14 atmospheres. Following stent deployment, the lesion was dilated usinga 5.00mm NC EUPHORA 08 MM balloon with a maximum inflation pressure of 16 atmospheres. The final outcome was defined as successful. There was no residual stenosis following this intervention. The finalTIMI flow was 3. Mid 100% Stent insertion was performed on the total occlusion inthe mid segment of the RCA. This was a de homer lesion. Thislesion was designated a type C high risk lesion based on ACC/AHA classification system. Primary prevention of restenosiswas the indication for stent insertion. This was the culprit lesion. Vessel flow pre intervention was ABBY 0. Stent insertion was accomplished through a 6 Fr. JR 4guide. The lesion was predilated with a 2.50mm EUPHORA 15 MMballoon with a maximum inflation pressure of 12 atmospheres. A premounted 3.00 x 30 mm Resolute [place] (ALEAH) was deployedwith a maximum inflation pressure of 12 atmospheres.Following stent deployment, the lesion was dilated using a 4.00mmNC EUPHORA 15 MM balloon with a maximum inflation pressureof 18 atmospheres. The final outcome was defined as successful. There was no residual stenosis following this intervention. The finalTIMI flow was 3. Vascular Access: Vascular Access Management: Mechanical Compression of the right radial artery access sitewas performed. Dual Antiplatelet (DAPT) Recommendations: Drug eluting stent (ALEAH) inserted. P2Y12 Loading dose administered prior to arrival in the woven label designer. Recommend continuing clopidogrel 75 mg PO daily for indefinitely. Recommend continuing aspirin 81 mg unless intolerant. Conclusions: * Two vessel coronary artery disease (LAD and RCA) * Successful stent insertion of the mid RCA lesion * Successful stent insertion of the proximal RCA lesion * Recommend continuing clopidogrel 75 mg PO daily for indefinitely(see DAPT Recommendations above for more information.) * Residual moderate to severe LAD disease. Complications/Events: The patient had no complications during these procedures. Comments: Pt presented with chest pain and noted to have inferior ST segment elevations. Coronary angiography showed severe RCA disease whichwas treated with a single ALEAH. Proximal RCA also has an eccentriclesion which continues into a aneursymal portion of the vessel. IVUSconfirmed severity of the lesion and given persistent chest pain we elected to treat this lesion with IVUS guided PCI. The proximal vesselmeasures 4.5 mm and distal vessel measured > 7.0 mm. We treated the lesion witha 4.5 mm stent and flared the distal edge using a 5.0 mm stent upto 18atm. IVUS was not re-performed but distal portion of the stent is mostlikely undersized. Would recommend longer duration of DAPT if tolerated.Can assess clinical need for additional treatment of LAD disease. The attending physician was present for the entire procedure. Dr. Priscila Wesley M.D. was present during the moderate sedationintraservice time as documented by the sedation nurse. Case time = 01:05. Dr. Priscila Wesley M.D. performed the coronary angiography, left heart catheterization, IVUS # coronary and stent insertion-coronary. Priscila Wesley M.D. Electronically Signed by: Priscila Wesley M.D. Report Finalized: 03/11/2017 11:40 Report Last Ammended: 07/30/2017 13:31 Priscila Wesley MD CARDIAC CATH ORDERAB LES * EKG 12 Lead (03/10/2017 4:16 PM EST) Ventricular rate 71 BPM MUSE SYSTEM Atrial Rate 97 BPM MUSE SYSTEM QRS Duration 102 ms MUSE SYSTEM Q-T Interval 374 ms MUSE SYSTEM QTC Calculated (Bezet) 406 ms MUSE SYSTEM Calculated P [place] 64 degrees MUSE SYSTEM Calculated R [place] 44 degrees MUSE SYSTEM Calculated T [place] 120 degrees MUSE SYSTEM INTERPRETATION Sinus rhythm with 2nd degree A-V block (Mobitz I) Occasional and consecutive Premature ventricular complexes ST elevation consider inferior injury or acute infarct * ACUTE MA ?? Consider right ventricular involvement in acute inferior infarct Abnormal ECG When compared with ECG of 10-MAR-2017 16:07, (unconfirmed) Premature ventricular complexes are now Present Sinus rhythm is now with 2nd degree A-V block (Mobitz I) Confirmed by MD PRAKASH, NYDIA ([id number]) on 03/11/2017 4:53:16 PM MUSE SYSTEM 03/10/2017 4:16 PM EST 03/11/2017 4:53 PM EST Melvin Collins MD ECG ORDERABLES MUSE SYSTEM * EKG 12 Lead (03/10/2017 4:07 PM EST) Ventricular rate 92 BPM MUSE SYSTEM Atrial Rate 92 BPM MUSE SYSTEM P-R Interval 144 ms MUSE SYSTEM QRS Duration 108 ms MUSE SYSTEM Q-T Interval 352 ms MUSE SYSTEM QTC Calculated (Bezet) 435 ms MUSE SYSTEM Calculated P [place] 55 degrees MUSE SYSTEM Calculated R [place] 43 degrees MUSE SYSTEM Calculated T [place] 116 degrees MUSE SYSTEM INTERPRETATION Normal sinus rhythm ST elevation consider inferior injury or acute infarct * ACUTE MA ?? Consider right ventricular involvement in acute inferior infarct Abnormal ECG When compared with ECG of 16-OCT-2003 10:13, QRS duration has increased ST elevation now present in Inferior leads ST now depressed in Anterolateral leads T wave inversion now evident in Anterolateral leads Confirmed by MD RANDALL ARMIN ([id number]) on 03/11/2017 4:51:27 PM MUSE SYSTEM 03/10/2017 4:07 PM EST 03/11/2017 4:51 PM EST Melvin Collins MD ECG ORDERABLES Performing Organization Address City/[facility]/ZIP Co de Phone Number MUSE SYSTEM documented in this encounter Visit Diagnoses Not on filedocumented in this encounter Admitting Diagnoses Diagnosis STEMI (ST elevation myocardial infarction) Acute myocardial infarction, unspecified site, episode of care unspecified documented in this encounter Administered Medications Inactive Administered Medications - up to 3 most recent administrations Medication Order MAR Action Action Date Dose Rate Site aspirin EC tablet 81 mg 81 mg, Oral, DAILY, First dose on Thu03/11/17 at 0900, Until Discontinued, Routine Given 03/13/2017 8:29 AM EST 81 mg Given 03/12/2017 8:16 AM EST 81 mg Given 03/11/2017 8:14 AM EST 81 mg atorvastatin (LIPITOR) tablet 80 mg 80 mg, Oral, EVERY EVENING, First dose on Thu03/10/17 at 2000, Until Discontinued, Routine Given 03/13/2017 4:2 8 PM EST 80 mg Given 03/12/2017 5:19 PM EST 80 mg Given 03/11/2017 4:16 PM EST 80 mg atropine injection ONCE PRN, Starting on Thu03/10/17 at 1655, Until Thu03/10/17 at 1937, Cath (Intra-Procedure), Routine Given 03/10/2017 4:55 PM EST 0.5 mg clopidogrel (PLAVIX) tablet 75 mg 75 mg, Oral, DAILY, First dose on Thu03/11/17 at 0900, Until Discontinued, Routine Given 03/13/2017 8:2 9 AM EST 75 mg Given 03/12/2017 8:17 AM EST 75 mg Given 03/11/2017 8:14 AM EST 75 mg dextrose 50% IV syringe 25-50 mL 25-50 mL (12.5-25 g), Intravenous, EVERY 1 HOUR PRN, Starting on Thu03/10/17 at 1937, Until Thu03/13/17 at 1913, Low blood sugar, For BG 50-70: 120 mL Juice or Regular (not diet) soda OR 12.5 gram (25 mL) Dextrose 50% IV OR, if no IV access, 1 mg Glucagon IM. Recheck BG in 30 minutes. May repeat juice, dextrose or glucagon once per episode For BG less than 50: 240 mL Juice or Regular (not diet) soda OR 25 grams (50 mL) Dextrose 50% IV OR, if no IV access, 1 mg Glucagon IM. Recheck BG in 30 minutes. May repeat juice, dextrose, or glucagon once per episode. To avoid extravasation, push Dextrose 50% SLOWLY (3 mL over 1 minute) in a patent, running IV, preferably a central line. For persistent hypoglycemia, consider longer-acting treatment for the duration of the active insulin., Routine enoxaparin (LOVENOX) injection 40 mg 40 mg, Subcutaneous, NIGHTLY, First dose on Thu03/11/17 at 2100, Until Discontinued, Routine Given 03/12/2017 8:27 PM EST 40 mg Given 03/11/2017 9:12 PM EST 40 mg fentaNYL 50 mcg/mL multi-dose injection ONCE PRN, Starting on Thu03/10/17 at 1637, Until Thu03/10/17 at 1937, Intra-Operative (Intra-Procedure), Routine Given 03/10/2017 4:57 PM EST 25 mcg Given 03/10/2017 4:37 PM EST 25 mcg glimepiride (AMARYL) tablet 4 mg 4 mg, Oral, DAILY WITH BREAKFAST, First dose (after last modification) on Thu03/13/17 at 1000, Until Discontinued, Consider holding dose if patient is not eating., Routine Given 03/13/2017 2:04 PM EST 4 mg glucagon (human recombinant) injection SolR 1 mg 1 mg, Intramuscular, EVERY 1 HOUR PRN, Starting on Thu03/10/17 at 1937, Until Thu03/13/17 at 1913, Low blood sugar, For BG 50-70: 120 mL Juice or Regular (not diet) soda OR 12.5 gram (25 mL) Dextrose 50% IV OR, if no IV access, 1 mg Glucagon IM. Recheck BG in 30 minutes. May repeat juice, dextrose or glucagon once per episode For BG less than 50: 240 mL Juice or Regular (not diet) soda OR 25 grams (50 mL) Dextrose 50% IV OR, if no IV access, 1 mg Glucagon IM. Recheck BG in 30 minutes. May repeat juice, dextrose, or glucagon once per episode. To avoid extravasation, push Dextrose 50% SLOWLY (3 mL over 1 minute) in a patent, running IV, preferably a central line. For persistent hypoglycemia, consider longer-acting treatment for the duration of the active insulin., Routine heparin (porcine) injection ONCE PRN, Starting on Thu03/10/17 at 1642, Until Thu03/10/17 at 1937, Cath (Intra-Procedure), Routine Given 03/10/2017 4:42 PM EST 2,000 Units insulin lispro (humaLOG) VIAL injection 0-10 Units 0-10 Units, Subcutaneous, 3 TIMES DAILY WITH MEALS, First dose on Thu03/12/17 at 1200, Until Discontinued, [employer] Give 1 unit for every 10 grams carbohydrate. Hold if not eating, Routine Given 03/13/2017 2:04 PM EST 7 Units Given 03/12/2017 6:01 PM EST 6 Units Given 03/12/2017 1:42 PM EST 6 Units insulin lispro (humaLOG) VIAL injection 2-8 Units 2-8 Units, Subcutaneous, 3 TIMES DAILY BEFORE MEALS, First dose on Thu03/11/17 at 0730, Until Discontinued, CORRECTION BOLUS Moderate BG 140 - 160 Give 2 units BG 161 - 200 Give 4 units BG 201 - 240 Give 6 units BG greater than 240, give 8 units and recheck BG in 2 hours.If BG less than 240 after two hours, give no insulin and resume prior schedule. If BG remains greater than 240, repeat 8 units (no more than three times) & call for new basal insulin orders. DO NOT hold if NPO, unless specifically told to do so., Routine Given 03/13/2017 4:28 PM EST 6 Units Given 03/13/2017 7:41 AM EST 4 Units Given 03/12/2017 11:56 AM EST 6 Units iohexol (OMNIPAQUE) 350 mg/mL solution ONCE PRN, Starting on Thu03/10/17 at 1746, Until Thu03/10/17 at 1937, Cath (Intra-Procedure), Routine Given 03/10/2017 5:46 PM EST 109 mLs lamoTRIgine (LaMICtal) tablet 200 mg 200 mg, Oral, 2 TIMES DAILY, First dose on Thu03/10/17 at 2100, Until Discontinued, Routine Given 03/13/2017 8:29 AM EST 200 mg Given 03/12/2017 8:26 PM EST 200 mg Given 03/12/2017 8:16 AM EST 200 mg meTOPROLOL succinate (TOPROL-XL) XL tablet 25 mg 25 mg, Oral, DAILY, First dose (after last modification) on Thu03/13/17 at 1230, Until Discontinued, DO NOT CRUSH OR OPEN Hold for SBP < 100 or HR < 50, Routine Given 03/13/2017 1:05 PM EST 25 mg midazolam (PF) (VERSED) 1 mg/mL multi-dose injection ONCE PRN, Starting on Thu03/10/17 at 1637, Until Thu03/10/17 at 1937, Cath (Intra-Procedure), Routine Given 03/10/2017 4:37 PM EST 1 mg niCARdipine (CARDENE) in sodium chloride 0.9% injection ONCE PRN, Starting on Thu03/10/17 at 1655, Until Thu03/10/17 at 1937, Intra-Operative (Intra-Procedure), Routine Given 03/10/2017 6:05 PM EST 0 mg/hr Given 03/10/2017 4:59 PM EST 200 mcg Given 03/10/2017 4:55 PM EST 200 mcg nitroGLYcerin (NITROSTAT) SL tablet 0.4 mg 0.4 mg, Sublingual, EVERY 5 MIN PRN, Starting on Thu03/10/17 at 1937, Until Thu03/13/17 at 1913, Chest pain, May repeat every 5 minutes for a total of three doses. Notify provider if chest pain not relieved with nitroglycerin. Do not administer nitroglycerin if the patinet has received or taken phosphodiesterase (PDE-5) inhibitors such as sildenafil, tadalafil or vardenafil within the last 24 to 72 hours., Routine Given 03/11/2017 12:18 PM EST 0. 4 mg Given 03/11/2017 3:48 AM EST 0.4 mg Given 03/11/2017 3:31 AM EST 0.4 mg nitroGLYcerin 100 mcg/mL intracoronary dilution ONCE PRN, Starting on Thu03/10/17 at 1641, Until Thu03/10/17 at 1937, Cath (Intra-Procedure), Routine Given 03/10/2017 4:41 PM EST 200 mcg phenytoin (DILANTIN) ER capsule 700 mg 700 mg, Oral, DAILY, First dose (after last modification) on Iliana 03/12/17 at 0100, Until Discontinued, Routine Given 03/12/2017 10:40 PM EST 700 mg Given 03/12/2017 12:57 AM EST 700 mg sodium chloride 0.9 % flush 5 mL 5 mL, Intravenous, 2 TIMES DAILY, First dose on Thu03/10/17 at 2100, Until Discontinued, Routine Given 03/12/2017 8:27 PM EST 5 mLs Given 03/11/2017 9:14 PM EST 5 mLs Given 03/11/2017 8:17 AM EST 5 mLs sodium chloride 0.9 % flush 5 mL 5 mL, Intravenous, EVERY 12 HOURS, First dose on Thu03/10/17 at 2000, Until Discontinued, Routine Given 03/12/2017 8:26 PM EST 5 mLs Given 03/11/2017 9:14 PM EST 5 mLs Given 03/11/2017 8:16 AM EST 5 mLs sodium chloride 0.9% infusion CONTINUOUS PRN, Starting on Thu03/10/17 at 1744, Until Thu03/10/17 at 1937, Cath (Intra-Procedure) New Bag 03/10/2017 5:44 PM EST 1 L documented in this encounter Active and Recently Administered Medications Times are shown in EST. Scheduled Medication Order 03/11/2017 03/12/2017 03/13/2017 aspirin EC tablet 81 mg 81 mg, Oral, DAILY, First dose on Thu03/11/17 at 0900, Until Discontinued, Routine 0814 (Given - Provider: Patria Sewell RN) 0816 (Given - Provider: Geraldine Flood RN) 0829 (Given - Provider: Geraldine Flood RN) atorvastatin (LIPITOR) tablet 80 mg 80 mg, Oral, EVERY EVENING, First dose on Thu03/10/17 at 2000, Until Discontinued, Routine 1616 (Given - Provider: Patria Sewell RN) 1719 (Given - Provider: Geraldine Flood RN) 1628 (Given - Provider: Geraldine Flood RN) clopidogrel (PLAVIX) tablet 75 mg 75 mg, Oral, DAILY, First dose on Thu03/11/17 at 0900, Until Discontinued, Routine 0814 (Given - Provider: Patria Sewell RN) 0817 (Given - Provider: Geraldine Flood RN) 0829 (Given - Provider: Geraldine Flood, PARVIN) enoxaparin (LOVENOX) injection 40 mg 40 mg, Subcutaneous, NIGHTLY, First dose on Thu03/11/17 at 2100, Until Discontinued, Routine 2111 (Given - Provider: Edwina Escobedo RN) 2026 (Given - Provider: Chen Castillo, PARVIN) glimepiride (AMARYL) tablet 2 mg (CANCELED) 2 mg, Oral, DAILY WITH BREAKFAST, First dose on Thu03/12/17 at 1300, Until Discontinued, Consider holding dose if patient is not eating., Routine 1341 (Given - Provider: Geraldine Flood RN) 0800 (Not Given - Provider: Geraldine Flood RN - Reason: Medication Discontinued) glimepiride (AMARYL) tablet 4 mg 4 mg, Oral, DAILY WITH BREAKFAST, First dose (after last modification) on Thu03/13/17 at 1000, Until Discontinued, Consider holding dose if patient is not eating., Routine 1404 (Given - Provider: Geraldine Flood, PARVIN) heparin (Porcine) subcutaneous injection 5,000 Units (CANCELED) 5,000 Units, Subcutaneous, 2 TIMES DAILY, First dose on Thu03/11/17 at 0900, Until Discontinued, Routine 0814 (Given - Provider: Patria Sewell, PARVIN) insulin glargine VIAL injection 5 Units (CANCELED) 5 Units, Subcutaneous, EVERY 24 HOURS, First dose on Thu03/11/17 at 1100, Until Discontinued, Routine 1220 (Given - Provider: Patria Sewell, PARVIN) 1103 (Given - Provider: Geraldine Flood, PARVIN) insulin lispro (humaLOG) VIAL injection 0-10 Units 0-10 Units, Subcutaneous, 3 TIMES DAILY WITH MEALS, First dose on Thu03/12/17 at 1200, Until Discontinued, MEAL ASSOCIATED Give 1 unit for every 10 grams carbohydrate. Hold if not eating, Routine 1342 (Given - Provider: Geraldine Flood RN)1801 (Given - Provider: Geraldine Flood, PARVIN) 0800 (Not Given - Provider: Geraldine Flood RN - Reason: Order parameters not met - Comment: Pt not eating)1404 (Given - Provider: Geraldine Flood, RN)1700 (Due) insulin lispro (humaLOG) VIAL injection 2-8 Units(Linked Group 1) 2-8 Units, Subcutaneous, 3 TIMES DAILY BEFORE MEALS, First dose on Thu03/11/17 at 0730, Until Discontinued, CORRECTION BOLUS Moderate BG 140 - 160 Give 2 units BG 161 - 200 Give 4 units BG 201 - 240 Give 6 units BG greater than 240, give 8 units and recheck BG in 2 hours.If BG less than 240 after two hours, give no insulin and resume prior schedule. If BG remains greater than 240, repeat 8 units (no more than three times) & call for new basal insulin orders. DO NOT hold if NPO, unless specifically told to do so., Routine 0822 (Given - Provider: Patria Sewell RN)1014 (Given - Provider: Patria Sewell RN)1214 (Given - Provider: Patria Sewell RN)1401 (Given - Provider: Patria Sewell RN)1549 (Given - Provider: Patria Sewell RN) 0821 (Given - Provider: Geraldine Flood RN - Comment: BG 204)1156 (Given - Provider: Geraldine Flood RN)1630 (Not Given - Provider: Geraldine Flood RN - Reason: Order parameters not met) 0741 (Given - Provider: Geraldine Flood RN - Comment: [phone] (Not Given - Provider: Geraldine Flood RN - Reason: Order parameters not met)1628 (Given - Provider: Geraldine Flood RN - Comment: 212) lamoTRIgine (LaMICtal) tablet 200 mg 200 mg, Oral, 2 TIMES DAILY, First dose on Thu03/10/17 at 2100, Until Discontinued, Routine 0814 (Given - Provider: Patria Sewell RN)211 (Given - Provider: Edwina Escobedo RN) 0816 (Given - Provider: Geraldine Flood, PARVIN)202 (Given - Provider: Chen Castillo RN) 0829 (Given - Provider: Geraldine Flood RN) magnesium sulfate 2 g in sterile water 50 mL (COMPLETED) 2 g, Intravenous, ONCE, 1 dose, On Thu03/11/17 at 0900, Administer over 120 Minutes 0931 (New Bag - Provider: Patria Sewell RN)1131 (Stopped - Provider: Patria Sewell RN) magnesium sulfate 2 g in sterile water 50 mL (COMPLETED) 2 g, Intravenous, ONCE, 1 dose, On Thu03/12/17 at 0815, Administer over 120 Minutes 0817 (New Bag - Provider: Geraldine Flood RN)1017 (Stopped - Provider: Geraldine Flood RN) magnesium sulfate 2 g in sterile water 50 mL (COMPLETED) 2 g, Intravenous, ONCE, 1 dose, On Thu03/13/17 at 0730, Administer over 120 Minutes 0742 (New Bag - Provider: Geraldine Flood RN)0942 (Stopped - Provider: Geraldine Flood RN) meTOPROLOL (LOPRESSOR) tablet 12.5 mg (CANCELED) 12.5 mg, Oral, EVERY 6 HOURS SCHEDULED, First dose on Thu03/10/17 at 2000, Until Discontinued, Hold for SBP < 100 or HR < 50, Routine 0210 (Given - Provider: Yaneth Mason, PARVIN)0815 (Given - Provider: Partia Sewell, PARVIN)1214 (Given - Provider: Patria Sewell, PARVIN)1746 (Given - Provider: Javi Brady RN) 0057 (Given - Provider: Edwina Escobedo, RN)0616 (Given - Provider: Edwina Escobedo, RN)1155 (Given - Provider: Geraldine Flood, PARVIN)1719 (Given - Provider: Geraldine Flood, PARVIN)2349 (Given - Provider: Chen Castillo, PARVIN) 0552 (Given - Provider: Chen Castillo, PARVIN)1200 (Not Given - Provider: Geraldine Flood RN - Reason: Medication Discontinued) meTOPROLOL succinate (TOPROL-XL) XL tablet 25 mg 25 mg, Oral, DAILY, First dose (after last modification) on Thu03/13/17 at 1230, Until Discontinued, DO NOT CRUSH OR OPEN Hold for SBP < 100 or HR < 50, Routine 1305 (Given - Provider: Geraldine Flood, PARVIN) phenytoin (DILANTIN) ER capsule 700 mg (CANCELED) 700 mg, Oral, DAILY, First dose on Thu03/11/17 at 0900, Until Discontinued, Routine 0825 (Given - Provider: Patria Sewell, PARVIN) phenytoin (DILANTIN) ER capsule 700 mg 700 mg, Oral, DAILY, First dose (after last modification) on Thu03/12/17 at 0100, Until Discontinued, Routine 0057 (Given - Provider: Edwina Escobedo, PARVIN)2240 (Given - Provider: Chen Castillo, PARVIN) regadenoson (LEXISCAN) injection 0.4 mg (COMPLETED) 0.4 mg, Intravenous, ONCE, 1 dose, On Thu03/13/17 at 1215, Routine 1145 (Given - Provider: Markos Keane - Comment: R Hand) sodium chloride 0.9 % flush 5 mL 5 mL, Intravenous, 2 TIMES DAILY, First dose on Thu03/10/17 at 2100, Until Discontinued, Routine 0817 (Given - Provider: Patria Sewell, RN)2113 (Given - Provider: Edwina Escobedo, RN) 0900 (Not Given - Provider: Geraldine Flood RN - Reason: Contraindicated)2026 (Given - Provider: Chen Castillo, PARVIN) 0900 (Not Given - Provider: Geraldine Flood RN - Reason: Contraindicated) sodium chloride 0.9 % flush 5 mL 5 mL, Intravenous, EVERY 12 HOURS, First dose on Thu03/10/17 at 2000, Until Discontinued, Routine 0816 (Given - Provider: Patria Sewell, PARVIN)2113 (Given - Provider: Edwina Escobedo, PARVIN) 0800 (Not Given - Provider: Geraldine Flood RN - Reason: Contraindicated)2025 (Given - Provider: Chen Castillo RN) 0800 (Not Given - Provider: Geraldine Flood RN - Reason: Contraindicated) PRN Medication Order 03/11/2017 03/12/2017 03/13/2017 dextrose 50% IV syringe 25-50 mL(Linked Group 2) 25-50 mL (12.5-25 g), Intravenous, EVERY 1 HOUR PRN, Starting on Thu03/10/17 at 1937, Until Thu03/13/17 at 1913, Low blood sugar, For BG 50-70: 120 mL Juice or Regular (not diet) soda OR 12.5 gram (25 mL) Dextrose 50% IV OR, if no IV access, 1 mg Glucagon IM. Recheck BG in 30 minutes. May repeat juice, dextrose or glucagon once per episode For BG less than 50: 240 mL Juice or Regular (not diet) soda OR 25 grams (50 mL) Dextrose 50% IV OR, if no IV access, 1 mg Glucagon IM. Recheck BG in 30 minutes. May repeat juice, dextrose, or glucagon once per episode. To avoid extravasation, push Dextrose 50% SLOWLY (3 mL over 1 minute) in a patent, running IV, preferably a central line. For persistent hypoglycemia, consider longer-acting treatment for the duration of the active insulin., Routine glucagon (human recombinant) injection SolR 1 mg(Linked Group 2) 1 mg, Intramuscular, EVERY 1 HOUR PRN, Starting on Thu03/10/17 at 1936, Until Thu03/13/17 at 1912, Low blood sugar, For BG 50-70: 120 mL Juice or Regular (not diet) soda OR 12.5 gram (25 mL) Dextrose 50% IV OR, if no IV access, 1 mg Glucagon IM. Recheck BG in 30 minutes. May repeat juice, dextrose or glucagon once per episode For BG less than 50: 240 mL Juice or Regular (not diet) soda OR 25 grams (50 mL) Dextrose 50% IV OR, if no IV access, 1 mg Glucagon IM. Recheck BG in 30 minutes. May repeat juice, dextrose, or glucagon once per episode. To avoid extravasation, push Dextrose 50% SLOWLY (3 mL over 1 minute) in a patent, running IV, preferably a central line. For persistent hypoglycemia, consider longer-acting treatment for the duration of the active insulin., Routine lidocaine (XYLOCAINE) 10 mg/mL (1 %) injection 3 mg 3 mg (0.3 mL), Subcutaneous, ONCE PRN, 1 dose, Starting on Thu03/10/17 at 1936, Until Thu03/13/17 at 1912, for discomfort with PIV insertion, Routine lidocaine (XYLOCAINE) 10 mg/mL (1 %) injection 3 mg 3 mg (0.3 mL), Subcutaneous, ONCE PRN, 1 dose, Starting on Thu03/10/17 at 1936, Until Thu03/13/17 at 1912, for discomfort with PIV insertion, Routine nitroGLYcerin (NITROSTAT) SL tablet 0.4 mg 0.4 mg, Sublingual, EVERY 5 MIN PRN, Starting on Thu03/10/17 at 1936, Until Thu03/13/17 at 1912, Chest pain, May repeat every 5 minutes for a total of three doses. Notify provider if chest pain not relieved with nitroglycerin. Do not administer nitroglycerin if the patinet has received or taken phosphodiesterase (PDE-5) inhibitors such as sildenafil, tadalafil or vardenafil within the last 24 to 72 hours., Routine 0331 (Given - Provider: Carla Babin, RN)0348 (Given - Provider: Carla Babin, PARVIN)1218 (Given - Provider: Patria Sewell RN) perflutren protein-A microspheres (OPTISON) 0.22 mg/mL injection 2 mL (COMPLETED) 2 mL, Intravenous, ONCE PRN, 1 dose, Starting on Thu03/11/17 at 1515, Until Thu03/11/17 at 1515, for enhancement of sub-optimal echo images, Echo Lab (Intra-Procedure), Routine 1515 (Given - Provider: Misael Larry) sodium chloride 0.9 % flush 5-20 mL 5-20 mL, Intravenous, EVERY 1 MIN PRN, Starting on Thu03/10/17 at 1937, Until Thu03/13/17 at 1913, flush, Flush pertains to all indwelling lines. Flush per protocol found in the job aid using the link provided on this medication record., Routine sodium chloride 0.9 % flush 5-20 mL 5-20 mL, Intravenous, EVERY 1 MIN PRN, Starting on Thu03/10/17 at 1937, Until Thu03/13/17 at 1913, flush, Flush pertains to all indwelling lines. Flush per protocol found in the job aid using the link provided on this medication record., Routine technetium (Tc-99m) sestamibi injection 29 mCi (COMPLETED) 29 mCi, Intravenous, ONCE PRN, 1 dose, Starting on Thu03/13/17 at 1145, Until Thu03/13/17 at 1145, Per Protocol, Routine 1145 (Given - Provider: Markos Keane - Comment: R Hand) technetium (Tc-99m) sestamibi injection 7.9 mCi (COMPLETED) 7.9 mCi, Intravenous, ONCE PRN, 1 dose, Starting on Thu03/13/17 at 1053, Until Thu03/13/17 at 1050, Per Protocol, Routine 1050 (Given - Provider: Milo Valdivia) Linked Groups Order Group 1: POCT Fingerstick Glucose (CANCELED) Routine, 4 TIMES DAILY BEFORE MEALS & AT BEDTIME, First occurrence on Thu03/11/17 at 0700, Until Specified, Consider choosing FOUR TIMES A DAY BEFORE MEALS AND AT BEDTIME as frequency for: Patients who have a good hypoglycemia awareness: -Patients who are eating meals during the day and sleeping at night -Patient who are otherwise stable And insulin lispro (humaLOG) VIAL injection 2-8 UnitsJump to med 2-8 Units, Subcutaneous, 3 TIMES DAILY BEFORE MEALS, First dose on Thu03/11/17 at 0730, Until Discontinued, CORRECTION BOLUS Moderate BG 140 - 160 Give 2 units BG 161 - 200 Give 4 units BG 201 - 240 Give 6 units BG greater than 240, give 8 units and recheck BG in 2 hours.If BG less than 240 after two hours, give no insulin and resume prior schedule. If BG remains greater than 240, repeat 8 units (no more than three times) & call for new basal insulin orders. DO NOT hold if NPO, unless specifically told to do so., Routine Group 2: dextrose 50% IV syringe 25-50 mLJump to med 25-50 mL (12.5-25 g), Intravenous, EVERY 1 HOUR PRN, Starting on Thu03/10/17 at 193, Until Thu03/13/17 at 191, Low blood sugar, For BG 50-70: 120 mL Juice or Regular (not diet) soda OR 12.5 gram (25 mL) Dextrose 50% IV OR, if no IV access, 1 mg Glucagon IM. Recheck BG in 30 minutes. May repeat juice, dextrose or glucagon once per episode For BG less than 50: 240 mL Juice or Regular (not diet) soda OR 25 grams (50 mL) Dextrose 50% IV OR, if no IV access, 1 mg Glucagon IM. Recheck BG in 30 minutes. May repeat juice, dextrose, or glucagon once per episode. To avoid extravasation, push Dextrose 50% SLOWLY (3 mL over 1 minute) in a patent, running IV, preferably a central line. For persistent hypoglycemia, consider longer-acting treatment for the duration of the active insulin., Routine Or glucagon (human recombinant) injection SolR 1 mgJump to med 1 mg, Intramuscular, EVERY 1 HOUR PRN, Starting on Thu03/10/17 at 193, Until Thu03/13/17 at 191, Low blood sugar, For BG 50-70: 120 mL Juice or Regular (not diet) soda OR 12.5 gram (25 mL) Dextrose 50% IV OR, if no IV access, 1 mg Glucagon IM. Recheck BG in 30 minutes. May repeat juice, dextrose or glucagon once per episode For BG less than 50: 240 mL Juice or Regular (not diet) soda OR 25 grams (50 mL) Dextrose 50% IV OR, if no IV access, 1 mg Glucagon IM. Recheck BG in 30 minutes. May repeat juice, dextrose, or glucagon once per episode. To avoid extravasation, push Dextrose 50% SLOWLY (3 mL over 1 minute) in a patent, running IV, preferably a central line. For persistent hypoglycemia, consider longer-acting treatment for the duration of the active insulin., Routine documented in this encounter Care Teams Dimensional Inspector Relationship Specialty Start Date End Date Blake Vasquez MD [address] [place] [address] PCP - General Internal Medicine 03/06/17 documented as of this encounter
--- OUTSIDE RECORDS SUMMARY | 2024-04-15 15:48 | XMS_ITS | Encounter Summary ---
Author Organization [facility] [place] [address] Care Team Providers Care Field Court Researcher Name Role Phone Blake Vasquez MD Primary Care Provider Encounter Details Date Type Department Care Team (Late st Contact Info) Description 10/15/2003 [place] [address] Poncho Powers MD CARDIOLOGY Social History Tobacco Use Types Packs/Day Years Used Date Smoking Tobacco: Never Assessed Sex and Gender Information Value Date Recorded Sex Assigned at Not on file Gender Identity Not on file Sexual Orientation Not on file documented as of this encounter Plan of Treatment Not on file documented as of this encounter Procedures Procedure Name Priority Date/Time Associated Diagnosis Comments NON-CITY SUPERVISOR FINAL REPORT Routine 10/15/2003 7:49 AM EDT documented in this encounter Results * Non-Contract Law Specialist Final Report (10/15/2003 7:49 AM EDT) Non-Contract Law Specialist Final Report [id number] ? Location: [facility]; [facility]; The signing pathologist has (i) examined the relevant preparation(s) for the specimen(s) and (ii) rendered or confirmed the diagnosis(es). . ? Pathology Non-Contract Law Specialist Cytology Final Report Clinical Information Specimen Source: ?Pericardial Fluid Clinical History/Impress ion: ?? New pericardial effusion. Rule out Cancer. Gross Description: ?? Rec'd in a brown heparin bottle, approx 45 ml. total volume of bloody fluid. ?Total Prep- LBP 1; Cell Block 1. Interpretation Specimen submitted is satisfactory. Diagnosis Negative for Malignancy 10/17/03 ?Screened by: ? BMM ?Rescreened by: ?? WAW,WAW 10/17/03 ?Verified by: ? Abena Lucas MD ? Pathologist ? (Electronic Signature) Comment Rare degenerate wbc's present. SHEYLA VILLALTA 10/15/2003 7:49 AM EDT Poncho Kahn MD PATHOLOGY/CYTOLOGY ORDERABLES Performing Organization Address City/State/[facility] Co de Phone Number SHEYLA VILLALTA documented in this encounter Visit Diagnoses Not on filedocumented in this encounter Care Teams Field Court Researcher Relationship Specialty Start Date End Date Blake Vasquez MD [address] [place] [address] PCP - General Internal Medicine 03/06/17 documented as of this encounter
--- OUTSIDE RECORDS SUMMARY | 2024-04-15 15:48 | XMS_ITS | Encounter Summary ---
Author Organization [facility] Address [facility] [place] [address] Care Team Providers Care Certified Orthoptist Name Role Phone Blake Vasquez MD Primary Care Provider Reason for Referral * Consultation (Routine) - Closed Specialty Diagnoses / Procedures Referred By Contac t Referred To Contact Sleep Center Diagnoses JESUS (obstructive sleep apnea) Chika Knight MD [facility] [place] [address] [facility] Sleep Medicine [address] [place] [address] Referral ID Status Reason Start Date Expiration Date V isits Requested Visits Authorized [id number] Closed Specialty Service Requested 03/13/2017 03/13/2018 1 1 * Consultation (Routine) - Closed Specialty Diagnoses / Procedures Referred By Contact Referred To Contact Cardiac Rehabilitation Diagnoses ST elevation myocardial infarction (STEMI), unspecified artery Melvin Collins MD [facility] [place] [address] Cardiac Rehab, [address] [place] [address] Referral ID Status Reason Start Date Expiration Date V isits Requested Visits Authorized [id number] Closed Consult, Test & Treat 03/13/2017 09/09/2017 36 36 Reason for Visit * Reason Comments Hospital Transfer * Auth/Cert Specialty Diagnoses / Procedures Referred By Contac t Referred To Contact Diagnoses STEMI (ST elevation myocardial infarction) ?CAD Procedures CARDIAC CATHETERIZATION Referral ID Status Reason Start Date Expiration Date Visits Re quested Visits Authorized [id number] 1 1 Encounter Details Date Type Department Care Team (Latest Contact Info) Description 03/10/2017 4:02 PM EST - 03/13/2017 5:13 PM EST Hospital Encounter [place] [address] Ranulfo Garcia MD [facility] [address] Pa Stewart MD [facility] [place] [address] Melvin Collins MD [facility] [place] [address] Coronary artery disease, angina presence unspecified, unspecified vessel or lesion type, unspecified whether [place]gi[place] or transplanted heart; ST elevation myocardial infarction (STEMI), unspecified artery; JESUS (obstructive sleep apnea) Discharge Disposition: Home Social History Tobacco Use Types Packs/Day Years [...] family drove him to the ED at [facility]. ?? At [facility], the initial EKG showed STDs in I, [...] about 12 years ago treated here at [facility]. Otherwise no cardiac history. He was a former smoker, quit 23 years ago. Total of 3 pack years. Abstains from alcohol use, quit 23 years ago. His twin boys were born then and motivated the changes. Paternal grandfather had heart disease, uncle had CABG (NM at 72), cousin had NM in 40s. Hospital Course: Patient transferred from [facility] with complaints of chest pain initially as [...] 04/24/2017 8:20 AM Esdras Dietz Jr., MD [facility] - PCP (Dr. Vasquez) follow up on Thursday, 03/24 at 8:55 am Your Inpatient Doctor(s) at [facility]: Pa Stewart MD - Attending physician Soha Beverly MD- Fellow physician Chika Knight MD - Resident physician Phuc Marrero MD - Keeper Head physician Your Primary Care Provider: Blake Vasquez MD [address] / [facility] [id number] For questions regarding issues relating to your hospitalization on the Hospital Medicine Service, please contact your inpatient physician through the [facility] [employer] [phone]. Issues after hours and on weekends will be handled by the Hospitalist staff on-call. General Instructions None Future Appointments and Orders Future Appointments Provider Department Dept Phone 04/24/2017 8:20 AM Esdras Dietz Jr., MD Cardiology at [place] [phone] Future Orders Complete By Expires Referral to Cardiac Rehab [[id number] Custom] As directed Process Instructions: If no progress note charted, please enter Clinical details in comments. Scheduling Instructions: Questions: My question or request is: STEMI, PCI- CR at [facility] Referral to Sleep Disorders Center [REF99 Custom] [...] 04/24/2017 8:20 AM Esdras Dietz Jr., MD [facility] - PCP (Dr. Vasquez) follow up on 03/24 at 8:55 am Your Inpatient Doctor(s) at [facility]: Pa Stewart MD - Attending physician Soha Beverly MD- Fellow physician Chika Knight MD - Resident physician Phuc Marrero MD - Keeper Head physician Your Primary Care Provider: Blake Vasquez MD [address] / [place] [address] For questions regarding issues relating to your hospitalization on the Hospital Medicine Service, please contact your inpatient physician through the [facility] [employer] [phone]. Issues after hours and on weekends will [...] as of this encounter Progress Notes * ElidaSwapnaPhuc - 03/13/2017 7:20 AM EST Inpatient Cardiology [...] 2157 03/12/17 1617 03/12/17 1149 03/12/17 0806 03/11/17201103/11/17 1548 POCGLU 121 125 224* 204* 260* [...] low threshold to send himback to the label maker if he continues to have chest pain. [...] have low threshold to send back to label maker if he continues to have pain given [...] Phuc Marrero MD, PGY-1 Cardiology S1 (Pager [phone]) Associated attestation - Pa Stewart MD - [...] Dr. Derrell Mittal in 2-3 weeks Pa Stweart MD, FA, [facility] * OJo Ann, Melvin Nazario MD [...] bleeding/bruising Neuro: grossly intact Labs Recent Labs 03/12/1735703/11/17 0903/10/172144 WBC 12.7* 13.0* 14.0* HGB 13.2* 13.6* 14.8 HCT 39.9* 41.4 45.0 PLATELET 321 356 376* Recent Labs 03/12/17 03503/11/17 0645 03/10/171950 NA 136 141 137 K [...] low threshold to send himback to the label maker if he continues to have chest pain. [...] have low threshold to send back to label maker if he continues to have pain given [...] - Diet: Daily Healthy Menu Choices/Cardiac diet ([facility]-Diet) No Caffeine NPO diet (Give Meds) after midnight on 03/13 - Level of care: CSCU - Vitals: q4h ??- Code status: Full Code Phuc Marrero MD, PGY-1 Cardiology S1 (Pager [phone]) Attending Attestation Please see Dr. Marrero's note [...] of two midnights or is on the [facility] inpatient only procedure list (status C) due [...] if pain persists or becomes worse. * Swapna Marreroogh - 03/10/2017 10:16 PM EST Inpatient Cardiology [...] (!) 118.2 kg (260 lb 9.3 oz) 03/10/172140 (!) 117.9 kg (260 lb) Admit wt: [...] low threshold to send himback to the label maker if he continues to have chest pain. [...] have low threshold to send back to label maker if he continues to have pain given [...] controlled - Level of care: Transfer to CSCU - Vitals: q4 ??- Code status: Full Code Phuc Marrero MD, PGY-1 Cardiology S1 (Pager [phone]) documented in this encounter H&P Notes * [...] family drove him to the ED at [facility]. At [facility], the initial EKG showed STDs in I, [...] about 12 years ago treated here at [facility]. Otherwise no cardiac history. He was a former smoker, quit 23 years ago. Total of 3 pack years. Abstains from alcohol use, quit 23 years ago. His twin boys were born then and motivated the changes. Paternal grandfather had heart disease, uncle had CABG (NM at 72), cousin had NM in 40s. 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 In consultation with the research center partner, we initially favored transitioning to ticagrelor with [...] of two midnights or is on the [facility] inpatient only procedure list (status C) due [...] documented in this encounter ED Notes * Larry Jennings - 03/10/2017 4:23 PM EST ED Resident Note Juan Alberto Nice is an 52 y.o. male who presents to the ED with: Chief Complaint Patient presents with ??? Hospital Transfer I saw this patient 03/10/2017 at 4:23 PM HPI Juan Alberto Nice is a 52 y.o. male with a history of seizures who presents to the Emergency Departmentas a transfer from [facility] for concern for ACS and lateral ischemia. [...] to the ED patient was placed on cardiac rehabilitation specialist and 12 L EKG was obtained. 12L [...] ntg. He was taken directly to the Payroll And Benefits Manager from the ED. Larry Jennings MD Resident 03/11/17 0036 Associated attestation [...] presenting to the ED in transfer from [facility] with lateral ischemia. Patient has had recurrent [...] procedures as noted above. Geovani Juarez DO [employer] [facility] Emergency Medicine * Ivis Hearn RN - 03/10/2017 4:12 PM EST Per [facility] crew, Pt received Hep bolus 4000 units, [...] remains admitted after his stress test, recommend [facility], Carb Controlled Diet Level 2 Patient Active [...] encounter: 118.9 kg (262 lb 2 oz). [place] Body Weight (IBW): [place] body weight: 82.2 kg (181 lb 3.5 [...] in the outpatient cardiac rehabilitation program at [facility] was discussed. Patient agrees to a referral [...] Office of Care Management Initial Assessment Lyn Campo, RN reviewed record and discussed patient with [...] for doing Advance Directives. Provided copy(ies) of [place] [employer] [facility] Advance Directives Taking Steps booklet [...] Specific Information: none Health/Prescription Coverage: Primary Insurance: [employer] [facility] Secondary Insurance: N/A Prescription Coverage: yes Preferred Pharmacy: [facility] Other: none Primary Care Provider: Blake Vasquez MD [phone] Patient/Caregiver Goals of Treatment: discharge to home [...] of care planning. Lyn Campo RN Pager: [phone] * Plan of Care - Patria Sewell [...] Procedure Name Priority Date/Time Associated Diagnosis Comments SPECIALTY PERSON SCAN 03/14/2017 12:00 AM EST POCT GLUCOSE [...] Routine 03/11/2017 2:00 PM EST CARDIAC ENZYMES ([facility]/CGP) Routine 03/11/2017 2:00 PM EST EKG 12-LEAD Routine 03/11/2017 12:[address] elevation myocardial infarction (STEMI), unspecified artery POCT GLUCOSE Routine 03/11/2017 12:13 PM EST POCT GLUCOSE Routine 03/11/2017 10:12 AM EST HEMOGRAM Routine 03/11/2017 9:25 AM EST POCT GLUCOSE Routine 03/11/2017 7:52 AM EST EKG 12-LEAD Routine 03/11/2017 7:[address] elevation myocardial infarction (STEMI), unspecified artery CARDIAC ENZYMES ([facility]P) Routine 03/11/2017 6:45 AM EST MAGNESIUM Routine [...] unspecified vessel or lesion type, unspecified whether [place] or transplanted heart CARDIAC CATHETERIZATION STAT 03/10/20 5:53 PM EST EKG 12-LEAD STAT 03/10/2017 4:16 PM EST Coronary artery disease, angina presence unspecified, unspecified vessel or lesion type, unspecified whether [place] or transplanted heart EKG 12-LEAD STAT 03/10/2017 4:07 PM EST Coronary artery disease, angina presence unspecified, unspecified vessel or lesion type, unspecified whether [place] or transplanted heart documented in this encounter Results * SCAN DOC: SPECIALTY PERSON (03/14/2017 12:00 AM EST) Anatomical Region Laterality Modality Other Narrative 03/14/2017 12:00 AM EST Ordered by an unspecified provider. Scanning Provider MEDIA MGR SCAN EXT O RDR/RSLT * (ABNORMAL) POCT Glucose (03/13/2017 4:26 PM EST) Glucose, POC 212(H) 65 - 199 mg/dL [facility] Comment: Supplemental ranges: <140 mg/dL before meals <180 mg/dL all other times of the day Blood specimen (specimen) 03/13/2017 4:26 PM EST 03/13/2017 4:26 PM EST Pa Stewart MD POINT OF CARE TEST O RDSTEPHEN Performing Organization Address [facility] de Phone Number [facility] [place] [address] * POCT Glucose (03/13/2017 12:58 PM EST) Glucose, POC 120 65 - 199 mg/dL [facility] Comment: Supplemental ranges: <140 mg/dL before meals <180 mg/dL all other times of the day Blood specimen (specimen) 03/13/2017 12:58 PM EST 03/13/2017 12:58 PM EST Pa Stewart MD POINT OF CARE TEST O SHERRI Performing Organization Address [facility] de Phone Number [facility] [place] [address] * NM Myocardial Perfusion Scan Pharmacologic (03/13/2017 [...] * POCT Glucose (03/13/2017 7:40 AM EST) [facility] Glucose, POC 169 65 - 199 mg/dL [facility] Comment: Supplemental ranges: <140 mg/dL before meals <180 mg/dL all other times of the day Blood specimen (specimen) 03/13/2017 7:40 AM EST 03/13/2017 7:40 AM EST Ranulfo Garcia MD POINT OF CARE TEST O RDERABLES Performing Organization Address City/State/[facility] Co de Phone Number [facility] [place] [phone] * (ABNORMAL) Differential, Automated (03/13/2017 6:18 AM EST) [facility] Neutrophil % 63.1 % [facility] Neutrophil Absolute 7.69(H) 1.70 - 6.10 x10(3)/mc L [facility] Lymph % 23.6 % [facility] Lymphocytes Abs 2.9 0.9 - 3.2 x10(3)/mc L [facility] Monocyte % 11.6 % [facility] Monocyte Abs 1.4(H) 0.3 - 0.9 x10(3)/mc L [facility] Eos % 0.5 % [facility] Eosinophils Abs 0.1 0.0 - 0.4 x10(3)/mc L [facility] Basophil % 0.5 % [facility] Baso Absolute 0.1 0.0 - 0.1 x10(3)/mc L [facility] Immature Gran % 0.70 % [facility] Comment: Immature granulocytes(IG's)percentage and absolute count will include metamyelocytes, myelocytes, and promyelocytes. Blood smears from CBCs yielding IG's will be scanned manually for concordance. If this scan disagrees with the automated IG or if promyelocytes are noted, a manual differential will be performed. Immature Gran Absolute 0.09(H) 0.00 - 0.04 x10(3)/ L [facility] Blood specimen (specimen) 03/13/2017 6:18 AM EST 03/13/2017 6:35 AM EST Narrative Resulting Agency Comment Spec In Lab Melvin Collins MD HEMATOLOGY ORDERABL ES Performing Organization Address City/State/[facility] Co de Phone Number [facility] [place] [phone] * (ABNORMAL) Hemogram (03/13/2017 6:18 AM EST) White Blood Cell 12.2(H) 4.0 - 9.5 x10(3)/ L [facility] Red Blood Cell 4.55(L) 4.58 - 5.54 x10(6)/mc L [facility] Hemoglobin 13.3(L) 13.7 - 16.5 gm/dL [facility] Hematocrit 40.3(L) 40.5 - 48.5 % [facility] Mean Cell Volume 88.6 82.9 - 93.1 fL [facility] Mean Cell Hemoglobin 29.2 27.5 - 32.1 pg [facility] Mean Cell Hemoglobin Concentration 33.0 32.0 - 35.7 gm/dL [facility] Platelet 309 145 - 357 x10(3)/mc L [facility] RDW Standard Deviation 40.5 36.0 - 45.0 fL [facility] RDW coefficient of variation 12.5 11.4 - 13.8 % [facility] Mean Platelet Volume 9.6 7.6 - 12.9 fL [facility] NRBC% auto 0.0 % [facility] NRBC Absolute 0.000 0.000 - 0.000 x10(3)/mc L [facility] Blood specimen (specimen) 03/13/2017 6:18 AM EST 03/13/2017 6:35 AM EST Narrative Resulting Agency Comment Spec In Lab Melvin Collins MD HEMATOLOGY ORDERABL ES Performing Organization Address [facility] Co de Phone Number [facility] [place] [address] * Magnesium (03/13/2017 6:18 AM EST) Magnesium 0.74 0.69 - 1.07 mmol/L [facility] Blood specimen (specimen) 03/13/2017 6:18 AM EST 03/13/2017 6:35 AM EST Narrative Resulting Agency Comment Spec In Lab Melvin Collins MD CHEMISTRY ORDERABLE S Performing Organization Address [facility] Co de Phone Number [facility] [place] [address] * (ABNORMAL) Basic Metabolic Panel (non-fasting) (03/13/2017 6:18 AM EST) Glucose 150 65 - 199 mg/dL [facility] Comment:Diabetes: >=200 mg/d L plus symptoms Blood Urea Nitrogen 8(L) 10 - 20 mg/dL [facility] Creatinine 0.71(L) 0.80 - 1.50 mg/dL [facility] Sodium 138 135 - 145 mmol/L [facility] Potassium 4.0 3.5 - 5.0 mmol/L [facility] Comment: Please note: ??Patients with WBC >100,000 may have falsely elevated Potassium levels. ??For accurate Potassium quantification in these patients send serum separator tube (gold top) for subsequent determinations. ??Contact the Clinical Chemistry Laboratory if there are any questions. Chloride 99 98 - 107 mmol/L [facility] Carbon Dioxide 26 22 - 31 mmol/L [facility] Anion Gap 13 5 - 15 mmol/L [facility] Calcium 8.6 8.5 - 10.5 mg/dL [facility] Est Glomerular Filtration Rate >60 >=60 [facility] Comment: The reported eGFR should be multiplied by 1.2 for patients. The MDRD is not an appropriate measure of renal function for patients with body mass extremes or in patients with acute kidney failure. http://General Compression/DHnkdep http://General Compression/DHMCnkf Blood specimen (specimen) 03/13/2017 6:18 AM EST 03/13/2017 6:35 AM EST Narrative Resulting Agency Comment Spec In Lab Melvin Collins MD CHEMISTRY ORDERABLE S Performing Organization Address City/[facility]/ZIP Co de Phone Number [facility] [place] [address] * POCT Glucose (03/12/2017 9:57 PM EST) Glucose, POC 121 65 - 199 mg/dL [facility] Comment: Supplemental ranges: <140 mg/dL before meals <180 mg/dL all other times of the day Blood specimen (specimen) 03/12/2017 9:57 PM EST 03/12/2017 9:57 PM EST Ranulfo Garcia MD POINT OF CARE TEST O RDERABLES Performing Organization Address [facility]/ZIP Co de Phone Number [facility] [place] [address] * POCT Glucose (03/12/2017 4:17 PM EST) Glucose, POC 125 65 - 199 mg/dL [facility] Comment: Supplemental ranges: <140 mg/dL before meals <180 mg/dL all other times of the day Blood specimen (specimen) 03/12/2017 4:17 PM EST 03/12/2017 4:17 PM EST Ranulfo Garcia MD POINT OF CARE TEST O RDERABLES Performing Organization Address [facility] de Phone Number [facility] [place] [address] * (ABNORMAL) POCT Glucose (03/12/2017 11:49 AM EST) Glucose, POC 224(H) 65 - 199 mg/dL [facility] Comment: Supplemental ranges: <140 mg/dL before meals <180 mg/dL all other times of the day Blood specimen (specimen) 03/12/2017 11:49 AM EST 03/12/2017 11:49 AM EST Ranulfo Garcia MD POINT OF CARE TEST O RDERAJUAN Performing Organization Address [facility] Phone Number [facility] [place] [address] * (ABNORMAL) POCT Glucose (03/12/2017 8:06 AM EST) Glucose, POC 204(H) 65 - 199 mg/dL [facility] Comment: Supplemental ranges: <140 mg/dL before meals <180 mg/dL all other times of the day Blood specimen (specimen) 03/12/2017 8:06 AM EST 03/12/2017 8:06 AM EST Ranulfo Garcia MD POINT OF CARE TEST O RDERABLES Performing Organization Address [facility] de Phone Number [facility] [place] [address] * (ABNORMAL) Differential, Automated (03/12/2017 3:58 AM EST) Neutrophil % 55.6 % [facility] Neutrophil Absolute 7.07(H) 1.70 - 6.10 x10(3)/mc L [facility] Lymph % 32.7 % [facility] Lymphocytes Abs 4.2(H) 0.9 - 3.2 x10(3)/ L [facility] Monocyte % 10.2 % [facility] Monocyte Abs 1.3(H) 0.3 - 0.9 x10(3)/ L [facility] Eos % 0.5 % [facility] Eosinophils Abs 0.1 0.0 - 0.4 x10(3)/[facility] Basophil % 0.5 % [facility] Baso Absolute 0.1 0.0 - 0.1 x10(3)/[facility] Immature Gran % 0.50 % [facility] Comment: Immature granulocytes(IG's)percentage and absolute count will include metamyelocytes, myelocytes, and promyelocytes. Blood smears from CBCs yielding IG's will be scanned manually for concordance. If this scan disagrees with the automated IG or if promyelocytes are noted, a manual differential will be performed. Immature Gran Absolute 0.07(H) 0.00 - 0.04 x10(3)/[facility] Blood specimen (specimen) 03/12/2017 3:58 AM EST 03/12/2017 4:05 AM EST Narrative Resulting Agency Comment Spec In Lab Melvin Collins MD HEMATOLOGY ORDERABL ES Performing Organization Address City/State/[facility] Co de Phone Number [facility] [place] [address] * (ABNORMAL) Hemogram (03/12/2017 3:58 AM EST) White Blood Cell 12.7(H) 4.0 - 9.5 x10(3)/[facility] Red Blood Cell 4.52(L) 4.58 - 5.54 x10(6)/[facility] Hemoglobin 13.2(L) 13.7 - 16.5 gm/dL [facility] Hematocrit 39.9(L) 40.5 - 48.5 % [facility] Mean Cell Volume 88.3 82.9 - 93.1 fL [facility] Mean Cell Hemoglobin 29.2 27.5 - 32.1 pg [facility] Mean Cell Hemoglobin Concentration 33.1 32.0 - 35.7 gm/dL [facility] Platelet 321 145 - 357 x10(3)/mc L [facility] RDW Standard Deviation 40.7 36.0 - 45.0 [facility] RDW coefficient of variation 12.7 11.4 - 13.8 % [facility] Mean Platelet Volume 9.7 7.6 - 12.9 [facility] NRBC% auto 0.0 % [facility] NRBC Absolute 0.000 0.000 - 0.000 x10(3)/mc L [facility] Blood specimen (specimen) 03/12/2017 3:58 AM EST 03/12/2017 4:05 AM EST Narrative Resulting Agency Comment Spec In Lab Melvin Collins MD HEMATOLOGY ORDERABL ES Performing Organization Address [facility] Co de Phone Number [facility] [place] [address] * Magnesium (03/12/2017 3:58 AM EST) Magnesium 0.73 0.69 - 1.07 mmol/L [facility] Blood specimen (specimen) 03/12/2017 3:58 AM EST 03/12/2017 4:05 AM EST Narrative Resulting Agency Comment Spec In Lab Melvin Collins MD CHEMISTRY ORDERABLE S Performing Organization Address [facility] Co de Phone Number [facility] [place] [address] * (ABNORMAL) Basic Metabolic Panel (non-fasting) (03/12/2017 3:58 AM EST) Glucose 199 65 - 199 mg/dL [facility] Comment:Diabetes: >=200 mg/d L plus symptoms Blood Urea Nitrogen 8(L) 10 - 20 mg/dL [facility] Creatinine 0.64(L) 0.80 - 1.50 mg/dL [facility] Sodium 136 135 - 145 mmol/L [facility] Potassium 4.2 3.5 - 5.0 mmol/L [facility] Comment: Please note: ??Patients with WBC >100,000 may have falsely elevated Potassium levels. ??For accurate Potassium quantification in these patients send serum separator tube (gold top) for subsequent determinations. ??Contact the Clinical Chemistry Laboratory if there are any questions. Chloride 98 98 - 107 mmol/L [facility] Carbon Dioxide 26 22 - 31 mmol/L [facility] Anion Gap 12 5 - 15 mmol/L [facility] Calcium 8.8 8.5 - 10.5 mg/dL [facility] Est Glomerular Filtration Rate >60 >=60 [facility] Comment: The reported eGFR should be multiplied by 1.2 for patients. The MDRD is not an appropriate measure of renal function for patients with body mass extremes or in patients with acute kidney failure. http://Outbrain.TagMan/DHnkdep http://General Compression/DHMCnkf Blood specimen (specimen) 03/12/2017 3:58 AM EST 03/12/2017 4:05 AM EST Narrative Resulting Agency Comment Spec In Lab Melvin Collins MD CHEMISTRY ORDERABLE S [facility] [place] [address] * (ABNORMAL) POCT Glucose (03/11/2017 8:12 PM EST) Glucose, POC 260(H) 65 - 199 mg/dL [facility] Comment: Supplemental ranges: <140 mg/dL before meals <180 mg/dL all other times of the day Blood specimen (specimen) 03/11/2017 8:12 PM EST 03/11/2017 8:12 PM EST Ranulfo Garcia MD POINT OF CARE TEST O RDERABLES [facility] [place] [address] * ECHO COMPLETE W CONTRAST (03/11/2017 4:05 PM EST) EF 55 HEARTLAB SYSTEM Anatomical Region Laterality Modality Other 03/11/2017 Narrative 03/11/2017 4:41 PM EST Procedure: ?Transthoracic Echocardiogram Patient: ?ARLET Elaine ? (Age): 1965(52y) Med Rec#: ? [id number] ?Sex: ?M ? Site Loc: ? [facility] ?Ht / Wt: ??188(cm)/118(kg) Pt. Loc: ?CCU ? BSA: ?2.43 Study Date: ?? 03/11/2017 ?Pt. Type: Inpatient Tape: ? Referring: Ranulfo Garcia Reading: Erickson Castellano ([id number]) Senior Security Engineer: Misael Larry Senior Security Engineer: Adis Shin Diagnosis: *ICD-10-PCS ST elevation (STEMI) [...] E-wave Vmax ?0.7 ?m/sec ? MV deceleration myvv590.1 ?msec ? MV A-wave Vmax ?0.5 ?m/sec [...] ? Mid-Inferior ?Normal ? Mid-Inferoseptal ?Normal ? [place]-Septal ? Normal ? [place]-Anterior ? Normal ? [place]-Lateral ?Normal ? [place]-Inferior ? Normal ? [place]-Tip ?Normal ? This report has been electronically signed by: Eirckson Castellano M.D. ? 03/11/2017 16:38:26 Images reviewed and interpretation verified [facility] Cardiac Ultrasound Laboratory Procedure Note Erickson Castellano MD - 03/11/2017 Procedure: Transthoracic Echocardiogram Patient: ARLET Elaine DOB(Age): 1965(52y) Med Rec#: [id number] Sex: M Site Loc: [facility] Ht / Wt: 188(cm)/118(kg) Pt. Loc: CCU BSA: 2.43 Study Date: 03/11/2017 Pt. Type: Inpatient Tape: Referring: Ranulfo Garcia Reading: Erickosn Castellano ([id number]) Senior Security Engineer: Misael Larry Senior Security Engineer: Adis Shin Diagnosis: *ICD-10-PCS ST elevation (STEMI) [...] MV E-wave Vmax 0.7 m/sec MV deceleration psxb131.1 msec MV A-wave Vmax 0.5 m/sec MV [...] Normal Mid-Posterolateral Akinetic Mid-Inferior Normal Mid-Inferoseptal Normal [place]-Septal Normal [place]-Anterior Normal [place]-Lateral Normal [place]-Inferior Normal [place]-Tip Normal This report has been electronically signed by: Arie Castellano M.D. 03/11/2017 16:38:26 Images reviewed and interpretation verified [facility] Cardiac Ultrasound Laboratory Ranulfo Garcia MD ECHO ORDERABLES * (ABNORMAL) POCT Glucose (03/11/2017 3:48 PM EST) Glucose, POC 209(H) 65 - 199 mg/dL [facility] Comment: Supplemental ranges: <140 mg/dL before meals <180 mg/dL all other times of the day Blood specimen (specimen) 03/11/2017 3:48 PM EST 03/11/2017 3:48 PM EST Ranulfo Garcia MD POINT OF CARE TEST O SHERRI Performing Organization Address [facility] Co de Phone Number [facility] [place] [address] * (ABNORMAL) POCT Glucose (03/11/2017 2:00 PM EST) Glucose, POC 243(H) 65 - 199 mg/dL [facility] Comment: Supplemental ranges: <140 mg/dL before meals <180 mg/dL all other times of the day Blood specimen (specimen) 03/11/2017 2:00 PM EST 03/11/2017 2:00 PM EST Ranulfo Garcia MD POINT OF CARE TEST O SHERRI Performing Organization Address [facility] Co de Phone Number [facility] [place] [address] * (ABNORMAL) Cardiac Enzymes (LEB/CGP) (03/11/2017 2:00 PM EST) Troponin-T 2.67(H) 0.00 - 0.00 ng/mL [facility] Comment: Result rechecked. The 99th percentile for Troponin T is less than 0.01 ng/mL, any detectable cTnT concentration using this assay should be considered elevated. According to the third universal definition of myocardial infarction the following criteria with a clinical presentation consistent with acute myocardial ischemia meets the diagnosis for a myocardial infarction (NM). Detection of a rise and/or fall of cTnT, with at least one value greater than the 99th percentile (> or = 0.01) and with at least one of the following ?? Symptoms of ischemia ?? New or presumed new significant KS-sthxgmx-N wave (ST-T) changes or new left bundle [...] additional sample may be indicated. Reference: Third Willis Definition of Myocardial Infarction. Journal of the [place] College [employer]iology 2012;60:1581-98 Creatine Kinase 1,038(H) 0 - 200 unit/L [facility] Blood specimen (specimen) 03/11/2017 2:00 PM EST 03/11/2017 2:07 PM EST Narrative Resulting Agency Comment Spec In Lab Melvin Collins MD CHEMISTRY ORDERABLE S Performing Organization Address City/[facility] Co de Phone Number [facility] [place] [address] * EKG 12 Lead (03/11/2017 12:40 PM EST) Ventricular rate 76 BPM MUSE SYSTEM Atrial Rate 76 BPM MUSE SYSTEM P-R Interval 196 ms MUSE SYSTEM QRS Duration 84 ms MUSE SYSTEM Q-T Interval 396 ms MUSE SYSTEM QTC Calculated (Bezet) 445 ms MUSE SYSTEM Calculated P Crescent 50 degrees MUSE SYSTEM Calculated R Crescent -10 degrees MUSE SYSTEM Calculated T Crescent 83 degrees MUSE SYSTEM INTERPRETATION Normal sinus rhythm Inferior infarct (cited on or before 10-MAR-2017) Abnormal ECG When compared with ECG of 11-MAR-2017 07:48, No significant change was found Confirmed by MD Terry, Pa ([id number]) on 03/11/2017 4:53:48 PM MUSE SYSTEM 03/11/2017 12:4 0 PM EST 03/11/2017 4:53 PM EST Melvin Collins MD ECG ORDERABLES MUSE SYSTEM * (ABNORMAL) POCT Glucose (03/11/2017 12:13 PM EST) Glucose, POC 252(H) 65 - 199 mg/dL [facility] Comment: Supplemental ranges: <140 mg/dL before meals <180 mg/dL all other times of the day Blood specimen (specimen) 03/11/2017 12:13 PM EST 03/11/2017 12:13 PM EST Ranulfo Garcia MD POINT OF CARE TEST O RDERABLES Performing Organization Address [facility] Co de Phone Number [facility] [place] [address] * (ABNORMAL) POCT Glucose (03/11/2017 10:12 AM EST) Glucose, POC 277(H) 65 - 199 mg/dL [facility] Comment: Supplemental ranges: <140 mg/dL before meals <180 mg/dL all other times of the day Blood specimen (specimen) 03/11/2017 10:12 AM EST 03/11/2017 10:12 AM EST Ranulfo Gacria MD POINT OF CARE TEST O RDERAJUAN Performing Organization Address [facility] Co de Phone Number [facility] [place] [address] * (ABNORMAL) Hemogram (03/11/2017 9:25 AM EST) White Blood Cell 13.0(H) 4.0 - 9.5 x10(3)/mc L [facility] Red Blood Cell 4.65 4.58 - 5.54 x10(6)/mc L [facility] Hemoglobin 13.6(L) 13.7 - 16.5 gm/dL [facility] Hematocrit 41.4 40.5 - 48.5 % [facility] Mean Cell Volume 89.0 82.9 - 93.1 fL [facility] Mean Cell Hemoglobin 29.2 27.5 - 32.1 pg [facility] Mean Cell Hemoglobin Concentration 32.9 32.0 - 35.7 gm/dL [facility] Platelet 356 145 - 357 x10(3)/mc L [facility] RDW Standard Deviation 41.7 36.0 - 45.0 fL [facility] RDW coefficient of variation 12.9 11.4 - 13.8 % [facility] Mean Platelet Volume 9.6 7.6 - 12.9 fL [facility] NRBC% auto 0.0 % [facility] NRBC Absolute 0.000 0.000 - 0.000 x10(3)/mc L [facility] Blood specimen (specimen) 03/11/2017 9:25 AM EST 03/11/2017 9:33 AM EST Narrative Resulting Agency Comment Spec In Lab Melvin Collins MD HEMATOLOGY ORDERABL ES Performing Organization Address [facility] Co de Phone Number [facility] [place] [address] * (ABNORMAL) POCT Glucose (03/11/2017 7:52 AM EST) [facility] Glucose, POC 268(H) 65 - 199 mg/dL [facility] Comment: Supplemental ranges: <140 mg/dL before meals <180 mg/dL all other times of the day Blood specimen (specimen) 03/11/2017 7:52 AM EST 03/11/2017 7:52 AM EST Ranulfo Garcia MD POINT OF CARE TEST O RDERABLES Performing Organization Address [facility]/ZIP Co de Phone Number [facility] [place] [address] * EKG 12 Lead (03/11/2017 7:48 AM EST) Pathologist [facility] Ventricular rate 78 BPM MUSE SYSTEM Atrial Rate 78 BPM MUSE SYSTEM P-R Interval 188 ms MUSE SYSTEM QRS Duration 84 ms MUSE SYSTEM Q-T Interval 390 ms MUSE SYSTEM QTC Calculated (Bezet) 444 ms MUSE SYSTEM Calculated P Crescent 59 degrees MUSE SYSTEM Calculated R Crescent -7 degrees MUSE SYSTEM Calculated T Crescent 95 degrees MUSE SYSTEM INTERPRETATION Normal sinus [...] EST) Troponin-T 3.46(H) 0.00 - 0.00 ng/mL [facility] Comment: result rechecked- The 99th percentile for Troponin T is less than 0.01 ng/mL, any detectable cTnT concentration using this assay should be considered elevated. According to the third universal definition of myocardial infarction the following criteria with a clinical presentation consistent with acute myocardial ischemia meets the diagnosis for a myocardial infarction (NM). Detection of a rise and/or fall of cTnT, with at least one value greater than the 99th percentile (> or = 0.01) and with at least one of the following ?? Symptoms of ischemia ?? New or presumed new significant TA-nsprhwg-I wave (ST-T) changes or new left bundle [...] additional sample may be indicated. Reference: Third Willis Definition of Myocardial Infarction. Journal of the [place] College [employer] Cardiology 2012;60:1581-98 Creatine Kinase 1,354(H) 0 - 200 unit/L [facility] Blood specimen (specimen) Venous Draw / Unknown 03/11/2017 6:45 AM EST 03/11/2017 7:06 AM EST Narrative Resulting Agency Comment Spec In Lab Ranulfo Garcia MD CHEMISTRY ORDERABLES Performing Organization Address [facility] Co de Phone Number [facility] [place] [address] * Magnesium (03/11/2017 6:45 AM EST) Magnesium 0.84 0.69 - 1.07 mmol/L [facility] Blood specimen (specimen) 03/11/2017 6:45 AM EST 03/11/2017 7:01 AM EST Narrative Resulting Agency Comment Spec In Lab Melvin Collins MD CHEMISTRY ORDERABLE S Performing Organization Address [facility] de Phone Number [facility] [place] [address] * (ABNORMAL) Basic Metabolic Panel (non-fasting) (03/11/2017 6:45 AM EST) Glucose 228(H) 65 - 199 mg/dL [facility] Comment:Diabetes: >=200 mg/d L plus symptoms Blood Urea Nitrogen 8(L) 10 - 20 mg/dL [facility] Creatinine 0.80 0.80 - 1.50 mg/dL [facility] Sodium 141 135 - 145 mmol/L [facility] Potassium 4.5 3.5 - 5.0 mmol/L [facility] Comment: Please note: ??Patients with WBC >100,000 may have falsely elevated Potassium levels. ??For accurate Potassium quantification in these patients send serum separator tube (gold top) for subsequent determinations. ??Contact the Clinical Chemistry Laboratory if there are any questions. Chloride 100 98 - 107 mmol/L [facility] Carbon Dioxide 24 22 - 31 mmol/L [facility] Anion Gap 17(H) 5 - 15 mmol/L [facility] Calcium 9.2 8.5 - 10.5 mg/dL [facility] Comment:confirmed with Ricardo rodríguez PT not on calcium suppliment, 03/11/17 08:00-hp Est Glomerular Filtration Rate >60 >=60 [facility] Comment: The reported eGFR should be multiplied by 1.2 for patients. The MDRD is not an appropriate measure of renal function for patients with body mass extremes or in patients with acute kidney failure. http://General Compression/DHnkdep http://General Compression/DHMCnkf Blood specimen (specimen) 03/11/2017 6:45 AM EST 03/11/2017 7:01 AM EST Narrative Resulting Agency Comment Spec In Lab Melvin Collins MD CHEMISTRY ORDERABLE S Performing Organization Address City/[facility] Co de Phone Number [facility] [place] [address] * EKG 12 Lead (03/11/2017 3:27 AM EST) Ventricular rate 71 BPM MUSE SYSTEM Atrial Rate 71 BPM MUSE SYSTEM P-R Interval 182 ms MUSE SYSTEM QRS Duration 84 ms MUSE SYSTEM Q-T Interval 392 ms MUSE SYSTEM QTC Calculated (Bezet) 425 ms MUSE SYSTEM Calculated P Crescent 58 degrees MUSE SYSTEM Calculated R Crescent -7 degrees MUSE SYSTEM Calculated T Crescent 89 degrees MUSE SYSTEM INTERPRETATION Normal sinus rhythm Inferior infarct (cited on or before 10-MAR-2017 ) Abnormal ECG When compared with ECG of 10-MAR-2017 18:16, Serial changes of evolving Inferior infarct Present Confirmed by Landry sexton MD, Pa ([id number]) on 03/11/2017 4:53:26 PM MUSE SYSTEM 03/11/2017 3:27 AM EST 03/11/2017 4:53 PM EST Deep Roa MD ECG ORDERABLES Performing Organization Address City/[facility]/ZIP Co de Phone Number MUSE SYSTEM * XR Chest PA or [...] 9:45 PM EST) Neutrophil % 83.4 % [facility] Neutrophil Absolute 11.65(H) 1.70 - 6.10 x10(3)/mc L [facility] Lymph % 11.0 % [facility] Lymphocytes Abs 1.5 0.9 - 3.2 x10(3)/mc L [facility] Monocyte % 4.8 % [facility] Monocyte Abs 0.7 0.3 - 0.9 x10(3)/[facility] Eos % 0.0 % [facility] Eosinophils Abs 0.0 0.0 - 0.4 x10(3)/[facility] Basophil % 0.2 % [facility] Baso Absolute 0.0 0.0 - 0.1 x10(3)/[facility] Immature Gran % 0.60 % [facility] Comment: Immature granulocytes(IG's)percentage and absolute count will include metamyelocytes, myelocytes, and promyelocytes. Blood smears from CBCs yielding IG's will be scanned manually for concordance. If this scan disagrees with the automated IG or if promyelocytes are noted, a manual differential will be performed. Immature Gran Absolute 0.09(H) 0.00 - 0.04 x10(3)/[facility] Blood specimen (specimen) 03/10/2017 9:45 PM EST 03/10/2017 9:57 PM EST Narrative Resulting Agency Comment Spec In Lab Ranulfo Garcia MD HEMATOLOGY ORDERABLE S [facility] [place] [address] * (ABNORMAL) Hemogram (03/10/2017 9:45 PM EST) White Blood Cell 14.0(H) 4.0 - 9.5 x10(3)/[facility] Red Blood Cell 5.05 4.58 - 5.54 x10(6)/[facility] Hemoglobin 14.8 13.7 - 16.5 gm/dL [facility] Hematocrit 45.0 40.5 - 48.5 % [facility] Mean Cell Volume 89.1 82.9 - 93.1 fL [facility] Mean Cell Hemoglobin 29.3 27.5 - 32.1 pg [facility] Mean Cell Hemoglobin Concentration 32.9 32.0 - 35.7 gm/dL [facility] Platelet 376(H) 145 - 357 x10(3)/mc L [facility] RDW Standard Deviation 41.4 36.0 - 45.0 fL [facility] RDW coefficient of variation 12.7 11.4 - 13.8 % [facility] Mean Platelet Volume 9.5 7.6 - 12.9 fL [facility] NRBC% auto 0.0 % [facility] NRBC Absolute 0.000 0.000 - 0.000 x10(3)/mc L [facility] Blood specimen (specimen) 03/10/2017 9:45 PM EST 03/10/2017 9:57 PM EST Narrative Resulting Agency Comment Spec In Lab Ranulfo Garcia MD HEMATOLOGY ORDERABLE S [facility] [place] [address] * (ABNORMAL) Cardiac Enzymes (LEB/CGP) (03/10/2017 7:51 PM EST) Troponin-T 2.02(H) 0.00 - 0.00 ng/mL [facility] Comment: The 99th percentile for Troponin T is less than 0.01 ng/mL, any detectable cTnT concentration using this assay should be considered elevated. According to the third universal definition of myocardial infarction the following criteria with a clinical presentation consistent with acute myocardial ischemia meets the diagnosis for a myocardial infarction (NM). Detection of a rise and/or fall of cTnT, with at least one value greater than the 99th percentile (> or = 0.01) and with at least one of the following ?? Symptoms of ischemia ?? New or presumed new significant TP-miqwxxd-J wave (ST-T) changes or new left bundle [...] additional sample may be indicated. Reference: Third Willis Definition of Myocardial Infarction. Journal of the [place] College of Cardiology 2012;60:1581-98 Creatine Kinase 1,518(H) 0 - 200 unit/L [facility] Blood specimen (specimen) 03/10/2017 7:51 PM EST 03/10/2017 7:59 PM EST Narrative Resulting Agency Comment Spec In Lab Ranulfo Garcia MD CHEMISTRY ORDERABLES Performing Organization Address [facility] Co de Phone Number [facility] [place] [address] * (ABNORMAL) Hepatic Function Panel (03/10/2017 7:51 PM EST) Protein, Total 6.5 6.1 - 8.0 gm/dL [facility] Albumin 3.3 3.2 - 5.2 gm/dL [facility] Aspartate Aminotransferase Not Perf 0 - 39 unit/L [facility] Comment: Unable to quantitate due to sample hemolysis. ??Sample redraw suggested. Called by: [facility], Read back by: Kelly Hook, Date/Time:03/10/17 22:05. Alanine Aminotransferase 19 0 - 55 unit/L [facility] Alkaline Phosphatase 140(H) 40 - 120 unit/L [facility] Bilirubin, Total <0.2(L) 0.2 - 1.3 mg/dL [facility] Bilirubin, Direct <0.1 0.0 - 0.3 mg/dL [facility] Blood specimen (specimen) 03/10/2017 7:51 PM EST 03/10/2017 7:59 PM EST Narrative Resulting Agency Comment Spec In Lab Ranulfo Garcia MD CHEMISTRY ORDERABLES Performing Organization Address [facility]/ZIP Co de Phone Number [facility] [place] [address] * (ABNORMAL) Hemoglobin A1c (03/10/2017 7:51 PM EST) Hemoglobin A1c 8.9(H) 4.3 - 5.6 % [facility] Comment: Reference Range: 4.3 - 5.6% [...] 1, S67-74 Estimated Average Glucose 209 mg/dL [facility] Comment: eAG equivalents for HbA1c percentages: [...] into estimated average glucose values. ??Diabetes Care 2008:31(8):4399-8712. Blood specimen (specimen) 03/10/2017 7:51 PM EST 03/10/2017 7:59 PM EST Narrative Resulting Agency Comment Spec In Lab Ranulfo Garcia MD CHEMISTRY ORDERABLES Performing Organization Address City/[facility]/ZIP Co de Phone Number [facility] [place] [address] * LDL Cholesterol, Direct (03/10/2017 7:51 PM EST) LDL Cholesterol, Direct 147 <=190 mg/dL [facility] Blood specimen (specimen) 03/10/2017 7:51 PM EST 03/10/2017 7:59 PM EST Narrative Resulting Agency Comment Spec In Lab Ranulfo Garcia MD CHEMISTRY ORDERABLES Performing Organization Address [facility] Co de Phone Number [facility] [place] [address] * HDL/Cholesterol Profile (03/10/2017 7:51 PM EST) Cholesterol, Total 204 <=239 mg/dL [facility] HDL Cholesterol 42 >=40 mg/dL [facility] Cholesterol/HDL Ratio 4.9 ratio [facility] Chol/HDL Interpretation See Note [facility] Comment: Lipid management should be guided by a patient? s ASCVD risk, goals and preferences. ACC/AHA Guidelines recommend high intensity statin if clinical ASCVD or LDL greater than or equal to 190 mg/dL. http://[employer].url.com/HAF-RPX-Vaogmmpdr Measure LDL if Total Cholesterol minus HDL Cholesterol is greater than 220 mg/dL. Adults aged 40-75 with LDL 70-189 mg/dL should have their 10 year ASCVD risk estimated with the ACC/AHA ASCVD risk solar sales estimator http://tools.acc.org/FWKBE-Vrhd-Tauqfuzzb/ Statin should be discussed if risk greater [...] Garcia MD CHEMISTRY ORDERABLES Performing Organization Address [facility] Co de Phone Number [facility] [place] [address] * Magnesium (03/10/2017 7:51 PM EST) Magnesium 0.72 0.69 - 1.07 mmol/L [facility] Blood specimen (specimen) 03/10/2017 7:51 PM EST 03/10/2017 7:59 PM EST Narrative Resulting Agency Comment Spec In Lab Ranulfo Garcia MD CHEMISTRY ORDERABLES Performing Organization Address [facility] [facility] Co de Phone Number [facility] [place] [address] * (ABNORMAL) Basic Metabolic Panel (non-fasting) (03/10/2017 7:51 PM EST) Glucose 282(H) 65 - 199 mg/dL [facility] Comment:Diabetes: >=200 mg/d L plus symptoms Blood Urea Nitrogen 7(L) 10 - 20 mg/dL [facility] Creatinine 0.71(L) 0.80 - 1.50 mg/dL [facility] Sodium 137 135 - 145 mmol/L [facility] Potassium 4.7 3.5 - 5.0 mmol/L [facility] Comment: Please note: ??Patients with WBC >100,000 may have falsely elevated Potassium levels. ??For accurate Potassium quantification in these patients send serum separator tube (gold top) for subsequent determinations. ??Contact the Clinical Chemistry Laboratory if there are any questions. Chloride 101 98 - 107 mmol/L [facility] Carbon Dioxide 18(L) 22 - 31 mmol/L [facility] Anion Gap 18(H) 5 - 15 mmol/L [facility] Calcium 7.9(L) 8.5 - 10.5 mg/dL [facility] Est Glomerular Filtration Rate >60 >=60 [facility] Comment: The reported eGFR should be multiplied by 1.2 for patients. The MDRD is not an appropriate measure of renal function for patients with body mass extremes or in patients with acute kidney failure. http://General Compression/DHnkdep http://General Compression/DHMCnkf Blood specimen (specimen) 03/10/2017 7:51 PM EST 03/10/2017 7:59 PM EST Narrative Resulting Agency Comment Spec In Lab Ranulfo Garcia MD CHEMISTRY ORDERABLES Performing Organization Address City/[facility] Co de Phone Number [facility] [place] [phone] * EKG 12 Lead (03/10/2017 6:16 PM EST) Ventricular rate 68 BPM MUSE SYSTEM Atrial Rate 68 BPM MUSE SYSTEM P-R Interval 194 ms MUSE SYSTEM QRS Duration 88 ms MUSE SYSTEM Q-T Interval 450 ms MUSE SYSTEM QTC Calculated (Bezet) 478 ms MUSE SYSTEM Calculated P Crescent 57 degrees MUSE SYSTEM Calculated R Crescent 23 degrees MUSE SYSTEM Calculated T Crescent 83 degrees MUSE SYSTEM INTERPRETATION Normal sinus rhythm Inferior infarct , new * ACUTE NM ?? Consider right ventricular involvement in acute inferior infarct Abnormal ECG When compared with ECG of 10-MAR-2017 16:07, 2nd degree av block (type I) and PVCs are no longer present Confirmed by MD PRAKASH, NYDIA ([id number]) on 03/11/2017 4:54:24 PM MUSE SYSTEM 03/10/2017 6:16 PM EST 03/11/2017 4:54 PM EST Priscila Wesley MD ECG ORDERABLES Performing Organization Address [facility] Co de Phone Number MUSE SYSTEM * CARDIAC CATHETERIZATION (03/10/2017 5:53 PM EST) Anatomical Region Laterality Modality Other Narrative 03/11/2017 11:43 AM EST ?[facility] ? Cardiac Catheterization/Intervention Report ? Patient Name: Arlet, Juan Alberto ? Procedure Date: 03/10/2017 ? A #: [id number] ? Primary Physician: Ahmed, Priscila ? Case #: [id number] ? File Name: [id number] ? Catheterization Order Number: [id number] ? [facility] ? Final Report [place], [place] ? Patient Name: ? Juan Alberto Nice ?ID#: ?[id number] ? : ?1965 ? Procedure Date: ? March 10, 2017 ?Case #: ? [id number] ? Room: ? 2 ? Case Physician: ? Priscila Wesley M.D. ? Start: ?16:41 ? Admission: ??03/10/2017 [...] at Catheterization: ?The patient presented with: ST-Elevation NM (STEMI) or equivalent (w/i 7 ?days). [place] [employer] angina class was IV. This [...] 4 guiding catheter and a 3.5 Fr [facility] [place] [facility] ??20 Mhz using ?auto 0.5 mm/sec [...] dose administered prior to arrival in the label maker. ?Recommend continuing clopidogrel 75 mg PO daily [...] Procedure Note Priscila Wesley MD - 07/30/2017 [facility] Cardiac Catheterization/Intervention Report Patient Name: Juan Alberto Nice Procedure Date: 03/10/2017 A #: [id number] Primary Physician: Priscila Wesley Case #: [id number] File Name: [id number] Catheterization Order Number: [id number] [facility] FinalReport [place], [place] Patient Name: Juan Alberto Nice ID#:[id number] :1965 Procedure Date: March 10, 2017 Case [...] at Catheterization: The patient presented with: ST-Elevation NM (STEMI) or equivalent(w/i 7 days). [place] [employer] angina class was IV. Thispatient [...] 4 guiding catheter and a 3.[address] 20 Mhzusing auto 0.5 mm/sec pullback. [...] dose administered prior to arrival in the label maker. Recommend continuing clopidogrel 75 mg PO daily [...] (Bezet) 406 ms MUSE SYSTEM Calculated P Crescent 64 degrees MUSE SYSTEM Calculated R Crescent 44 degrees MUSE SYSTEM Calculated T Crescent 120 degrees MUSE SYSTEM INTERPRETATION Sinus rhythm with 2nd degree A-V block (Mobitz I) Occasional and consecutive Premature ventricular complexes ST elevation consider inferior injury or acute infarct * ACUTE NM ?? Consider right ventricular involvement in acute inferior infarct Abnormal ECG When compared with ECG of 10-MAR-2017 16:07, (unconfirmed) Premature ventricular complexes are now Present Sinus rhythm is now with 2nd degree A-V block (Mobitz I) Confirmed by MD RANDALL ARMIN ([id number]) on 03/11/2017 4:53:16 PM MUSE SYSTEM 03/10/2017 4:16 PM EST 03/11/2017 4:53 PM EST Melvin Collins MD ECG ORDERABLES Performing Organization Address City/[facility] Co de Phone Number MUSE SYSTEM * EKG 12 Lead (03/10/2017 4:07 PM EST) Ventricular rate 92 BPM MUSE SYSTEM Atrial Rate 92 BPM MUSE SYSTEM P-R Interval 144 ms MUSE SYSTEM QRS Duration 108 ms MUSE SYSTEM Q-T Interval 352 ms MUSE SYSTEM QTC Calculated (Bezet) 435 ms MUSE SYSTEM Calculated P Crescent 55 degrees MUSE SYSTEM Calculated R Crescent 43 degrees MUSE SYSTEM Calculated T Crescent 116 degrees MUSE SYSTEM INTERPRETATION Normal sinus rhythm ST elevation consider inferior injury or acute infarct * ACUTE NM ?? Consider right ventricular involvement in acute [...] Collins MD ECG ORDERABLES Performing Organization Address [facility] Phone Number MUSE SYSTEM documented in this encounter Visit Diagnoses Diagnosis Coronary artery disease, angina presence unspecified, unspecified vessel or lesion type, unspecified whether [place] or transplanted heart ST elevation myocardial infarction (STEMI), unspecified artery JESUS (obstructive sleep apnea) Obstructive sleep apnea (adult) (pediatric) STEMI (ST elevation myocardial infarction) Acute myocardial infarction, unspecified site, episode of care unspecified documented in this encounter Admitting Diagnoses Diagnosis STEMI (ST elevation myocardial infarction) Acute myocardial infarction, unspecified site, episode of care unspecified documented in this encounter Administered Medications Inactive Administered Medications - up to 3 most recent administrations Medication Order MAR Action Action Date Dose Rate Site AMIOdarone (CORDARONE) 360 mg/200 mL (1.8 mg/mL) infusion 1 dose, Starting on Thu03/10/17 at 1603, Until Thu03/10/17 at 1743, IVIS HEARN.: cabinet override New Bag 03/10/2017 4:19 PM EST 1 mg/min 33.3 mL/hr aspirin EC tablet 81 mg 81 mg, [...] Given 03/11/2017 4:16 PM EST 80 mg clopidogrel (PLAVIX) tablet 75 mg 75 mg, Oral, DAILY, First dose on Thu03/11/17 at 0900, Until Discontinued, Routine Given 03/13/2017 8:29 AM EST 75 mg Given 03/12/2017 8:17 [...] Given 03/11/2017 9:12 PM EST 40 mg glimepiride (AMARYL) tablet 2 mg 2 mg, Oral, DAILY WITH BREAKFAST, First dose on Thu03/12/17 at 1300, Until Discontinued, Consider holding dose if patient is not eating., Routine Given 03/12/2017 1:41 PM EST 2 mg glimepiride (AMARYL) tablet 4 mg 4 mg, [...] of the active insulin., Routine heparin (porcine) 25,000 unit/500 mL (50 unit/mL) infusion 1 dose, Starting on Thu03/10/17 at 1614, Until Thu03/10/17 at 1622, MISAEL JAMA: cabinet override New Bag 03/10/2017 4:22 PM EST 1,000 Units/hr 20 mL/hr heparin (Porcine) subcutaneous injection 5,000 Units 5,000 Units, Subcutaneous, 2 TIMES DAILY, First dose on Thu03/11/17 at 0900, Until Discontinued, Routine Given 03/11/2017 8:14 AM EST 5,000 Units insulin glargine VIAL injection 5 Units 5 Units, Subcutaneous, EVERY 24 HOURS, First dose on Thu03/11/17 at 1100, Until Discontinued, Routine Given 03/12/2017 11:03 AM EST 5 Units Given 03/11/2017 12:20 PM EST 5 Units insulin lispro (humaLOG) VIAL injection 0-10 [...] 6 Units insulin lispro (humaLOG) VIAL injection 1-4 Units 1-4 Units, Subcutaneous, 3 TIMES DAILY BEFORE MEALS, First dose on Thu03/10/17 at 2100, Until Discontinued, CORRECTION BOLUS Sensitive to insulin lean patient or total daily dose of all insulin needed to achieve glycemic control less than 30 units BG 140 - 160 Give 1 unit BG 161 - 200 Give 2 units BG 201 - 240 Give 3 units BG greater than 240, give 4 units and recheck BG in 2 hours. If less than 240 after two hours, give no insulin and resume prior schedule. If BG remains greater than 240, repeat 4 units (no more than three times) & call for new basal insulin orders. DO NOT hold if NPO, unless specifically told to do so., Routine Given 03/10/2017 10:57 PM EST 4 Units Given 03/10/2017 8:49 PM EST 4 Units insulin lispro (humaLOG) VIAL injection 2-8 [...] Given 03/12/2017 11:56 AM EST 6 Units lamoTRIgine (LaMICtal) tablet 200 mg 200 mg, Oral, 2 TIMES DAILY, First dose on Thu03/10/17 at 2100, Until Discontinued, Routine Given 03/13/2017 8:29 AM EST 200 mg Given 03/12/2017 8:26 PM EST 200 mg Given 03/12/2017 8:16 AM EST 200 mg magnesium sulfate 2 g in sterile water 50 mL 2 g, Intravenous, ONCE, 1 dose, On Thu03/11/17 at 0900, Administer over 120 Minutes New Bag 03/11/2017 9:31 AM EST 2 g 25 mL/hr magnesium sulfate 2 g in sterile water 50 mL 2 g, Intravenous, ONCE, 1 dose, On Thu03/12/17 at 0815, Administer over 120 Minutes New Bag 03/12/2017 8:17 AM EST 2 g 25 mL/hr magnesium sulfate 2 g in sterile water 50 mL 2 g, Intravenous, ONCE, 1 dose, On Thu03/13/17 at 0730, Administer over 120 Minutes New Bag 03/13/2017 7:42 AM EST 2 g 25 mL/hr meTOPROLOL (LOPRESSOR) tablet 12.5 mg 12.5 mg, Oral, EVERY 6 HOURS SCHEDULED, First dose on Thu03/10/17 at 2000, Until Discontinued, Hold for SBP < 100 or HR < 50, Routine Given 03/13/2017 5:52 AM EST 12.5 mg Given 03/12/2017 11:49 PM EST 12.5 mg Given 03/12/2017 5:19 PM EST 12.5 mg meTOPROLOL succinate (TOPROL-XL) XL tablet 25 mg 25 mg, Oral, DAILY, First dose (after last modification) on Thu03/13/17 at 1230, Until Discontinued, DO NOT CRUSH OR OPEN Hold for SBP < 100 or HR < 50, Routine Given 03/13/2017 1:05 PM EST 25 mg niCARdipine (CARDENE) in sodium chloride 0.9% [...] 03/11/2017 3:31 AM EST 0.4 mg nitroGLYcerin 50 mg/250 mL (200 mcg/mL) infusion 1 dose, Starting on Thu03/10/17 at 1607, Until Thu03/10/17 at 1610, MISAEL JAMA: zulemat override New Bag 03/10/2017 4:10 PM EST 40 mcg/min 12 mL/hr perflutren protein-A microspheres (OPTISON) 0.22 mg/mL injection 2 mL 2 mL, Intravenous, ONCE PRN, 1 dose, Starting on Thu03/11/17 at 1515, Until Thu03/11/17 at 1515, for enhancement of sub-optimal echo images, Echo Lab (Intra-Procedure), Routine Given 03/11/2017 3:15 PM EST 2 mLs phenytoin (DILANTIN) ER capsule 700 mg 700 mg, Oral, DAILY, First dose on Thu03/11/17 at 0900, Until Discontinued, Routine Given 03/11/2017 8:25 AM EST 700 mg phenytoin (DILANTIN) ER capsule 700 mg 700 mg, Oral, DAILY, First dose (after last modification) on Iliana 03/12/17 at 0100, Until Discontinued, Routine Given 03/12/2017 10:40 PM EST 700 mg Given 03/12/2017 12:57 AM EST 700 mg regadenoson (LEXISCAN) injection 0.4 mg 0.4 mg, Intravenous, ONCE, 1 dose, On Thu03/13/17 at 1215, Routine Given 03/13/2017 11:45 AM EST 0.4 mg sodium chloride 0.9 % flush 5 [...] EST 5 mLs sodium chloride 0.9% infusion 100 mL/hr, Intravenous, CONTINUOUS, Starting on Thu03/10/17 at 1830, Until Thu03/10/17 at 2229, Recovery (Recovery-Hospital Unit) Rate/Dose Verify 03/10/2017 10:00 PM EST 100 mL/hr 100 mL/hr Rate/Dose Verify 03/10/2017 8:00 PM EST 100 mL/hr 100 mL/ hr New Bag 03/10/2017 6:05 PM EST 100 mL/hr 100 mL/hr technetium (Tc-99m) sestamibi injection 29 mCi 29 mCi, Intravenous, ONCE PRN, 1 dose, Starting on Thu03/13/17 at 1145, Until Thu03/13/17 at 1145, Per Protocol, Routine Given 03/13/2017 11:45 AM EST 29 mCi technetium (Tc-99m) sestamibi injection 7.9 mCi 7.9 mCi, Intravenous, ONCE PRN, 1 dose, Starting on Thu03/13/17 at 1053, Until Thu03/13/17 at 1050, Per Protocol, Routine Given 03/13/2017 10:50 AM EST 7.9 mCi documented in this encounter Active and Recently Administered Medications Times are shown in EST. Scheduled Medication Order 03/11/2017 03/12/2017 03/13/2017 aspirin EC tablet 81 mg 81 mg, Oral, DAILY, First dose on Thu03/11/17 at 0900, Until Discontinued, Routine 0814 (Given - Provider: Patria Sewell RN) 0816 (Given - Provider: Geraldine Flood RN) 0829 (Given - Provider: Geraldine Flood, PARVIN) atorvastatin (LIPITOR) tablet 80 mg 80 mg, Oral, EVERY EVENING, First dose on Thu03/10/17 at 2000, Until Discontinued, Routine 1616 (Given - Provider: Patria Sewell RN) 1719 (Given - Provider: Geraldine Flood, PARVIN) 1628 (Given - Provider: Geraldine Flood, PARVIN) clopidogrel (PLAVIX) tablet 75 mg 75 mg, Oral, DAILY, First dose on Thu03/11/17 at 0900, Until Discontinued, Routine 0814 (Given - Provider: Patria Sewell RN) 0817 (Given - Provider: Geraldine Flood RN) 08 (Given - Provider: Geraldine Flood RN) enoxaparin (LOVENOX) injection 40 mg 40 mg, Subcutaneous, NIGHTLY, First dose on Thu03/11/17 at 2100, Until Discontinued, Routine 2111 (Given - Provider: Edwina Escobedo RN) 2026 (Given - Provider: Chen Castillo RN) glimepiride (AMARYL) tablet 2 mg (CANCELED) 2 [...] Subcutaneous, 2 TIMES DAILY, First dose on 11/15/17 at 0900, Until Discontinued, Routine 0814 (Given - Provider: Patria Sewell, PARVIN) insulin glargine VIAL injection 5 Units (CANCELED) 5 Units, Subcutaneous, EVERY 24 HOURS, First dose on Thu03/11/17 at 1100, Until Discontinued, Routine 1220 (Given - Provider: Patria Sewell RN) 1103 (Given - Provider: Geraldine Flood, PARVIN) insulin lispro (humaLOG) VIAL injection 0-10 Units 0-10 Units, Subcutaneous, 3 TIMES DAILY WITH MEALS, First dose on Thu03/12/17 at 1200, Until Discontinued, MEAL ASSOCIATED Give 1 unit for every 10 grams carbohydrate. Hold if not eating, Routine 1342 (Given - Provider: Geraldine Flood RN)1801 (Given - Provider: Geraldine Flood RN) 0800 (Not Given - Provider: Geraldine Flood RN - Reason: Order parameters not met - Comment: Pt not eating)1404 (Given - Provider: Geraldine Flood RN)1700 (Due) insulin lispro (humaLOG) VIAL injection [...] so., Routine 0822 (Given - Provider: Patria Sewell, PARVIN)1014 (Given - Provider: Patria Sewell, PARVIN)1214 (Given - Provider: Patria Sewell RN)1401 (Given - Provider: Patria Sewell, RN)1549 (Given - Provider: Patria Sewell, RN) 0821 (Given - Provider: Geraldine Flood RN - Comment: BG 204)1156 (Given - Provider: Geraldine H Flood, RN)1630 (Not Given - Provider: Geraldine Flood [...] Routine 0814 (Given - Provider: Patria Sewell, PARVIN)2110 (Given - Provider: Edwina Escobedo RN) 0816 (Given - Provider: Geraldine Flood RN)2025 (Given - Provider: Chen Castillo RN) 0829 [...] 50, Routine 0210 (Given - Provider: Yaneth Mason RN)0815 (Given - Provider: Patria L Donato, RN)1214 (Given - Provider: Patria Sewell RN)1746 (Given - Provider: Javi Brady RN) 0057 (Given - Provider: Edwina Escobedo RN)0616 (Given - Provider: Edwina Escobedo RN)1155 (Given - Provider: Geraldine Flood, PARVIN)1719 (Given - Provider: Geraldine Flood, PARVIN)2349 (Given - Provider: Chen Castillo RN) 0552 (Given - Provider: Chen Castillo RN)1200 (Not Given - Provider: Geraldine Flood RN - Reason: Medication Discontinued) meTOPROLOL succinate (TOPROL-XL) XL tablet 25 mg 25 mg, Oral, DAILY, First dose (after last modification) on Thu03/13/17 at 1230, Until Discontinued, DO NOT CRUSH OR OPEN Hold for SBP < 100 or HR < 50, Routine 1305 (Given - Provider: Geraldine Flood RN) phenytoin (DILANTIN) ER capsule 700 mg (CANCELED) 700 mg, Oral, DAILY, First dose on Thu03/11/17 at 0900, Until Discontinued, Routine 0825 (Given - Provider: Patria Sewell RN) phenytoin (DILANTIN) ER capsule 700 mg 700 mg, Oral, DAILY, First dose (after last modification) on Thu03/12/17 at 0100, Until Discontinued, Routine 0057 (Given - Provider: Edwina Escobedo RN)2240 (Given - Provider: Chen Castillo RN) regadenoson (LEXISCAN) injection 0.4 mg (COMPLETED) 0.4 mg, Intravenous, ONCE, 1 dose, On Thu03/13/17 at 1215, Routine 1145 (Given - Provider: Markos Keane - Comment: R Hand) sodium chloride 0.9 % flush 5 mL 5 mL, Intravenous, 2 TIMES DAILY, First dose on Thu03/10/17 at 2100, Until Discontinued, Routine 0817 (Given - Provider: Patria Sewell RN)2114 (Given - Provider: Edwina Escobedo RN) 0900 (Not Given - Provider: Geraldine Flood RN - Reason: Contraindicated)2027 (Given - Provider: Chen Castillo, RN) 0900 (Not Given - Provider: Geraldine Flood, PARVIN - Reason: Contraindicated) sodium chloride 0.9 % flush 5 mL 5 mL, Intravenous, EVERY 12 HOURS, First dose on Thu03/10/17 at 2000, Until Discontinued, Routine 0816 (Given - Provider: Patria Sewell, RN)2113 (Given - Provider: Edwina Escobedo RN) 0800 (Not Given - Provider: Geraldine Flood RN - Reason: Contraindicated)2025 (Given - Provider: Chen Castillo RN) 0800 (Not Given - Provider: Geraldine Flood, PARVIN - Reason: Contraindicated) PRN Medication Order 03/11/2017 [...] PRN, 1 dose, Starting on Thu03/10/17 at 1937, Until Thu03/13/17 at 1913, for discomfort with PIV insertion, Routine lidocaine (XYLOCAINE) 10 mg/mL (1 %) injection 3 mg 3 mg (0.3 mL), Subcutaneous, ONCE PRN, 1 dose, Starting on Thu03/10/17 at 1937, Until Thu03/13/17 at 1913, for discomfort with PIV insertion, Routine nitroGLYcerin [...] hours., Routine 0331 (Given - Provider: Carla Babin RN)0348 (Given - Provider: Carla Babin RN)1218 (Given - Provider: Patria Sewell RN) perflutren [...] on Thu03/10/17 at 193, Until Thu03/13/17 at 1912, Low blood sugar, [...] on Thu03/10/17 at 193, Until Thu03/13/17 at 1912, Low blood sugar, [...] Routine documented in this encounter Care Teams Certified Orthoptist Relationship Specialty Start Date End Date Blake Vasquez MD [address] [place] [address] PCP - General Internal Medicine 03/06/17 documented as of this encounter
[2024-04-15 15:49] LABS: Folate 8.4 ng/mL (8.6-20.0)
[2024-04-15 16:52] LABS: GGT 375 U/L (15-85)
[2024-04-19 20:46] LABS: Phenytoin, Total 10.6 mcg/mL
== END 2024-04-15 15:46 | disposition home or self-care (01) ==
LOC: LBO 15:45
PROVIDERS: PCP Family Medicine; Visit Provider Family Medicine
DX: G40.309 Generalized idiopathic epilepsy and epileptic syndromes, not intractable, without status epilepticus (principal); R74.8 Abnormal levels of other serum enzymes
CPT/HCPCS: 36415; 80186; 80185; 82746; 82977

== ENCOUNTER 2024-05-27 10:07 | Outpatient (CLI) | payer BC, SELFPAY ==
--- NOTE | 2024-05-27 | DI.CT_ITS ---
Exam(s) CT CHEST PE CTA EXAM: CT CHEST PE CTA CLINICAL HISTORY: DYSPNEA ON EXERTION, R06.09, TACHYCARDIA, SOB, ? PE. TECHNIQUE: Imaging Protocol: Axial CT angiography was performed with multi-slice acquisition and mu lti-planar and/or 3D reconstructions. Lung Computer Aided Detection (CAD) was utilized. CONTRAST MATERIAL: Intravenous: Omnipaque 350 contrast volume:100 mL COMPARISON: CT CT CHEST PE CTA from 11/20/2023 FINDINGS: Tracheobronchial tree: Patent where visualized. No bronchiectasis. Pulmonary parenchyma: There is a moderate-sized left pleural effusion with subjacent infiltrate which may represent atelectasis or pneumonia. There is a small infiltrate in the dependent portion of the right lung. There is a calcified granuloma in the right upper lobe. Pulmonary Arteries: No evidence of filling defect to suggest pulmonary emboli. Mediastinum and Jenny: No dominant adenopathy or fluid collection. The esophagus is unremarkable. Visualized thyroid gland: Unremarkable. Pleura: There is no pneumothorax. Heart: The heart is not dilated. Three vessel coronary artery calcification is present. No pericardi al effusion. Aorta: Thoracic aorta non-dilated. No evidence of dissection. Upper abdomen: Unremarkable. Soft tissues: Unremarkable. Bones: Within normal limits for the patient's age. IMPRESSION: 1. No evidence of pulmonary embolism, thoracic aortic dissection or aneurysm. 2. Moderate size left pleural effusion with adjacent atelectasis. 3. Small infiltrate in the dependent portion of the right lung which may represent atelectasis. RADIATION DOSE DELIVERED: 144.12mGy.cm Total DLP DATA REPOSITORY: All CT scans at this facility are submitted to the National Radiology Data Registry (NRDR) Dose Index Registry (DIR) with the [employer] (ACR). RADIATION OPTIMIZATION: All CT scans at this facility use at least one of these dose optimization te chniques: automated exposure control; mA and/or kV adjustment per patient size (includes targeted exa ms where dose is matched to clinical indication); or iterative reconstruction.
[2024-05-27] MEDS: Normal Saline - Diluent 50 ML VIAL IJ (11:25)
[2024-05-27] MEDS: Omnipaque 350 MG/ML 500 ML BTL-Imaging package 100 ML IJ (11:26)
[2024-05-27] MEDS: Normal Saline Flush 10 ML SYR IJ (11:27)
== END 2024-05-27 10:27 ==
LOC: DI 10:07
PROVIDERS: PCP Family Medicine; Visit Provider Family Medicine
DX: J90 Pleural effusion, not elsewhere classified (principal)
CPT/HCPCS: 71275

== ENCOUNTER 2024-05-27 20:38 | Outpatient (REF) | payer BC, SELFPAY ==
[2024-05-27 17:11] LABS: NT-proBNP 122 pg/mL (<300)
[2024-05-29 15:49] LABS: HIV-1/2 Ag & Ab Screen Negative (Negative)
[2024-05-30 17:53] LABS: Hepatitis C Ab w Rflx HCV PCR Negative (Negative)
== END 2024-05-27 20:39 | disposition home or self-care (01) ==
LOC: NCHCN 20:38
PROVIDERS: PCP Family Medicine; Visit Provider Family Medicine
DX: R09.02 Hypoxemia (principal); Z11.4 Encounter for screening for human immunodeficiency virus [HIV]; Z11.59 Encounter for screening for other viral diseases
CPT/HCPCS: 86803; 87389; 83880

== ENCOUNTER 2024-06-09 10:54 | Outpatient (CLI) | payer BC, SELFPAY ==
--- NOTE | 2024-06-09 | DI.RAD_ITS ---
Exam(s) XR CHEST 2V PA LATERAL EXAM: XR CHEST 2V PA LATERAL CLINICAL HISTORY: PLEURAL EFFUSION J90 EVAL INTERVAL IMPROVEMENT FROM CT 05/27 TECHNIQUE: 2D digital imaging was performed. Two views. COMPARISON: CT CT CHEST PE CTA from 11/20/2023 CR,XR XR CHEST 2V PA LATERAL from 12/10/[address] CHEST PE CTA from 05/27/2024 FINDINGS: HEART: Normal size. Aorta: Not dilated. PULMONARY VASCULATURE: Normal. MEDIASTINUM: Unremarkable. LUNGS: Persistent elevation of the right diaphragm. Based on prior CT this is secondary to an enlarg ed liver. Scarring is noted at the right lung base. PLEURAL SPACE: Blunting at the costophrenic angles. No pneumothorax. BONE:Unremarkable for age. SOFT TISSUES: Unremarkable. IMPRESSION: Blunting at the costophrenic angles could indicate trace pleural effusions. Mild scarring at the rig ht lower lobe. DATA REPOSITORY: RADIATION DOSE DELIVERED:
== END 2024-06-09 11:14 ==
LOC: DI 10:54
PROVIDERS: PCP Family Medicine; Visit Provider Family Medicine
DX: J90 Pleural effusion, not elsewhere classified (principal)
CPT/HCPCS: 71046

== ENCOUNTER 2024-10-11 02:06 | Outpatient (CLI) | payer BC, SELFPAY ==
--- NOTE | 2024-10-11 | DI.RAD_ITS ---
Exam(s) XR CHEST 2V PA LATERAL EXAM: XR CHEST 2V PA LATERAL CLINICAL HISTORY: OROPHARYNGEAL DYSPHAGIA,R13.12 TECHNIQUE: 2D digital imaging was performed of the chest. Two images were obtained. PA and lateral views were obtained. COMPARISON: CR,XR XR CHEST 2V PA LATERAL from 12/10/2023 CR XR CHEST 2V PA LATERAL from 06/09/2024 FINDINGS: MEDIASTINUM: Normal. HEART: Normal. PULMONARY VASCULATURE: Normal. LUNGS: There is again seen linear scarring in the right mid lung. There is an opacity seen in the left lung base medially. The lungs are otherwise clear. PLEURAL SPACE: There is again seen a left pleural effusion which is small. There is no pneumothorax. BONE:Within normal limits for the patient's age. OTHER FINDINGS:There is unchanged elevation of the right hemidiaphragm. IMPRESSION: 1. Persistent small left pleural effusion. 2. Opacities seen in the left lung base medially. This may represent atelectasis or pneumonia. Please correlate clinically. DATA REPOSITORY: RADIATION DOSE DELIVERED:
== END 2024-10-11 02:26 ==
LOC: DI 02:06
PROVIDERS: PCP Family Medicine; Visit Provider Nurse Practitioner Family
DX: R13.12 Dysphagia, oropharyngeal phase (principal)
CPT/HCPCS: 71046

== ENCOUNTER 2024-12-30 13:55 | Outpatient (REF) | payer BC, SELFPAY | END 2024-12-30 13:56 | disposition home or self-care (01) | LOC: NCHCN 13:55 | PROVIDERS: PCP Nurse Practitioner Family; Visit Provider Family Medicine | DX: L08.9 Local infection of the skin and subcutaneous tissue, unspecified (principal); B95.62 Methicillin resistant Staphylococcus aureus infection as the cause of diseases classified elsewhere | CPT/HCPCS: 87077; 87070; 87186; 87205 ==

== ENCOUNTER 2025-01-19 02:14 | Outpatient (CLI) | payer BC, SELFPAY ==
--- NOTE | 2025-01-19 | DI.RAD_ITS ---
Exam(s) XR CHEST 2V PA LATERAL EXAM: XR CHEST 2V PA LATERAL CLINICAL HISTORY: SOB, R06.02 TECHNIQUE: 2D digital imaging was performed. Two views. COMPARISON: CR XR CHEST 2V PA LATERAL from 10/11/2024 FINDINGS: HEART: Normal size. Aorta: Not dilated. PULMONARY VASCULATURE: Normal. MEDIASTINUM: Unremarkable. LUNGS: Stable mild elevation of the right diaphragm. Linear scarring again noted in the right lung base. PLEURAL SPACE: Decreased size of previously noted left pleural effusion. No pneumothorax. BONE:Unremarkable for age. SOFT TISSUES: Unremarkable. IMPRESSION: No acute abnormality. Improvement previously noted left pleural effusion. DATA REPOSITORY: RADIATION DOSE DELIVERED:
== END 2025-01-19 02:34 ==
PROVIDERS: PCP Nurse Practitioner Family; Visit Provider Family Medicine
DX: R06.02 Shortness of breath (principal)
CPT/HCPCS: 71046

== ENCOUNTER 2025-01-31 10:14 | Outpatient (REF) | payer BC, SELFPAY ==
[2025-01-31 15:45] LABS: ALT 17 U/L (16-63); AST 15 U/L (15-37); Albumin 3.6 g/dL (3.4-5.0); Alkaline Phosphatase 160 U/L (46-116); Anion Gap 14.3 mmol/L (3-11); BUN 11 mg/dL (7-18); Bilirubin, Total 0.2 mg/dL (0.2-1.0); CO2 24.7 mmol/L (21.0-32.0); Calcium 8.7 mg/dL (8.5-10.1); Chloride 100 mmol/L (98-107); Estimated GFR 101.95 (mL/min/1.73m2); Folate 6.5 ng/mL (8.6-20.0); Glucose 251 mg/dL (74-106); Potassium 4.3 mmol/L (3.5-5.1); Sodium 139 mmol/L (136-145); Total Protein 7.4 g/dL (6.4-8.2); Vitamin B12 1162 pg/mL (193-986)
== END 2025-01-31 10:15 | disposition home or self-care (01) ==
LOC: NCHCN 10:14
PROVIDERS: PCP Nurse Practitioner Family; Visit Provider Family Medicine
DX: R74.8 Abnormal levels of other serum enzymes (principal); E53.8 Deficiency of other specified B group vitamins
CPT/HCPCS: 80053; 82607; 82746

== ENCOUNTER 2025-02-01 09:46 | Outpatient (REF) | payer BC, SELFPAY ==
[2025-02-01 11:02] LABS: COMMENT (LAB VIEW ONLY) 92.49 mg/dL; Microalb ug/mg Crea 11.8 ug/mg Cr
== END 2025-02-01 09:47 | disposition home or self-care (01) ==
LOC: NCHCN 09:46
PROVIDERS: PCP Nurse Practitioner Family; Visit Provider Family Medicine
DX: E11.69 Type 2 diabetes mellitus with other specified complication (principal)
CPT/HCPCS: 82043; 82570

== ENCOUNTER 2025-03-17 08:01 | Emergency (ER) | payer BC, SELFPAY ==
[2025-03-17] VITALS (28 sets, daily range): BP systolic 125–147; BP diastolic 69–82; PULSE 77–100; RESP 12–20; TEMP 36.7; O2SAT 94–96
--- NOTE | 2025-03-17 08:00 | RT.EKG_ITS ---
APPROVED REPORT Exam: Resting ECG Reason for Exam: Pain in back. Cardiac hx Patient Location: E HR:92 bpm ECG Measurements Heart Rate 92 AXIS WA 191 P 49 QRSd 104 QRS 32 QT 358 T 73 QTc 443 Conclusion Sinus rhythm...normal P axis, V-rate 60- 99 no stemi
--- NOTE | 2025-03-17 08:15 | DI.RAD_ITS ---
Exam(s) XR CHEST 2V PA LATERAL EXAM: XR CHEST 2V PA LATERAL CLINICAL HISTORY: right upper back pain TECHNIQUE: 2D digital imaging was performed. Two views. COMPARISON: CR,XR XR PORTABLE CHEST AP from 11/20/2023 CR XR CHEST 2V PA LATERAL from 06/09/2024 CR XR CHEST 2V PA LATERAL from 10/11/2024 CR XR CHEST 2V PA LATERAL from 01/19/2025 FINDINGS: Exam is limited by poor pulmonary inflation on the lateral view. HEART: Normal size. Aorta: Not dilated. PULMONARY VASCULATURE: Normal. MEDIASTINUM: Unremarkable. LUNGS: Chronic elevation of the right diaphragm. Adjacent atelectasis. No infiltrate is visible. PLEURAL SPACE: No pleural effusion or pneumothorax. BONE:Unremarkable for age. SOFT TISSUES: Unremarkable. IMPRESSION: Stable elevated right diaphragm and adjacent mild atelectasis. DATA REPOSITORY: RADIATION DOSE DELIVERED:
[2025-03-17] MEDS: Dexamethasone 10 MG/ML VIAL PO (09:00)
[2025-03-17] MEDS: Ibuprofen 600 MG TAB PO (09:00)
[2025-03-17 09:02] LABS: Abs Immature Grans 0.07 10^3/uL (0.0-0.06); HCT 37.4 % (40.0-50.0); HGB 12.2 g/dL (13.5-17.5); Immature Grans % 0.6 %; MCH 27.7 pg (27.0-33.0); MCHC 32.6 % (32.0-36.0); MCV 85 fL (80-95); MPV 9.3 fL (8.0-11.0); Platelet Count 332 10^3/uL (130-400); RBC 4.41 10^6/uL (4.36-5.78); RDW 13.1 % (11.8-14.1); RDW-SD 39.8 fL; WBC 11.21 10^3/uL (4.4-10.8)
[2025-03-17 09:30] LABS: ALT 8 U/L (10-49); AST 11 U/L (<34); Albumin 4.2 g/dL (3.4-5.0); Alkaline Phosphatase 161 U/L (46-116); Anion Gap 7.1 mmol/L (3-11); BUN 6 mg/dL (9-23); Bilirubin, Total 0.20 mg/dL (0.2-1.2); CO2 27.9 mmol/L (20.0-31.0); Calcium 9.3 mg/dL (8.3-10.6); Chloride 102 mmol/L (98-107); Glucose 166 mg/dL (74-106); Potassium 3.8 mmol/L (3.5-5.1); Sodium 137 mmol/L (136-145); Total Protein 7.4 g/dL (5.7-8.2)
[2025-03-17 09:37] LABS: D-Dimer 1143 ng/mlFEU (<500)
[2025-03-17 09:40] LABS: COVID-19 PCR Negative (Negative); RSV PCR Negative (Negative)
--- NOTE | 2025-03-17 10:30 | DI.CT_ITS ---
Exam(s) CT CHEST PE CTA EXAM: CT CHEST PE CTA CLINICAL HISTORY: chest pain rt, elevated ddimer. TECHNIQUE: Imaging Protocol: Axial CT angiography was performed with multi- slice acquisition and multi-planar reconstructions as well as axial, coronal and sagittal MIP reconstructions. Computer aided detection (CAD) was utilized. CONTRAST MATERIAL: Intravenous: Omnipaque 350 Contrast volume:100 ml COMPARISON: CT CT CHEST PE CTA from 05/27/2024 CR XR CHEST 2V PA LATERAL from 03/17/2025 FINDINGS: Pulmonary Arteries: No evidence of filling defect to suggest pulmonary emboli. Mediastinum and Jenny: No dominant adenopathy or fluid collection. Pulmonary parenchyma: Right lower lobe atelectasis adjacent to the diaphragm. No consolidation or dominant measurable mass. Pleura: Trace right pleural effusion. No pneumothorax. Heart: The heart is not dilated. Severe coronary artery calcifications are seen. Aorta: Thoracic aorta non-dilated. No dissection. Upper abdomen: No acute findings. Enlarged liver with hepatic steatosis. Stable elevated right diaphragm. Bones: Unremarkable for age. Tubes, Catheters, and Lines: None Soft tissues: Unremarkable. IMPRESSION: No evidence of pulmonary embolism. Elevated right diaphragm and adjacent right basilar atelectasis. RADIATION DOSE DELIVERED: 146.74mGy.cm Total DLP DATA REPOSITORY: All CT scans at this facility are submitted to the National Radiology Data Registry (NRDR) Dose Index Registry (DIR) with the [employer] ([employer]). RADIATION OPTIMIZATION: All CT scans at this facility use at least one of these dose optimization techniques: automated exposure control; mA and/or kV adjustment per patient size (includes targeted exams where dose is matched to clinical indication); or iterative reconstruction.
--- NOTE | 2025-03-17 10:38 | W.ED.GENAD ---
Discharge Plan Disposition Patient Disposition: Home Condition: Stable Discharge Details Clinical Impression: Chest pain, pleuritic, Sore throat, Hyperglycemia Primary Care Provider: Urvashi Carver ED Provider: Milo Hudson Home Meds and New Rx's Prescriptions: Continued ezetimibe 10 mg tablet 10 mg PO DAILY glimepiride 4 mg tablet 4 mg PO DAILY nitroglycerin 0.4 mg tablet, sublingual 0.4 mg sublingual Q5M PRN Rx Instructions: do not exceed 3 doses per episode metoprolol succinate 50 mg tablet extended release 24 hr 50 mg PO DAILY rosuvastatin 40 mg tablet 40 mg PO DAILY folic acid 1 mg tablet 1 mg PO DAILY furosemide 20 mg tablet 20 mg PO DAILY PRN metformin 500 mg tablet 1,000 mg PO BID omeprazole 20 mg capsule,delayed release(DR/EC) 20 mg PO DAILY albuterol sulfate [Ventolin HFA] 90 mcg/actuation HFA aerosol inhaler 2 puff inhalation Q4H PRN Rx Instructions: inhale two puffs by mouth every 4 hours as needed diclofenac sodium [Arthritis Pain (diclofenac)] 1 % gel 2 g topical QID Rx Instructions: apply to single elbow, wrist or hand; for hand includes palm/fingers/back of hand lamotrigine 200 MG tablet 200 mg PO BID phenytoin sodium extended [Dilantin Extended] 100 MG capsule 700 mg PO .QHS aspirin [Adult Low Dose Aspirin] 81 mg tablet,delayed release (DR/EC) 81 mg PO DAILY Discharge Instructions Instructions: Sore Throat, Adult ED, Pleuritic Chest Pain ED Additional Instructions: Please follow-up with your primary care physician. Call today to arrange timely follow-up. Should symptoms persist, additional outpatient diagnostic testing may be necessary. Return to the emergency department immediately for any worsening or new concerning symptoms. Stand Alone Forms: Portal Information, Work Release Referrals: Urvashi Carver [Primary Care Provider, Medicine] Discharge Data Discharge Date/Time-TO BE ENTERED AT DEPARTURE: 03/17/25 12:07 HPI General Mode of arrival: ambulatory. Date/Time Provider Initiated Documentation: 03/17/25 08:04. Limitations to Documentation: no limitations. Information obtained by: patient. HPI Narrative: HISTORY OF PRESENT ILLNESS 60-year-old male with diabetes, coronary artery disease, anxiety disorder, and hyperlipidemia presents with mild left upper back pain under shoulder blade, rated 2/10, similar to past pleurisy. Pain worse with deep inspiration. Associated dry cough, no fever. Sore throat for 2 weeks, dry cough for 1.5 weeks, pain under right shoulder since this morning. No abdominal or calf pain. NyQuil at night without relief, inadequate fluid intake, 2 Tylenol today at 0200 hours. History of pneumonia twice in last 2 years and pleurisy twice. History of heart attack and pericarditis with pericardial effusion 20 years ago. Related Data Home Medications Medication Instructions Recorded Confirmed lamotrigine 200 mg tablet 200 mg PO BID 03/10/17 03/17/25 phenytoin sodium extended 100 mg 700 mg PO .QHS 03/10/17 03/17/25 capsule (Dilantin Extended) ezetimibe 10 mg tablet 10 mg PO DAILY 04/08/23 03/17/25 glimepiride 4 mg tablet 4 mg PO DAILY 04/08/23 03/17/25 metoprolol succinate 50 mg 50 mg PO DAILY 04/08/23 03/17/25 tablet,extended release 24 hr nitroglycerin 0.4 mg sublingual 0.4 mg sublingual Q5M PRN 04/08/23 03/17/25 tablet rosuvastatin 40 mg tablet 40 mg PO DAILY 04/08/23 03/17/25 aspirin 81 mg tablet,delayed 81 mg PO DAILY 11/20/23 03/17/25 release (Adult Low Dose Aspirin) folic acid 1 mg tablet 1 mg PO DAILY 04/28/24 03/17/25 furosemide 20 mg tablet 20 mg PO DAILY PRN 04/28/24 03/17/25 metformin 500 mg tablet 1,000 mg PO BID 04/28/24 03/17/25 albuterol sulfate 90 mcg/actuation 2 puff inhalation Q4H PRN 10/13/24 03/17/25 aerosol inhaler (Ventolin HFA) diclofenac sodium 1 % topical gel 2 g topical QID 10/13/24 03/17/25 (Arthritis Pain (diclofenac)) omeprazole 20 mg capsule,delayed 20 mg PO DAILY 10/13/24 03/17/25 release Allergies Allergy/AdvReac Type Severity Reaction Status Date / Time codeine AdvReac increased Verified 03/17/25 08:05 seizures General Stated Complaint: RespSymp SHERRIE: 3 Review of Systems All systems reviewed & are unremarkable except as noted in HPI and below Constitutional Constitutional: Denies fever(s) Respiratory Respiratory: Reports as per HPI Exam Const General: cooperative and no acute distress HENMT Mouth: mucous membranes dry Eyes Conjunctivae: normal conjunctivae Sclera: normal sclerae Neck Neck: trachea midline Resp Auscultation: clear to auscultation bilaterally, no rales, no rhonchi and no wheezes Cardio Rate: regular rate and not tachycardic Rhythm: regular rhythm GI Palpation: soft, not firm, no guarding, no masses, not rigid and nontender Skin General skin exam: no rashes or lesions noted Neuro General: patient alert, patient awake and tone normal Extrem General: no calf tenderness and no edema Course Vital Signs Vital signs: Vital Signs Temperature 36.7 C 03/17/25 08:07 Pulse 100 H 03/17/25 08:07 Respiratory Rate 20 03/17/25 08:07 Blood Pressure 147/79 H 03/17/25 08:07 Pulse Oximetry 96 03/17/25 08:07 Temperature 36.7 C 03/17/25 08:10 Temperature Source Oral 03/17/25 08:10 Pulse 100 H 03/17/25 08:10 Respiratory Rate 20 03/17/25 08:10 Respiratory Effort Normal 03/17/25 10:36 Respiratory Depth Normal 03/17/25 10:36 Blood Pressure 147/79 H 03/17/25 08:10 Blood Pressure Position Sitting 03/17/25 08:10 Pulse Oximetry 96 03/17/25 08:10 Oxygen Delivery Method Room Air 03/17/25 08:10 Oxygen Flow Rate 0 03/17/25 08:10 Pain Level 2 03/17/25 08:10 Lab/Test Results Lab/Test Results: Laboratory Tests Range/Units 03/17/25 08:53 WBC (4.4-10.8) 10^3/uL 11.21 H RBC (4.36-5.78) 10^6/uL 4.41 Hgb (13.5-17.5) g/dL 12.2 L Hct (40.0-50.0) % 37.4 L MCV (80-95) fL 85 MCH (27.0-33.0) pg 27.7 MCHC (32.0-36.0) % 32.6 RDW (11.8-14.1) % 13.1 Plt Count (130-400) 10^3/uL 332 MPV (8.0-11.0) fL 9.3 Immature Gran % % 0.6 Neutrophils % % 68.8 Lymphocytes % % 18.8 Monocytes % % 10.3 Eosinophils % % 1.1 Basophils % % 0.4 Nucleated RBC % (0.0-0.3) % 0.0 Absolute Neutrophils (1.2-6.7) 10^3/uL 7.71 H Absolute Lymphocytes (1.2-3.4) 10^3/uL 2.11 Absolute Monocytes (0.1-0.8) 10^3/uL 1.15 H Absolute Eosinophils (0.0-0.7) 10^3/uL 0.12 Absolute Basophils (0.0-0.2) 10^3/uL 0.04 D-Dimer (<500) ng/mlFEU 1143 H Sodium (136-145) mmol/L 137 Potassium (3.5-5.1) mmol/L 3.8 Chloride (98-107) mmol/L 102 Carbon Dioxide (20.0-31.0) mmol/L 27.9 Anion Gap (3-11) mmol/L 7.1 BUN (9-23) mg/dL 6 L Creatinine (0.73-1.18) mg/dL 0.59 L Est GFR (CKD-EPI 2020) (mL/min/1.73m2) 140.51 Glucose (74-106) mg/dL 166 H Calcium (8.3-10.6) mg/dL 9.3 Total Bilirubin (0.2-1.2) mg/dL 0.20 AST (<34) U/L 11 ALT (10-49) U/L 8 L Alkaline Phosphatase (46-116) U/L 161 H Total Protein (5.7-8.2) g/dL 7.4 Albumin (3.4-5.0) g/dL 4.2 COVID-19 Source Nasopharynx SARS-CoV-2 (PCR) (Negative) Negative Influenza Type A (PCR) (Negative) Negative Influenza Type B (PCR) (Negative) Negative RSV (PCR) (Negative) Negative Medical Decision Making ASSESSMENT AND PLAN Initial Assessment: 60-year-old male with diabetes, coronary artery disease, anxiety disorder, hyperlipidemia, presenting with mild left upper back pain under shoulder blade, pleuritic in nature, rated mild to moderate, associated with dry cough, and sore throat over the past couple weeks, no fever. Patient tachycardic on arrival. Saturating in the mid 90s. Differential Diagnosis: Acute pneumothorax, pneumonia, acute pulmonary embolism ED Course: - Patient was given Decadron orally and ibuprofen for sore throat - EKG reviewed and interpreted by me: Please report, sinus rhythm 92 bpm. - Chest x-ray reviewed and interpreted by radiology: Stable elevated right diaphragm and adjacent mild atelectasis. - Labs reviewed: Leukocytosis, elevated D-dimer. - CT chest was reviewed and interpreted by radiology:IMPRESSION: No evidence of pulmonary embolism. Elevated right diaphragm and adjacent right basilar atelectasis. - Patient reassessed: Tachycardia resolved. Feeling better after meds. Patient stable. - All results discussed with patient. Plan for discharge with outpatient follow-up with PCP. Usual and customary discharge instructions were reviewed. Clinical Impression: - Pleuritic pain - Dry cough - sore throat Disposition: Discharge home This document was written with the assistance of KRISSY Tello. The patient consented to its use. Lab Data Lab results reviewed: Yes I reviewed the patient's lab results. Labs: Laboratory Tests Range/Units 03/17/25 08:53 WBC (4.4-10.8) 10^3/uL 11.21 H RBC (4.36-5.78) 10^6/uL 4.41 Hgb (13.5-17.5) g/dL 12.2 L Hct (40.0-50.0) % 37.4 L MCV (80-95) fL 85 MCH (27.0-33.0) pg 27.7 MCHC (32.0-36.0) % 32.6 RDW (11.8-14.1) % 13.1 Plt Count (130-400) 10^3/uL 332 MPV (8.0-11.0) fL 9.3 Immature Gran % % 0.6 Neutrophils % % 68.8 Lymphocytes % % 18.8 Monocytes % % 10.3 Eosinophils % % 1.1 Basophils % % 0.4 Nucleated RBC % (0.0-0.3) % 0.0 Absolute Neutrophils (1.2-6.7) 10^3/uL 7.71 H Absolute Lymphocytes (1.2-3.4) 10^3/uL 2.11 Absolute Monocytes (0.1-0.8) 10^3/uL 1.15 H Absolute Eosinophils (0.0-0.7) 10^3/uL 0.12 Absolute Basophils (0.0-0.2) 10^3/uL 0.04 D-Dimer (<500) ng/mlFEU 1143 H Sodium (136-145) mmol/L 137 Potassium (3.5-5.1) mmol/L 3.8 Chloride (98-107) mmol/L 102 Carbon Dioxide (20.0-31.0) mmol/L 27.9 Anion Gap (3-11) mmol/L 7.1 BUN (9-23) mg/dL 6 L Creatinine (0.73-1.18) mg/dL 0.59 L Est GFR (CKD-EPI 2020) (mL/min/1.73m2) 140.51 Glucose (74-106) mg/dL 166 H Calcium (8.3-10.6) mg/dL 9.3 Total Bilirubin (0.2-1.2) mg/dL 0.20 AST (<34) U/L 11 ALT (10-49) U/L 8 L Alkaline Phosphatase (46-116) U/L 161 H Total Protein (5.7-8.2) g/dL 7.4 Albumin (3.4-5.0) g/dL 4.2 COVID-19 Source Nasopharynx SARS-CoV-2 (PCR) (Negative) Negative Influenza Type A (PCR) (Negative) Negative Influenza Type B (PCR) (Negative) Negative RSV (PCR) (Negative) Negative PFSH All Active Problems (Updated 03/17/25 @ 11:52 by Milo Hudson MD) Hyperglycemia (Acute) Sore throat (Acute) Chest pain, pleuritic (Acute) Oropharyngeal dysphagia (Acute) Insomnia (Acute) B12 deficiency (Acute) Neuropathy due to type 2 diabetes mellitus (Acute) Idiopathic generalized epilepsy (Acute) Medical History Osteoarthritis of both hands Alkaline phosphatase elevation Pain of both hip joints Ulcer of foot due to type 2 diabetes mellitus Vitreous degeneration of both eyes Myopia of both eyes Astigmatism of both eyes Chorioretinal scar of right eye Foot callus Psoriasis Presbyopia Senile cataracts of both eyes Daytime somnolence Pleural effusion Hypoxia Dyspnea on exertion Pericarditis Hyperlipidemia Basal cell carcinoma of right ear Lesion of skin of right ear Atherosclerosis of coronary artery without angina pectoris Screening for cancer Disorder of skin or subcutaneous tissue Edema Actinic keratosis [place] Chronic disease of tonsils and adenoids OCD (obsessive compulsive disorder) Anxiety disorder Obesity Type 2 diabetes mellitus without complication Surgical History History of intravascular stent placement History of basal cell carcinoma excision ear [place] teeth extracted History of cryosurgery Family History Mother Multiple sclerosis Social History Smoking/Tobacco Use Status: Former Tobacco Use Smoking risk assessment performed?: Yes Alcohol Intake: former Drug use: Never Substance use type: does not use Household members: spouse Housing: house Number of Children: 4 current occupation: [employer] Do you feel safe at home: Yes Do you feel safe in your relationship?: Yes
[2025-03-17] MEDS: Omnipaque 350 MG/ML 500 ML BTL-Imaging package IJ (10:50)
[2025-03-17] MEDS: Normal Saline Flush 10 ML SYR IVP (10:51)
[2025-03-17] MEDS: Normal Saline - Diluent 50 ML VIAL IJ (10:51)
[2025-03-17] MEDS: Lactated Ringers 500 ML 1000 ML IV (11:09)
== END 2025-03-17 12:07 | disposition home or self-care (01) ==
PROVIDERS: Emergency Provider Student in an Organized Health Care Education/Training Program; PCP Nurse Practitioner Family
DX: R07.1 Chest pain on breathing (principal); J02.9 Acute pharyngitis, unspecified; E11.65 Type 2 diabetes mellitus with hyperglycemia; I25.10 Atherosclerotic heart disease of native coronary artery without angina pectoris; I25.2 Old myocardial infarction; E78.5 Hyperlipidemia, unspecified; Z79.82 Long term (current) use of aspirin; Z79.84 Long term (current) use of oral hypoglycemic drugs; Z87.891 Personal history of nicotine dependence
CPT/HCPCS: 36415; 71275; 80053; 87637; 93005; 96360; 99285; 71046; 85025; 85379; 93010; J1100

== ENCOUNTER 2025-04-03 13:37 | Outpatient (REF) | payer BC, SELFPAY ==
[2025-04-03 15:22] LABS: Abs Immature Grans 0.06 10^3/uL (0.0-0.06); HCT 41.4 % (40.0-50.0); HGB 13.5 g/dL (13.5-17.5); Immature Grans % 0.6 %; MCH 29.4 pg (27.0-33.0); MCHC 32.6 % (32.0-36.0); MCV 90 fL (80-95); MPV 10.2 fL (8.0-11.0); Platelet Count 455 10^3/uL (130-400); RBC 4.59 10^6/uL (4.36-5.78); RDW 13.1 % (11.8-14.1); RDW-SD 42.6 fL; WBC 10.09 10^3/uL (4.4-10.8)
[2025-04-03 15:35] LABS: Iron 26 ug/dL (65-175)
[2025-04-03 15:36] LABS: Total Iron Binding Capacity 314 ug/dL (250-425); Transferrin Sat 8 % (20-55)
[2025-04-03 15:38] LABS: Ferritin 17 ng/mL (11-307)
== END 2025-04-03 13:38 | disposition home or self-care (01) ==
LOC: NCHCN 13:37
PROVIDERS: PCP Nurse Practitioner Family; Visit Provider Family Medicine
DX: D64.9 Anemia, unspecified (principal)
CPT/HCPCS: 82728; 83540; 83550; 85025

== ENCOUNTER 2025-04-14 01:03 | Outpatient (CLI) | payer BC, SELFPAY ==
[2025-04-14] MEDS: Inhaler, Assist Device 1 EACH MC (16:24)
[2025-04-14] MEDS: Levalbuterol HFA 15 GM INH 4 PUFF IH (16:24)
--- NOTE | 2025-04-17 08:12 | W.PFT ---
Date of service: 04/14/25 Time of Service: 15:02 Pulmonary Function Test Result Indications: Dyspnea on exertion Impression 1. Good patient effort was noted. ATS standards for reproducibility were met. 2. Spirometry did not show any obstructive lung disease. 3. Following the administration of a bronchodilator there was not a significant response 4. TLC is reduced at 65% predicted, consistent with moderate restrictive lung disease 5. DLCO was 79%, consistent with a mild defect in alveolar gas exchange. This did increase to 82% when adjusted for Hb. Interstitial lung disease should be considered.
== END 2025-04-14 01:04 | disposition home or self-care (01) ==
LOC: RT 01:03
PROVIDERS: PCP Nurse Practitioner Family; Visit Provider Physician Assistant Surgical
DX: R06.09 Other forms of dyspnea (principal); J98.4 Other disorders of lung
CPT/HCPCS: 94060; 94726; 94729